=== PATIENT | female | born 1940 | race Caucasian/White ===

== ENCOUNTER 2019-12-08 14:24 | Outpatient (REF) | payer MEDICARE, SELFPAY ==
[2019-12-08 15:31] LABS: Hematocrit 30.5 % (37-47); Mean Corpuscular HGB Conc 32.8 g/dl (31.0-35.0); Mean Corpuscular Hemoglobin 32.5 pg (27.0-33.0); Mean Platelet Volume 10.4 fL (9.4-12.3); Platelet Count 228 X10*3/uL (160-400); Red Blood Count 3.08 X10*6/uL (4.20-5.50); Red Cell Distribution Width 14.5 % (11.0-16.0); White Blood Count 7.4 X10*3/uL (4.8-10.8)
[2019-12-08 16:12] LABS: Alanine Aminotransferase 11 U/L (0-31); Albumin Level 3.5 g/dL (3.5-5.0); Alkaline Phosphatase 114 U/L (39-117); Anion Gap 18 (12-20); Aspartate Amino Transferase 16 U/L (5-31); Bilirubin Total 0.4 mg/dL (0.0-1.0); Blood Urea Nitrogen 46 mg/dL (9-16); Calcium 8.7 mg/dL (8.4-10.2); Carbon Dioxide 24 mmol/L (22-29); Chloride 105 mmol/L (96-108); Estimated Glomerular Filt Rate 47; Glucose Random 72 mg/dL (60-115); Potassium 4.2 mmol/l (3.3-5.1); Sodium 143 mmol/L (135-145); Total Protein 6.1 g/dL (6.5-8.0)
[2019-12-08 16:50] LABS: Folate > 20.0 ng/mL (> or = 4.0); Vitamin B12 160 pg/mL (200-900)
[2019-12-11 00:26] LABS: Zinc 50 mcg/dL (60-130)
== END 2019-12-08 14:25 | disposition home or self-care (01) ==
LOC: HO.LAB 14:24
PROVIDERS: PCP Nurse Practitioner Family; Visit Provider Nurse Practitioner Family
DX: R10.9 Unspecified abdominal pain (principal)
CPT/HCPCS: 36415; 80053; 81382; 82607; 82746; 84630; 85027

== ENCOUNTER 2019-12-18 12:56 | Outpatient (REF) | payer MEDICARE, SELFPAY ==
[2019-12-18 13:58] LABS: MANUAL DIFF FLAG NO
[2019-12-18 14:11] LABS: Basophils Absolute Auto 0.1 X10*3/uL (0.0-0.2); Basophils Percent Auto 0.8 % (0-2); Eosinophils Absolute Auto 0.5 X10*3/uL (0.0-0.4); Eosinophils Percent Auto 6.1 % (0-4); Hematocrit 30.7 % (37-47); Hemoglobin 9.7 g/dl (12.0-16.0); Imm Gran Abs Auto 0.05 X10*3/uL (0.00-0.03); Imm Gran Pct Auto 0.6 % (0.0-0.4); Lymphocytes Absolute Auto 1.5 X10*3/uL (1.2-4.9); Lymphocytes Percent Auto 19.5 % (20-40); Mean Corpuscular HGB Conc 31.6 g/dl (31.0-35.0); Mean Corpuscular Hemoglobin 31.7 pg (27.0-33.0); Mean Corpuscular Volume 100.3 fL (80-98); Mean Platelet Volume 10.2 fL (9.4-12.3); Monocytes Absolute Auto 0.9 X10*3/uL (0.1-1.2); Monocytes Percent Auto 11.2 % (2-11); Neutrophils Absolute Auto 4.8 X10*3/uL (2.0-8.3); Neutrophils Percent Auto 61.8 % (45-73); Platelet Count 229 X10*3/uL (160-400); Red Blood Count 3.06 X10*6/uL (4.20-5.50); Red Cell Distribution Width 14.1 % (11.0-16.0); White Blood Count 7.7 X10*3/uL (4.8-10.8)
[2019-12-23 23:11] LABS: Intrinsic Factor Antibodies Negative (Negative)
[2019-12-24 00:17] LABS: Parietal Cell Antibody <=20.0 Unit (<=20.0)
== END 2019-12-18 12:57 | disposition home or self-care (01) ==
LOC: HO.HMGCLDS 12:56
PROVIDERS: PCP Nurse Practitioner Family; Visit Provider Nurse Practitioner Family
DX: R10.9 Unspecified abdominal pain (principal); E53.8 Deficiency of other specified B group vitamins
CPT/HCPCS: 36415; 81382; 83516; 85025; 86340

== ENCOUNTER 2020-01-27 13:08 | Outpatient (REF) | payer MEDICARE, SELFPAY ==
--- NOTE | 2020-01-27 | MM_ITS ---
EXAMINATION: MM SCREENING DIGITAL BREAST TOMOSYNTHESIS, BILATERAL CLINICAL INFORMATION: Screening. Asymptomatic. The lifetime risk of breast cancer based on the Tyrer-Cuzick Model is 2%. COMPARISON: Mammography: 01/21/2019, 01/15/2018 TECHNIQUE: Digital breast tomosynthesis is performed in both the craniocaudal and mediolateral oblique views along with computer-aided detection (CAD). Synthesized 2D images are generated from the tomosynthesis. Additional views are provided: Right CC, left cleavage, left MLO x2. FINDINGS: There are scattered areas of fibroglandular density (ACR BI-RADS breast composition Category b). Parenchymal pattern is similar to prior studies. There are scattered fibronodular changes similar to previous exams. Scattered benign round and coarse calcifications are again noted. There are numerous punctate dermal foci likely deodorant artifact present on current exam. No significant changes. MM/MM tomosynthesis screening BI IMPRESSION: No significant changes from prior exams. ASSESSMENT: BI-RADS 2: Benign RECOMMENDATION: Routine annual mammography screening. This patient's information was entered into a reminder system with a target due date for their next mammogram.
== END 2020-01-27 13:09 | disposition home or self-care (01) ==
LOC: HO.MAMMO 13:08
PROVIDERS: PCP Nurse Practitioner Family; Visit Provider Nurse Practitioner Family
DX: Z12.31 Encounter for screening mammogram for malignant neoplasm of breast (principal)
CPT/HCPCS: 77063; 77067

== ENCOUNTER → 2020-01-28 11:54 | Outpatient (REF) | payer MEDICARE, SELFPAY ==
--- NOTE | 2020-01-28 11:37 | CA_ITS ---
Transthoracic Echocardiogram Patient (Last, First, Middle): Katerin Neff, Gender: Female Date of : 1940 Age: 79 Procedure Date: 01/28/2020 Procedure Type: Transthoracic Echocardiogram Location: OP Height: 157.48 cm Weight: 102.06 kg BSA: 2.01 m2 Heart Rate: bpm BP: 128 / 80 mmHg Barrel Cooper: Referring MD: Noé Ritter MD Music Minister: Noé Ritter MD Symptoms: 147.1 ATRIAL TACHYCARDIA, 110 ESSENTIAL HYPERTENSION Study Quality: Fair ECG Rhythm: Sinus Conclusions: - 1. Normal LV systolic function with impaired relaxation filling pattern 2. Moderate aortic stenosis 3. Mildly dilated left atrium 4. No pericardial effusion Findings Left Ventricle Normal left ventricular cavity size. The left ventricular systolic function is normal. The visually estimated ejection fraction is between 60-65%. Regional wall motion abnormalities can not be excluded due to suboptimal endocardial definition. Spectral Doppler is indicative of an impaired relaxation filling pattern. E/E prime ratio is between 8 and 15 consistent with indeterminate filling pressures. Right Ventricle Normal right ventricular cavity size. Atria The left atrium is mildly dilated. Interatrial shunt cannot be excluded. The right atrium was not well visualized. Aortic Valve There is moderate calcification of the aortic valve. There is moderate thickening of the aortic valve. There is moderate aortic valve stenosis. There is no aortic valve regurgitation. Mitral Valve There is mild anterior and posterior mitral leaflet thickening. There is mild mitral annular calcification. There is trace mitral valve regurgitation. There is no mitral valve stenosis. Pulmonic Valve The pulmonic valve was not well visualized. Tricuspid Valve The tricuspid valve was not well visualized. Tricuspid regurgitation envelope is inadequate for calculation of right ventricular systolic pressure. Great Vessels All visible segments of the aorta are normal in size. The pulmonary artery was not well visualized. Venous The inferior vena cava is normal in size and collapses greater than 50% with inspiration. Pericardium/Pleural There is no evidence of pericardial effusion. Prior Study Comparison No significant change compared to prior study dated: 01/01/2019. Measurements 2D Linear Measurements Ao Root: 2.90 2.1-3.5 cm LVOT Diam: 2.30 3.0+(-)1.3 cm Mitral Valve MV VTI: 0.35 MV Pk Gaurav: 1.57 MV Mn Gaurav: 0.95 MV Pk Grad: 10.00 MV Mn Grad: 5.00 MV Pk E: 1.37 MV Decel Time: 127.00 E'Lateral: 16.00 E'Medial: 13.60 E/E' Med: 10.10 E/E' Lat: 8.60 PHT: 37.00 MVA PHT: 5.95 MVA Continuity: 2.52 Decel Cidra: 10.79 Aortic Valve AoV Pk Gaurav: 3.58 AoV Mn Gaurav: 2.49 AoV VTI: 0.73 AoV Pk Grad: 51.00 Aov Mn Grad: 29.00 ANJU Cont.VTI: 1.20 LVOT LVOT Pk Gaurav: 1.13 LVOT Mn Gaurav: 0.71 LVOT VTI: 0.21 LVOT Pk Grad: 5.00 LVOT Mn Grad: 2.00 LVOT Diam: 2.30 LVOT Area: 4.15 Diastolic Function MV Pk E: 1.37 E'Medial: 13.60 E/E' Med: 10.10 E' Laterial: 16.00 E/E' Lat: 8.60 Tricuspid Valve TR Pk Gaurav: 2.32 TR Pk Grad: 22.00 Great Vessels Aorta Ao Root-2D: 2.90 2.0-3.7 cm Ao Asc: 3.50 2.1-3.4 cm Pulmonary Valve PV Pk Gaurav: 1.21 Peak PV Grad: 6.00 Updated in Other Vendor System with Status of Final Noé Ritter MD electronically signed on 01/28/2020 3:05:57 PM with status of Final
== END ==
LOC: HO.CARD 11:54
PROVIDERS: Visit Provider Internal Medicine Cardiovascular Disease
DX: I47.1 Supraventricular tachycardia (principal); I10 Essential (primary) hypertension; I35.0 Nonrheumatic aortic (valve) stenosis
CPT/HCPCS: 93306

== ENCOUNTER → 2020-02-16 10:21 | Outpatient (BNVA) | payer MEDICARE, SELFPAY | PROVIDERS: PCP Nurse Practitioner Family; Visit Provider Internal Medicine Cardiovascular Disease | DX: I47.1 Supraventricular tachycardia (principal); I35.0 Nonrheumatic aortic (valve) stenosis; I45.2 Bifascicular block; I10 Essential (primary) hypertension; Z79.899 Other long term (current) drug therapy | CPT/HCPCS: 93005; 99212 ==

== ENCOUNTER 2020-02-25 11:43 | Outpatient (REF) | payer MEDICARE, SELFPAY ==
[2020-02-25 13:59] LABS: MANUAL DIFF FLAG NO
[2020-02-25 14:07] LABS: Basophils Percent Auto 0.4 % (0-2); Eosinophils Absolute Auto 0.6 X10*3/uL (0.0-0.4); Eosinophils Percent Auto 6.1 % (0-4); Hematocrit 31.9 % (37-47); Hemoglobin 10.1 g/dl (12.0-16.0); Imm Gran Abs Auto 0.07 X10*3/uL (0.00-0.03); Imm Gran Pct Auto 0.7 % (0.0-0.4); Lymphocytes Absolute Auto 2.1 X10*3/uL (1.2-4.9); Lymphocytes Percent Auto 21.6 % (20-40); Mean Corpuscular HGB Conc 31.7 g/dl (31.0-35.0); Mean Corpuscular Hemoglobin 30.1 pg (27.0-33.0); Mean Corpuscular Volume 95.2 fL (80-98); Mean Platelet Volume 10.7 fL (9.4-12.3); Monocytes Percent Auto 10.2 % (2-11); Neutrophils Absolute Auto 5.8 X10*3/uL (2.0-8.3); Platelet Count 246 X10*3/uL (160-400); Red Blood Count 3.35 X10*6/uL (4.20-5.50); Red Cell Distribution Width 14.7 % (11.0-16.0); White Blood Count 9.6 X10*3/uL (4.8-10.8)
[2020-02-25 14:35] LABS: Alanine Aminotransferase 14 U/L (0-31); Albumin Level 3.5 g/dL (3.5-5.0); Alkaline Phosphatase 165 U/L (39-117); Anion Gap 18 (12-20); Aspartate Amino Transferase 16 U/L (5-31); Bilirubin Total 0.4 mg/dL (0.0-1.0); Blood Urea Nitrogen 37 mg/dL (9-16); Calcium 10.2 mg/dL (8.4-10.2); Carbon Dioxide 22 mmol/L (22-29); Chloride 107 mmol/L (96-108); Estimated Glomerular Filt Rate 43; Glucose Random 229 mg/dL (60-115); Iron 44 mcg/dL (30-160); Percent Iron Saturation 16 % (15-50); Potassium 5.2 mmol/l (3.3-5.1); Sodium 142 mmol/L (135-145); Total Iron Binding Capacity 270 mcg/dL (228-428); Total Protein 6.2 g/dL (6.5-8.0); Unsaturated Iron Binding 226 ug/dL
[2020-02-25 14:59] LABS: Ferritin 279 ng/mL (10-250); Vitamin B12 510 pg/mL (200-900)
== END 2020-02-25 11:44 | disposition home or self-care (01) ==
LOC: HO.HMGCLDS 11:43
PROVIDERS: PCP Nurse Practitioner Family; Visit Provider Nurse Practitioner Family
DX: E53.8 Deficiency of other specified B group vitamins (principal); D64.9 Anemia, unspecified
CPT/HCPCS: 36415; 80053; 82607; 82728; 83540; 85025

== ENCOUNTER 2020-02-27 11:34 | Outpatient (REF) | payer MEDICARE, SELFPAY ==
[2020-02-27 14:47] LABS: Alanine Aminotransferase 14 U/L (0-31); Albumin Level 3.5 g/dL (3.5-5.0); Alkaline Phosphatase 148 U/L (39-117); Anion Gap 17 (12-20); Aspartate Amino Transferase 14 U/L (5-31); Bilirubin Total 0.3 mg/dL (0.0-1.0); Blood Urea Nitrogen 36 mg/dL (9-16); Carbon Dioxide 23 mmol/L (22-29); Chloride 107 mmol/L (96-108); Estimated Glomerular Filt Rate 43; Glucose Random 214 mg/dL (60-115); Potassium 5.1 mmol/l (3.3-5.1); Sodium 142 mmol/L (135-145); Total Protein 6.2 g/dL (6.5-8.0)
== END 2020-02-27 11:35 | disposition home or self-care (01) ==
LOC: HO.HMGCLDS 11:34
PROVIDERS: PCP Nurse Practitioner Family; Visit Provider Nurse Practitioner Family
DX: E87.5 Hyperkalemia (principal); R74.8 Abnormal levels of other serum enzymes
CPT/HCPCS: 36415; 80053

== ENCOUNTER 2020-03-05 10:43 | Outpatient (REF) | payer MEDICARE, SELFPAY ==
[2020-03-05 12:01] LABS: Alanine Aminotransferase 16 U/L (0-31); Albumin Level 3.6 g/dL (3.5-5.0); Alkaline Phosphatase 155 U/L (39-117); Anion Gap 19 (12-20); Aspartate Amino Transferase 15 U/L (5-31); Bilirubin Total 0.3 mg/dL (0.0-1.0); Blood Urea Nitrogen 35 mg/dL (9-16); Carbon Dioxide 20 mmol/L (22-29); Chloride 107 mmol/L (96-108); Estimated Glomerular Filt Rate 44; Gamma Glutamyl Transpeptidase 14 U/L (7-33); Glucose Random 211 mg/dL (60-115); Sodium 141 mmol/L (135-145); Total Protein 6.5 g/dL (6.5-8.0)
[2020-03-05 12:07] LABS: Calcium 11.4 mg/dL (8.4-10.2)
[2020-03-05 12:19] LABS: Vitamin D 25-OH Total 40.4 ng/mL (>30)
[2020-03-08 12:08] LABS: Calcium, Ionized 6.6 mg/dL (4.8-5.6)
[2020-03-11 18:23] LABS: Parathyroid Hormone Related Pr 12 pg/mL (14-27)
== END 2020-03-05 10:44 | disposition home or self-care (01) ==
LOC: HO.HMGCLDS 10:43
PROVIDERS: PCP Nurse Practitioner Family; Visit Provider Nurse Practitioner Family
DX: R74.8 Abnormal levels of other serum enzymes (principal); E83.52 Hypercalcemia
CPT/HCPCS: 36415; 80053; 82306; 82330; 82977; 83519

== ENCOUNTER 2020-03-09 11:01 | Outpatient (REF) | payer MEDICARE, SELFPAY ==
--- NOTE | 2020-03-09 11:05 | MM_ITS ---
EXAMINATION: BONE DENSITOMETRY CLINICAL INDICATION: Other specified disorders of bone density and structure. COMPARISON: Previous BD dated 01/15/2018 and baseline BD dated 08/25/2010. TECHNIQUE: Using a [employer] DXA System (software version: 13.1) manufactured by [employer], dual-energy x-ray absorptiometry was performed of the lumbar spine and left hip. The images are of good technical quality. Summary results are attached. FINDINGS: AP SPINE L1-L4: Current: BMD 1.286 g/cm2, Z-score 1.9, T-score 0.9, normal, 2.4% increase from previous, 17.2% increase from baseline (<5% change is not significant). Prior: BMD 1.256 g/cm2. Baseline: BMD 1.097 g/cm2. LEFT FEMUR, NECK: Current: BMD 0.855 g/cm2, Z-score 0.4, T-score -1.3, osteopenia. Prior: BMD 0.828 g/cm2. Baseline: BMD 0.832 g/cm2. LEFT FEMUR, TOTAL: Current: BMD 1.068 g/cm2, Z-score 2.0, T-score 0.5, normal, 2.6% increase from previous, 20.0% increase from baseline (<5% change is not significant). Prior: BMD 1.041 g/cm2. Baseline: BMD 0.890 g/cm2. IDENTIFIED RISK FACTORS: Recurrent falls, history of fracture (adult), glucocorticoids (chronic), menopause. HISTORY OF FRACTURE: Humerus/shoulder. MEDICATIONS: Calcium supplements or multivitamin, vitamin D. MM/XR DEXA axial skeleton IMPRESSION: 1. DIAGNOSIS: Osteopenia based on the lowest T-score value of -1.3 in the femoral neck applying World Health Organization criteria. 2. 10-YEAR FRACTURE RISK PREDICTION, FRAX: Major osteoporotic fracture (clinical spine, forearm, hip or shoulder) 25.0%. Hip fracture 6.1%. 3. Treatment Recommendations: NOF guidelines recommend consideration for treatment in postmenopausal women and men age 50 and older presenting with the following: -A hip or vertebral (clinical or morphometric) fracture. -T-score less than or equal to -2.5 at the femoral neck or spine after appropriate evaluation to exclude secondary causes. -Low bone mass at the hip or spine and a 10-year fracture probability by FRAX of greater than or equal to 3% for hip fracture or greater than or equal to 20% for major osteoporotic fracture based on the [place] adapted WHO algorithm. 4. Other Recommendations: All treatment decisions require clinical judgment and consideration of individual patient factors, including patient preferences, comorbidities, previous drug use, risk factors not captured in the FRAX model (e.g. frailty, falls, vitamin D deficiency, increased bone turnover, interval significant decline in bone density) and possible under or overestimation of fracture risk by FRAX. Additional medical evaluation for secondary cause of low bone mineral density may be appropriate. FUTURE SCAN RECOMMENDATION: People with diagnosed cases of osteoporosis or at high risk for fracture should have regular bone mineral density tests. For patients eligible for Medicare, routine testing is allowed once every 2 years. The testing frequency can be increased to one year for patients who have rapidly progressing disease, those who are receiving or discontinuing medical therapy to restore bone mass, or have additional risk factors.
== END 2020-03-09 11:02 | disposition home or self-care (01) ==
LOC: HO.MAMMO 11:01
PROVIDERS: Visit Provider Nurse Practitioner Family
DX: Z13.820 Encounter for screening for osteoporosis (principal); Z78.0 Asymptomatic menopausal state; M85.80 Other specified disorders of bone density and structure, unspecified site; R29.6 Repeated falls; Z79.52 Long term (current) use of systemic steroids
CPT/HCPCS: 77080

== ENCOUNTER 2020-04-06 12:11 | Outpatient (REF) | payer MEDICARE, SELFPAY ==
[2020-04-06 14:04] LABS: MANUAL DIFF FLAG NO
[2020-04-06 14:10] LABS: Basophils Absolute Auto 0.1 X10*3/uL (0.0-0.2); Basophils Percent Auto 0.8 % (0-2); Eosinophils Absolute Auto 0.2 X10*3/uL (0.0-0.4); Eosinophils Percent Auto 2.2 % (0-4); Hemoglobin 9.6 g/dl (12.0-16.0); Imm Gran Abs Auto 0.08 X10*3/uL (0.00-0.03); Imm Gran Pct Auto 0.8 % (0.0-0.4); Lymphocytes Absolute Auto 1.7 X10*3/uL (1.2-4.9); Lymphocytes Percent Auto 15.9 % (20-40); Mean Corpuscular Hemoglobin 30.2 pg (27.0-33.0); Mean Corpuscular Volume 94.3 fL (80-98); Monocytes Percent Auto 9.5 % (2-11); Neutrophils Absolute Auto 7.3 X10*3/uL (2.0-8.3); Neutrophils Percent Auto 70.8 % (45-73); Platelet Count 298 X10*3/uL (160-400); Red Blood Count 3.18 X10*6/uL (4.20-5.50); Red Cell Distribution Width 15.3 % (11.0-16.0); White Blood Count 10.4 X10*3/uL (4.8-10.8)
[2020-04-06 14:43] LABS: Alanine Aminotransferase 12 U/L (0-31); Albumin Level 3.5 g/dL (3.5-5.0); Alkaline Phosphatase 117 U/L (39-117); Anion Gap 18 (12-20); Aspartate Amino Transferase 11 U/L (5-31); Bilirubin Total 0.3 mg/dL (0.0-1.0); Blood Urea Nitrogen 39 mg/dL (9-16); Calcium 10.2 mg/dL (8.4-10.2); Carbon Dioxide 20 mmol/L (22-29); Chloride 108 mmol/L (96-108); Estimated Glomerular Filt Rate 37; Glucose Random 196 mg/dL (60-115); Iron 38 mcg/dL (30-160); Percent Iron Saturation 13 % (15-50); Potassium 4.9 mmol/L (3.3-5.1); Sodium 141 mmol/L (135-145); Total Iron Binding Capacity 284 mcg/dL (228-428); Total Protein 6.3 g/dL (6.5-8.0); Unsaturated Iron Binding 246 ug/dL
[2020-04-06 16:05] LABS: Ferritin 285 ng/mL (10-250)
[2020-04-07 14:02] LABS: Calcium (PTHI) 10.3 mg/dL (8.6-10.4); PTHI 14 pg/mL (14-64)
[2020-04-08 16:33] LABS: Vitamin B12 1074 pg/mL (200-900)
== END 2020-04-06 12:12 | disposition home or self-care (01) ==
LOC: HO.HMGCLDS 12:11
PROVIDERS: PCP Nurse Practitioner Family; Visit Provider Nurse Practitioner Family
DX: D64.9 Anemia, unspecified (principal); E83.52 Hypercalcemia
CPT/HCPCS: 36415; 80053; 82607; 82728; 83540; 83970; 85025

== ENCOUNTER 2020-04-23 | Outpatient (REF) | payer MEDICARE, SELFPAY ==
[2020-04-28 14:46] LABS: OBS Int Ctl Valid YES; OBS1 NEGATIVE (NEGATIVE); OBS2 NEGATIVE (NEGATIVE); OBS3 NEGATIVE (NEGATIVE)
== END 2020-04-23 00:01 | disposition home or self-care (01) ==
LOC: HO.LNP
PROVIDERS: Visit Provider Nurse Practitioner Family
DX: D64.9 Anemia, unspecified (principal)
CPT/HCPCS: 82270

== ENCOUNTER 2020-04-28 13:38 | Inpatient (IN) | payer MEDICARE, SELFPAY ==
[2020-04-28] VITALS (10 sets, daily range): BP systolic 78–108; BP diastolic 25–40; PULSE 48–71; RESP 15–22; TEMP 36.5–36.6; O2SAT 98; BMI 36.6
--- NOTE | ~2020-04-28 | CT_ITS ---
EXAMINATION: HEAD AND CERVICAL SPINE CT WITHOUT CONTRAST CLINICAL INFORMATION: Fall COMPARISON: Previous head and cervical spine CT August 2012 TECHNIQUE: Axial images through the head and cervical spine without contrast. Sagittal and coronal reconstructions on the technologist workstation were performed. Patient dose 692+3 5 3 mg/cm FINDINGS: Head CT: There is no evidence of an extra-axial collection. There is no evidence of intra-axial or extra-axial hemorrhage. Ventricles and extra-axial CSF spaces are prominent suggestive of generalized atrophy. There is nonspecific periventricular white matter disease. No mass, mass effect or infarct is seen. No skull fracture is seen. Visualized paranasal sinuses, mastoid air cells and middle ears are clear. Cervical spine: There is curvature of the lower cervical and upper thoracic spine to the left. Bone alignment is otherwise normal. No fracture or dislocation is seen. There is degenerative spondylosis at C4-C5 and C6-C7. There is disc space narrowing at C4-C5. There is bilateral facet arthritis. There is new posterior dural calcification at C5 and C6. Prevertebral soft tissues are normal. The thyroid gland is prominent and heterogeneous but similar to previous exam. There is a 3 mm right upper lobe nodule axial image 344 series 12. This is not included in the [id number] on prior exam and cannot be compared. There is bilateral cervical lymphadenopathy. Lymph nodes are upper normal in size. This is increased from previous exam CT/CT cervical spine wo con IMPRESSION: Head CT: No acute findings. Mild generalized atrophy and nonspecific periventricular white matter disease. Cervical spine: Degenerative changes. No fracture or dislocation seen. Bilateral cervical lymphadenopathy increased from 2013 exam.
--- NOTE | ~2020-04-28 | CT_ITS ---
EXAMINATION: HEAD AND CERVICAL SPINE CT WITHOUT CONTRAST CLINICAL INFORMATION: Fall COMPARISON: Previous head and cervical spine CT August 2012 TECHNIQUE: Axial images through the head and cervical spine without contrast. Sagittal and coronal reconstructions on the technologist workstation were performed. Patient dose 692+3 5 3 mg/cm FINDINGS: Head CT: There is no evidence of an extra-axial collection. There is no evidence of intra-axial or extra-axial hemorrhage. Ventricles and extra-axial CSF spaces are prominent suggestive of generalized atrophy. There is nonspecific periventricular white matter disease. No mass, mass effect or infarct is seen. No skull fracture is seen. Visualized paranasal sinuses, mastoid air cells and middle ears are clear. Cervical spine: There is curvature of the lower cervical and upper thoracic spine to the left. Bone alignment is otherwise normal. No fracture or dislocation is seen. There is degenerative spondylosis at C4-C5 and C6-C7. There is disc space narrowing at C4-C5. There is bilateral facet arthritis. There is new posterior dural calcification at C5 and C6. Prevertebral soft tissues are normal. The thyroid gland is prominent and heterogeneous but similar to previous exam. There is a 3 mm right upper lobe nodule axial image 344 series 12. This is not included in the [id number] on prior exam and cannot be compared. There is bilateral cervical lymphadenopathy. Lymph nodes are upper normal in size. This is increased from previous exam CT/CT head/brain wo con IMPRESSION: Head CT: No acute findings. Mild generalized atrophy and nonspecific periventricular white matter disease. Cervical spine: Degenerative changes. No fracture or dislocation seen. Bilateral cervical lymphadenopathy increased from 2013 exam.
--- NOTE | ~2020-04-28 | XR_ITS ---
EXAMINATION: XR CHEST CLINICAL INFORMATION: Hypotensive. COMPARISON: None TECHNIQUE: Frontal view of the chest was obtained. FINDINGS: The lungs are hyperinflated with patchy atelectasis left lung base. Rest of lungs are clear. Heart size and pulmonary vascularity is normal. There is moderate spondylosis dorsal spine. No lytic process. XR/XR chest 1V IMPRESSION: Left basilar atelectasis. Moderate spondylosis dorsal spine..
--- NOTE | 2020-04-28 14:13 | ECG_ITS ---
Test Reason : FALL Blood Pressure : / mmHG Vent. Rate : 063 BPM Atrial Rate : 063 BPM P-R Int : 246 ms QRS Dur : 126 ms QT Int : 394 ms P-R-T Axes : -03 -48 034 degrees QTc Int : 403 ms Sinus rhythm with 1st degree A-V block with wenkebach Left axis deviation Right bundle branch block Abnormal ECG When compared with ECG of 11-SEP-2012 11:11, Vent. rate has decreased BY 40 BPM QT has shortened Referred By: Chava Almanzar Electronically Signed By:GRACIA NGUYEN MD
[2020-04-28 14:28] LABS: MANUAL DIFF FLAG NO
[2020-04-28 14:34] LABS: Basophils Absolute Auto 0.1 X10*3/uL (0.0-0.2); Basophils Percent Auto 0.4 % (0-2); Eosinophils Absolute Auto 0.2 X10*3/uL (0.0-0.4); Eosinophils Percent Auto 1.4 % (0-4); Hematocrit 27.3 % (37-47); Hemoglobin 8.8 g/dl (12.0-16.0); Imm Gran Abs Auto 0.09 X10*3/uL (0.00-0.03); Imm Gran Pct Auto 0.8 % (0.0-0.4); Lymphocytes Absolute Auto 1.5 X10*3/uL (1.2-4.9); Lymphocytes Percent Auto 12.2 % (20-40); Mean Corpuscular HGB Conc 32.2 g/dl (31.0-35.0); Mean Corpuscular Hemoglobin 29.8 pg (27.0-33.0); Mean Corpuscular Volume 92.5 fL (80-98); Mean Platelet Volume 9.5 fL (9.4-12.3); Monocytes Absolute Auto 1.3 X10*3/uL (0.1-1.2); Monocytes Percent Auto 10.9 % (2-11); NRBC Pct Auto 0.2 /100WBC (0.0-0.2); Neutrophils Absolute Auto 8.8 X10*3/uL (2.0-8.3); Neutrophils Percent Auto 74.3 % (45-73); Platelet Count 302 X10*3/uL (160-400); Red Blood Count 2.95 X10*6/uL (4.20-5.50); Red Cell Distribution Width 15.3 % (11.0-16.0); White Blood Count 11.9 X10*3/uL (4.8-10.8)
--- NOTE | 2020-04-28 14:39 | ECG_ITS ---
Test Reason : REPEAT Blood Pressure : / mmHG Vent. Rate : 066 BPM Atrial Rate : 062 BPM P-R Int : 000 ms QRS Dur : 128 ms QT Int : 400 ms P-R-T Axes : 000 -52 017 degrees QTc Int : 419 ms Normal sinus rhythm with Premature atrial complexes Right bundle branch block Left anterior fascicular block Bifascicular block Abnormal ECG When compared with ECG of 28-APR-2020 14:19, Premature atrial complexes are now Present Referred By: Chava Almanzar Electronically Signed By:GRACIA NGUYEN MD
[2020-04-28] MEDS: 0.9 % Sodium Chloride 1,000 ML 999 ML IV ×3 (14:45→16:26)
[2020-04-28 15:00] LABS: INTERNATIONAL NORM RATIO 1.4 (0.9-1.1); Prothrombin Time 16.1 SEC (10.8-13.0)
[2020-04-28 15:03] LABS: Partial Thromboplastin Time 31.6 SEC (24.1-38.0)
[2020-04-28 15:13] LABS: Alanine Aminotransferase 11 U/L (0-31); Albumin Level 3.1 g/dL (3.5-5.0); Alkaline Phosphatase 120 U/L (39-117); Anion Gap 16 (12-20); Aspartate Amino Transferase 12 U/L (5-31); Bilirubin Total 0.5 mg/dL (0.0-1.0); Blood Urea Nitrogen 60 mg/dL (9-16); Calcium 9.9 mg/dL (8.4-10.2); Carbon Dioxide 19 mmol/L (22-29); Chloride 107 mmol/L (96-108); Creatinine Clr Calc Pharmacy 20.2; Estimated Glomerular Filt Rate 21; Glucose Random 72 mg/dL (60-115); Potassium 5.1 mmol/L (3.3-5.1); Sodium 137 mmol/L (135-145); Total Protein 5.6 g/dL (6.5-8.0)
[2020-04-28 15:17] LABS: Troponin-I High Sensitivity 6.2 ng/L (<3.5-17.0)
--- NOTE | 2020-04-28 15:18 | ED_ITS ---
HPI - Fall General Chief Complaint: Fall Stated Complaint: fell hit head Sunday Time Seen by Provider: 04/28/20 14:02 Source: patient Mode of arrival: ambulatory Limitations: no limitations History of Present Illness HPI Narrative: Patient presents to ED for evaluation after falling this past Sunday. Patient states she was walking backward into toilet seat and and while trying to sit on the toilet when she slipped and fell on head. Patient denies feeling dizzy, lightheaded, chest pain, headache, nausea before falling. Daughter states since fall patient has been more tired and has not wanted to eat. Daughter states patient has known long history of lightheadedness in the past and always have had normal blood work. Related Data Home Medications Medication Instructions Recorded Confirmed lisinopril 40 mg tablet 40 mg PO DAILY 02/16/20 04/28/20 doxycycline hyclate 50 mg capsule 50 mg PO BID 03/08/20 04/28/20 cyanocobalamin-cobamamide 1 tab PO DAILY 04/28/20 04/28/20 halobetasol propionate 1 appl TOPICAL DAILY 04/28/20 04/28/20 Previous Rx's Medication Instructions Recorded atorvastatin 10 mg tablet 10 mg PO BEDTIME 90 Days #90 tab 12/02/19 metoprolol succinate 50 mg 50 mg PO DAILY #90 cap 12/03/19 tablet,extended release 24 hr metformin 1,000 mg tablet 1,000 mg PO BID 90 Days #180 tab 01/19/20 omega-3 acid ethyl esters 1 gram 2 cap PO BID #360 cap 02/17/20 capsule allopurinol 300 mg tablet 300 mg PO DAILY #90 tab 03/01/20 diltiazem HCl 240 mg 240 mg PO DAILY 90 Days #90 cap 03/02/20 capsule,extended release 24 hr Allergies Allergy/AdvReac Type Severity Reaction Status Date / Time adhesive tape [ADHESIVE TAPE] Allergy Intermediate RASH Verified 03/08/20 15:52 Review of Systems Review of Systems: Yes all other systems are reviewed and are negative Constitutional: Constitutional: Reports as per HPI, Reports no additional c onstitutional complaints and Reports headache(s) Eyes: Eyes: Reports as per HPI and Reports no additional eye complaints ENT: Reports system reviewed and no additional complaints, except as documented, Reports as per HPI and Reports headache(s) Cardiovascular: Cardiovascular: Reports as per HPI and Reports no additional cardiovascular complaints Respiratory: Respiratory: Reports as per HPI and Reports no additional respiratory complaints Gastrointestinal: Gastrointestinal: Reports as per HPI, Reports no additional gastrointestinal complaints, Denies abdominal pain, Denies belching, Denies melena, Denies bloating, Denies heartburn, Denies diarrhea and Denies nausea Genitourinary: Genitourinary: Reports no additional female genitourinary complaints and Reports as per HPI Musculoskeletal: Musculoskeletal: Reports no additional musculoskeletal complaints and Reports as per HPI Neurologic: Reports system reviewed and no additional complaints, except as documented, Reports as per HPI and Reports headache(s) Psychiatric: Psychiatric: Reports no additional psychiatric complaints and Reports as per HPI PMFSH Past Medical History Medical History Aortic stenosis Atrial tachycardia B12 deficiency Basal cell carcinoma of face Bifascicular block Bullous pemphigoid Diabetes mellitus Gout HTN (hypertension) Lymphedema RBBB Surgical History (Updated 02/12/20 @ 15:06 by ALEX Orozco, COMMERCIAL [employer]LECT[employer]) History of hemorrhoidectomy History of tonsillectomy Hx of cholecystectomy Umbilical hernia Family History Family History (Updated 02/12/20 @ 15:09 by ALEX Orozco, COMMERCIAL COLLECTOR) Father Myocardial infarction Mother CHF (congestive heart failure) Brother Dementia Son No problems noted. Daughter No problems noted. Daughter No problems noted. Sister No problems noted. Sister No problems noted. Sister No problems noted. Sister Ovarian cancer Sister Cancer Stroke Social History Social History (Updated 03/08/20 @ 13:47 by Georgia Silveira CMA) Alcohol intake: never Smoking Status: Never smoker Advance Directives: Yes Advance Directives Information Provided: Yes Advance Directives on File: No Physical Exam Vital Signs: Vital Signs: Last Vital Signs Temp 97.7 F 04/28/20 19:40 Pulse 63 04/28/20 21:15 Resp 20 04/28/20 21:15 BP 81/28 L 04/28/20 21:15 Pulse Ox 98 04/28/20 21:15 Body Mass Index 36.6 Const: General: cooperative, healthy appearing, comfortable, no acute distress, well developed, alert, awake and Physically active Orientation/consciousness: patient oriented x3 HENMT: Head: Yes normal to inspection, Yes No palpable skull fracture present, Yes normocephalic, Yes atraumatic, Yes abrasion, No Acrocyanosis present, No Dos Santos's sign, No contusion, No cranial bruits, Yes hematoma (Small parietal), No laceration, No occipital foramen tenderness, No palpable skull fracture, No raccoon eyes, No scalp lesion, No scalp tenderness, No Temporal artery tenderness present and No periorbital ecchymosis Eyes: General: appearance normal, both eyes and all related structures Neck: Neck: Yes normal visual inspection, Yes full ROM, Yes no lymphadenopathy, Yes no meningeal signs, Yes trachea midline, Yes supple and Yes tender Chest: Chest palpation & inspection: normal inspection of the chest and normal palpation of entire chest wall Resp: Effort & Inspection: normal respiratory effort and able to speak in complete sentences Auscultation: clear to auscultation bilaterally Cardio: Jugular venous distension: no JVD Heart sounds: S1 normal heart sound present and S2 normal heart sound present GI: Other: Rectal exam negative for any peewee blood or black stool. Stool is brown Inspection: Yes normal to inspection and No abdominal wall ecchymosis Palpation (GI): Abdominal aortic bruit present, Soft to palpation, not firm, nontender, no guarding and not rigid : General: No CVA tenderness and Yes no CVA tenderness Back/Spine/Pelvis: Back: no CVA tenderness, No CVA tenderness and No back tenderness Skin: General skin exam: no rashes or lesions noted and elasticity normal Neuro: General: patient oriented x3, no meningeal signs and CN's II-XI intact bilaterally Cranial nerves: Yes CN's II-XII intact bilaterally Extrem: General: Yes normal to inspection and Yes full ROM Psych: Appearance: grossly normal, well kempt and not disheveled Course Course Course Narrative: Patient's history physical exam indicate mechanical fall but due to patient being slightly hyportensive patient will have medical evaluation. Patient will have labs, UA, chest x-ray, head CT, and C-spine. Reevaluation(s) Reevaluation #1: Patient's 1st EKG was sinus, because patient became hypotensive repeat EKG was done. EKG reading states history of fibrillation but Dr. Salinas and I reviewed the chart and patient has P waves. EKG reading of atrial fibrillation is wrong. Patient will be given fluids. Reevaluation #2: Patient CK came back normal. Patient initial lab shows HEAVENLY. CBC shows a drop in H&H will do occult stool guaiac to rule out bleed. Presently no source of infection. Reevaluation #3: Patient's stool guaiac came back positive. Will consult Gastroenterology. Spoke with Dr. Ash who recommends patient received is 1 unit of blood. Awaiting UA results. Will talk with attendant for possible central line the patient still hyportensive. Patient never complained of any dizziness, lightheadedness, shortness of breath, or weakness during ED visit. Patient orthostatics positive Additional Reevaluation(s): Spoke with Dr. Jacobo of Gastroenterology and he was made aware of patient's history, physical exam, vital signs, and diagnostics. He was informed that patient will be receiving 1 unit of blood and Protonix. He states he will see patient in the morning and further evaluate with possible endoscope P if indicated. Patient blood pressure improved to 108/40. Spoke with Dr. Spears who states he could continue to watch blood pressure now that it has improved. Patient's map improved. Patient does not want us to put a Dalal for her to give urine patient states she would rather wait and going her own. At 18:48 patient once again became hypotensive. Discu ssed case with Dr. Akhtar who states patient should receive blood first and than have blood pressure re-evaluation to see if central line is indicated. And 20:35 patient finally give urine. UA shows most likely non clean-catch and not UTI. Patient has large amounts of squamous cell. As per nursing staff urine was collected after patient use the commode when she also had a bowel movement at the same time while she urinated urinated patient has no urinary symptoms. 20:[address] Platt and he agrees to accept the case. He was informed patient's history, physical exam, and diagnostics, and labs. We discussed UA and he also agreed most likely this is dirty catch and not a UTI, but he states to order antibiotics and he will follow the urine culture tomorrow. The patient is not septic. COVID swab pending. At 20:55 blood pressure improved to 107/35. At 21:30 went again to speak to patient and her daughter. Patient made me aware that she was DNI and DNR. Patient's daughter was also in the room amd confirmed that her mother is DNI and DNR. Patient does not want to change her code status. Patient and daughter states they have record of patient is signing a form with her which that states DNI and DNR. Patient is agreeable to central line. Patient repeat blood pressure 81/28. Dr. Spears was made aware and states place patient in Trendelenburg and she will place central line if there is no improvement in blood pressure. Dr. Akhtar will follow case. MDM - Fall MDM Narrative Medical decision making narrative: HEAVENLY. Rule out GI bleed. Symptomatic anemia Lab Data Result diagrams: 04/28/20 14:22 04/28/20 18:28 Labs: Lab Results 04/28/20 04/28/20 04/28/20 Range/Units 14:22 14:22 14:22 WBC 11.9 H (4.8-10.8) X10*3/uL RBC 2.95 L (4.20-5.50) X10*6/uL Hgb 8.8 L (12.0-16.0) g/dl Hct 27.3 L (37-47) % MCV 92.5 (80-98) fL MCH 29.8 (27.0-33.0) pg MCHC 32.2 (31.0-35.0) g/dl RDW 15.3 (11.0-16.0) % Plt Count 302 (160-400) X10*3/uL MPV 9.5 (9.4-12.3) fL Immature Gran % (Auto) 0.8 H (0.0-0.4) % Neut % (Auto) 74.3 H (45-73) % Lymph % (Auto) 12.2 L (20-40) % [place] % (Auto) 10.9 (2-11) % Eos % (Auto) 1.4 (0-4) % Baso % (Auto) 0.4 (0-2) % Lymph # (Auto) 1.5 (1.2-4.9) X10*3/uL [place] # (Auto) 1.3 H (0.1-1.2) X10*3/uL Eos # (Auto) 0.2 (0.0-0.4) X10*3/uL Baso # (Auto) 0.1 (0.0-0.2) X10*3/uL Abs Immat Gran (auto) 0.09 H (0.00-0.03) X10*3/uL Absolute Neuts (auto) 8.8 H (2.0-8.3) X10*3/uL Absolute Nucleated RBC 0.020 H (0.0-0.012) X10*3/uL Nucleated RBC % (auto) 0.2 (0.0-0.2) /100WBC PT 16.1 H (10.8-13.0) SEC INR 1.4 H (0.9-1.1) APTT 31.6 (24.1-38.0) SEC Sodium 137 (135-145) mmol/L Potassium 5.1 (3.3-5.1) mmol/L Chloride 107 (96-108) mmol/L Carbon Dioxide 19 L (22-29) mmol/L Anion Gap 16 (12-20) BUN 60 H D (9-16) mg/dL Creatinine 2.24 H (0.5-1.4) mg/dL Estim Creat Clear Calc 20.2 Estimated GFR 21 Random Glucose 72 D (60-115) mg/dL Lactic Acid (0.5-2.0) mmol/L Calcium 9.9 (8.4-10.2) mg/dL Total Bilirubin 0.5 (0.0-1.0) mg/dL AST 12 (5-31) U/L ALT 11 (0-31) U/L Alkaline Phosphatase 120 H (39-117) U/L Total Creatine Kinase 24 L (26-140) U/L Troponin I High Sens (<3.5-17.0) ng/L B-Natriuretic Peptide Total Protein 5.6 L (6.5-8.0) g/dL Albumin 3.1 L (3.5-5.0) g/dL Urine Color Urine Appearance Urine pH (5.0-8.0) Ur Specific [place] (1.005-1.025) Urine Protein (NEG-TRACE) MG/DL Urine Glucose (UA) (NEG) MG/DL Urine Ketones (NEG) MG/DL Urine Blood (NEG) Urine Nitrite (NEG) Ur Leukocyte Esterase (NEG) Urine RBC (0) /HPF Urine WBC (0-4) /HPF Ur Squamous Epith Cells /LPF Ur Renal Epithelial Cell /LPF Urine Bacteria /LPF Stool Occult Blood (NEGATIVE) COVID-19 ([facility]ELSIE) (Negative) COVID-19 Clin Com Blood Type Antibody Screen Crossmatch 04/28/20 04/28/20 04/28/20 Range/Units 14:22 15:52 15:54 WBC (4.8-10.8) X10*3/uL RBC (4.20-5.50) X10*6/uL Hgb (12.0-16.0) g/dl Hct (37-47) % MCV (80-98) fL MCH (27.0-33.0) pg MCHC (31.0-35.0) g/dl RDW (11.0-16.0) % Plt Count (160-400) X10*3/uL MPV (9.4-12.3) fL Immature Gran % (Auto) (0.0-0.4) % Neut % (Auto) (45-73) % Lymph % (Auto) (20-40) % [place] % (Auto) (2-11) % Eos % (Auto) (0-4) % Baso % (Auto) (0-2) % Lymph # (Auto) (1.2-4.9) X10*3/uL [place] # (Auto) (0.1-1.2) X10*3/uL Eos # (Auto) (0.0-0.4) X10*3/uL Baso # (Auto) (0.0-0.2) X10*3/uL Abs Immat Gran (auto) (0.00-0.03) X10*3/uL Absolute Neuts (auto) (2.0-8.3) X10*3/uL Absolute Nucleated RBC (0.0-0.012) X10*3/uL Nucleated RBC % (auto) (0.0-0.2) /100WBC PT (10.8-13.0) SEC INR (0.9-1.1) APTT (24.1-38.0) SEC Sodium (135-145) mmol/L Potassium (3.3-5.1) mmol/L Chloride (96-108) mmol/L Carbon Dioxide (22-29) mmol/L Anion Gap (12-20) BUN (9-16) mg/dL Creatinine (0.5-1.4) mg/dL Estim Creat Clear Calc Estimated GFR Random Glucose (60-115) mg/dL Lactic Acid 1.2 (0.5-2.0) mmol/L Calcium (8.4-10.2) mg/dL Total Bilirubin (0.0-1.0) mg/dL AST (5-31) U/L ALT (0-31) U/L Alkaline Phosphatase (39-117) U/L Total Creatine Kinase (26-140) U/L Troponin I High Sens 6.2 (<3.5-17.0) ng/L B-Natriuretic Peptide Cancelled Total Protein (6.5-8.0) g/dL Albumin (3.5-5.0) g/dL Urine Color Urine Appearance Urine pH (5.0-8.0) Ur Specific [place] (1.005-1.025) Urine Protein (NEG-TRACE) MG/DL Urine Glucose (UA) (NEG) MG/DL Urine Ketones (NEG) MG/DL Urine Blood (NEG) Urine Nitrite (NEG) Ur Leukocyte Esterase (NEG) Urine RBC (0) /HPF Urine WBC (0-4) /HPF Ur Squamous Epith Cells /LPF Ur Renal Epithelial Cell /LPF Urine Bacteria /LPF Stool Occult Blood POSITIVE (NEGATIVE) COVID-19 ([facility]ELSIE) (Negative) COVID-19 Clin Com Blood Type Antibody Screen Crossmatch 04/28/20 04/28/20 04/28/20 Range/Units 17:04 18:28 18:28 WBC (4.8-10.8) X10*3/uL RBC (4.20-5.50) X10*6/uL Hgb (12.0-16.0) g/dl Hct (37-47) % MCV (80-98) fL MCH (27.0-33.0) pg MCHC (31.0-35.0) g/dl RDW (11.0-16.0) % Plt Count (160-400) X10*3/uL MPV (9.4-12.3) fL Immature Gran % (Auto) (0.0-0.4) % Neut % (Auto) (45-73) % Lymph % (Auto) (20-40) % [place] % (Auto) (2-11) % Eos % (Auto) (0-4) % Baso % (Auto) (0-2) % Lymph # (Auto) (1.2-4.9) X10*3/uL [place] # (Auto) (0.1-1.2) X10*3/uL Eos # (Auto) (0.0-0.4) X10*3/uL Baso # (Auto) (0.0-0.2) X10*3/uL Abs Immat Gran (auto) (0.00-0.03) X10*3/uL Absolute Neuts (auto) (2.0-8.3) X10*3/uL Absolute Nucleated RBC (0.0-0.012) X10*3/uL Nucleated RBC % (auto) (0.0-0.2) /100WBC PT (10.8-13.0) SEC INR (0.9-1.1) APTT (24.1-38.0) SEC Sodium 138 (135-145) mmol/L Potassium 5.0 (3.3-5.1) mmol/L Chloride 111 H (96-108) mmol/L Carbon Dioxide 16 L (22-29) mmol/L Anion Gap 16 (12-20) BUN 59 H (9-16) mg/dL Creatinine 2.11 H (0.5-1.4) mg/dL Estim Creat Clear Calc 21.5 Estimated GFR 22 Random Glucose 66 (60-115) mg/dL Lactic Acid (0.5-2.0) mmol/L Calcium 9.0 D (8.4-10.2) mg/dL Total Bilirubin 0.4 (0.0-1.0) mg/dL AST 15 (5-31) U/L ALT 8 (0-31) U/L Alkaline Phosphatase 97 (39-117) U/L Total Creatine Kinase (26-140) U/L Troponin I High Sens 7.6 (<3.5-17.0) ng/L B-Natriuretic Peptide Total Protein 4.9 L (6.5-8.0) g/dL Albumin 2.6 L (3.5-5.0) g/dL Urine Color Urine Appearance Urine pH (5.0-8.0) Ur Specific [place] (1.005-1.025) Urine Protein (NEG-TRACE) MG/DL Urine Glucose (UA) (NEG) MG/DL Urine Ketones (NEG) MG/DL Urine Blood (NEG) Urine Nitrite (NEG) Ur Leukocyte Esterase (NEG) Urine RBC (0) /HPF Urine WBC (0-4) /HPF Ur Squamous Epith Cells /LPF Ur Renal Epithelial Cell /LPF Urine Bacteria /LPF Stool Occult Blood (NEGATIVE) COVID-19 ([facility]ELSIE) (Negative) COVID-19 Clin Com Blood Type A Positive Antibody Screen NEGATIVE Crossmatch See Detail 04/28/20 04/28/20 04/28/20 Range/Units 18:28 19:01 20:06 WBC (4.8-10.8) X10*3/uL RBC (4.20-5.50) X10*6/uL Hgb (12.0-16.0) g/dl Hct (37-47) % MCV (80-98) fL MCH (27.0-33.0) pg MCHC (31.0-35.0) g/dl RDW (11.0-16.0) % Plt Count (160-400) X10*3/uL MPV (9.4-12.3) fL Immature Gran % (Auto) (0.0-0.4) % Neut % (Auto) (45-73) % Lymph % (Auto) (20-40) % [place] % (Auto) (2-11) % Eos % (Auto) (0-4) % Baso % (Auto) (0-2) % Lymph # (Auto) (1.2-4.9) X10*3/uL [place] # (Auto) (0.1-1.2) X10*3/uL Eos # (Auto) (0.0-0.4) X10*3/uL Baso # (Auto) (0.0-0.2) X10*3/uL Abs Immat Gran (auto) (0.00-0.03) X10*3/uL Absolute Neuts (auto) (2.0-8.3) X10*3/uL Absolute Nucleated RBC (0.0-0.012) X10*3/uL Nucleated RBC % (auto) (0.0-0.2) /100WBC PT (10.8-13.0) SEC INR (0.9-1.1) APTT (24.1-38.0) SEC Sodium (135-145) mmol/L Potassium (3.3-5.1) mmol/L Chloride (96-108) mmol/L Carbon Dioxide (22-29) mmol/L Anion Gap (12-20) BUN (9-16) mg/dL Creatinine (0.5-1.4) mg/dL Estim Creat Clear Calc Estimated GFR Random Glucose (60-115) mg/dL Lactic Acid (0.5-2.0) mmol/L Calcium (8.4-10.2) mg/dL Total Bilirubin (0.0-1.0) mg/dL AST (5-31) U/L ALT (0-31) U/L Alkaline Phosphatase (39-117) U/L Total Creatine Kinase (26-140) U/L Troponin I High Sens (<3.5-17.0) ng/L B-Natriuretic Peptide 33 Total Protein (6.5-8.0) g/dL Albumin (3.5-5.0) g/dL Urine Color DARK YELLOW Urine Appearance CLOUDY Urine pH 5.0 (5.0-8.0) Ur Specific [place] >= 1.030 H (1.005-1.025) Urine Protein NEG (NEG-TRACE) MG/DL Urine Glucose (UA) NEG (NEG) MG/DL Urine Ketones NEG (NEG) MG/DL Urine Blood NEG (NEG) Urine Nitrite NEG (NEG) Ur Leukocyte Esterase 1+ H (NEG) Urine RBC 1-4 (0) /HPF Urine WBC 30-49 H (0-4) /HPF Ur Squamous Epith Cells 4+ /LPF Ur Renal Epithelial Cell TRACE /LPF Urine Bacteria 2+ /LPF Stool Occult Blood (NEGATIVE) COVID-19 (KELSIE) Negative (Negative) COVID-19 Clin Com See Note Blood Type Antibody Screen Crossmatch ECG Data Interpretation: First EKG: Sinus rhythm with first-degree AV block. Ventricular rate 63. Peer interval 246. QRS 126 pain due to see for 0 3. Negative STEMI. Right bundle branch block Second EKG: States atrial fibrillation, but is wrong. Sinus rhythm. Ventricular rate 66. QRS 128. QTC 419. Negative STEMI. Bifascicular block 30 kg: Sinus bradycardia with first-degree AV block. Ventricular rate 56. Appearance of 0312. QRS 130. QTC 428. Negative STEMI Discharge Plan Discharge Clinical Impression: HEAVENLY (acute kidney injury), Symptomatic anemia Patient Disposition: Admitted As Inpatient
[2020-04-28 16:05] LABS: OBS Int Ctl Valid YES; OBS1 POSITIVE (NEGATIVE)
[2020-04-28 16:30] LABS: Lactic Acid 1.2 mmol/L (0.5-2.0)
[2020-04-28] MEDS: Pantoprazole Sodium 40 MG/10 ML VIAL 80 MG IVPUSH (18:20)
--- NOTE | 2020-04-28 19:06 | PC.NURSE ---
Report taken from Jordan, this RN resuming care. Pt resting in bed with family at bedside, offers no complaints at this time. RBCs infusing easily. vss. Continue to monitor.
[2020-04-28 19:13] LABS: B Type Natriuretic Peptide 33 pg/mL (<100); Troponin-I High Sensitivity 7.6 ng/L (<3.5-17.0)
[2020-04-28 19:18] LABS: Alanine Aminotransferase 8 U/L (0-31); Albumin Level 2.6 g/dL (3.5-5.0); Alkaline Phosphatase 97 U/L (39-117); Anion Gap 16 (12-20); Aspartate Amino Transferase 15 U/L (5-31); Bilirubin Total 0.4 mg/dL (0.0-1.0); Blood Urea Nitrogen 59 mg/dL (9-16); Carbon Dioxide 16 mmol/L (22-29); Chloride 111 mmol/L (96-108); Creatinine Clr Calc Pharmacy 21.5; Estimated Glomerular Filt Rate 22; Glucose Random 66 mg/dL (60-115); Sodium 138 mmol/L (135-145); Total Protein 4.9 g/dL (6.5-8.0)
[2020-04-28 19:25] LABS: COVID-19 Test Negative (Negative)
--- NOTE | 2020-04-28 19:40 | ECG_ITS ---
Test Reason : BRADYCARDIA Blood Pressure : / mmHG Vent. Rate : 056 BPM Atrial Rate : 056 BPM P-R Int : 312 ms QRS Dur : 130 ms QT Int : 444 ms P-R-T Axes : 067 -40 017 degrees QTc Int : 428 ms Sinus bradycardia with AV Wenkebach with 1st degree A-V block Left axis deviation Right bundle branch block Abnormal ECG When compared with ECG of 28-APR-2020 14:44, AV Wenkebach is present Referred By: Chava Almanzar Electronically Signed By:GRACIA NGUYEN MD
--- NOTE | 2020-04-28 19:45 | PC.NURSE ---
Pts HR noted to decrease to 40-44 bpm on telemetry, wide pauses noted. PA aware. Repeat EKG ordered and obtained. Continue to monitor.
[2020-04-28 20:11] LABS: Glucose Urine UA NEG (NEG); Leukocyte Esterase Urine 1+ (NEG); Nitrite Urine NEG (NEG); Specific Gravity - Urine >= 1.030 (1.005-1.025); UACC Culture Trigger YES; Urine Blood NEG (NEG); Urine Ketones NEG (NEG); Urine Protein NEG (NEG-TRACE)
[2020-04-28 20:13] LABS: Appearance Urine CLOUDY; Color Urine DARK YELLOW
--- NOTE | 2020-04-28 20:20 | PC.NURSE ---
UA obtained and sent. Pt assisted onto commode, requiring a one assist to stand/pivot. Pt reports watery diarrhea for weeks now. Daughter explains her PCP referred her to a GI doctor but she has been unable to see him so far. Pt and daughter were concerned that pt had Celiacs however she was tested and came back negative for Celiacs. Pt assisted back into bed into POC, aware of plan to admit. Continue to monitor.
[2020-04-28 20:23] LABS: Bacteria Urine 2+ /LPF; Renal Epithelial Cells Urine TRACE /LPF; Squamous Epithelial Cell Urine 4+ /LPF; WBC Urine 30-49 /HPF (0-4)
--- NOTE | 2020-04-28 20:43 | PM.IMHP ---
History of Present Illness Date of Service: 04/28/20 Chief Complaint: Generalized weakness 80-year-old female with a past medical history of hypertension, hyperlipidemia, diabetes, peripheral edema, anemia, B12 deficiency, presented to the hospital with a chief complaint of generalized weakness. Reportedly patient had a fall on last Sunday; was in the chair and fell while going to bathroom; and hit her head. Denies any loss of consciousness or seizure-like activity. Per family patient has been declining since then and has been weak/fatigued. Decreased oral intake. Denies any fever chills cough. Denies any chest pain palpitations. Denies any numbness tingling or focal weakness. Denies any nausea vomiting. Reports diarrhea and black stool but attributes to Peptobismol Review of all other systems is negative except mentioned above ER course: Per ER team patient noted to have soft blood pressure, orthostatics positive, lab showed HEAVENLY, CBC showed hemoglobin dropped from 9.6-8.8 and stool guaiac was positive. Patient was given IV fluids, 1 unit of blood transfusion, ceftriaxone for possible UTI. Admitted to the hospital for further management [facility] Medical History Aortic stenosis Atrial tachycardia B12 deficiency Basal cell carcinoma of face Bifascicular block Bullous pemphigoid Diabetes mellitus Gout HTN (hypertension) Lymphedema RBBB Family History (Updated 02/12/20 @ 15:09 by Erika Thorpe, A, [facility]) Father Myocardial infarction Mother CHF (congestive heart failure) Brother Dementia Son No problems noted. Daughter No problems noted. Daughter No problems noted. Sister No problems noted. Sister No problems noted. Sister No problems noted. Sister Ovarian cancer Sister Cancer Stroke Surgical History History of hemorrhoidectomy History of tonsillectomy Hx of cholecystectomy Umbilical hernia Social History Household Members: Children Housing: House Alcohol intake: never Smoking Status: Former smoker Advance Directives Date on File: 04/28/20 service: No Current occupational status: retired Meds Allergies Allergy/AdvReac Type Severity Reaction Status Date / Time adhesive tape [ADHESIVE TAPE] Allergy Intermediate RASH Verified 05/06/20 16:46 Active Medications: Current Medications Generic Name Dose Route Start Last Admin Trade Name Freq PRN Reason Stop Dose Admin Acetaminophen 650 mg 04/28/20 20:35 Acetaminophen 325 Mg Tablet PO Q6H PRN Pain, Mild (Pain Scale 1-3) Sodium Chloride 1,000 mls @ 100 mls/hr 04/28/20 20:45 Ns IVCONT .Q10H [facility] Ceftriaxone Sodium 1 gm/ 50 mls @ 100 mls/hr 04/28/20 20:45 Sodium Chloride IV Q24H [facility] Insulin Human Lispro 0 unit 04/28/20 21:00 Insulin Lispro 100 Unit/Ml 3 Ml Vial SUBCUT QIDACHS [facility] Protocol Pantoprazole Sodium 40 mg 04/29/20 06:30 Pantoprazole Sodium 40 Mg/10 Ml Vial IVPUSH DAILY@0630 [facility] Sodium Chloride 3 ml 04/29/20 00:00 0.9 % Sodium Chloride Flush 3 Ml Syringe IVFLUSH QSHIFT [facility] Home Medications Medication Instructions Recorded Confirmed Last Taken Type halobetasol propionate 1 appl TOPICAL DAILY 04/28/20 04/28/20 Unknown History aspirin 81 mg PO DAILY 04/30/20 04/30/20 Unknown History calcium carbonate-vitamin D3 1 tab PO BID 04/30/20 04/30/20 Unknown History multivitamin 1 tab PO DAILY 04/30/20 04/30/20 Unknown History carboxymethylcellulose sodium 0.5 1 drp OPHTHALMIC (EYE) BID 05/06/20 Unknown History % eye drops in a dropperette clobetasol 0.05 % topical cream g TOPICAL BID 05/06/20 Unknown History docusate sodium 50 mg capsule 50 mg PO DAILY 05/06/20 Unknown History fluocinonide 0.05 % topical ml TOPICAL BID 05/06/20 Unknown History solution triamcinolone acetonide 0.1 % appl TOPICAL 05/06/20 Unknown History topical cream Physical Exam Vital Signs and Narrative: Vital Signs: Last Vital Signs Temp 97.7 F 04/28/20 19:40 Pulse 58 04/28/20 20:19 Resp 22 H 04/28/20 20:19 BP 107/35 L 04/28/20 20:19 Pulse Ox 98 04/28/20 20:19 Body Mass Index 36.6 Gen: Appears be in no acute distress HEENT: NCAT, Moist mucosa. Pulmonary: Vesicular breath sounds, fair air entry CVS: Normal S1-S2 Abdomen: BS+, Soft, Nontender Extremities: Warm well perfused Neuro: Alert and awake. Results Labs CBC and Chem 7: 05/02/20 05:17 05/02/20 05:17 Labs: Laboratory Results - last 24 hr 04/28/20 04/28/20 04/28/20 14:22 14:22 14:22 MCV 92.5 MCH 29.8 MCHC 32.2 RDW 15.3 Plt Count 302 MPV 9.5 Immature Gran % (Auto) 0.8 H Neut % (Auto) 74.3 H Lymph % (Auto) 12.2 L Dixie % (Auto) 10.9 Eos % (Auto) 1.4 Baso % (Auto) 0.4 Lymph # (Auto) 1.5 Dixie # (Auto) 1.3 H Eos # (Auto) 0.2 Baso # (Auto) 0.1 Abs Immat Gran (auto) 0.09 H Absolute Neuts (auto) 8.8 H Absolute Nucleated RBC 0.020 H Nucleated RBC % (auto) 0.2 PT 16.1 H INR 1.4 H APTT 31.6 Anion Gap 16 Estim Creat Clear Calc 20.2 Estimated GFR 21 Random Glucose 72 D Lactic Acid Calcium 9.9 Total Bilirubin 0.5 AST 12 ALT 11 Alkaline Phosphatase 120 H Total Creatine Kinase 24 L Troponin I High Sens B-Natriuretic Peptide Total Protein 5.6 L Albumin 3.1 L Urine Color Urine Appearance Urine pH Ur Specific Buckhorn Urine Protein Urine Glucose (UA) Urine Ketones Urine Blood Urine Nitrite Ur Leukocyte Esterase Urine RBC Urine WBC Ur Squamous Epith Cells Ur Renal Epithelial Cell Urine Bacteria Stool Occult Blood COVID-19 (KELSIE) COVID-19 Clin Com Blood Type Antibody Screen Crossmatch 04/28/20 04/28/20 04/28/20 14:22 15:52 15:54 MCV MCH MCHC RDW Plt Count MPV Immature Gran % (Auto) Neut % (Auto) Lymph % (Auto) Dixie % (Auto) Eos % (Auto) Baso % (Auto) Lymph # (Auto) Dixie # (Auto) Eos # (Auto) Baso # (Auto) Abs Immat Gran (auto) Absolute Neuts (auto) Absolute Nucleated RBC Nucleated RBC % (auto) PT INR APTT Anion Gap Estim Creat Clear Calc Estimated GFR Random Glucose Lactic Acid 1.2 Calcium Total Bilirubin AST ALT Alkaline Phosphatase Total Creatine Kinase Troponin I High Sens 6.2 B-Natriuretic Peptide Cancelled Total Protein Albumin Urine Color Urine Appearance Urine pH Ur Specific Buckhorn Urine Protein Urine Glucose (UA) Urine Ketones Urine Blood Urine Nitrite Ur Leukocyte Esterase Urine RBC Urine WBC Ur Squamous Epith Cells Ur Renal Epithelial Cell Urine Bacteria Stool Occult Blood POSITIVE COVID-19 (KELSIE) COVID-19 [facility] Com Blood Type Antibody Screen Crossmatch 04/28/20 04/28/20 04/28/20 17:04 18:28 18:28 MCV MCH MCHC RDW Plt Count MPV Immature Gran % (Auto) Neut % (Auto) Lymph % (Auto) Dixie % (Auto) Eos % (Auto) Baso % (Auto) Lymph # (Auto) Dixie # (Auto) Eos # (Auto) Baso # (Auto) Abs Immat Gran (auto) Absolute Neuts (auto) Absolute Nucleated RBC Nucleated RBC % (auto) PT INR APTT Anion Gap 16 Estim Creat Clear Calc 21.5 Estimated GFR 22 Random Glucose 66 Lactic Acid Calcium 9.0 D Total Bilirubin 0.4 AST 15 ALT 8 Alkaline Phosphatase 97 Total Creatine Kinase Troponin I High Sens 7.6 B-Natriuretic Peptide Total Protein 4.9 L Albumin 2.6 L Urine Color Urine Appearance Urine pH Ur Specific Buckhorn Urine Protein Urine Glucose (UA) Urine Ketones Urine Blood Urine Nitrite Ur Leukocyte Esterase Urine RBC Urine WBC Ur Squamous Epith Cells Ur Renal Epithelial Cell Urine Bacteria Stool Occult Blood COVID-19 (KELSIE) COVID-19 [facility] Com Blood Type A Positive Antibody Screen NEGATIVE Crossmatch See Detail 04/28/20 04/28/20 04/28/20 18:28 19:01 20:06 MCV MCH MCHC RDW Plt Count MPV Immature Gran % (Auto) Neut % (Auto) Lymph % (Auto) Dixie % (Auto) Eos % (Auto) Baso % (Auto) Lymph # (Auto) Dixie # (Auto) Eos # (Auto) Baso # (Auto) Abs Immat Gran (auto) Absolute Neuts (auto) Absolute Nucleated RBC Nucleated RBC % (auto) PT INR APTT Anion Gap Estim Creat Clear Calc Estimated GFR Random Glucose Lactic Acid Calcium Total Bilirubin AST ALT Alkaline Phosphatase Total Creatine Kinase Troponin I High Sens B-Natriuretic Peptide 33 Total Protein Albumin Urine Color DARK YELLOW Urine Appearance CLOUDY Urine pH 5.0 Ur Specific Buckhorn >= 1.030 H Urine Protein NEG Urine Glucose (UA) NEG Urine Ketones NEG Urine Blood NEG Urine Nitrite NEG Ur Leukocyte Esterase 1+ H Urine RBC 1-4 Urine WBC 30-49 H Ur Squamous Epith Cells 4+ Ur Renal Epithelial Cell TRACE Urine Bacteria 2+ Stool Occult Blood COVID-19 (KELSIE) Negative COVID-19 Clin Com See Note Blood Type Antibody Screen Crossmatch Imaging Radiologist's Impressions: Impressions Cervical Spine CT 04/28/20 14:14 IMPRESSION: Head CT: No acute findings. Mild generalized atrophy and nonspecific periventricular white matter disease. Cervical spine: Degenerative changes. No fracture or dislocation seen. Bilateral cervical lymphadenopathy increased from [address] 04/28/20 14:14 IMPRESSION: Head CT: No acute findings. Mild generalized atrophy and nonspecific periventricular white matter disease. Cervical spine: Degenerative changes. No fracture or dislocation seen. Bilateral cervical lymphadenopathy increased from 2013 exam. Chest X-Ray 04/28/20 14:56 IMPRESSION: Left basilar atelectasis. Moderate spondylosis dorsal spine.. Assessment and Plan (1) HEAVENLY (acute kidney injury): Status: Acute 80-year-old female with a past medical history of hypertension, hyperlipidemia, diabetes, peripheral edema, anemia, B12 deficiency presented to the hospital with a chief complaint of generalized weakness. Noted to have HEAVENLY/anemia. Admitted for further management. Generalized weakness: Likely in the setting of possible UTI. Continue ceftriaxone. Follow up cultures. PT/OT eventually. Fall: Mechanical in nature. CT head showed no acute findings. Grossly nonfocal examination. Fall precautions. Hypotension: likely from denydration; IV hydration; has warm peripheris, mentating well; HEAVENLY: Likely in the setting of poor oral intake/patient also taking lisinopril and furosemide at home. Will hold nephrotoxins. Continue IV fluids. Monitor for any signs of fluid overload. Anemia: Patient has slight drop in hemoglobin compared to her baseline. Stool guaiac was positive. IV ppi. Dr. Jacobo from Gastroenterology was notified. NPO for possible endoscopy. History of peripheral edema: reports currently not taking Lasix Diabetes: Insulin sliding scale. Hold home oral hypoglycemic agents. Hypertension: Hold home antihypertensives given soft blood pressure on presentation. But continue low-dose of metoprolol with holding parameters. DVT prophylaxis: SCD boots Code status: Full code
[2020-04-28] MEDS: cefTRIAXone sodium 1 GM in 0.9 % Sodium Chloride 50 ML IV (21:18)
[2020-04-28] MEDS: 0.9 % Sodium Chloride 1,000 ML 100 ML IVCONT (21:18)
--- NOTE | 2020-04-28 21:22 | PC.NURSE ---
Pt medicated with Rocephin and IVF per APR. Pt noted to be hypotensive @ 81/28 however pt denies any s/sx including weakness, fatigue, SOB. Per PA, plan for possibly central line, MD Akhtar taking over care at this time. Although pt has a room in [facility], due to hypotension, holding in the ED until stable.
[2020-04-28 21:49] LABS: Glucose, Whole Blood 58 mg/dL (60-115)
--- NOTE | 2020-04-28 21:49 | PC.NURSE ---
POC 58 mg/dl. Pt given applie juice and GF snacks. Hospitalist at bedside for eval.
--- NOTE | 2020-04-28 21:55 | PC.NURSE ---
Pt revoking DNR at this time while speaking to hospitalist.
[2020-04-28] MEDS: 0.9 % Sodium Chloride 500 ML IV (22:19)
[2020-04-28 22:26] LABS: Glucose, Whole Blood 68 mg/dL (60-115)
[2020-04-28] MEDS: 0.9 % Sodium Chloride Flush 3 ML SYRINGE IVFLUSH (23:35)
[2020-04-29] VITALS (10 sets, daily range): BP systolic 96–126; BP diastolic 46–58; PULSE 65–97; RESP 18–20; TEMP 36.1–36.6; O2SAT 94–99; BMI 36.6
--- NOTE | 2020-04-29 05:37 | PM.EVENT ---
Event Note Date of Service: 04/29/20 Event Note: Bacteremia: Patient blood cultures grew Gram-negative rods. Final sensitivities pending. Continue ceftriaxone. Vitals stable. Continue IV fluids.
[2020-04-29] MEDS: Pantoprazole Sodium 40 MG/10 ML VIAL IVPUSH (06:13)
[2020-04-29 06:17] LABS: MANUAL DIFF FLAG NO
[2020-04-29 06:47] LABS: Basophils Percent Auto 0.4 % (0-2); Eosinophils Absolute Auto 0.3 X10*3/uL (0.0-0.4); Eosinophils Percent Auto 3.1 % (0-4); Hematocrit 27.8 % (37-47); Hemoglobin 8.9 g/dl (12.0-16.0); Imm Gran Abs Auto 0.09 X10*3/uL (0.00-0.03); Imm Gran Pct Auto 1.1 % (0.0-0.4); Lymphocytes Absolute Auto 1.3 X10*3/uL (1.2-4.9); Lymphocytes Percent Auto 15.3 % (20-40); Mean Corpuscular Hemoglobin 30.2 pg (27.0-33.0); Mean Corpuscular Volume 94.2 fL (80-98); Monocytes Percent Auto 11.6 % (2-11); Neutrophils Absolute Auto 5.8 X10*3/uL (2.0-8.3); Neutrophils Percent Auto 68.5 % (45-73); Platelet Count 247 X10*3/uL (160-400); Red Blood Count 2.95 X10*6/uL (4.20-5.50); Red Cell Distribution Width 15.3 % (11.0-16.0); White Blood Count 8.5 X10*3/uL (4.8-10.8)
[2020-04-29 07:15] LABS: Anion Gap 13 (12-20)
[2020-04-29 07:16] LABS: Blood Urea Nitrogen 48 mg/dL (9-16); Calcium 8.5 mg/dL (8.4-10.2); Carbon Dioxide 17 mmol/L (22-29); Chloride 115 mmol/L (96-108); Creatinine Clr Calc Pharmacy 29.7; Estimated Glomerular Filt Rate 32; Glucose Random 97 mg/dL (60-115); Potassium 4.7 mmol/L (3.3-5.1); Sodium 140 mmol/L (135-145)
[2020-04-29 07:21] LABS: Glucose, Whole Blood 85 mg/dL (60-115)
[2020-04-29 07:37] LABS: Magnesium < 0.6 mg/dL (1.6-2.6)
[2020-04-29] MEDS: Magnesium Sulfate/H2O 2 GM/50 ML PIGGYBACK IV (08:19)
[2020-04-29] MEDS: Lactated Ringers 1,000 ML 100 ML IVCONT ×2 (08:19→18:42)
[2020-04-29] MEDS: Magnesium Oxide 400 MG TABLET 800 MG PO ×2 (08:20→17:08)
[2020-04-29] MEDS: Metoprolol Tartrate 12.5 MG HALFTAB PO (08:20)
[2020-04-29] MEDS: 0.9 % Sodium Chloride Flush 3 ML SYRINGE IVFLUSH (08:33)
[2020-04-29] MEDS: allopurinoL 300 MG TABLET PO (08:34)
--- NOTE | 2020-04-29 11:11 | PM.EVENT ---
Event Note Date of Service: 04/29/20 Event Note: GI consult dictated anemia withe heme pos stool no signs of active gi bleeding. Ddx includes gastritis, esophagitis, pud, duodenitis. rec cont ppi advance diet (gluten free per pt request) follow hct. EGD unlikely to add much at this time.
[2020-04-29 11:13] LABS: Glucose, Whole Blood 95 mg/dL (60-115)
--- NOTE | 2020-04-29 11:30 | MHC.CM.PN ---
CM met with patient and patient's dtr/HCP Yolanda [phone] who reports patient is independent, amb with a walker and lives with her dtr who is able to assist patient if needed. IMM addressed. Discussed discharge plan, home no services. Dtr Yolanda will provide transport. CM will continue to follow patient for discharge needs.
--- NOTE | 2020-04-29 12:05 | CONS_ITS ---
DATE OF SERVICE: 04/29/2020 REFERRING PHYSICIAN: Jaren Platt MD REASON FOR CONSULTATION: Anemia and Hemoccult-positive stools. HISTORY OF PRESENT ILLNESS: The patient is a pleasant 80-year-old woman, who was admitted to the hospital after presenting to the emergency room yesterday after a fall at home. As part of her evaluation, she had lab work done, which showed a hematocrit of 27.3, which was lower than her last hematocrit in March of 30.0. She has no complaints of abdominal pain or upper GI symptoms and has been tolerating a diet fairly well. She does report about a week ago, she did take some Pepto-Bismol because of some epigastric discomfort that occurred after eating, but is not aware of any chronic complaints. She denies dysphagia, hematemesis, or melena. She has no complaints of rectal pain. Stools have been somewhat loose and she voluntarily follows a gluten-free diet at home. She received a unit of packed red blood cells and was admitted to the hospital. Hematocrit this morning was 27.8. There has been no reported bleeding overnight. She has been previously evaluated with colonoscopy, most recently in June of 2013 because of a history of colon polyps. This showed sigmoid diverticulosis and external hemorrhoids as well as internal hemorrhoids. She had a previously normal upper endoscopy in 2003. PAST MEDICAL HISTORY: 1. Hypertension. 2. Hyperlipidemia. 3. Diabetes. 4. Lymphedema. 5. Anemia and B12 deficiency. 6. Pemphigoid. 7. Bundle-branch block. 8. Aortic stenosis. CURRENT MEDICATIONS: Her current medication list is reviewed in the chart. ALLERGIES: ADHESIVE TAPE. FAMILY HISTORY: This is reviewed with the patient and is noncontributory. SOCIAL HISTORY: There is no current tobacco, alcohol, or substance abuse. REVIEW OF SYSTEMS: SKIN: No pruritus. HEENT: Negative. CARDIOPULMONARY: No shortness of breath or chest pain. GASTROINTESTINAL: As above. GENITOURINARY: Negative. NEUROPSYCHIATRIC: Negative. PHYSICAL EXAMINATION: GENERAL: Shows a pleasant female, sitting in a chair. VITAL SIGNS: Reviewed in the electronic medical record. She did have a pause last night on telemetry, and Cardiology evaluation is pending. SKIN: Pale. HEENT: Shows no scleral icterus. NECK: Without lymphadenopathy or thyromegaly. LUNGS: Clear. HEART: Regular rate and rhythm. S1, S2 with a 2/6 systolic murmur. ABDOMEN: Soft without focal masses or tenderness. Bowel sounds are present. No organomegaly is noted. EXTREMITIES: Show edema. LABORATORY DATA: Remarkable for a hematocrit of 27.8 after 1 unit of packed red blood cells. Chemistries show BUN of 48 and creatinine of 1.5, down slightly from admission. IMPRESSION: Anemia with Hemoccult-positive stools. At this time, she does not appear to have any signs of active GI bleeding. I agree with treating her with a proton pump inhibitor for possible gastritis or other upper GI sources for anemia and Hemoccult-positive stools, (these would include peptic ulcer disease, esophagitis, and duodenitis). I do not think she needs endoscopy at this time, but if she has persistent anemia or symptoms despite treatment with a proton pump inhibitor, elective outpatient endoscopy could be considered. I would recommend advancing her diet and monitoring her hematocrit. She can be switched to an oral proton pump inhibitor. This was discussed with the patient and nursing. Thanks for asking me to see her. I will follow her in the hospital with you. MD JANICE Lord/SELAM / [id number] MTDD
--- NOTE | 2020-04-29 13:12 | HO.PM.IMPN ---
Subjective Subjective Date of Service: 04/29/20 Interval History: feeling better Cardiovascular Cardiovascular: Reports no additional cardiovascular complaints Gastrointestinal Gastrointestinal: Reports no additional gastrointestinal complaints Physical Exam Vital Signs: Vital Signs: Last Vital Signs Temp 98 F 04/29/20 10:55 Pulse 70 04/29/20 10:55 Resp 20 04/29/20 10:55 BP 96/50 L 04/29/20 10:55 Pulse Ox 99 04/29/20 10:55 Body Mass Index 36.6 General: AO X 3, no acute distress Resp: CTA bilateral CVS: S1,S2,RRR GI: soft, non tender, non distended Neuro: motor grossly intact Psych: appropriate affect Objective Data Current Medications Generic Name Dose Route Start Last Admin Trade Name Freq PRN Reason Stop Dose Admin Acetaminophen 650 mg 04/28/20 20:35 Acetaminophen 325 Mg Tablet PO Q6H PRN Pain, Mild (Pain Scale 1-3) Allopurinol 300 mg 04/29/20 09:00 04/29/20 08:34 Allopurinol 300 Mg Tablet PO 300 mg DAILY [facility] Administration Atorvastatin Calcium 10 mg 04/29/20 21:00 Atorvastatin Calcium 10 Mg Tablet PO BEDTIME [facility] Ceftriaxone Sodium 1 gm/ 50 mls @ 100 mls/hr 04/29/20 22:00 Sodium Chloride IV Q24H [facility] Lactated Ringer's 1,000 mls @ 100 mls/hr 04/29/20 07:45 04/29/20 08:19 Lr IVCONT 100 mls/hr .Q10H [facility] Administration Insulin Human Lispro 0 unit 04/28/20 21:00 04/29/20 12:00 Insulin Lispro 100 Unit/Ml 3 Ml Vial SUBCUT Not Given QIDACHS [facility] Protocol Magnesium Oxide 800 mg 04/29/20 08:30 04/29/20 08:20 Magnesium Oxide 400 Mg Tablet PO 800 mg BIDPC [facility] Administration Omeprazole 20 mg 04/30/20 06:30 Omeprazole 20 Mg Capsule.Dr PO DAILY@0630 [facility] Sodium Chloride 3 ml 04/29/20 00:00 04/29/20 08:33 0.9 % Sodium Chloride Flush 3 Ml Syringe IVFLUSH 3 ml QSHIFT [facility] Administration Labs CBC & Chem 7: 04/29/20 05:48 04/29/20 05:48 Microbiology Microbiology Results: Microbiology 04/28/20 20:06 Urine clean catch - Clean Catch Midstream Urine Culture - Preliminary No growth to date. 04/28/20 15:54 Blood - Venous Blood Culture - Preliminary 04/28/20 15:59 Blood - Venous Blood Culture - Preliminary Assessment and Plan (1) HEAVENLY (acute kidney injury): Status: Acute Assessment and Plan: 80F presented with weakness weakness due to complicated uti with gnr bacteremia and complicated by HEAVENLY iv fluids rocephin follow up cultures anemia gi appreciated no scope for now continue ppi monitor DM iinsulin hypomagnesemia replace and monitor
--- NOTE | 2020-04-29 16:07 | PM.CNCAR ---
History of Present Illness History of Present Illness Date of Service: 04/29/20 Consult reason: other (Bradycardia) Chief complaint: HEAVENLY Narrative: We are asked to see Katerin in cardiology consultation today for noted pause on the telemetry. Patient came to the hospital on request of her primary care provider Manjit because she fell down 2 days ago and hit her head. She has been feeling weak, lightheaded with GI symptoms. She has had poor oral intake. She complains of weakness and fatigue. No fever no chills no loss of consciousness. No chest pain or shortness of breath. EKG on arrival as shown sinus rhythm with first-degree AV block with right bundle-branch block and AV Wenckebach. Overnight on observation she has continued to have prolonging [place] consistent with AV calli Wenckebach. She had 1 episode where there was a long RR interval up to 3 seconds where there was preceded by AV Wenckebach with dropped P waves twice which is suggestive of more advanced AV block. She is at home on metoprolol and diltiazem therapy for prior atrial tachycardia history which has been difficult controlled. She also has history of aortic stenosis which has remained stable. EKG during last office visit in February had shown sinus tachycardia with first-degree AV block with bifascicular block with right bundle and left anterior fascicular block. As possibility that she has advancing conduction system disease related to calcific aortic stenosis. She does have symptoms of lightheadedness at home however this could be due to low blood pressure. As per the discussion since yesterday she did receive 1 dose of metoprolol this morning 12.5 mg. Currently not getting any rate lowering medication. Review of Systems Constitutional: Constitutional: Denies chills, Reports fatigue, Denies fever(s), Reports malaise and Reports poor appetite Cardiovascular: Cardiovascular: Denies chest pain, Reports lightheadedness, Denies palpitations and Denies dyspnea Respiratory: Respiratory: Reports no additional respiratory complaints and Denies dyspnea Gastrointestinal: Gastrointestinal: Reports no additional gastrointestinal complaints Genitourinary: Genitourinary: Reports no additional female genitourinary complaints Musculoskeletal: Musculoskeletal: Reports no additional musculoskeletal complaints Neurologic: Reports system reviewed and no additional complaints, except as documented Psychiatric: Psychiatric: Reports no additional psychiatric complaints Endocrine: Endocrine: Reports fatigue and Denies palpitations PMF Past Medical History Medical History Aortic stenosis Atrial tachycardia B12 deficiency Basal cell carcinoma of face Bifascicular block Bullous pemphigoid Diabetes mellitus Gout HTN (hypertension) Lymphedema RBBB Family History Family History (Updated 02/12/20 @ 15:09 by ALEX Orozco, [facility]) Father Myocardial infarction Mother CHF (congestive heart failure) Brother Dementia Son No problems noted. Daughter No problems noted. Daughter No problems noted. Sister No problems noted. Sister No problems noted. Sister No problems noted. Sister Ovarian cancer Sister Cancer Stroke Surgical History Surgical History (Updated 02/12/20 @ 15:06 by Erika Thorpe, ALEX, [facility]) History of hemorrhoidectomy History of tonsillectomy Hx of cholecystectomy Umbilical hernia Social History Social History (Updated 03/08/20 @ 13:47 by Georgia Silveira [facility]) Household Members: Children Housing: House Do you presently have visiting nurse or other home services: No Alcohol intake: never Smoking Status: Former smoker Smoked in Last 30 Days: No Use of substances other than those prescribed or required for medical reasons: No Currently Displaying Signs/Symptoms of Drug Intoxication Withdrawal: No Have you been hit, kicked, punched, or otherwise hurt by someone within the past year? If so, by whom?: No Do you feel safe in your current relationship?: Yes Is there a partner from a previous relationship who is making you feel unsafe now?: No Are you made to feel afraid or neglected: No Advance Directives: Yes Advance Directives Information Provided: Yes Advance Directives on File: No Advance Directives Date on File: 04/28/20 Do you have thoughts of harming others: None Do you have a plan to hurt others: No Plan Recently lost weight without trying: No service: No Current occupational status: retired Meds Allergies Allergy/AdvReac Type Severity Reaction Status Date / Time adhesive tape [ADHESIVE TAPE] Allergy Intermediate RASH Verified 03/08/20 15:52 Active Medications: Current Medications Generic Name Dose Route Start Last Admin Trade Name Freq PRN Reason Stop Dose Admin Acetaminophen 650 mg 04/28/20 20:35 Acetaminophen 325 Mg Tablet PO Q6H PRN Pain, Mild (Pain Scale 1-3) Allopurinol 300 mg 04/29/20 09:00 04/29/20 08:34 Allopurinol 300 Mg Tablet PO 300 mg DAILY [facility] Administration Atorvastatin Calcium 10 mg 04/29/20 21:00 Atorvastatin Calcium 10 Mg Tablet PO BEDTIME [facility] Ceftriaxone Sodium 1 gm/ 50 mls @ 100 mls/hr 04/29/20 22:00 Sodium Chloride IV Q24H [facility] Lactated Ringer's 1,000 mls @ 100 mls/hr 04/29/20 07:45 04/29/20 08:19 Lr IVCONT 100 mls/hr .Q10H [facility] Administration Insulin Human Lispro 0 unit 04/28/20 21:00 04/29/20 12:00 Insulin Lispro 100 Unit/Ml 3 Ml Vial SUBCUT Not Given QIDACHS [facility] Protocol Magnesium Oxide 800 mg 04/29/20 08:30 04/29/20 08:20 Magnesium Oxide 400 Mg Tablet PO 800 mg BIDPC [facility] Administration Omeprazole 20 mg 04/30/20 06:30 Omeprazole 20 Mg Capsule. PO DAILY@0630 [facility] Sodium Chloride 3 ml 04/29/20 00:00 04/29/20 08:33 0.9 % Sodium Chloride Flush 3 Ml Syringe IVFLUSH 3 ml QSHIFT [facility] Administration Home Medications Medication Instructions Recorded Confirmed Last Taken Type lisinopril 40 mg tablet 40 mg PO DAILY 02/16/20 04/28/20 Unknown History doxycycline hyclate 50 mg capsule 50 mg PO BID 03/08/20 04/28/20 Unknown History cyanocobalamin-cobamamide 1 tab PO DAILY 04/28/20 04/28/20 Unknown History halobetasol propionate 1 appl TOPICAL DAILY 04/28/20 04/28/20 Unknown History Physical Exam Vital Signs: Vital Signs: Last Vital Signs Temp 97.3 F 04/29/20 15:52 Pulse 80 04/29/20 15:52 Resp 18 04/29/20 15:52 BP 107/53 L 04/29/20 15:52 Pulse Ox 97 04/29/20 15:52 Body Mass Index 36.6 Const: General: cooperative, comfortable, no acute distress, alert, awake and ill appearing Nutritional Appearance: obese Orientation/consciousness: patient oriented x3 HENMT: Head: Yes normocephalic and Yes atraumatic Neck: Neck: Yes trachea midline, Yes supple and Yes no JVD Resp: Effort & Inspection: normal respiratory effort Auscultation: clear to auscultation bilaterally Cardio: Jugular venous distension: no JVD Palpation: normal PMI Rate: regular rate Rhythm: regular rhythm Heart sounds: S1 normal heart sound present, S2 normal heart sound present and Murmur heart sound present systolic mid, decrescendo and crescendo GI: Auscultation: normal bowel sounds Skin: General skin exam: no rashes or lesions noted Neuro: General: patient oriented x3 and no focal motor deficits Extrem: General: Yes no clubbing, cyanosis or edema Psych: Appearance: grossly normal Results Labs and Meds Result diagrams: 04/29/20 05:48 04/29/20 05:48 Lab results: Laboratory Results - last 24 hr 04/28/20 04/28/20 04/28/20 14:22 15:54 17:04 WBC RBC Hgb Hct MCV MCH MCHC RDW Plt Count MPV Immature Gran % (Auto) Neut % (Auto) Lymph % (Auto) [place] % (Auto) Eos % (Auto) Baso % (Auto) Lymph # (Auto) [place] # (Auto) Eos # (Auto) Baso # (Auto) Abs Immat Gran (auto) Absolute Neuts (auto) Absolute Nucleated RBC Nucleated RBC % (auto) Sodium Potassium Chloride Carbon Dioxide Anion Gap BUN Creatinine Estim Creat Clear Calc Estimated GFR POC Glucose Random Glucose Lactic Acid 1.2 Calcium Magnesium Total Bilirubin AST ALT Alkaline Phosphatase Troponin I High Sens B-Natriuretic Peptide Cancelled Total Protein Albumin Urine Color Urine Appearance Urine pH Ur Specific [place] Urine Protein Urine Glucose (UA) Urine Ketones Urine Blood Urine Nitrite Ur Leukocyte Esterase Urine RBC Urine WBC Ur Squamous Epith Cells Ur Renal Epithelial Cell Urine Bacteria COVID-19 ([facility]) COVID-19 Clin Com Blood Type A Positive Antibody Screen NEGATIVE Crossmatch See Detail 04/28/20 04/28/20 04/28/20 18:28 18:28 18:28 WBC RBC Hgb Hct MCV MCH MCHC RDW Plt Count MPV Immature Gran % (Auto) Neut % (Auto) Lymph % (Auto) [place] % (Auto) Eos % (Auto) Baso % (Auto) Lymph # (Auto) [place] # (Auto) Eos # (Auto) Baso # (Auto) Abs Immat Gran (auto) Absolute Neuts (auto) Absolute Nucleated RBC Nucleated RBC % (auto) Sodium 138 Potassium 5.0 Chloride 111 H Carbon Dioxide 16 L Anion Gap 16 BUN 59 H Creatinine 2.11 H Estim Creat Clear Calc 21.5 Estimated GFR 22 POC Glucose Random Glucose 66 Lactic Acid Calcium 9.0 D Magnesium Total Bilirubin 0.4 AST 15 ALT 8 Alkaline Phosphatase 97 Troponin I High Sens 7.6 B-Natriuretic Peptide 33 Total Protein 4.9 L Albumin 2.6 L Urine Color Urine Appearance Urine pH Ur Specific [place] Urine Protein Urine Glucose (UA) Urine Ketones Urine Blood Urine Nitrite Ur Leukocyte Esterase Urine RBC Urine WBC Ur Squamous Epith Cells Ur Renal Epithelial Cell Urine Bacteria COVID-19 ([facility]SIE) COVID-19 Clin Com Blood Type Antibody Screen Crossmatch 04/28/20 04/28/20 04/28/20 19:01 20:06 21:45 WBC RBC Hgb Hct MCV MCH MCHC RDW Plt Count MPV Immature Gran % (Auto) Neut % (Auto) Lymph % (Auto) [place] % (Auto) Eos % (Auto) Baso % (Auto) Lymph # (Auto) [place] # (Auto) Eos # (Auto) Baso # (Auto) Abs Immat Gran (auto) Absolute Neuts (auto) Absolute Nucleated RBC Nucleated RBC % (auto) Sodium Potassium Chloride Carbon Dioxide Anion Gap BUN Creatinine Estim Creat Clear Calc Estimated GFR POC Glucose 58 L* Random Glucose Lactic Acid Calcium Magnesium Total Bilirubin AST ALT Alkaline Phosphatase Troponin I High Sens B-Natriuretic Peptide Total Protein Albumin Urine Color DARK YELLOW Urine Appearance CLOUDY Urine pH 5.0 Ur Specific [place] >= 1.030 H Urine Protein NEG Urine Glucose (UA) NEG Urine Ketones NEG Urine Blood NEG Urine Nitrite NEG Ur Leukocyte Esterase 1+ H Urine RBC 1-4 Urine WBC 30-49 H Ur Squamous Epith Cells 4+ Ur Renal Epithelial Cell TRACE Urine Bacteria 2+ COVID-19 ([facility]ELSIE) Negative COVID-19 Clin Com See Note Blood Type Antibody Screen Crossmatch 04/28/20 04/29/20 04/29/20 22:22 05:48 05:48 WBC 8.5 RBC 2.95 L Hgb 8.9 L Hct 27.8 L MCV 94.2 MCH 30.2 MCHC 32.0 RDW 15.3 Plt Count 247 MPV 10.0 Immature Gran % (Auto) 1.1 H Neut % (Auto) 68.5 Lymph % (Auto) 15.3 L [place] % (Auto) 11.6 H Eos % (Auto) 3.1 Baso % (Auto) 0.4 Lymph # (Auto) 1.3 [place] # (Auto) 1.0 Eos # (Auto) 0.3 Baso # (Auto) 0.0 Abs Immat Gran (auto) 0.09 H Absolute Neuts (auto) 5.8 Absolute Nucleated RBC 0.000 Nucleated RBC % (auto) 0.0 Sodium 140 Potassium 4.7 Chloride 115 H Carbon Dioxide 17 L Anion Gap 13 BUN 48 H Creatinine 1.53 H Estim Creat Clear Calc 29.7 Estimated GFR 32 POC Glucose 68 Random Glucose 97 D Lactic Acid Calcium 8.5 Magnesium < 0.6 L* Total Bilirubin AST ALT Alkaline Phosphatase Troponin I High Sens B-Natriuretic Peptide Total Protein Albumin Urine Color Urine Appearance Urine pH Ur Specific [place] Urine Protein Urine Glucose (UA) Urine Ketones Urine Blood Urine Nitrite Ur Leukocyte Esterase Urine RBC Urine WBC Ur Squamous Epith Cells Ur Renal Epithelial Cell Urine Bacteria COVID-19 (KELSIE) COVID-Compufirst Blood Type Antibody Screen Crossmatch 04/29/20 04/29/20 07:06 10:55 WBC RBC Hgb Hct MCV MCH MCHC RDW Plt Count MPV Immature Gran % (Auto) Neut % (Auto) Lymph % (Auto) [place] % (Auto) Eos % (Auto) Baso % (Auto) Lymph # (Auto) [place] # (Auto) Eos # (Auto) Baso # (Auto) Abs Immat Gran (auto) Absolute Neuts (auto) Absolute Nucleated RBC Nucleated RBC % (auto) Sodium Potassium Chloride Carbon Dioxide Anion Gap BUN Creatinine Estim Creat Clear Calc Estimated GFR POC Glucose 85 95 Random Glucose Lactic Acid Calcium Magnesium Total Bilirubin AST ALT Alkaline Phosphatase Troponin I High Sens B-Natriuretic Peptide Total Protein Albumin Urine Color Urine Appearance Urine pH Ur Specific [place] Urine Protein Urine Glucose (UA) Urine Ketones Urine Blood Urine Nitrite Ur Leukocyte Esterase Urine RBC Urine WBC Ur Squamous Epith Cells Ur Renal Epithelial Cell Urine Bacteria COVID-19 (KELSIE) COVID-19 [facility] Blood Type Antibody Screen Crossmatch Assessment and Plan (1) AV block: Status: Acute Patient presents with nonspecific systemic symptoms of fatigue and malaise and noted to have Gram-negative bacteremia which is more suggestive of sepsis and symptoms could be related to it. She also has however symptoms of lightheadedness which could be related to low blood pressure related to dehydration which has led to acute kidney injury. Currently getting hydrated for the same. Blood pressure is improved. Noted on admission to have AV Wenckebach with right bundle-branch block and first-degree AV block as well as left axis deviation. She has prior history bifascicular block which is suspected to be related to calcific aortic stenosis. There is possibility of advancing AV block given the calcific aortic stenosis. However this could also be related to AV calli level blocking given that there is transient advanced AV block preceded by Wenckebach phenomenon. She is currently off all her rate lowering medications including metoprolol and Cardizem. Will continue to hold it. If she develops tachycardia that requires rate lowering medication would definitely require pacing therapy to prevent bradycardia. However she remains persistent Bia having episodes of bradycardia with advanced AV block will require pacing therapy as well. This was discussed in details. Both patient patient's daughter was present at bedside understand and agree. Case was discussed with hospitalist team as well. Will continue to follow with you. (2) Atrial tachycardia: Status: Acute Atrial tachycardia with no clear recurrence. She does have PACs at this point time will continue to monitor by cardiac telemetry.
[2020-04-29 16:29] LABS: Glucose, Whole Blood 134 mg/dL (60-115)
[2020-04-29 20:17] LABS: Glucose, Whole Blood 153 mg/dL (60-115)
[2020-04-29] MEDS: Insulin Lispro 100 UNIT/ML 3 ML VIAL SUBCUT (21:14)
[2020-04-29] MEDS: Atorvastatin Calcium 10 MG TABLET PO (21:14)
[2020-04-29] MEDS: cefTRIAXone sodium 1 GM in 0.9 % Sodium Chloride 50 ML IV (21:17)
[2020-04-30 04:00] VITALS: BP 122/59; PULSE 97; RESP 18; TEMP 37.2; O2SAT 96
[2020-04-30] MEDS: Lactated Ringers 1,000 ML 100 ML IVCONT ×3 (05:55→20:44)
[2020-04-30 06:08] LABS: MANUAL DIFF FLAG NO
[2020-04-30 06:21] LABS: Basophils Percent Auto 0.5 % (0-2); Eosinophils Absolute Auto 0.3 X10*3/uL (0.0-0.4); Eosinophils Percent Auto 3.1 % (0-4); Hematocrit 30.7 % (37-47); Hemoglobin 9.6 g/dl (12.0-16.0); Imm Gran Abs Auto 0.13 X10*3/uL (0.00-0.03); Imm Gran Pct Auto 1.6 % (0.0-0.4); Lymphocytes Absolute Auto 1.7 X10*3/uL (1.2-4.9); Lymphocytes Percent Auto 20.7 % (20-40); Mean Corpuscular HGB Conc 31.3 g/dl (31.0-35.0); Mean Corpuscular Hemoglobin 29.8 pg (27.0-33.0); Mean Corpuscular Volume 95.3 fL (80-98); Mean Platelet Volume 10.1 fL (9.4-12.3); Monocytes Percent Auto 11.9 % (2-11); NRBC Pct Auto 0.4 /100WBC (0.0-0.2); Neutrophils Absolute Auto 5.2 X10*3/uL (2.0-8.3); Neutrophils Percent Auto 62.2 % (45-73); Platelet Count 297 X10*3/uL (160-400); Red Blood Count 3.22 X10*6/uL (4.20-5.50); Red Cell Distribution Width 15.6 % (11.0-16.0); White Blood Count 8.3 X10*3/uL (4.8-10.8)
[2020-04-30 06:22] LABS: INTERNATIONAL NORM RATIO 1.2 (0.9-1.1); Prothrombin Time 14.5 SEC (10.8-13.0)
[2020-04-30 07:11] LABS: Alanine Aminotransferase 11 U/L (0-31); Albumin Level 2.9 g/dL (3.5-5.0); Alkaline Phosphatase 109 U/L (39-117); Aspartate Amino Transferase 13 U/L (5-31); Bilirubin Direct < 0.2 mg/dL (0.0-0.5); Bilirubin Total 0.4 mg/dL (0.0-1.0); Blood Urea Nitrogen 31 mg/dL (9-16); Creatinine Clr Calc Pharmacy 35.4; Estimated Glomerular Filt Rate 40; Glucose Fasting 135 mg/dL (60-99); Total Protein 5.4 g/dL (6.5-8.0)
[2020-04-30 07:46] LABS: Glucose, Whole Blood 121 mg/dL (60-115)
[2020-04-30 07:49] LABS: Anion Gap 14 (12-20); Calcium 9.3 mg/dL (8.4-10.2); Carbon Dioxide 17 mmol/L (22-29); Chloride 115 mmol/L (96-108); Magnesium 1.1 mg/dL (1.6-2.6); Potassium 5.4 mmol/L (3.3-5.1); Sodium 141 mmol/L (135-145)
[2020-04-30 08:00] VITALS: BP 132/64; PULSE 109; RESP 20; TEMP 36.5; O2SAT 98
[2020-04-30] MEDS: Magnesium Oxide 400 MG TABLET 800 MG PO ×2 (08:44→17:07)
[2020-04-30] MEDS: Omeprazole 20 MG CAPSULE.DR PO (08:46)
[2020-04-30] MEDS: allopurinoL 300 MG TABLET PO (08:47)
[2020-04-30] MEDS: Magnesium Sulfate/H2O 2 GM/50 ML PIGGYBACK IV (08:56)
[2020-04-30] MEDS: 0.9 % Sodium Chloride Flush 3 ML SYRINGE IVFLUSH (09:04)
--- NOTE | 2020-04-30 09:38 | HO.PM.IMPN ---
Subjective Subjective Date of Service: 04/30/20 Interval History: diarrhea Cardiovascular Cardiovascular: Reports no additional cardiovascular complaints Gastrointestinal Gastrointestinal: Reports no additional gastrointestinal complaints Physical Exam Vital Signs: Vital Signs: Last Vital Signs Temp 97.7 F 04/30/20 08:00 Pulse 109 H 04/30/20 08:00 Resp 20 04/30/20 08:00 BP 132/64 04/30/20 08:00 Pulse Ox 98 04/30/20 08:00 Body Mass Index 36.6 General: AO X 3, no acute distress Resp: CTA bilateral CVS: S1,S2,RRR GI: soft, non tender, non distended Neuro: motor grossly intact Psych: appropriate affect Objective Data Current Medications Generic Name Dose Route Start Last Admin Trade Name Freq PRN Reason Stop Dose Admin Acetaminophen 650 mg 04/28/20 20:35 Acetaminophen 325 Mg Tablet PO Q6H PRN Pain, Mild (Pain Scale 1-3) Allopurinol 300 mg 04/29/20 09:00 04/30/20 08:47 Allopurinol 300 Mg Tablet PO 300 mg DAILY [facility] Administration Atorvastatin Calcium 10 mg 04/29/20 21:00 04/29/20 21:14 Atorvastatin Calcium 10 Mg Tablet PO 10 mg BEDTIME [facility] Administration Ceftriaxone Sodium 1 gm/ 50 mls @ 100 mls/hr 04/29/20 22:00 04/29/20 22:01 Sodium Chloride IV Infused Q24H [facility] Infusion Lactated Ringer's 1,000 mls @ 100 mls/hr 04/29/20 07:45 04/30/20 05:55 Lr IVCONT 100 mls/hr .Q10H [facility] Administration Magnesium Sulfate 2 gm in 50 mls @ 25 mls/hr 04/30/20 07:59 04/30/20 08:56 IV 04/30/20 09:58 25 mls/hr ONCE ONE Administration Insulin Human Lispro 0 unit 04/28/20 21:00 04/30/20 08:01 Insulin Lispro 100 Unit/Ml 3 Ml Vial SUBCUT Not Given [facility] Protocol Magnesium Oxide 800 mg 04/29/20 08:30 04/30/20 08:44 Magnesium Oxide 400 Mg Tablet PO 800 mg BIDPC [facility] Administration Omeprazole 20 mg 04/30/20 06:30 04/30/20 08:46 Omeprazole 20 Mg Capsule.Dr PO 20 mg DAILY@0630 [facility] Administration Sodium Chloride 3 ml 03/18/21 00:00 04/30/20 09:04 0.9 % Sodium Chloride Flush 3 Ml Syringe IVFLUSH 3 ml [facility] Administration Labs CBC & Chem 7: 04/30/20 05:21 04/30/20 05:21 Microbiology Microbiology Results: Microbiology 04/28/20 15:59 Blood - Venous Blood Culture - Preliminary Gram negative favian 04/28/20 15:54 Blood - Venous Blood Culture - Preliminary Gram negative favian 04/28/20 20:06 Urine clean catch - Clean Catch Midstream Urine Culture - Preliminary No growth to date. Assessment and Plan (1) HEAVENLY (acute kidney injury): Status: Acute Assessment and Plan: 80F presented with weakness weakness due to complicated uti with gnr bacteremia and complicated by HEAVENLY HEAVENLY significantly improved - continue LR for now, monitor continue rocephin day 2, follow up cultures anemia gi appreciated no scope for now continue ppi monitor stable today likely multifactorial, inflammatory, iron defeciency DM insulin hypomagnesemia due to diarrhea and/or PPI replace and monitor
--- NOTE | 2020-04-30 09:54 | P.PNCA_ITS ---
Subjective Subjective Date of Service: 04/30/20 Principal diagnosis: Av block Interval history: Patient doing well. No overnight advanced AV block. Continues to have AV Wenckebach with PACs. No lightheadedness noted. Patient still remains hypomagnesemic Review of Systems Constitutional: Reports no additional constitutional complaints Cardiovascular: Reports no additional cardiovascular complaints Respiratory: Reports no additional respiratory complaints Gastrointestinal: Reports no additional gastrointestinal complaints Genitourinary: Reports no additional female genitourinary complaints Musculoskeletal: Reports no additional musculoskeletal complaints Reports system reviewed and no additional complaints, except as documented Psychiatric: Reports no additional psychiatric complaints Physical Exam Vital Signs: Last Vital Signs Temp 97.7 F 04/30/20 08:00 Pulse 109 H 04/30/20 08:00 Resp 20 04/30/20 08:00 BP 132/64 04/30/20 08:00 Pulse Ox 98 04/30/20 08:00 Body Mass Index 36.6 Const General: cooperative, comfortable, no acute distress, alert and awake Nutritional Appearance: obese Orientation/consciousness: patient oriented x3 Neck Neck: Yes trachea midline, Yes supple and Yes no JVD Resp Effort & Inspection: normal respiratory effort Auscultation: clear to auscultation bilaterally Cardio Palpation: normal PMI Rate: regular rate Rhythm: abnormal rhythm with ectopic beats Heart sounds: S1 normal heart sound present, S2 normal heart sound present and Murmur heart sound present systolic mid GI Auscultation: normal bowel sounds Skin General skin exam: no rashes or lesions noted Neuro General: patient oriented x3 Results Labs and Meds Result diagrams: 04/30/20 05:21 04/30/20 05:21 Lab results: Laboratory Results - last 24 hr 04/29/20 04/29/20 04/29/20 10:55 16:18 19:56 WBC RBC Hgb Hct MCV MCH MCHC RDW Plt Count MPV Immature Gran % (Auto) Neut % (Auto) Lymph % (Auto) [place] % (Auto) Eos % (Auto) Baso % (Auto) Lymph # (Auto) [place] # (Auto) Eos # (Auto) Baso # (Auto) Abs Immat Gran (auto) Absolute Neuts (auto) Absolute Nucleated RBC Nucleated RBC % (auto) PT INR Sodium Potassium Chloride Carbon Dioxide Anion Gap BUN Creatinine Estim Creat Clear Calc Estimated GFR POC Glucose 95 134 H 153 H Fasting Glucose Calcium Magnesium Total Bilirubin Direct Bilirubin AST ALT Alkaline Phosphatase Total Protein Albumin 04/30/20 04/30/20 04/30/20 05:21 05:21 05:21 WBC 8.3 RBC 3.22 L Hgb 9.6 L Hct 30.7 L MCV 95.3 MCH 29.8 MCHC 31.3 RDW 15.6 Plt Count 297 MPV 10.1 Immature Gran % (Auto) 1.6 H Neut % (Auto) 62.2 Lymph % (Auto) 20.7 [place] % (Auto) 11.9 H Eos % (Auto) 3.1 Baso % (Auto) 0.5 Lymph # (Auto) 1.7 [place] # (Auto) 1.0 Eos # (Auto) 0.3 Baso # (Auto) 0.0 Abs Immat Gran (auto) 0.13 H Absolute Neuts (auto) 5.2 Absolute Nucleated RBC 0.030 H Nucleated RBC % (auto) 0.4 H PT 14.5 H INR 1.2 H Sodium 141 Potassium 5.4 H Chloride 115 H Carbon Dioxide 17 L Anion Gap 14 BUN 31 H Creatinine 1.28 Estim Creat Clear Calc 35.4 Estimated GFR 40 POC Glucose Fasting Glucose 135 H Calcium 9.3 D Magnesium 1.1 L* Total Bilirubin 0.4 Direct Bilirubin < 0.2 AST 13 ALT 11 Alkaline Phosphatase 109 Total Protein 5.4 L Albumin 2.9 L 04/30/20 07:41 WBC RBC Hgb Hct MCV MCH MCHC RDW Plt Count MPV Immature Gran % (Auto) Neut % (Auto) Lymph % (Auto) [place] % (Auto) Eos % (Auto) Baso % (Auto) Lymph # (Auto) [place] # (Auto) Eos # (Auto) Baso # (Auto) Abs Immat Gran (auto) Absolute Neuts (auto) Absolute Nucleated RBC Nucleated RBC % (auto) PT INR Sodium Potassium Chloride Carbon Dioxide Anion Gap BUN Creatinine Estim Creat Clear Calc Estimated GFR POC Glucose 121 H Fasting Glucose Calcium Magnesium Total Bilirubin Direct Bilirubin AST ALT Alkaline Phosphatase Total Protein Albumin Progress Note: A&P Assessment and plan (1) AV block: Status: Acute Assessment and Plan: AV block, transient, with Wenckebach phenomenon. Suggestive AV calli level block. Could be related to calcific aortic stenosis. Currently overnight without any medicine she has not had any further blocks. Continue to hold off on any rate lowering medications unless she develops tachycardia. Continue cardiac telemetry for now. Hold off on pacing therapy at this point time. Patient may require implantable loop recorder to assess for advancing AV block as outpatient especially if she remains symptomatic. (2) Aortic stenosis: Status: Acute Assessment and Plan: Aortic stenosis which is stable. No interventions required for the same at this point in time. Will continue to monitor clinically. Will follow with the patient. Fall Risk Details Current Medications: Current Medications Generic Name Dose Route Start Last Admin Trade Name Freq PRN Reason Stop Dose Admin Acetaminophen 650 mg 04/28/20 20:35 Acetaminophen 325 Mg Tablet PO Q6H PRN Pain, Mild (Pain Scale 1-3) Allopurinol 300 mg 04/29/20 09:00 04/30/20 08:47 Allopurinol 300 Mg Tablet PO 300 mg DAILY [facility] Administration Atorvastatin Calcium 10 mg 04/29/20 21:00 04/29/20 21:14 Atorvastatin Calcium 10 Mg Tablet PO 10 mg BEDTIME [facility] Administration Ceftriaxone Sodium 1 gm/ 50 mls @ 100 mls/hr 04/29/20 22:00 04/29/20 22:01 Sodium Chloride IV Infused Q24H [facility] Infusion Lactated Ringer's 1,000 mls @ 100 mls/hr 04/29/20 07:45 04/30/20 05:55 Lr IVCONT 100 mls/hr .Q10H [facility] Administration Magnesium Sulfate 2 gm in 50 mls @ 25 mls/hr 04/30/20 07:59 04/30/20 08:56 IV 04/30/20 09:58 25 mls/hr ONCE ONE Administration Insulin Human Lispro 0 unit 04/28/20 21:00 04/30/20 08:01 Insulin Lispro 100 Unit/Ml 3 Ml Vial SUBCUT Not Given QIDACHS [facility] Protocol Magnesium Oxide 800 mg 04/29/20 08:30 04/30/20 08:44 Magnesium Oxide 400 Mg Tablet PO 800 mg BIDPC [facility] Administration Omeprazole 20 mg 04/30/20 06:30 04/30/20 08:46 Omeprazole 20 Mg Capsule. PO 20 mg DAILY@0630 [facility] Administration Sodium Chloride 3 ml 04/29/20 00:00 04/30/20 09:04 0.9 % Sodium Chloride Flush 3 Ml Syringe IVFLUSH 3 ml QSHIFT [facility] Administration Time Spent With Patient Time: Total time spent is greater than 50% in coordination of care (as documented) at patient's floor/unit and/or counseling patient: Time with patient: 25 - 35 minutes
[2020-04-30 11:29] LABS: Glucose, Whole Blood 129 mg/dL (60-115)
[2020-04-30 12:00] VITALS: BP 155/68; PULSE 82; PULSE 85; RESP 20; TEMP 36.5; O2SAT 98
--- NOTE | 2020-04-30 13:14 | MHC.CM.PN ---
Patient has been evaluated by cardiology and might need a pacemaker placement. Patient's discharge plan continues to be home no services. Dtr Yolanda will provide transport. CM will continue to follow patient for discharge needs.
[2020-04-30 15:46] VITALS: BP 117/53; PULSE 88; RESP 19; TEMP 36.2; O2SAT 100
[2020-04-30 16:18] LABS: Glucose, Whole Blood 174 mg/dL (60-115)
[2020-04-30] MEDS: Insulin Lispro 100 UNIT/ML 3 ML VIAL SUBCUT ×2 (17:06→21:11)
[2020-04-30 19:16] VITALS: BP 135/48; PULSE 94; RESP 19; TEMP 36.5; O2SAT 100
[2020-04-30 19:49] LABS: Glucose, Whole Blood 152 mg/dL (60-115)
[2020-04-30] MEDS: Atorvastatin Calcium 10 MG TABLET PO (21:11)
[2020-04-30] MEDS: cefTRIAXone sodium 1 GM in 0.9 % Sodium Chloride 50 ML IV (21:12)
[2020-04-30 23:32] VITALS: BP 118/60; PULSE 82; RESP 18; TEMP 36.8; O2SAT 99
[2020-05-01] MEDS: Acetaminophen 325 MG TABLET 650 MG PO ×2 (02:22→21:53)
[2020-05-01 03:16] VITALS: BP 107/58; PULSE 83; RESP 18; TEMP 36.6; O2SAT 97
[2020-05-01] MEDS: Omeprazole 20 MG CAPSULE.DR PO (06:18)
[2020-05-01 06:56] LABS: Basophils Percent Auto 0.4 % (0-2); Eosinophils Absolute Auto 0.2 X10*3/uL (0.0-0.4); Eosinophils Percent Auto 3.4 % (0-4); Hematocrit 24.9 % (37-47); Hemoglobin 7.9 g/dl (12.0-16.0); Imm Gran Abs Auto 0.06 X10*3/uL (0.00-0.03); Imm Gran Pct Auto 1.1 % (0.0-0.4); Lymphocytes Absolute Auto 1.1 X10*3/uL (1.2-4.9); Lymphocytes Percent Auto 21.5 % (20-40); MANUAL DIFF FLAG SCAN; Mean Corpuscular HGB Conc 31.7 g/dl (31.0-35.0); Mean Corpuscular Hemoglobin 29.8 pg (27.0-33.0); Mean Platelet Volume 9.9 fL (9.4-12.3); Monocytes Absolute Auto 0.8 X10*3/uL (0.1-1.2); Monocytes Percent Auto 14.2 % (2-11); Neutrophils Absolute Auto 3.2 X10*3/uL (2.0-8.3); Neutrophils Percent Auto 59.4 % (45-73); Platelet Count 222 X10*3/uL (160-400); Red Blood Count 2.65 X10*6/uL (4.20-5.50); Red Cell Distribution Width 15.5 % (11.0-16.0); SCAN SMEAR FLAG 1; White Blood Count 5.3 X10*3/uL (4.8-10.8)
[2020-05-01 07:31] LABS: Anion Gap 12 (12-20); Blood Urea Nitrogen 21 mg/dL (9-16); Calcium 8.1 mg/dL (8.4-10.2); Carbon Dioxide 19 mmol/L (22-29); Chloride 115 mmol/L (96-108); Creatinine Clr Calc Pharmacy 61.4; Estimated Glomerular Filt Rate > 60; Glucose Fasting 99 mg/dL (60-99); Potassium 4.7 mmol/L (3.3-5.1); Sodium 141 mmol/L (135-145)
[2020-05-01 07:33] LABS: Glucose, Whole Blood 96 mg/dL (60-115)
[2020-05-01 07:47] LABS: SLIDE REVIEW VERIFIED
[2020-05-01 08:00] VITALS: BP 118/55; PULSE 75; RESP 16; TEMP 36.7; O2SAT 97
[2020-05-01 08:47] LABS: Magnesium 1.2 mg/dL (1.6-2.6)
[2020-05-01] MEDS: allopurinoL 300 MG TABLET PO (10:00)
[2020-05-01] MEDS: Magnesium Oxide 400 MG TABLET 800 MG PO ×2 (10:00→17:55)
[2020-05-01] MEDS: Magnesium Sulfate/H2O 2 GM/50 ML PIGGYBACK IV (10:01)
[2020-05-01] MEDS: 0.9 % Sodium Chloride Flush 3 ML SYRINGE IVFLUSH ×3 (10:01→21:53)
[2020-05-01] MEDS: Lactated Ringers 1,000 ML 100 ML IVCONT ×2 (10:04→23:05)
--- NOTE | 2020-05-01 11:27 | P.ACPN_ITS ---
Advanced Care Planning Note Advanced Care Planning Note Discussed with: patient and family member(s) Time spent (in minutes): 17 Narrative: Discussed at bedside with patient and patient's daughter regarding diagnoses of bacteremia diabetes, aortic stenosis, hypomagnesemia. We discussed patient's goals of care and desires in emergency situations. Patient reported that she previously had a DNR DNI MOLST form. But after review and discussion with the family she decided that she would actually like to be a full code. Because she would like to attempt resuscitation and would be willing to undergo short-term intubation. She would like to instruct her family that she would not want to be on long-term life support. We also discussed artificial hydration and nutrition which patient stated she would like if necessary due to episcopalian reasons. She also stated that she would be open to short-term dialysis but would not want to be on long-term dialysis. An updated MOLST form was filled out to reflect this. Problems Discussed (1) AV block: (2) Aortic stenosis:
--- NOTE | 2020-05-01 11:30 | HO.PM.IMPN ---
Subjective Subjective Date of Service: 05/01/20 Interval History: feeling better, no more diarrhea Cardiovascular Cardiovascular: Reports no additional cardiovascular complaints Gastrointestinal Gastrointestinal: Reports no additional gastrointestinal complaints Physical Exam Vital Signs: Vital Signs: Last Vital Signs Temp 98.1 F 05/01/20 08:00 Pulse 75 05/01/20 08:00 Resp 16 05/01/20 08:00 BP 118/55 L 05/01/20 08:00 Pulse Ox 97 05/01/20 08:00 Body Mass Index 36.6 General: AO X 3, no acute distress Resp: CTA bilateral CVS: S1,S2,RRR GI: soft, non tender, non distended Neuro: motor grossly intact Psych: appropriate affect Objective Data Current Medications Generic Name Dose Route Start Last Admin Trade Name Freq PRN Reason Stop Dose Admin Acetaminophen 650 mg 04/28/20 20:35 05/01/20 02:22 Acetaminophen 325 Mg Tablet PO 650 mg Q6H PRN Administration Pain, Mild (Pain Scale 1-3) Allopurinol 300 mg 04/29/20 09:00 05/01/20 10:00 Allopurinol 300 Mg Tablet PO 300 mg DAILY PRITESH Administration Atorvastatin Calcium 10 mg 04/29/20 21:00 04/30/20 21:11 Atorvastatin Calcium 10 Mg Tablet PO 10 mg BEDTIME PRITESH Administration Ceftriaxone Sodium 1 gm/ 50 mls @ 100 mls/hr 04/29/20 22:00 04/30/20 22:19 Sodium Chloride IV Infused Q24H PRITESH Infusion Lactated Ringer's 1,000 mls @ 100 mls/hr 04/29/20 07:45 05/01/20 10:04 Lr IVCONT 100 mls/hr .Q10H PRITESH Administration Insulin Human Lispro 0 unit 04/28/20 21:00 05/01/20 08:35 Insulin Lispro 100 Unit/Ml 3 Ml Vial SUBCUT Not Given QIDACHS [facility] Protocol Magnesium Oxide 800 mg 04/29/20 08:30 05/01/20 10:00 Magnesium Oxide 400 Mg Tablet PO 800 mg BIDPC PRITESH Administration Omeprazole 20 mg 04/30/20 06:30 05/01/20 06:18 Omeprazole 20 Mg Capsule.Dr PO 20 mg DAILY@0630 PRITESH Administration Sodium Chloride 3 ml 04/29/20 00:00 05/01/20 10:01 0.9 % Sodium Chloride Flush 3 Ml Syringe IVFLUSH 3 ml QSHIFT PRITESH Administration Labs CBC & Chem 7: 05/01/20 06:14 05/01/20 06:14 Microbiology Microbiology Results: Microbiology 04/28/20 15:59 Blood - Venous Blood Culture - Final Escherichia coli 04/28/20 15:54 Blood - Venous Blood Culture - Final Escherichia coli 04/28/20 20:06 Urine clean catch - Clean Catch Midstream Urine Culture - Final Assessment and Plan (1) HEAVNELY (acute kidney injury): Status: Acute Assessment and Plan: 80F presented with weakness weakness due to complicated uti with gnr bacteremia and complicated by HEAVENLY HEAVENLY significantly improved - continue LR for now, monitor continue rocephin day 3, follow up cultures anemia gi appreciated no scope for now continue ppi monitor stable today likely multifactorial, inflammatory, iron defeciency DM insulin sinus pause and mobitz 1 no further pauses, continue to hold CCB and BB hypomagnesemia due to diarrhea and/or PPI replace and monitor
[2020-05-01 11:42] LABS: Glucose, Whole Blood 134 mg/dL (60-115)
[2020-05-01 12:00] VITALS: BP 129/58; PULSE 76; RESP 18; TEMP 36.5; O2SAT 98
--- NOTE | 2020-05-01 14:00 | P.PNCA_ITS ---
Subjective Subjective Date of Service: 05/01/20 Principal diagnosis: Av block Interval history: Patient feeling better from cardiac perspective. No lightheadedness, syncope. No significant pauses or advanced AV block noted. Continues to have ANCA back phenomenon. Also having a says short runs of atrial arrhythmias. No palpitations. Review of Systems Review of Systems Yes all other systems are reviewed and are negative Physical Exam Vital Signs: Last Vital Signs Temp 97.7 F 05/01/20 12:00 Pulse 76 05/01/20 12:00 Resp 18 05/01/20 12:00 BP 129/58 L 05/01/20 12:00 Pulse Ox 98 05/01/20 12:00 Body Mass Index 36.6 Const General: cooperative, comfortable and no acute distress Nutritional Appearance: obese Orientation/consciousness: patient oriented x3 Neck Neck: Yes trachea midline, Yes supple and Yes no JVD Resp Effort & Inspection: normal respiratory effort Auscultation: clear to auscultation bilaterally Cardio Jugular venous distension: no JVD Rate: regular rate Rhythm: abnormal rhythm regularly irregular and with ectopic beats Heart sounds: S1 normal heart sound present, S2 normal heart sound present and Murmur heart sound present systolic mid, decrescendo and crescendo Neuro General: patient oriented x3 Extrem General: Yes no clubbing, cyanosis or edema Results Labs and Meds Result diagrams: 05/01/20 06:14 05/01/20 06:14 Lab results: Laboratory Results - last 24 hr 04/30/20 04/30/20 05/01/20 16:08 19:45 06:14 WBC 5.3 RBC 2.65 L Hgb 7.9 L Hct 24.9 L MCV 94.0 MCH 29.8 MCHC 31.7 RDW 15.5 Plt Count 222 D MPV 9.9 Immature Gran % (Auto) 1.1 H Neut % (Auto) 59.4 Lymph % (Auto) 21.5 [place] % (Auto) 14.2 H Eos % (Auto) 3.4 Baso % (Auto) 0.4 Lymph # (Auto) 1.1 L [place] # (Auto) 0.8 Eos # (Auto) 0.2 Baso # (Auto) 0.0 Abs Immat Gran (auto) 0.06 H Absolute Neuts (auto) 3.2 Absolute Nucleated RBC 0.000 Nucleated RBC % (auto) 0.0 Smear Tech's Comments VERIFIED Sodium Potassium Chloride Carbon Dioxide Anion Gap BUN Creatinine Estim Creat Clear Calc Estimated GFR POC Glucose 174 H 152 H Fasting Glucose Calcium Magnesium 05/01/20 05/01/20 05/01/20 06:14 07:15 11:17 WBC RBC Hgb Hct MCV MCH MCHC RDW Plt Count MPV Immature Gran % (Auto) Neut % (Auto) Lymph % (Auto) [place] % (Auto) Eos % (Auto) Baso % (Auto) Lymph # (Auto) [place] # (Auto) Eos # (Auto) Baso # (Auto) Abs Immat Gran (auto) Absolute Neuts (auto) Absolute Nucleated RBC Nucleated RBC % (auto) Smear Tech's Comments Sodium 141 Potassium 4.7 Chloride 115 H Carbon Dioxide 19 L Anion Gap 12 BUN 21 H Creatinine 0.74 Estim Creat Clear Calc 61.4 Estimated GFR > 60 POC Glucose 96 134 H Fasting Glucose 99 Calcium 8.1 L D Magnesium 1.2 L* Progress Note: A&P Assessment and plan (1) AV block: Status: Acute Assessment and Plan: Continues to have AV Wenckebach without any advanced AV block at current time. No need for pacing at this point time. Avoid dual rate lowering medications. Starting to have some short runs of atrial tachycardia//PACs. Will start her on low-dose Toprol 25 mg daily. Will continue to monitor with full disclosure cardiac telemetry. If she has significant advanced AV block and tachyarrhythmias, will need pacing therapy support prior to initiating her rate lowering medications. Continue to aggressively replace magnesium. (2) Atrial tachycardia: Status: Acute Fall Risk Details Current Medications: Current Medications Generic Name Dose Route Start Last Admin Trade Name Freq PRN Reason Stop Dose Admin Acetaminophen 650 mg 04/28/20 20:35 05/01/20 02:22 Acetaminophen 325 Mg Tablet PO 650 mg Q6H PRN Administration Pain, Mild (Pain Scale 1-3) Allopurinol 300 mg 04/29/20 09:00 05/01/20 10:00 Allopurinol 300 Mg Tablet PO 300 mg DAILY PRITESH Administration Atorvastatin Calcium 10 mg 04/29/20 21:00 04/30/20 21:11 Atorvastatin Calcium 10 Mg Tablet PO 10 mg BEDTIME PRITESH Administration Ceftriaxone Sodium 1 gm/ 50 mls @ 100 mls/hr 04/29/20 22:00 04/30/20 22:19 Sodium Chloride IV Infused Q24H PRITESH Infusion Lactated Ringer's 1,000 mls @ 100 mls/hr 04/29/20 07:45 05/01/20 10:04 Lr IVCONT 100 mls/hr .Q10H PRITESH Administration Insulin Human Lispro 0 unit 04/28/20 21:00 05/01/20 12:39 Insulin Lispro 100 Unit/Ml 3 Ml Vial SUBCUT Not Given QIDACHS [facility] Protocol Magnesium Oxide 800 mg 04/29/20 08:30 05/01/20 10:00 Magnesium Oxide 400 Mg Tablet PO 800 mg BIDPC PRITESH Administration Metoprolol Succinate 25 mg 05/01/20 14:00 Metoprolol Succinate Er 25 Mg Tab.Er.24h PO DAILY [facility] Protocol Omeprazole 20 mg 04/30/20 06:30 05/01/20 06:18 Omeprazole 20 Mg Capsule.Dr PO 20 mg DAILY@0630 PRITESH Administration Sodium Chloride 3 ml 04/29/20 00:00 05/01/20 10:01 0.9 % Sodium Chloride Flush 3 Ml Syringe IVFLUSH 3 ml QSHIFT PRITESH Administration Time Spent With Patient Time: Total time spent is greater than 50% in coordination of care (as documented) at patient's floor/unit and/or counseling patient: Time with patient: 25 - 35 minutes
[2020-05-01 15:08] VITALS: BP 129/58; PULSE 76
[2020-05-01] MEDS: Metoprolol Succinate ER 25 MG TAB.ER.24H PO (15:08)
[2020-05-01 16:00] VITALS: BP 137/55; PULSE 63; RESP 18; TEMP 37.2; O2SAT 63
[2020-05-01 16:21] LABS: Glucose, Whole Blood 164 mg/dL (60-115)
[2020-05-01] MEDS: Insulin Lispro 100 UNIT/ML 3 ML VIAL SUBCUT (17:55)
[2020-05-01 19:39] VITALS: BP 133/52; PULSE 85; RESP 18; TEMP 37.2; O2SAT 99
[2020-05-01 21:14] LABS: Glucose, Whole Blood 118 mg/dL (60-115)
[2020-05-01] MEDS: Atorvastatin Calcium 10 MG TABLET PO (21:54)
[2020-05-01] MEDS: cefTRIAXone sodium 1 GM in 0.9 % Sodium Chloride 50 ML IV (21:54)
[2020-05-02] VITALS: BP 105/51; PULSE 75; RESP 18; TEMP 36.7; O2SAT 98
[2020-05-02 03:18] VITALS: BP 118/56; PULSE 81; RESP 18; TEMP 36.6; O2SAT 97
[2020-05-02 05:52] LABS: MANUAL DIFF FLAG NO
[2020-05-02] MEDS: Omeprazole 20 MG CAPSULE.DR PO (05:52)
[2020-05-02 05:59] LABS: Basophils Percent Auto 0.4 % (0-2); Eosinophils Absolute Auto 0.2 X10*3/uL (0.0-0.4); Eosinophils Percent Auto 4.5 % (0-4); Hematocrit 26.4 % (37-47); Hemoglobin 8.4 g/dl (12.0-16.0); Imm Gran Abs Auto 0.09 X10*3/uL (0.00-0.03); Imm Gran Pct Auto 1.7 % (0.0-0.4); Lymphocytes Absolute Auto 1.1 X10*3/uL (1.2-4.9); Mean Corpuscular HGB Conc 31.8 g/dl (31.0-35.0); Mean Corpuscular Hemoglobin 30.1 pg (27.0-33.0); Mean Corpuscular Volume 94.6 fL (80-98); Mean Platelet Volume 9.7 fL (9.4-12.3); Monocytes Absolute Auto 0.7 X10*3/uL (0.1-1.2); Monocytes Percent Auto 13.3 % (2-11); Neutrophils Absolute Auto 3.2 X10*3/uL (2.0-8.3); Neutrophils Percent Auto 60.1 % (45-73); Platelet Count 207 X10*3/uL (160-400); Red Blood Count 2.79 X10*6/uL (4.20-5.50); Red Cell Distribution Width 15.7 % (11.0-16.0); White Blood Count 5.4 X10*3/uL (4.8-10.8)
[2020-05-02 06:30] LABS: Anion Gap 12 (12-20); Blood Urea Nitrogen 16 mg/dL (9-16); Calcium 7.8 mg/dL (8.4-10.2); Carbon Dioxide 21 mmol/L (22-29); Chloride 114 mmol/L (96-108); Creatinine Clr Calc Pharmacy 63.1; Estimated Glomerular Filt Rate > 60; Glucose Fasting 95 mg/dL (60-99); Magnesium 1.7 mg/dL (1.6-2.6); Potassium 4.6 mmol/L (3.3-5.1); Sodium 142 mmol/L (135-145)
[2020-05-02 07:47] LABS: Glucose, Whole Blood 94 mg/dL (60-115)
[2020-05-02 07:55] VITALS: BP 104/48; PULSE 77; RESP 20; TEMP 37; O2SAT 98
[2020-05-02 09:17] VITALS: BP 104/48; PULSE 77
[2020-05-02] MEDS: allopurinoL 300 MG TABLET PO (09:17)
[2020-05-02] MEDS: Metoprolol Succinate ER 25 MG TAB.ER.24H PO (09:17)
[2020-05-02] MEDS: Magnesium Oxide 400 MG TABLET 800 MG PO (09:17)
--- NOTE | 2020-05-02 10:10 | P.DS_ITS ---
DS: Providers Provider Date of Service: 05/02/20 Date of admission: 04/28/20 20:35 Primary care physician: KIMBER Beebe Consults: 04/28/20 20:37 Consult to Gastroenterology Routine Consulting Provider: Ramu Jacobo Reason for consultation: GI bleed 04/29/20 09:07 Consult to Cardiology Routine Consulting Provider: Noé Ritter Reason for consultation: 3 second pause DS: Diagnosis Discharge Diagnosis (1) AV block: Status: Acute (2) Atrial tachycardia: Status: Acute (3) HEAVENLY (acute kidney injury): Status: Acute (4) Aortic stenosis: Status: Acute (5) Bifascicular block: Status: Acute (6) Diabetes mellitus: Status: Acute (7) E coli bacteremia: Status: Acute (8) Hypomagnesemia: Status: Acute (9) UTI (urinary tract infection): Status: Acute DS: Medications Discharge Medications Home Medications: Home Medications Medication Instructions Recorded Confirmed halobetasol propionate 1 appl TOPICAL DAILY 04/28/20 04/28/20 aspirin 81 mg PO DAILY 04/30/20 04/30/20 calcium carbonate-vitamin D3 1 tab PO BID 04/30/20 04/30/20 multivitamin 1 tab PO DAILY 04/30/20 04/30/20 Previous Rx's Medication Instructions Recorded atorvastatin 10 mg tablet 10 mg PO BEDTIME 90 Days #90 tab 12/02/19 metformin 1,000 mg tablet 1,000 mg PO BID 90 Days #180 tab 01/19/20 omega-3 acid ethyl esters 1 gram 2 cap PO BID #360 cap 02/17/20 capsule allopurinol 300 mg tablet 300 mg PO DAILY #90 tab 03/01/20 cefuroxime axetil 500 mg PO BID #10 tab 05/02/20 magnesium oxide 400 mg PO BIDPC #60 tab 05/02/20 metoprolol succinate 25 mg PO DAILY #30 tab 05/02/20 omeprazole 20 mg PO DAILY@0630 #30 cap 05/02/20 DS: Summary Hospital Course Hospital Course: Patient was admitted for weakness due to hypomagnesemia and urinary tract infection complicated by bacteremia and acute kidney injury. Her magnesium was replaced over several days and is 1.7 at discharge she should continue ta pplement at home. Her blood cultures grew coli, resistant to Levaquin, she was treated with several days of ceftriaxone and will complete 5 more days of oral cefuroxime. Patient was noted to have a 2nd pause on telemetry. Her metoprolol was held. She was then restarted on half her usual dose of Toprol and did not have any further events. Her acute kidney injury resolved with IV fluids and creatinine is 0.72 at discharge. patient is feeling much better and will be discharged home. Time Spent with Patient Time attestation: Total time spent providing and/or coordinating discharge services: Discharge coordination time: Greater than 30 minutes Physical Exam Vital Signs: Vital Signs: Last Vital Signs Temp 98.6 F 05/02/20 07:55 Pulse 77 05/02/20 09:17 Resp 20 05/02/20 07:55 BP 104/48 L 05/02/20 09:17 Pulse Ox 98 05/02/20 07:55 Body Mass Index 36.6 General: AO X 3, no acute distress Resp: CTA bilateral CVS: S1,S2,RRR GI: soft, non tender, non distended Neuro: motor grossly intact Psych: appropriate affect DS: Data Data Completed and Pending Labs on day of discharge: Laboratory Results - last 24 hr 05/01/20 05/01/20 05/01/20 11:17 16:17 21:05 WBC RBC Hgb Hct MCV MCH MCHC RDW Plt Count MPV Immature Gran % (Auto) Neut % (Auto) Lymph % (Auto) [place] % (Auto) Eos % (Auto) Baso % (Auto) Lymph # (Auto) [place] # (Auto) Eos # (Auto) Baso # (Auto) Abs Immat Gran (auto) Absolute Neuts (auto) Absolute Nucleated RBC Nucleated RBC % (auto) Sodium Potassium Chloride Carbon Dioxide Anion Gap BUN Creatinine Estim Creat Clear Calc Estimated GFR POC Glucose 134 H 164 H 118 H Fasting Glucose Calcium Magnesium 05/02/20 05/02/20 05/02/20 05:17 05:17 07:32 WBC 5.4 RBC 2.79 L Hgb 8.4 L Hct 26.4 L MCV 94.6 MCH 30.1 MCHC 31.8 RDW 15.7 Plt Count 207 MPV 9.7 Immature Gran % (Auto) 1.7 H Neut % (Auto) 60.1 Lymph % (Auto) 20.0 [place] % (Auto) 13.3 H Eos % (Auto) 4.5 H Baso % (Auto) 0.4 Lymph # (Auto) 1.1 L [place] # (Auto) 0.7 Eos # (Auto) 0.2 Baso # (Auto) 0.0 Abs Immat Gran (auto) 0.09 H Absolute Neuts (auto) 3.2 Absolute Nucleated RBC 0.000 Nucleated RBC % (auto) 0.0 Sodium 142 Potassium 4.6 Chloride 114 H Carbon Dioxide 21 L Anion Gap 12 BUN 16 Creatinine 0.72 Estim Creat Clear Calc 63.1 Estimated GFR > 60 POC Glucose 94 Fasting Glucose 95 Calcium 7.8 L Magnesium 1.7 Discharge Plan Discharge Patient Disposition: Home, Self-Care Referrals: Manjit Schmitt FNP-BC [Primary Care Provider] - Discharge Medications: New magnesium oxide 400 mg (241.3 mg magnesium) Tablet 400 mg PO BIDPC Qty: 60 RF: 0 metoprolol succinate 25 mg Tablet Extended Release 24 Hr 25 mg PO DAILY Qty: 30 RF: 0 omeprazole 20 mg Capsule,Delayed Release(Dr/Ec) 20 mg PO DAILY@0630 Qty: 30 RF: 0 cefuroxime axetil 500 mg tablet 500 mg PO BID Qty: 10 RF: 0 Continued atorvastatin 10 mg tablet 10 mg PO BEDTIME 90 Days Qty: 90 RF: 1 metformin 1,000 mg tablet 1,000 mg PO BID 90 Days Qty: 180 RF: 1 omega-3 acid ethyl esters [Lovaza] 1 gram capsule 2 cap PO BID Qty: 360 RF: 1 allopurinol 300 mg tablet 300 mg PO DAILY Qty: 90 RF: 0 halobetasol propionate 0.05 % cream 1 appl topical DAILY RF: 0 multivitamin Tablet 1 tab PO DAILY RF: 0 aspirin 81 mg Tablet,Delayed Release (Dr/Ec) 81 mg PO DAILY RF: 0 calcium carbonate-vitamin D3 500 mg(1,250mg) -125 unit Tablet 1 tab PO BID RF: 0 Discontinued metoprolol succinate [Toprol XL] 50 mg tablet extended release 24 hr 50 mg PO DAILY Qty: 90 RF: 1 doxycycline hyclate 50 mg capsule 50 mg PO BID RF: 0 lisinopril 40 mg tablet 40 mg PO DAILY RF: 0 Discharge Orders: Discharge Order (Routine); Ordered 05/02/20 Ordered By: Denny Aceves Activity on Discharge: As tolerated Stand Alone Forms: Patient Portal Discharge page Care Plan Goals: recovery Health Concerns: uti, slow heart rate, low magnesium Plan of Treatment: decrease toprol to 25mg daily, cefurozime for 5 days, magnesium supplements
--- NOTE | 2020-05-02 10:26 | MHC.CM.PN ---
Pt cleared to DC today, home with no services. Family to transport
[2020-05-02 11:39] LABS: Glucose, Whole Blood 115 mg/dL (60-115)
[2020-05-02 11:44] VITALS: BP 131/54; PULSE 76; RESP 18; TEMP 36.8; O2SAT 99
--- NOTE | 2020-05-02 12:50 | P.PNCA_ITS ---
Subjective Subjective Date of Service: 05/02/20 Principal diagnosis: Av block Interval history: No cardiac symptoms. Denies palpitations. No lightheadedness. Feeling a lot better. Magnesium level is significantly improved. Cardiac telemetry shows frequent PACs and short runs consistent with her prior atrial tachycardia. Tolerating Toprol without any significant advanced AV block or pauses Review of Systems Review of Systems Yes all other systems are reviewed and are negative Physical Exam Vital Signs: Last Vital Signs Temp 98.3 F 05/02/20 11:44 Pulse 76 05/02/20 11:44 Resp 18 05/02/20 11:44 BP 131/54 L 05/02/20 11:44 Pulse Ox 99 05/02/20 11:44 Body Mass Index 36.6 Neck Neck: Yes trachea midline, Yes supple and Yes no JVD Resp Auscultation: clear to auscultation bilaterally Cardio Jugular venous distension: no JVD Rhythm: abnormal rhythm with ectopic beats Heart sounds: S1 normal heart sound present and S2 normal heart sound present Skin General skin exam: no rashes or lesions noted Extrem General: Yes no clubbing, cyanosis or edema Results Labs and Meds Result diagrams: 05/02/20 05:17 05/02/20 05:17 Lab results: Laboratory Results - last 24 hr 05/01/20 05/01/20 05/02/20 16:17 21:05 05:17 WBC 5.4 RBC 2.79 L Hgb 8.4 L Hct 26.4 L MCV 94.6 MCH 30.1 MCHC 31.8 RDW 15.7 Plt Count 207 MPV 9.7 Immature Gran % (Auto) 1.7 H Neut % (Auto) 60.1 Lymph % (Auto) 20.0 [place] % (Auto) 13.3 H Eos % (Auto) 4.5 H Baso % (Auto) 0.4 Lymph # (Auto) 1.1 L [place] # (Auto) 0.7 Eos # (Auto) 0.2 Baso # (Auto) 0.0 Abs Immat Gran (auto) 0.09 H Absolute Neuts (auto) 3.2 Absolute Nucleated RBC 0.000 Nucleated RBC % (auto) 0.0 Sodium Potassium Chloride Carbon Dioxide Anion Gap BUN Creatinine Estim Creat Clear Calc Estimated GFR POC Glucose 164 H 118 H Fasting Glucose Calcium Magnesium 05/02/20 05/02/20 05/02/20 05:17 07:32 11:24 WBC RBC Hgb Hct MCV MCH MCHC RDW Plt Count MPV Immature Gran % (Auto) Neut % (Auto) Lymph % (Auto) [place] % (Auto) Eos % (Auto) Baso % (Auto) Lymph # (Auto) [place] # (Auto) Eos # (Auto) Baso # (Auto) Abs Immat Gran (auto) Absolute Neuts (auto) Absolute Nucleated RBC Nucleated RBC % (auto) Sodium 142 Potassium 4.6 Chloride 114 H Carbon Dioxide 21 L Anion Gap 12 BUN 16 Creatinine 0.72 Estim Creat Clear Calc 63.1 Estimated GFR > 60 POC Glucose 94 115 Fasting Glucose 95 Calcium 7.8 L Magnesium 1.7 Progress Note: A&P Assessment and plan (1) AV block: Status: Acute Assessment and Plan: Advanced AV block on dual medications as well as presentation with acute kidney injury. Currently not having any advanced AV block, given however calcific aortic stenosis advanced AV conduction abnormality is likely. Will schedule her for placement of implantable loop recorder in the near future. This was discussed with her. She is agreeable. (2) Atrial tachycardia: Status: Acute Assessment and Plan: Atrial tachycardia without any major recurrences, however having frequent PACs and short runs. Continue with metoprolol 25 mg daily. Avoidance of stimulants was discussed. Will follow up as outpatient. Fall Risk Details Current Medications: Current Medications Generic Name Dose Route Start Last Admin Trade Name Freq PRN Reason Stop Dose Admin Acetaminophen 650 mg 04/28/20 20:35 05/01/20 21:53 Acetaminophen 325 Mg Tablet PO 650 mg Q6H PRN Administration Pain, Mild (Pain Scale 1-3) Allopurinol 300 mg 04/29/20 09:00 05/02/20 09:17 Allopurinol 300 Mg Tablet PO 300 mg DAILY PRITESH Administration Atorvastatin Calcium 10 mg 04/29/20 21:00 05/01/20 21:54 Atorvastatin Calcium 10 Mg Tablet PO 10 mg BEDTIME PRITESH Administration Ceftriaxone Sodium 1 gm/ 50 mls @ 100 mls/hr 04/29/20 22:00 05/01/20 22:36 Sodium Chloride IV Infused Q24H PRITESH Infusion Insulin Human Lispro 0 unit 04/28/20 21:00 05/02/20 07:46 Insulin Lispro 100 Unit/Ml 3 Ml Vial SUBCUT Not Given QIDACHS PRITESH Protocol Magnesium Oxide 800 mg 04/29/20 08:30 05/02/20 09:17 Magnesium Oxide 400 Mg Tablet PO 800 mg BIDPC PRITESH Administration Metoprolol Succinate 25 mg 05/01/20 14:00 05/02/20 09:17 Metoprolol Succinate Er 25 Mg Tab.Er.24h PO 25 mg DAILY PRITESH Administration Protocol Omeprazole 20 mg 04/30/20 06:30 05/02/20 05:52 Omeprazole 20 Mg Capsule.Dr PO 20 mg DAILY@0630 [facility] Administration Sodium Chloride 3 ml 04/29/20 00:00 05/02/20 07:47 0.9 % Sodium Chloride Flush 3 Ml Syringe IVFLUSH Not Given QSHIFT [facility] Time Spent With Patient Time: Total time spent is greater than 50% in coordination of care (as documented) at patient's floor/unit and/or counseling patient: Time with patient: 25 - 35 minutes
== END 2020-05-02 12:58 | disposition home or self-care (01) | DRG 690 ==
LOC: HO.ED 14:01 → HO.IMC 21:03
PROVIDERS: Physician Assistant; Admitting Provider Hospitalist; Emergency Provider Emergency Medicine; PCP Nurse Practitioner Family; Visit Provider Internal Medicine
DX: N39.0 Urinary tract infection, site not specified (principal); N17.9 Acute kidney failure, unspecified; R78.81 Bacteremia; I44.30 Unspecified atrioventricular block; I35.0 Nonrheumatic aortic (valve) stenosis; I10 Essential (primary) hypertension; D50.9 Iron deficiency anemia, unspecified; I95.1 Orthostatic hypotension; R19.5 Other fecal abnormalities; B96.20 Unspecified Escherichia coli [E. coli] as the cause of diseases classified elsewhere; E11.9 Type 2 diabetes mellitus without complications; E83.42 Hypomagnesemia; E78.5 Hyperlipidemia, unspecified; Z20.822 Contact with and (suspected) exposure to COVID-19; Z79.82 Long term (current) use of aspirin; Z79.84 Long term (current) use of oral hypoglycemic drugs; Z79.899 Other long term (current) drug therapy
CPT/HCPCS: 36415; 70450; 71045; 72125; 80048; 80053; 80076; 81001; 81003; 82272; 82550; 82947; 83605; 83735; 83880; 84484; 85025; 85610; 85730; 86850; 86900; 86923; 87040; 87077; 87086; 87186; 87205; 87635; 93005; 96361; 96374; 99285; J0696; J3475; P9016

== ENCOUNTER 2020-05-12 10:59 | Outpatient (REF) | payer MEDICARE, SELFPAY ==
[2020-05-12 11:09] VITALS: BMI 38.9
[2020-05-12 11:10] VITALS: BP 150/59; PULSE 97; RESP 16; TEMP 36.5; O2SAT 99
[2020-05-12 12:05] VITALS: BP 159/69; PULSE 88; RESP 16; O2SAT 96
--- NOTE | 2020-05-12 14:51 | PM.OP ---
Brief Operative Note Date of Service: 05/12/20 Pre-op diagnosis: AV block, near syncope Post-op diagnosis: same Procedure: Placement of implantable loop recorder Implants: After obtaining full informed consent patient was brought to the minor surgery suite. Patient was then laid in the supine position on the examination table. Patient's precordial area was then prepped and draped in a sterile fashion. Patient was then given 2% lidocaine with epinephrine intradermally and subcutaneously. A [employer] implantable loop recorder was then placed using Seldinger technique in the subcutaneous tissue. Serial number [id number]. Measured R-wave at 0.45 mV Surgeon: Noé Ritter MD Anesthesia: local Estimated blood loss (mL): 1 Pathology: none sent Condition: stable Disposition: same day
== END 2020-05-12 11:00 | disposition home or self-care (01) ==
LOC: HO.MS 10:59
PROVIDERS: PCP Nurse Practitioner Family; Visit Provider Internal Medicine Cardiovascular Disease
PROC: (CPT 33285; principal; 2020-05-12 11:30)
DX: I47.1 Supraventricular tachycardia (principal); I44.30 Unspecified atrioventricular block; R55 Syncope and collapse; I10 Essential (primary) hypertension; E11.9 Type 2 diabetes mellitus without complications; Z79.84 Long term (current) use of oral hypoglycemic drugs; Z79.899 Other long term (current) drug therapy
CPT/HCPCS: 33285; C1764

== ENCOUNTER 2020-05-13 11:54 | Outpatient (REF) | payer MEDICARE, SELFPAY ==
[2020-05-13 13:54] LABS: MANUAL DIFF FLAG NO
[2020-05-13 13:59] LABS: Basophils Percent Auto 0.7 % (0-2); Eosinophils Absolute Auto 0.3 X10*3/uL (0.0-0.4); Eosinophils Percent Auto 4.7 % (0-4); Hematocrit 29.6 % (37-47); Hemoglobin 9.1 g/dl (12.0-16.0); Imm Gran Abs Auto 0.05 X10*3/uL (0.00-0.03); Imm Gran Pct Auto 0.9 % (0.0-0.4); Lymphocytes Absolute Auto 1.1 X10*3/uL (1.2-4.9); Lymphocytes Percent Auto 19.9 % (20-40); Mean Corpuscular HGB Conc 30.7 g/dl (31.0-35.0); Mean Corpuscular Hemoglobin 29.8 pg (27.0-33.0); Mean Platelet Volume 9.4 fL (9.4-12.3); Monocytes Absolute Auto 0.7 X10*3/uL (0.1-1.2); Neutrophils Absolute Auto 3.3 X10*3/uL (2.0-8.3); Neutrophils Percent Auto 60.8 % (45-73); Platelet Count 243 X10*3/uL (160-400); Red Blood Count 3.05 X10*6/uL (4.20-5.50); Red Cell Distribution Width 15.8 % (11.0-16.0); White Blood Count 5.4 X10*3/uL (4.8-10.8)
[2020-05-13 14:24] LABS: Estimated Average Glucose 103 mg/dL; Hemoglobin A1C 81.7375 umol/L; Hemoglobin A1c % 5.2 %
[2020-05-13 14:32] LABS: Alanine Aminotransferase 14 U/L (0-31); Albumin Level 3.1 g/dL (3.5-5.0); Alkaline Phosphatase 192 U/L (39-117); Anion Gap 17 (12-20); Aspartate Amino Transferase 21 U/L (5-31); Bilirubin Total 0.3 mg/dL (0.0-1.0); Blood Urea Nitrogen 20 mg/dL (9-16); Calcium 9.1 mg/dL (8.4-10.2); Carbon Dioxide 25 mmol/L (22-29); Chloride 104 mmol/L (96-108); Estimated Glomerular Filt Rate > 60; Glucose Random 189 mg/dL (60-115); Iron 36 mcg/dL (30-160); Magnesium 1.6 mg/dL (1.6-2.6); Percent Iron Saturation 13 % (15-50); Potassium 4.5 mmol/L (3.3-5.1); Sodium 141 mmol/L (135-145); Total Iron Binding Capacity 287 mcg/dL (228-428); Total Protein 5.7 g/dL (6.5-8.0); Unsaturated Iron Binding 251 ug/dL
[2020-05-13 14:54] LABS: Ferritin 477 ng/mL (10-250)
[2020-05-13 15:01] LABS: Folate 18.3 ng/mL (> or = 4.0); Vitamin B12 410 pg/mL (200-900)
== END 2020-05-13 11:55 | disposition home or self-care (01) ==
LOC: HO.HMGCLDS 11:54
PROVIDERS: PCP Nurse Practitioner Family; Visit Provider Nurse Practitioner Family
DX: N17.9 Acute kidney failure, unspecified (principal); D64.9 Anemia, unspecified; E83.42 Hypomagnesemia; E11.9 Type 2 diabetes mellitus without complications; E53.8 Deficiency of other specified B group vitamins
CPT/HCPCS: 36415; 80053; 82607; 82728; 82746; 83036; 83540; 83735; 85025

== ENCOUNTER 2020-05-18 11:11 | Outpatient (REF) | payer MEDICARE, SELFPAY ==
[2020-05-18 15:08] LABS: Alanine Aminotransferase 11 U/L (0-31); Albumin Level 3.3 g/dL (3.5-5.0); Alkaline Phosphatase 193 U/L (39-117); Aspartate Amino Transferase 17 U/L (5-31); Bilirubin Direct 0.2 mg/dL (0.0-0.5); Bilirubin Total 0.4 mg/dL (0.0-1.0); Gamma Glutamyl Transpeptidase 11 U/L (7-33); Total Protein 5.8 g/dL (6.5-8.0)
== END 2020-05-18 11:12 | disposition home or self-care (01) ==
LOC: HO.HMGCLDS 11:11
PROVIDERS: PCP Nurse Practitioner Family; Visit Provider Nurse Practitioner Family
DX: R74.8 Abnormal levels of other serum enzymes (principal)
CPT/HCPCS: 36415; 80076; 82977

== ENCOUNTER 2020-05-20 11:41 | Outpatient (REF) | payer MEDICARE, SELFPAY ==
[2020-05-20 14:45] LABS: Glucose Urine UA NEG (NEG); Leukocyte Esterase Urine 1+ (NEG); Nitrite Urine NEG (NEG); Urine Blood NEG (NEG); Urine Ketones NEG (NEG); Urine Protein NEG (NEG-TRACE)
[2020-05-20 14:49] LABS: Appearance Urine CLEAR; Color Urine YELLOW
[2020-05-20 15:24] LABS: Bacteria Urine TRACE /LPF; RBC Urine 0-2 /HPF (0); Squamous Epithelial Cell Urine 1+ /LPF
[2020-05-21 10:17] LABS: Calcium, Ionized 5.2 mg/dL (4.8-5.6)
[2020-05-21 11:26] LABS: Calcium (PTHI) 9.2 mg/dL (8.6-10.4); PTHI 25 pg/mL (14-64)
== END 2020-05-20 11:42 | disposition home or self-care (01) ==
LOC: HO.LAB 11:41
PROVIDERS: PCP Nurse Practitioner Family; Visit Provider Nurse Practitioner Family
DX: E83.52 Hypercalcemia (principal); R74.8 Abnormal levels of other serum enzymes; N39.0 Urinary tract infection, site not specified
CPT/HCPCS: 36415; 81001; 82330; 83970; 87086

== ENCOUNTER → 2020-05-26 11:28 | Outpatient (BNVA) | payer MEDICARE, SELFPAY | PROVIDERS: PCP Nurse Practitioner Family; Visit Provider Nurse Practitioner Family | DX: Z51.89 Encounter for other specified aftercare (principal); I47.1 Supraventricular tachycardia; I44.30 Unspecified atrioventricular block; I35.0 Nonrheumatic aortic (valve) stenosis | CPT/HCPCS: 99212 ==

== ENCOUNTER → 2020-06-01 10:46 | Outpatient (BNVA) | payer MEDICARE, SELFPAY | PROVIDERS: PCP Nurse Practitioner Family; Visit Provider Nurse Practitioner Family ==

== ENCOUNTER → 2020-06-24 13:39 | Outpatient (BNVA) | payer MEDICARE, SELFPAY | PROVIDERS: PCP Nurse Practitioner Family; Referring Provider Nurse Practitioner Family; Visit Provider Internal Medicine Cardiovascular Disease | DX: Z45.09 Encounter for adjustment and management of other cardiac device (principal); I44.30 Unspecified atrioventricular block; I47.1 Supraventricular tachycardia; I35.0 Nonrheumatic aortic (valve) stenosis | CPT/HCPCS: 99212 ==

== ENCOUNTER 2020-07-01 12:00 | Day surgery (SDC) | payer MEDICARE, SELFPAY ==
--- NOTE | 2020-06-29 09:19 | P.CONAN_ITS ---
Documented by User: Valentina Hartmanney 06/29/20 09:26 HPI - Anesthesia Eval Consult details Narrative: 80yo F for Dual Pacemaker Insertion with Loop Recorder Removal PMFSH Active Problems Active Problems: All Active Problems (Updated 05/26/20 @ 16:08 by Chasidy Denny RECEPTIONIST/TELEPHONE OPERATOR-C) Visit for wound check (Acute) Occult blood positive stool (Acute) Hypomagnesemia (Acute) UTI (urinary tract infection) (Acute) Hypomagnesemia (Acute) E coli bacteremia (Acute) AV block (Acute) HEAVENLY (acute kidney injury) (Acute) Symptomatic anemia (Acute) HEAVENLY (acute kidney injury) (Acute) Low hemoglobin (Acute) Osteopenia (Acute) Serum calcium elevated (Acute) Elevated alkaline phosphatase level (Acute) Hyperkalemia (Acute) Anemia (Acute) Aortic stenosis (Acute) Atrial tachycardia (Acute) Bifascicular block (Acute) HTN (hypertension) (Acute) Diabetes mellitus (Acute) B12 deficiency (Acute) Abdominal pain (Acute) Past Medical History Medical History Aortic stenosis Atrial tachycardia B12 deficiency Basal cell carcinoma of face Bifascicular block Bullous pemphigoid (~1999) Diabetes mellitus (~1999) Gout HTN (hypertension) (~1993) Lymphedema RBBB Family History Family History Father Myocardial infarction Mother CHF (congestive heart failure) Brother Dementia Son No problems noted. Daughter No problems noted. Daughter No problems noted. Sister No problems noted. Sister No problems noted. Sister No problems noted. Sister Ovarian cancer Sister Cancer Stroke Surgical History Surgical History History of hemorrhoidectomy (~2000) History of surgery on upper extremity (~2012) History of tonsillectomy Hx of cholecystectomy (~1971) Status post placement of implantable loop recorder (~2020) Umbilical hernia (~1996) Social History Social History Household Members: Children Housing: House Alcohol intake: never Smoking Status: Former smoker Advance Directives: Yes Advance Directives on File: Yes Advance Directives Date on File: 04/28/20 service: No Current occupational status: retired Meds Allergies Allergy/AdvReac Type Severity Reaction Status Date / Time adhesive tape [ADHESIVE TAPE] Allergy Intermediate RASH Verified 07/01/20 12:33 rofecoxib [From Vioxx] AdvReac vaginal Verified 07/01/20 12:33 bleeding Home Medications Medication Instructions Recorded Confirmed Last Taken Type halobetasol propionate 1 appl TOPICAL DAILY 04/28/20 06/24/20 Unknown History aspirin 81 mg PO DAILY 04/30/20 06/24/20 Unknown History calcium carbonate-vitamin D3 1 tab PO BID 04/30/20 06/24/20 Unknown History multivitamin 1 tab PO DAILY 04/30/20 06/24/20 Unknown History carboxymethylcellulose sodium 0.5 1 drp OPHTHALMIC (EYE) BID 05/06/20 06/24/20 Unknown History % eye drops in a dropperette clobetasol 0.05 % topical cream g TOPICAL BID 05/06/20 06/24/20 Unknown History docusate sodium 50 mg capsule 50 mg PO DAILY 05/06/20 06/24/20 Unknown History fluocinonide 0.05 % topical ml TOPICAL BID 05/06/20 06/24/20 Unknown History solution triamcinolone acetonide 0.1 % appl TOPICAL 05/06/20 06/24/20 Unknown History topical cream cefuroxime axetil 500 mg tablet 500 mg PO BID tab 06/24/20 06/24/20 Unknown History doxycycline hyclate 50 mg capsule 50 mg PO BID 06/24/20 06/24/20 Unknown History furosemide 20 mg tablet 20 mg PO DAILY tab 06/24/20 06/24/20 Unknown History Exam Exam Date and Time: June 29, 202019 Pertinent Lab Results Pertinent Lab Results: Laboratory Tests 05/13/20 05/13/20 12:02 12:02 WBC 5.4 Hgb 9.1 L Hct 29.6 L Plt Count 243 Sodium 141 Potassium 4.5 Chloride 104 Carbon Dioxide 25 BUN 20 H Creatinine 0.81 Narrative Narrative: EKG 04/2020 Vent. Rate : 056 BPM Atrial Rate : 056 BPM P-R Int : 312 ms QRS Dur : 130 ms QT Int : 444 ms P-R-T Axes : 067 -40 017 degrees QTc Int : 428 ms Sinus bradycardia with AV Wenkebach with 1st degree A-V block Left axis deviation Right bundle branch block Abnormal ECG When compared with ECG of 17-MAR-2021 14:44, AV Wenkebach is present ECHO 01/2020 Conclusions: - 1. Normal LV systolic function with impaired relaxation filling pattern 2. Moderate aortic stenosis 3. Mildly dilated left atrium 4. No pericardial effusion Assessment and Plan Assessment Anesthesia Assessment: Chart Reviewed Documented by User: Adam Meeks MD 07/01/20 12:46 PMFSH Past Medical History Medical History Aortic stenosis Atrial tachycardia B12 deficiency Basal cell carcinoma of face Bifascicular block Bullous pemphigoid (~1999) Diabetes mellitus (~1999) Gout HTN (hypertension) (~1993) Lymphedema RBBB Family History Family History Father Myocardial infarction Mother CHF (congestive heart failure) Brother Dementia Son No problems noted. Daughter No problems noted. Daughter No problems noted. Sister No problems noted. Sister No problems noted. Sister No problems noted. Sister Ovarian cancer Sister Cancer Stroke Surgical History Surgical History History of hemorrhoidectomy (~2000) History of surgery on upper extremity (~2012) History of tonsillectomy Hx of cholecystectomy (~1971) Status post placement of implantable loop recorder (~2020) Umbilical hernia (~1996) Social History Social History Household Members: Children Housing: House Alcohol intake: never Smoking Status: Former smoker Advance Directives: Yes Advance Directives on File: Yes Advance Directives Date on File: 04/28/20 service: No Current occupational status: retired Meds Allergies Allergy/AdvReac Type Severity Reaction Status Date / Time adhesive tape [ADHESIVE TAPE] Allergy Intermediate RASH Verified 07/01/20 12:33 rofecoxib [From Vioxx] AdvReac vaginal Verified 07/01/20 12:33 bleeding Home Medications Medication Instructions Recorded Confirmed Last Taken Type halobetasol propionate 1 appl TOPICAL DAILY 04/28/20 06/24/20 Unknown History aspirin 81 mg PO DAILY 04/30/20 06/24/20 Unknown History calcium carbonate-vitamin D3 1 tab PO BID 04/30/20 06/24/20 Unknown History multivitamin 1 tab PO DAILY 04/30/20 06/24/20 Unknown History carboxymethylcellulose sodium 0.5 1 drp OPHTHALMIC (EYE) BID 05/06/20 06/24/20 Unknown History % eye drops in a dropperette clobetasol 0.05 % topical cream g TOPICAL BID 05/06/20 06/24/20 Unknown History docusate sodium 50 mg capsule 50 mg PO DAILY 05/06/20 06/24/20 Unknown History fluocinonide 0.05 % topical ml TOPICAL BID 05/06/20 06/24/20 Unknown History solution triamcinolone acetonide 0.1 % appl TOPICAL 05/06/20 06/24/20 Unknown History topical cream cefuroxime axetil 500 mg tablet 500 mg PO BID tab 06/24/20 06/24/20 Unknown History doxycycline hyclate 50 mg capsule 50 mg PO BID 06/24/20 06/24/20 Unknown History furosemide 20 mg tablet 20 mg PO DAILY tab 06/24/20 06/24/20 Unknown History Exam Airway Mallampati Class: II TM Dist: >3cm Neck ROM: Full Loose/Missing/Broken Teeth: No Assessment and Plan Assessment Anesthesia Assessment: Anesthesia Plan Discussed and Chart Reviewed Final Anesthetic Review NPO: Yes ASA Class: IV Final Preanesthetic Review: No Changes in Pt Med Stat, Meds/Allgs Chart Reviewed, Consent Obtained/Reviewed and Anes Risks/Benef Reviewed Patient Risk: High Procedure Risk: Intermediate Anesthetic Plan Anesthetic Plan: GA and MAC: Disposition: Standard PACU
[2020-07-01] VITALS (9 sets, daily range): BP systolic 119–168; BP diastolic 45–63; PULSE 66–98; RESP 14–20; TEMP 36.1–36.9; O2SAT 94–97; BMI 36.1; BMI 35.8
--- NOTE | ~2020-07-01 | FL_ITS ---
EXAMINATION: XR FLUOROSCOPY WITH IMAGES CLINICAL INFORMATION: Pacemaker insertion. COMPARISON: Chest x-ray 04/28/2020 TECHNIQUE: Fluoroscopy performed by Dr. Kenzie Jamison. Fluoroscopy time: 2.6 minutes DAP: 10.6 mGycm2 Images: 1 FINDINGS: A single limited image of the anterior chest was obtained revealing dual pacer electrodes in the right atrium and right ventricle. No gross bony abnormality seen. There is mild degenerative changes with spondylosis lower dorsal spine. No lytic process. FL/FL guidance in OR IMPRESSION: Fluoroscopy was provided to Dr. Espino for pacemaker insertion.
--- NOTE | ~2020-07-01 | XR_ITS ---
EXAMINATION: XR CHEST CLINICAL INFORMATION: Pacer. COMPARISON: Chest 04/28/2020 TECHNIQUE: Frontal view of the chest was obtained. FINDINGS: The lungs are fairly well-expanded with left basilar atelectasis or scarring. The lungs are clear. Heart size is enlarged. The pulmonary vascularity is normal. There are pacer electrodes in right atrium and right ventricle. No gross bony abnormality seen. XR/XR chest 1V IMPRESSION: Mild cardiomegaly. Left basilar atelectasis.
[2020-07-01 13:34] LABS: Glucose, Whole Blood 152 mg/dL (60-115)
--- NOTE | 2020-07-01 13:37 | MHC.SHP ---
Pre-Procedural Eval Section B Chief Complaint: Unspecified Atrioventricular Block Allergies: Allergies Allergy/AdvReac Type Severity Reaction Status Date / Time adhesive tape [ADHESIVE TAPE] Allergy Intermediate RASH Verified 07/01/20 12:33 rofecoxib [From Vioxx] AdvReac vaginal Verified 07/01/20 12:33 bleeding Plan I have reviewed the history and physical and performed a pertinent physical examination on my patient. No changes have occurred unless specified.
--- NOTE | 2020-07-01 15:17 | W.PM.OPN ---
Operative Note Operative Note Date of Service: 07/01/20 Narrative: Preoperative diagnosis: Complete heart block, presyncope Postoperative diagnosis: Same Operation: Placement of dual-chamber permanent pacemaker with fluoroscopic guidance, removal of loop recorder Surgeon: Kenzie Jamison MD Specimens: None EBL: 5 cc Operative findings: The pacemaker placed was a Medtronic [employer] XT DR PHYLLIS Singh serial number [id number]. the atrial lead placed was a Medtronic 4076 serial number [id number]. The ventricular lead placed was a Medtronic 4076 [id number]. Parameters in the right atrial lead sensing was 2.6 mV with impedance of 418 Ohms, and threshold of 1 volt at 0.4 milliseconds. In the ventricular lead threshold was 0.75 volts at 0.4 milliseconds with an impedance of 456 Ohms. Patient tolerated procedure well. Operation in detail: The patient was brought to the operating room, placed supine on the operating room table, anesthesia moderate of ices were placed, and the patient was gently sedated. A time-out was performed confirming the correct patient site and procedure. After injection of local anesthetic, a 3 cm incision was made in the left infraclavicular region and carried down to the pectoralis fascia with electrocautery. The patient was then placed in Trendelenburg and an 18 gauge needle was used to access subclavian vein on the 1st take. And a wire was placed into the right atrium under fluoroscopic guidance. A 2nd 18 gauge needle was then used to access the subclavian vein again on the 1st ache and a wire was placed under fluoroscopic guidance and parked in the right atrium. The patient was then taken out of Trendelenburg and a pocket was formed using blunt and electrocautery dissection. The 1st 6 Surinamese sheath was then placed over wire and the wire and dilator were removed. The ventricular lead was then placed through the sheath and parked in the right atrium and the peel-away sheath was removed. After several attempts using a curved stylet we were eventually able to access the right ventricle and the tip of the lead was positioned at the right ventricular apex. The endocardial screw was deployed and the lead was tested with excellent parameters above. This lead was then secured with silk sutures to the pectoralis fascia. The 2nd 6 Surinamese sheath was then placed over the 2nd wire and a wire dilator removed. The atrial lead was then placed and parked in the right atrium. A J stylet was used to position this in the right atrial appendage. The endocardial screws deployed and the lead was tested with excellent parameters above. This lead was also secured with silk sutures to the pectoralis fascia. The pocket was then copiously irrigated with antibiotic solution. The leads were then placed in their appropriate receptacles and the pacemaker was tested again with excellent parameters. The temporary pacing wire was then removed under fluoroscopic guidance and none of the leads changed position. The generator and excess lead was then placed into the pocket. The wound was then closed with a deep running 3-0 Vicryl suture followed by running 3-0 Vicryl suture and Dermabond glue in the skin. A Telfa and Tegaderm was used as a dressing for this prior to removing the loop. After injection of local anesthetic a 1 cm incision was made directly over the loop recorder. The tip of the loop recorder was grasped with a snap and pulled out of its position. This wound was then closed with a single interrupted buried 4-0 Monocryl stitch and Dermabond glue. The patient tolerated the procedure well and was brought to the recovery room in stable condition.
[2020-07-01 17:33] LABS: Glucose, Whole Blood 122 mg/dL (60-115)
[2020-07-01] MEDS: Magnesium Oxide 400 MG TABLET PO (18:46)
[2020-07-01] MEDS: 0.9 % Sodium Chloride Flush 3 ML SYRINGE IVFLUSH (18:48)
[2020-07-01 20:56] LABS: Glucose, Whole Blood 217 mg/dL (60-115)
[2020-07-01] MEDS: Insulin Lispro 100 UNIT/ML 3 ML VIAL SUBCUT (21:34)
[2020-07-01] MEDS: Acetaminophen 325 MG TABLET 650 MG PO (21:34)
[2020-07-01] MEDS: Docusate Sodium 100 MG CAPSULE PO (21:34)
[2020-07-02] MEDS: 0.9 % Sodium Chloride Flush 3 ML SYRINGE IVFLUSH ×2 (01:31→09:12)
[2020-07-02 03:31] VITALS: BP 118/53; PULSE 79; RESP 18; TEMP 36.9; O2SAT 97
[2020-07-02] MEDS: Acetaminophen 325 MG TABLET 650 MG PO ×2 (04:24→09:10)
[2020-07-02] MEDS: Omeprazole 20 MG CAPSULE.DR PO (04:30)
[2020-07-02 07:24] LABS: Glucose, Whole Blood 115 mg/dL (60-115)
[2020-07-02 08:00] VITALS: BP 137/65; PULSE 85; RESP 20; TEMP 36.2; O2SAT 97
[2020-07-02] MEDS: Aspirin Enteric Coated 81 MG TABLET.DR PO (09:10)
[2020-07-02] MEDS: Docusate Sodium 100 MG CAPSULE PO (09:10)
[2020-07-02] MEDS: Atorvastatin Calcium 10 MG TABLET PO (09:11)
[2020-07-02] MEDS: Furosemide 20 MG TABLET PO (09:11)
[2020-07-02] MEDS: Metoprolol Succinate ER 25 MG TAB.ER.24H PO (09:11)
[2020-07-02] MEDS: allopurinoL 300 MG TABLET PO (09:11)
[2020-07-02] MEDS: Magnesium Oxide 400 MG TABLET PO (09:11)
--- NOTE | 2020-07-02 09:40 | HO.POSTANES ---
Post Anesthesia Evaluation Post Anesthesia Evaluation Vital Signs: Vital Signs Temp Pulse Resp BP Pulse Ox 07/02/20 08:00 97.1 F 85 20 137/65 97 07/02/20 03:31 98.4 F 79 18 118/53 L 97 07/01/20 23:47 98.4 F 72 18 134/57 L 96 Anesthesia: General Mental Status: Awake Pain Control: Satisfactory Nausea/Vomiting: None Hydration: Adequate Anesthesia-Related Issues: No Anes. Related Issues
--- NOTE | 2020-07-02 09:42 | P.DS_ITS ---
DS: Providers Provider Date of Service: 07/02/20 Primary care physician: Manjit Schmitt, [facility]- DS: Medications Discharge Medications Home Medications: Home Medications Medication Instructions Recorded Confirmed halobetasol propionate 1 appl TOPICAL DAILY 04/28/20 06/24/20 aspirin 81 mg PO DAILY 04/30/20 06/24/20 calcium carbonate-vitamin D3 1 tab PO BID 04/30/20 06/24/20 multivitamin 1 tab PO DAILY 04/30/20 06/24/20 carboxymethylcellulose sodium 0.5 1 drp OPHTHALMIC (EYE) BID 05/06/20 06/24/20 % eye drops in a dropperette clobetasol 0.05 % topical cream g TOPICAL BID 05/06/20 06/24/20 docusate sodium 50 mg capsule 50 mg PO DAILY 05/06/20 06/24/20 fluocinonide 0.05 % topical ml TOPICAL BID 05/06/20 06/24/20 solution triamcinolone acetonide 0.1 % appl TOPICAL 05/06/20 06/24/20 topical cream cefuroxime axetil 500 mg tablet 500 mg PO BID tab 06/24/20 06/24/20 doxycycline hyclate 50 mg capsule 50 mg PO BID 06/24/20 06/24/20 furosemide 20 mg tablet 20 mg PO DAILY tab 06/24/20 06/24/20 Previous Rx's Medication Instructions Recorded metformin 1,000 mg tablet 1,000 mg PO BID 90 Days #180 tab 01/19/20 omega-3 acid ethyl esters 1 gram 2 cap PO BID #360 cap 02/17/20 capsule atorvastatin 10 mg tablet 10 mg PO BEDTIME #90 tab 05/18/20 allopurinol 300 mg tablet 300 mg PO DAILY #90 tab 05/24/20 metoprolol succinate 25 mg 25 mg PO DAILY #30 tab 05/26/20 tablet,extended release 24 hr magnesium oxide 400 mg (241.3 mg 400 mg PO BIDPC #60 tab 06/21/20 magnesium) tablet omeprazole 20 mg capsule,delayed 20 mg PO QAM #30 cap 06/28/20 release acetaminophen 650 mg PO Q6H PRN 7 Days tab 07/02/20 DS: Summary Hospital Course Hospital Course: Ms. Neff is an 80 year old female who is followed by Dr. Ritter from cardiology. She has had symptoms of AV block and was found to be in complete heart block as an outpatient. Decision was made at that point to proceed with pacemaker insertion. She was taken electively to the OR at [facility] with Dr. Jamison on 07/01/2020 where she had a dual chamber Medtronic pacemaker inserted. Following the procedure she was transferred to the telemetry floor where her stay was uneventful. Her pacemaker was interrogated on the morning of POD#1 which showed all values to be within normal limits. She was seen by Dr. Jamison in person prior to discharge and there did not appear to be any infection or hematoma at her incision/pocket site. Her pain has been well controlled without the need for narcotics, she has been hemodynamically stable, and tolerating an oral diet without issue. After discussion with Dr. Jamison patient is stable to be discharged home. Time Spent with Patient Time attestation: Total time spent providing and/or coordinating discharge services: Discharge coordination time: Less than 30 minutes Quality: Stroke Does the patient have a stroke diagnosis?: No Physical Exam Vital Signs: Vital Signs: Last Vital Signs Temp 97.1 F 07/02/20 08:00 Pulse 85 07/02/20 08:00 Resp 20 07/02/20 08:00 BP 137/65 07/02/20 08:00 Pulse Ox 97 07/02/20 08:00 Body Mass Index 35.8 Patient evaluated in-person by Dr. Jamison prior to discharge. I did not personally perform physical exam. DS: Data Data Completed and Pending Completed studies during hospitalization [Text1]: Procedures Transfusion of Nonautologous Red Blood Cells into Peripheral Vein, Percutaneous Approach (04/28/20) Labs on day of discharge: Laboratory Results - last 24 hr 07/01/20 07/01/20 07/01/20 13:07 17:29 20:44 POC Glucose 152 H 122 H 217 H 07/02/20 07:18 POC Glucose 115 Discharge Plan Discharge Patient Disposition: Home, Self-Care Referrals: Manjit Schmitt FNP- [Primary Care Provider] - 1 Week Kenzie Jamison MD [Physician] - 07/16/20 9:45 am (postop appointment) Noé Ritter MD [Physician] - 1 Month Discharge Medications: New acetaminophen 325 mg Tablet 650 mg PO Q6H PRN (Reason: pain) 7 Days RF: 0 Continued metformin 1,000 mg tablet 1,000 mg PO BID 90 Days Qty: 180 RF: 1 omega-3 acid ethyl esters [Lovaza] 1 gram capsule 2 cap PO BID Qty: 360 RF: 1 atorvastatin 10 mg tablet 10 mg PO BEDTIME Qty: 90 RF: 1 allopurinol 300 mg tablet 300 mg PO DAILY Qty: 90 RF: 0 magnesium oxide 400 mg (241.3 mg magnesium) tablet 400 mg PO BIDPC Qty: 60 RF: 4 omeprazole 20 mg capsule,delayed release(DR/EC) 20 mg PO QAM Qty: 30 RF: 1 halobetasol propionate 0.05 % cream 1 appl topical DAILY RF: 0 multivitamin Tablet 1 tab PO DAILY RF: 0 aspirin 81 mg Tablet,Delayed Release (Dr/Ec) 81 mg PO DAILY RF: 0 calcium carbonate-vitamin D3 500 mg(1,250mg) -125 unit Tablet 1 tab PO BID RF: 0 Refresh Plus 0.5 % dropperette 1 drp ophthalmic (eye) BID RF: 0 clobetasol 0.05 % cream topical BID RF: 0 triamcinolone acetonide 0.1 % cream topical RF: 0 fluocinonide 0.05 % solution topical BID RF: 0 Stool Softener 50 mg capsule 50 mg PO DAILY RF: 0 furosemide 20 mg tablet 20 mg PO DAILY RF: 0 cefuroxime axetil 500 mg tablet 500 mg PO BID RF: 0 doxycycline hyclate 50 mg capsule 50 mg PO BID RF: 0 metoprolol succinate 25 mg tablet extended release 24 hr 25 mg PO DAILY Qty: 30 RF: 5 Discharge Orders: Discharge Order (Routine); Ordered 07/02/20 Ordered By: Dominique Richey Patient Instructions: Pacemaker (DC) Activity Restrictions/Additional Instructions: ACTIVITY: * ARM MOVEMENT RESTRICTIONS: No lifting your left arm over your head or behind your back, no pushing/pulling/lifting anything >10lb with your left arm for 6- 8 weeks. This ensures the pacemaker wires stay in place and do not get pulled out accidentally. Make sure you are doing gentle range of motion exercises with the left arm (such as pendulum exercise) to make sure your elbow and shoulder do not get frozen up. * ARM SLING: Keep the sling on until Sunday, 07/04. You may then take the sling off and leave it off. HOWEVER, if you are noticing a difficulty limiting your left arm movement (as outline above) then wear your sling during the day to make sure you are adhering to the restrictions above. * Ask your doctor when you can expect to return to work. * You can still exercise. It is good for your body and your heart. Talk with your doctor about an exercise plan. INCISION CARE: * You may shower starting 07/04/2020. Sponge bathe only until then. * Do not submerge yourself in water (baths, pools, etc.) for 2 weeks. * Monitor the incision for increased redness, swelling, bruising, pain, open area, or drainage. * Take Tylenol OTHER PRECAUTIONS: * Before you receive any treatment, tell all healthcare providers (including your dentist) that you have a pacemaker. * You will be given an ID card that contains information about your pacemaker. Always carry this card with you. You can show this card if your pacemaker sets off a metal detector. You should also show it to avoid screening with a hand-held security wand. * Keep your cell phone away from your pacemaker. Do not carry the phone in your shirt pocket, even it if is turned off. * Avoid strong magnets. Examples are those used in MRI's or in hand-held security wands. * Avoid strong electrical clemens. Examples are those made by radio transmitting towers, ham radios, and heavy-duty electrical equipment. * Avoid leaning over the open stephen of a running car. A running engine creates an electrical field. Most household and yard appliances will not cause any problems. If you use any large power tools, such as an industrial manuscripts archivist, talk with your doctor. WHEN TO CALL YOUR DOCTOR: Call your doctor immediately if you have any of the following: * Dizziness * Chest pain * Lack of energy * Fainting spells * Twitching chest muscles * Rapid pule or pounding heartbeat * Shortness of breath * Pain around your pacemaker * Fever above 100.4 F (38 C) or other signs of infection (redness, swelling, drainage, or warmth at the incision site). * Hiccups that will not stop FOLLOWUP APPOINTMENTS: * You have an appointment with Dr. Jamison at the [facility] office on 07/16/2020 @ 9:45am for a post-op check. At that visit your pacemaker will be interrogated again. Office is located in [facility] on the 1st floor * Call Dr. Jamison's office (Thoracic Surgery) if you have any questions or concerns @ . * Call your poultryman, Dr. Ritter, to make an appointment for 1 month. Make regular follow-up appointments with your doctor. He or she will check the pacemaker to make sure it is working properly.
--- NOTE | 2020-07-02 10:01 | MHC.CM.PN ---
CRISTY 07/02/20 FEMALE 80 s/p PLACEMENT OF DUAL CHAMBER PERMANENT PACER. PATIENT LIVES WITH DTR. SHE AMBULATES WITH A CANE. SHE REQUIRES ASSIST WITH adls. HER DTR YOLANDA ASSISTS. Yolanda will also provide transportation home.CM will follow. Anticipate discharge today.
[2020-07-02 11:42] VITALS: BP 130/56; PULSE 70; RESP 19; TEMP 36.2; O2SAT 96
[2020-07-02 12:42] LABS: Glucose, Whole Blood 141 mg/dL (60-115)
--- NOTE | 2020-07-02 13:29 | MHC.CM.PN ---
MUNIZ 07/02/20 Female s/p pacer is discharged to home with family. No services ordered. Dtr Yolanda is providing transportation.
--- NOTE | 2020-07-02 14:06 | PC.NURSE ---
PT WAS KEPT OVERNIGHT AN EXTENDED RECOVERY. DISCHARGE INSTRUCTIONS GIVEN BY DR SILVA AND MYSELF. ALL QUESTIONS ANSWERED, NEXT MED DOSES HAND WRITTEN ON PAPER WORK. PAIN MANAGED WITH TYLENOL. CARDIAC MONITIOR REMOVED, IV ALSO REMOVED.
== END 2020-07-02 14:04 | disposition home or self-care (01) ==
LOC: HO.SSS 12:01 → HO.IMC 16:58 → HO.SSS 20:01 → HO.IMC 20:03
PROVIDERS: PCP Nurse Practitioner Family; Visit Provider Surgery
PROC: (CPT 33208; principal; 2020-07-01 13:30)
DX: I44.2 Atrioventricular block, complete (principal); R55 Syncope and collapse; I47.1 Supraventricular tachycardia; I45.10 Unspecified right bundle-branch block; I35.0 Nonrheumatic aortic (valve) stenosis; I45.2 Bifascicular block; I51.7 Cardiomegaly
CPT/HCPCS: 33208; 33286; 71045; 82947; C1785; C1892; C1898; J0690; J3370

== ENCOUNTER 2020-07-07 08:59 | Outpatient (REF) | payer MEDICARE, SELFPAY ==
[2020-07-07 11:16] LABS: B Type Natriuretic Peptide 63 pg/mL (<100)
[2020-07-07 11:22] LABS: Anion Gap 15 (12-20); Blood Urea Nitrogen 18 mg/dL (9-16); Calcium 8.7 mg/dL (8.4-10.2); Carbon Dioxide 25 mmol/L (22-29); Chloride 102 mmol/L (96-108); Estimated Glomerular Filt Rate > 60; Glucose Random 216 mg/dL (60-115); Potassium 4.7 mmol/L (3.3-5.1); Sodium 137 mmol/L (135-145)
== END 2020-07-07 09:00 | disposition home or self-care (01) ==
LOC: HO.LAB 08:59
PROVIDERS: PCP Nurse Practitioner Family; Referring Provider Nurse Practitioner Family; Visit Provider Internal Medicine Cardiovascular Disease
DX: I47.1 Supraventricular tachycardia (principal); R60.0 Localized edema; Z95.0 Presence of cardiac pacemaker; Z79.899 Other long term (current) drug therapy; Z79.84 Long term (current) use of oral hypoglycemic drugs
CPT/HCPCS: 36415; 80048; 83880; 93005; 99212

== ENCOUNTER → 2020-07-16 09:45 | Outpatient (BNVA) | payer MEDICARE, SELFPAY | PROVIDERS: PCP Nurse Practitioner Family; Visit Provider Surgery | DX: I44.30 Unspecified atrioventricular block (principal); Z79.899 Other long term (current) drug therapy; Z79.84 Long term (current) use of oral hypoglycemic drugs; Z45.018 Encounter for adjustment and management of other part of cardiac pacemaker | CPT/HCPCS: 99212 ==

== ENCOUNTER 2020-07-20 12:37 | Outpatient (REF) | payer MEDICARE, SELFPAY ==
[2020-07-20 13:26] LABS: MANUAL DIFF FLAG NO
[2020-07-20 13:30] LABS: Basophils Percent Auto 0.2 % (0-2); Eosinophils Percent Auto 0.4 % (0-4); Hematocrit 28.3 % (37-47); Hemoglobin 8.8 g/dl (12.0-16.0); Imm Gran Abs Auto 0.15 X10*3/uL (0.00-0.03); Imm Gran Pct Auto 1.5 % (0.0-0.4); Lymphocytes Absolute Auto 1.1 X10*3/uL (1.2-4.9); Lymphocytes Percent Auto 11.3 % (20-40); Mean Corpuscular HGB Conc 31.1 g/dl (31.0-35.0); Mean Corpuscular Hemoglobin 26.1 pg (27.0-33.0); Mean Platelet Volume 9.1 fL (9.4-12.3); Monocytes Absolute Auto 1.2 X10*3/uL (0.1-1.2); Monocytes Percent Auto 12.5 % (2-11); Neutrophils Absolute Auto 7.2 X10*3/uL (2.0-8.3); Neutrophils Percent Auto 74.1 % (45-73); Platelet Count 381 X10*3/uL (160-400); Red Blood Count 3.37 X10*6/uL (4.20-5.50); Red Cell Distribution Width 16.2 % (11.0-16.0); White Blood Count 9.7 X10*3/uL (4.8-10.8)
[2020-07-20 13:39] LABS: Estimated Average Glucose 134 mg/dL; Hemoglobin A1c % 6.3 %
[2020-07-20 14:00] LABS: B Type Natriuretic Peptide 147 pg/mL (<100)
[2020-07-20 14:03] LABS: Anion Gap 14 (12-20); Blood Urea Nitrogen 16 mg/dL (9-16); Calcium 9.7 mg/dL (8.4-10.2); Carbon Dioxide 24 mmol/L (22-29); Chloride 104 mmol/L (96-108); Estimated Glomerular Filt Rate > 60; Glucose Random 170 mg/dL (60-115); Potassium 4.3 mmol/L (3.3-5.1); Sodium 138 mmol/L (135-145)
[2020-07-20 14:07] LABS: Cholesterol 68 mg/dL; HDL Cholesterol < 5 mg/dL; LDL Cholesterol Calculated 37 mg/dl; Magnesium 1.2 mg/dL (1.6-2.6); Triglycerides 130 mg/dL
[2020-07-20 14:26] LABS: Ferritin 687 ng/mL (10-250); TSH reflex Free T4 1.68 uIU/mL (0.32-4.0)
[2020-07-20 14:36] LABS: Folate > 20.0 ng/mL (> or = 4.0); Vitamin B12 344 pg/mL (200-900)
[2020-07-26 14:17] LABS: Fructosamine 182 umol/L (205-285)
== END 2020-07-20 12:38 | disposition home or self-care (01) ==
LOC: HO.LAB 12:37
PROVIDERS: Absent Provider Nurse Practitioner Family; PCP Nurse Practitioner Family; Visit Provider Internal Medicine Cardiovascular Disease
DX: R60.0 Localized edema (principal); E83.42 Hypomagnesemia; D64.9 Anemia, unspecified; E11.9 Type 2 diabetes mellitus without complications; E53.8 Deficiency of other specified B group vitamins
CPT/HCPCS: 36415; 80048; 80061; 82607; 82728; 82746; 82985; 83036; 83735; 83880; 84443; 85025

== ENCOUNTER 2020-07-26 11:00 | Outpatient (REF) | payer MEDICARE, SELFPAY ==
[2020-07-26 12:42] LABS: Anion Gap 13 (12-20); Blood Urea Nitrogen 15 mg/dL (9-16); Calcium 10.4 mg/dL (8.4-10.2); Carbon Dioxide 28 mmol/L (22-29); Chloride 102 mmol/L (96-108); Estimated Glomerular Filt Rate > 60; Glucose Random 200 mg/dL (60-115); Potassium 4.9 mmol/L (3.3-5.1); Sodium 138 mmol/L (135-145)
== END 2020-07-26 11:01 | disposition home or self-care (01) ==
LOC: HO.LAB 11:00
PROVIDERS: Absent Provider Nurse Practitioner Family; PCP Nurse Practitioner Family; Visit Provider Internal Medicine Cardiovascular Disease
DX: R60.0 Localized edema (principal); R79.89 Other specified abnormal findings of blood chemistry
CPT/HCPCS: 36415; 80048; 81256

== ENCOUNTER 2020-07-29 | Outpatient (REF) | payer MEDICARE, SELFPAY ==
[2020-07-30 13:40] LABS: Glucose Urine UA NEG (NEG); Leukocyte Esterase Urine TRACE (NEG); Nitrite Urine NEG (NEG); Urine Blood NEG (NEG); Urine Ketones NEG (NEG); Urine Protein NEG (NEG-TRACE)
[2020-07-30 13:53] LABS: Appearance Urine HAZY; Color Urine YELLOW
[2020-07-30 14:35] LABS: Calcium Oxalate Crystals Urine 2+ /LPF; Mucus Urine 1+ /LPF; RBC Urine 0 /HPF (0); Squamous Epithelial Cell Urine 1+ /LPF
== END 2020-07-29 00:01 | disposition home or self-care (01) ==
LOC: HO.LNP
PROVIDERS: Visit Provider Nurse Practitioner Family
DX: R78.81 Bacteremia (principal); B96.20 Unspecified Escherichia coli [E. coli] as the cause of diseases classified elsewhere
CPT/HCPCS: 81001; 87086

== ENCOUNTER 2020-07-30 13:08 | Outpatient (REF) | payer MEDICARE, SELFPAY | END 2020-07-30 13:09 | disposition home or self-care (01) | LOC: HO.LNP 13:08 | PROVIDERS: Visit Provider Nurse Practitioner Family | DX: Z13.89 Encounter for screening for other disorder (principal) ==

== ENCOUNTER 2020-08-04 15:36 | Inpatient (IN) | payer MEDICARE, SELFPAY ==
[2020-08-04] VITALS (7 sets, daily range): BP systolic 102–114; BP diastolic 42–56; PULSE 73–97; RESP 17–22; TEMP 36.6–37; O2SAT 95–98; BMI 35.6
--- NOTE | ~2020-08-04 | CT_ITS ---
EXAMINATION: CT HEAD WITHOUT CONTRAST CLINICAL INFORMATION: New onset weakness COMPARISON: Previous head CT most recent April 2020 TECHNIQUE: Contiguous axial imaging was performed from the skull base to vertex without intravenous administration of contrast. This CT examination was performed using dose optimization techniques as appropriate, variously including the following: *Automated exposure control *Adjustment of mA and/or kV according to patient size (this includes techniques or standardized protocols for targeted exams where dose is matched to indication/reason for exam; i.e. extremities or head) *Use of iterative reconstruction technique DLP: 667 mGy-cm FINDINGS: There is no evidence of an extra-axial collection. There is no evidence of intra-axial or extra-axial hemorrhage. Age-related prominence of the ventricles and extra-axial CSF spaces. Hall-white matter differentiation is normal. No mass, mass effect or infarct is seen. Review of bone windows is normal. No skull fracture is seen. Visualized paranasal sinuses, mastoid air cells and middle ears are clear. CT/CT head/brain wo con IMPRESSION: Unremarkable exam.
--- NOTE | ~2020-08-04 | CT_ITS ---
EXAMINATION: CT ABDOMEN AND PELVIS WITH CONTRAST CLINICAL INFORMATION: Weakness and anemia COMPARISON: None TECHNIQUE: Multidetector volumetric images were obtained from the superior aspect of the liver through the pubic symphysis following administration 85 mL of Omnipaque 350 intravenous contrast. Sagittal and coronal reformatted images were obtained on the technologist's workstation. Oral contrast: Yes This CT examination was performed using dose optimization techniques as appropriate, variously including the following: *Automated exposure control *Adjustment of mA and/or kV according to patient size (this includes techniques or standardized protocols for targeted exams where dose is matched to indication/reason for exam; i.e. extremities or head) *Use of iterative reconstruction technique DLP: 816 mGy-cm FINDINGS: LUNG BASES: The heart is enlarged. There is a small right pleural effusion. LIVER, GALLBLADDER, AND BILIARY TREE: The liver is normal in size, shape, and attenuation. No focal hepatic lesion or intrahepatic biliary ductal dilatation is present. The gallbladder has been removed. The common bile duct is slightly dilated measuring 1.2 cm. This may be normal postcholecystectomy. PANCREAS: Unremarkable. SPLEEN: The spleen is enlarged. ADRENAL GLANDS: Unremarkable. KIDNEYS AND URETERS: There are bilateral renal cysts. There is an embolization coil inferior to the left kidney. The kidneys are otherwise unremarkable. BLADDER: Not optimally distended. GASTROINTESTINAL TRACT: There is a large duodenal diverticulum adjacent to the head of the pancreas and common bile duct that measures 7 x 7.5 cm. There is a second adjacent 6 mm duodenal diverticulum measuring 6 mm. Small and large bowel is otherwise unremarkable. The stomach is slightly dilated and filled with fluid. ABDOMINAL WALL: There is atrophy of the abdominal wall muscles on laxity on the right. A discrete hernia is not appreciated. LYMPH NODES: There are enlarged periportal lymph nodes. There are enlarged retroperitoneal lymph nodes in the abdomen and pelvis. Largest abdominal lymph node is a left periaortic lymph node measuring 2.6 cm axial image 27 series 18. Largest pelvic lymph node is a left iliac lymph node measuring 2.2 cm axial image 58 series 18. There is an enlarged left inguinal lymph node that measures 2.8 x 5.4 cm. VASCULAR: Unremarkable. PELVIC VISCERA: Unremarkable. OSSEOUS STRUCTURES: There are L1 and L2 vertebral body compression fractures. There are degenerative changes of the spine. CT/CT abdomen pelvis w con IMPRESSION: Enlarged lymph nodes. Slightly enlarged spleen. Lymphoma and metastatic disease should be considered. Bilateral renal cysts. Large duodenal diverticuli. Small right pleural effusion. L1 and L2 vertebral body compression fractures.
--- NOTE | ~2020-08-04 | US_ITS ---
EXAMINATION: US GUIDE-NEEDLE PLACEMENT, LEFT GROIN LYMPH NODE BIOPSY CLINICAL INFORMATION: Diffuse retroperitoneal periportal, pelvic and left inguinal lymphadenopathy. COMPARISON: CT abdomen and pelvis 08/05/2020 TECHNIQUE: Following explaining ultrasound-guided left inguinal lymph node core biopsy procedure, benefits and risk, a written consent was obtained. Patient was placed supine on ultrasound stretcher and preliminary ultrasound imaging was obtained to the left groin. An optimal site was selected, marked, draped in a sterile fashion. 1% lidocaine was injected at marked site. Through a small skin incision, an 18-gauge guide needle was advanced into the left groin under sterile ultrasound guidance. Coaxially, an 18-gauge biopsy gun was advanced and 3-pass core biopsy of left inguinal lymph node was performed. There is no bleeding. Repeat imaging revealed no hematoma. Sterile dressing applied postprocedure. Patient tolerated procedure extremely well. Patient was monitored during the exam by a nursing air cargo ground operations supervisor of the hospital. FINDINGS: There are 2 large lymph nodes adjacent to each other in the left groin. They measure 4.9 x 2.2 x 3.5 cm. The smaller lymph node measures 3.0 x 4.8 x 3 0.5 cm. 3-pass core biopsy of the left largest lymph node was performed under sterile ultrasound guidance. Sample collected was sent for flow cytometry and alcohol solution for further evaluation. US/US biopsy lymph node IMPRESSION: Successful ultrasound-guided left inguinal lymph node core biopsy performed.
--- NOTE | ~2020-08-04 | XR_ITS ---
EXAMINATION: XR CHEST CLINICAL INFORMATION: Weakness. Anemia. COMPARISON: Chest x-ray 07/01/2020. CT abdomen pelvis 08/05/2020 TECHNIQUE: Frontal portable view of the chest was obtained. 5:02 PM FINDINGS: Pacemaker lead in right atrium and right ventricle. Heart size is normal. Cardiac mediastinal contours are normal. Bibasilar linear opacities of atelectasis. Slightly blunted right costophrenic angle, small right pleural effusion. XR/XR chest 1V IMPRESSION: Bibasilar linear atelectasis. Small right pleural effusion. Pacemaker.
--- NOTE | ~2020-08-04 | US_ITS ---
EXAMINATION: US GUIDE-NEEDLE PLACEMENT, LEFT GROIN LYMPH NODE BIOPSY CLINICAL INFORMATION: Diffuse retroperitoneal periportal, pelvic and left inguinal lymphadenopathy. COMPARISON: CT abdomen and pelvis 08/05/2020 TECHNIQUE: Following explaining ultrasound-guided left inguinal lymph node core biopsy procedure, benefits and risk, a written consent was obtained. Patient was placed supine on ultrasound stretcher and preliminary ultrasound imaging was obtained to the left groin. An optimal site was selected, marked, draped in a sterile fashion. 1% lidocaine was injected at marked site. Through a small skin incision, an 18-gauge guide needle was advanced into the left groin under sterile ultrasound guidance. Coaxially, an 18-gauge biopsy gun was advanced and 3-pass core biopsy of left inguinal lymph node was performed. There is no bleeding. Repeat imaging revealed no hematoma. Sterile dressing applied postprocedure. Patient tolerated procedure extremely well. Patient was monitored during the exam by a nursing quarry supervisor of the hospital. FINDINGS: There are 2 large lymph nodes adjacent to each other in the left groin. They measure 4.9 x 2.2 x 3.5 cm. The smaller lymph node measures 3.0 x 4.8 x 3 0.5 cm. 3-pass core biopsy of the left largest lymph node was performed under sterile ultrasound guidance. Sample collected was sent for flow cytometry and alcohol solution for further evaluation. US/US guide needle placement IMPRESSION: Successful ultrasound-guided left inguinal lymph node core biopsy performed.
--- NOTE | 2020-08-04 16:48 | ECG_ITS ---
Test Reason : CP Blood Pressure : / mmHG Vent. Rate : 070 BPM Atrial Rate : 070 BPM P-R Int : 312 ms QRS Dur : 124 ms QT Int : 388 ms P-R-T Axes : 038 -49 002 degrees QTc Int : 419 ms Sinus rhythm with marked sinus arrhythmia with 1st degree A-V block with frequent atrial-paced complexes Left axis deviation Right bundle branch block Abnormal ECG When compared with ECG of 28-APR-2020 19:46, Electronic atrial pacemaker has replaced Sinus rhythm Referred By: Lizzeth Akhtar Electronically Signed By:Steven Barnes
--- NOTE | 2020-08-04 16:50 | ED.GENADULT ---
HPI - General Adult General Chief complaint: General Medical Stated complaint: FAILURE TO THRIVE Time Seen by Provider: 08/04/20 16:27 Source: patient Mode of arrival: ambulatory Limitations: no limitations History of Present Illness HPI narrative: Patient comes emergency room complaining of generalized weakness, decreased p.o. intake, and worsening diarrhea. Patient denies abdominal pain nausea vomiting. Patient states that she has a pacemaker inserted the hospital approximately 1 month ago. The daughter reports the mother has a hard time getting into her bed, therefore she has been sleeping in a recliner for a month now. Patient developed ulcers in her buttocks. Patient states that she has chronic diarrhea, but over the last week the diarrhea worsen. At this time, patient complaining of generalized weakness and pain in her buttocks Related Data Home Medications Medication Instructions Recorded Confirmed allopurinol 1 tab PO DAILY 08/04/20 08/04/20 atorvastatin 1 tab PO BEDTIME 08/04/20 08/04/20 diltiazem HCl 1 cap PO DAILY 08/04/20 08/04/20 doxycycline hyclate 1 cap PO BID 08/04/20 08/04/20 furosemide 1 tab PO DAILY 08/04/20 08/04/20 halobetasol propionate 1 appl TOPICAL BID 08/04/20 08/04/20 metformin 1 tab PO BID 08/04/20 08/04/20 metoprolol succinate 1 tab PO DAILY 08/04/20 08/04/20 omeprazole 1 cap PO QAM 08/04/20 08/04/20 Allergies Allergy/AdvReac Type Severity Reaction Status Date / Time adhesive tape [ADHESIVE TAPE] Allergy Intermediate RASH Verified 08/04/20 16:28 latex Allergy Intermediate rash Verified 08/04/20 16:28 Review of Systems Review of Systems: Constitutional : Reports Weight loss, No Fever, No Chills, No Night Sweats, worsening chronic fatigue ENT/Mouth : No Hearing loss, No Ear Pain, No Nasal Congestion, No Sinus Pain, No Hoarseness, No sore throat, No Rhinorrhea, No Swallowing Difficulty Eyes: No Eye Pain, No Swelling, No Redness, No Foreign Body, No Discharge, No Vision Changes Cardiovascular : No Chest Pain, No SOB, No Dyspnea on Exertion, No Orthopnea, No Edema, No Palpitations Respiratory : No Cough, No Sputum, No Wheezing, No Smoke Exposure, No Dyspnea Gastrointestinal : No Nausea, No Vomiting, complaining of acute on chronic Diarrhea, No Constipation, No abdominal Pain, No Hematochezia, No Melena Genitourinary : no irregular bleeding, No Dysuria, No Urinary Frequency, No Hematuria, No Urinary Incontinence, No Urgency, No Flank Pain, No Urinary Flow Changes, No Hesitancy Musculoskeletal : No joint pain, No Myalgias, No Joint Swelling Skin : Complaining of ulcers in her buttocks Neuro : No Weakness, No Numbness, No Paresthesias, No Loss of Consciousness, No Dizziness, No Headache Psych : No Anxiety/Panic, No Depression, No SI/HI/AH/VH, No Social Issues, Heme/Lymph: No Bruising, No Bleeding,No Lymphadenopathy Endocrine : No Polyuria, No Polydipsia, No Temperature Intolerance [facility] Past Medical History Medical History Aortic stenosis Atrial tachycardia B12 deficiency Basal cell carcinoma of face Bifascicular block Bullous pemphigoid (~1999) Cardiac pacemaker in situ (~06/2020) Diabetes mellitus (~1999) Gout HTN (hypertension) (~1993) Lymphedema RBBB Surgical History History of cholecystectomy (~1971) History of hemorrhoidectomy (~2000) History of pacemaker (~06/2020) History of surgery on upper extremity (~2012) History of tonsillectomy History of umbilical hernia repair (~1996) Status post placement of implantable loop recorder (~2020) Family History Family History Father Myocardial infarction Mother CHF (congestive heart failure) Brother Dementia Son No problems noted. Daughter No problems noted. Daughter No problems noted. Sister No problems noted. Sister No problems noted. Sister No problems noted. Sister Ovarian cancer Sister Cancer Stroke Social History Social History Household Members: Children Housing: House Do you presently have visiting nurse or other home services: No Alcohol intake: never Patient Tobacco Use Status: Former Tobacco user Quit Date: 1969 Cigarette Packs Per Day: 0.5 e-Cigarette/Vaping Use: Never Used Use of substances other than those prescribed or required for medical reasons: No Advance Directives: Yes Advance Directives on File: Yes Advance Directives Date on File: 04/28/20 service: No Current occupational status: retired Physical Exam Vital Signs: Vital Signs: Last Vital Signs Temp 98.0 F 08/04/20 22:37 Pulse 69 08/05/20 01:56 Resp 18 08/05/20 01:56 BP 109/46 L 08/05/20 01:56 Pulse Ox 95 08/04/20 22:00 Body Mass Index 35.6 Appearance: Alert. Oriented X3. No acute distress. Seems weak Eyes: Pupils equal, round and reactive to light. ENT: Pharynx normal. Neck: Normal inspection. Neck supple. No lymph nodes noted. No crepitus CVS: Normal heart rate and rhythm. Pulses normal. Normal S1 and S2, harsh systolic murmur, worse in the left sternal border Respiratory: No respiratory distress. Breath sounds normal. No Wheezing. No rales Abdomen: Soft and nontender. No rigidity. Mild distention. Skin: Skin warm and dry. Close to pressure ulcers buttocks bilaterally Extremities: +3 pitting edema, patient wearing compression stockings Neuro: Oriented X 3. No motor deficit. No sensory deficit. Moving all extermities. No slurred speech. Course Course Course Narrative: I discussed with the patient that her hemoglobin is 7.4, given that she is significantly symptomatic, we will go ahead and do a blood transfusion. Patient states she had 1 in April, and consents for a blood transfusion today. Consent signed, in patient's chart now. Patient tolerated well the transfusion, patient's hemoglobin improved to 7.9 which is close to patient's baseline. Patient was evaluated by Case Management. Tomorrow she will be evaluated by physical therapy, it is likely that patient will be going to short-term rehab. Sign-out given to Dr. Amin Medical Decision Making Lab Data Result diagrams: 08/04/20 23:40 08/04/20 18:01 Labs: Lab Results 08/04/20 08/04/20 08/04/20 Range/Units 17:54 18:01 18:01 WBC 10.5 (4.8-10.8) X10*3/uL RBC 2.99 L (4.20-5.50) X10*6/uL Hgb 7.4 L (12.0-16.0) g/dl Hct 24.3 L (37-47) % MCV 81.3 (80-98) fL MCH 24.7 L (27.0-33.0) pg MCHC 30.5 L (31.0-35.0) g/dl RDW 17.6 H (11.0-16.0) % Plt Count 300 (160-400) X10*3/uL MPV 8.9 L (9.4-12.3) fL Immature Gran % (Auto) 1.3 H (0.0-0.4) % Neut % (Auto) 74.5 H (45-73) % Lymph % (Auto) 12.0 L (20-40) % [place] % (Auto) 11.5 H (2-11) % Eos % (Auto) 0.6 (0-4) % Baso % (Auto) 0.1 (0-2) % Lymph # (Auto) 1.3 (1.2-4.9) X10*3/uL [place] # (Auto) 1.2 (0.1-1.2) X10*3/uL Eos # (Auto) 0.1 (0.0-0.4) X10*3/uL Baso # (Auto) 0.0 (0.0-0.2) X10*3/uL Abs Immat Gran (auto) 0.14 H (0.00-0.03) X10*3/uL Absolute Neuts (auto) 7.9 (2.0-8.3) X10*3/uL Absolute Nucleated RBC 0.050 H (0.0-0.012) X10*3/uL Nucleated RBC % (auto) 0.5 H (0.0-0.2) /100WBC PT (10.8-13.0) SEC INR (0.9-1.1) Sodium 135 (135-145) mmol/L Potassium 4.7 (3.3-5.1) mmol/L Chloride 100 (96-108) mmol/L Carbon Dioxide 26 (22-29) mmol/L Anion Gap 14 (12-20) BUN 28 H D (9-16) mg/dL Creatinine 0.78 (0.5-1.4) mg/dL Estim Creat Clear Calc 57.4 Estimated GFR > 60 Random Glucose 110 D (60-115) mg/dL Lactic Acid (0.5-2.0) mmol/L Calcium 9.8 (8.4-10.2) mg/dL Magnesium (1.6-2.6) mg/dL Troponin I High Sens (<3.5-17.0) ng/L B-Natriuretic Peptide (<100) pg/mL Lipase (8-78) U/L TSH (0.32-4.0) uIU/mL Urine Color Urine Appearance Urine pH (5.0-8.0) Ur Specific [place] (1.005-1.025) Urine Protein (NEG-TRACE) MG/DL Urine Glucose (UA) (NEG) MG/DL Urine Ketones (NEG) MG/DL Urine Blood (NEG) Urine Nitrite (NEG) Ur Leukocyte Esterase (NEG) Stool Occult Blood (NEGATIVE) COVID-19 (KELSIE) Negative (Negative) COVID-19 Clin Com See Note Blood Type Antibody Screen Crossmatch 08/04/20 08/04/20 08/04/20 Range/Units 18:01 18:01 18:01 WBC (4.8-10.8) X10*3/uL RBC (4.20-5.50) X10*6/uL Hgb (12.0-16.0) g/dl Hct (37-47) % MCV (80-98) fL MCH (27.0-33.0) pg MCHC (31.0-35.0) g/dl RDW (11.0-16.0) % Plt Count (160-400) X10*3/uL MPV (9.4-12.3) fL Immature Gran % (Auto) (0.0-0.4) % Neut % (Auto) (45-73) % Lymph % (Auto) (20-40) % [place] % (Auto) (2-11) % Eos % (Auto) (0-4) % Baso % (Auto) (0-2) % Lymph # (Auto) (1.2-4.9) X10*3/uL [place] # (Auto) (0.1-1.2) X10*3/uL Eos # (Auto) (0.0-0.4) X10*3/uL Baso # (Auto) (0.0-0.2) X10*3/uL Abs Immat Gran (auto) (0.00-0.03) X10*3/uL Absolute Neuts (auto) (2.0-8.3) X10*3/uL Absolute Nucleated RBC (0.0-0.012) X10*3/uL Nucleated RBC % (auto) (0.0-0.2) /100WBC PT 17.1 H (10.8-13.0) SEC INR 1.4 H (0.9-1.1) Sodium (135-145) mmol/L Potassium (3.3-5.1) mmol/L Chloride (96-108) mmol/L Carbon Dioxide (22-29) mmol/L Anion Gap (12-20) BUN (9-16) mg/dL Creatinine (0.5-1.4) mg/dL Estim Creat Clear Calc Estimated GFR Random Glucose (60-115) mg/dL Lactic Acid 1.6 (0.5-2.0) mmol/L Calcium (8.4-10.2) mg/dL Magnesium 2.1 (1.6-2.6) mg/dL Troponin I High Sens (<3.5-17.0) ng/L B-Natriuretic Peptide (<100) pg/mL Lipase 18 (8-78) U/L TSH 1.17 (0.32-4.0) uIU/mL Urine Color Urine Appearance Urine pH (5.0-8.0) Ur Specific [place] (1.005-1.025) Urine Protein (NEG-TRACE) MG/DL Urine Glucose (UA) (NEG) MG/DL Urine Ketones (NEG) MG/DL Urine Blood (NEG) Urine Nitrite (NEG) Ur Leukocyte Esterase (NEG) Stool Occult Blood (NEGATIVE) COVID-19 (KELSIE) (Negative) COVID-19 Clin Com Blood Type Antibody Screen Crossmatch 08/04/20 08/04/20 08/04/20 Range/Units 18:01 18:32 18:59 WBC (4.8-10.8) X10*3/uL RBC (4.20-5.50) X10*6/uL Hgb (12.0-16.0) g/dl Hct (37-47) % MCV (80-98) fL MCH (27.0-33.0) pg MCHC (31.0-35.0) g/dl RDW (11.0-16.0) % Plt Count (160-400) X10*3/uL MPV (9.4-12.3) fL Immature Gran % (Auto) (0.0-0.4) % Neut % (Auto) (45-73) % Lymph % (Auto) (20-40) % [place] % (Auto) (2-11) % Eos % (Auto) (0-4) % Baso % (Auto) (0-2) % Lymph # (Auto) (1.2-4.9) X10*3/uL [place] # (Auto) (0.1-1.2) X10*3/uL Eos # (Auto) (0.0-0.4) X10*3/uL Baso # (Auto) (0.0-0.2) X10*3/uL Abs Immat Gran (auto) (0.00-0.03) X10*3/uL Absolute Neuts (auto) (2.0-8.3) X10*3/uL Absolute Nucleated RBC (0.0-0.012) X10*3/uL Nucleated RBC % (auto) (0.0-0.2) /100WBC PT (10.8-13.0) SEC INR (0.9-1.1) Sodium (135-145) mmol/L Potassium (3.3-5.1) mmol/L Chloride (96-108) mmol/L Carbon Dioxide (22-29) mmol/L Anion Gap (12-20) BUN (9-16) mg/dL Creatinine (0.5-1.4) mg/dL Estim Creat Clear Calc Estimated GFR Random Glucose (60-115) mg/dL Lactic Acid (0.5-2.0) mmol/L Calcium (8.4-10.2) mg/dL Magnesium (1.6-2.6) mg/dL Troponin I High Sens 7.1 (<3.5-17.0) ng/L B-Natriuretic Peptide 116 H (<100) pg/mL Lipase (8-78) U/L TSH (0.32-4.0) uIU/mL Urine Color YELLOW Urine Appearance CLEAR Urine pH 5.5 (5.0-8.0) Ur Specific [place] 1.015 (1.005-1.025) Urine Protein NEG (NEG-TRACE) MG/DL Urine Glucose (UA) NEG (NEG) MG/DL Urine Ketones NEG (NEG) MG/DL Urine Blood NEG (NEG) Urine Nitrite NEG (NEG) Ur Leukocyte Esterase NEG (NEG) Stool Occult Blood NEGATIVE (NEGATIVE) COVID-19 (KELSIE) (Negative) COVID-19 Clin Com Blood Type Antibody Screen Crossmatch 08/04/20 08/04/20 Range/Units 19:15 23:40 WBC 8.2 (4.8-10.8) X10*3/uL RBC 3.17 L (4.20-5.50) X10*6/uL Hgb 7.9 L (12.0-16.0) g/dl Hct 26.1 L (37-47) % MCV 82.3 (80-98) fL MCH 24.9 L (27.0-33.0) pg MCHC 30.3 L (31.0-35.0) g/dl RDW 17.5 H (11.0-16.0) % Plt Count 228 (160-400) X10*3/uL MPV 8.6 L (9.4-12.3) fL Immature Gran % (Auto) 1.3 H (0.0-0.4) % Neut % (Auto) 70.8 (45-73) % Lymph % (Auto) 14.0 L (20-40) % [place] % (Auto) 13.1 H (2-11) % Eos % (Auto) 0.7 (0-4) % Baso % (Auto) 0.1 (0-2) % Lymph # (Auto) 1.2 (1.2-4.9) X10*3/uL [place] # (Auto) 1.1 (0.1-1.2) X10*3/uL Eos # (Auto) 0.1 (0.0-0.4) X10*3/uL Baso # (Auto) 0.0 (0.0-0.2) X10*3/uL Abs Immat Gran (auto) 0.11 H (0.00-0.03) X10*3/uL Absolute Neuts (auto) 5.8 (2.0-8.3) X10*3/uL Absolute Nucleated RBC 0.040 H (0.0-0.012) X10*3/uL Nucleated RBC % (auto) 0.5 H (0.0-0.2) /100WBC PT (10.8-13.0) SEC INR (0.9-1.1) Sodium (135-145) mmol/L Potassium (3.3-5.1) mmol/L Chloride (96-108) mmol/L Carbon Dioxide (22-29) mmol/L Anion Gap (12-20) BUN (9-16) mg/dL Creatinine (0.5-1.4) mg/dL Estim Creat Clear Calc Estimated GFR Random Glucose (60-115) mg/dL Lactic Acid (0.5-2.0) mmol/L Calcium (8.4-10.2) mg/dL Magnesium (1.6-2.6) mg/dL Troponin I High Sens (<3.5-17.0) ng/L B-Natriuretic Peptide (<100) pg/mL Lipase (8-78) U/L TSH (0.32-4.0) uIU/mL Urine Color Urine Appearance Urine pH (5.0-8.0) Ur Specific [place] (1.005-1.025) Urine Protein (NEG-TRACE) MG/DL Urine Glucose (UA) (NEG) MG/DL Urine Ketones (NEG) MG/DL Urine Blood (NEG) Urine Nitrite (NEG) Ur Leukocyte Esterase (NEG) Stool Occult Blood (NEGATIVE) COVID-19 (KELSIE) (Negative) COVID-19 Clin Com Blood Type A Positive Antibody Screen NEGATIVE Crossmatch See Detail ECG Data Attestation: I personally reviewed and interpreted this ECG as follows: (, rhythm, heart rate 70, atrial paced rhythm, right bundle branch block, QTC 419, no ST segment depression or elevation, T-wave inversion in lead 3) Discharge Plan Discharge Clinical Impression: Anemia, Weakness, Decubitus ulcer of buttock Prescriptions: No Action atorvastatin 10 mg tablet 1 tab PO BEDTIME RF: 0 metoprolol succinate 50 mg tablet extended release 24 hr 1 tab PO DAILY RF: 0 doxycycline hyclate 50 mg capsule 1 cap PO BID RF: 0 metformin 1,000 mg tablet 1 tab PO BID RF: 0 omeprazole 20 mg capsule,delayed release(DR/EC) 1 cap PO QAM RF: 0 diltiazem HCl 120 mg capsule,extended release 24hr 1 cap PO DAILY RF: 0 allopurinol 300 mg tablet 1 tab PO DAILY RF: 0 halobetasol propionate 0.05 % cream 1 appl topical BID RF: 0 furosemide 20 mg tablet 1 tab PO DAILY RF: 0
[2020-08-04 18:12] LABS: MANUAL DIFF FLAG NO
[2020-08-04 18:14] LABS: Basophils Percent Auto 0.1 % (0-2); Eosinophils Absolute Auto 0.1 X10*3/uL (0.0-0.4); Eosinophils Percent Auto 0.6 % (0-4); Hematocrit 24.3 % (37-47); Hemoglobin 7.4 g/dl (12.0-16.0); Imm Gran Abs Auto 0.14 X10*3/uL (0.00-0.03); Imm Gran Pct Auto 1.3 % (0.0-0.4); Lymphocytes Absolute Auto 1.3 X10*3/uL (1.2-4.9); Mean Corpuscular HGB Conc 30.5 g/dl (31.0-35.0); Mean Corpuscular Hemoglobin 24.7 pg (27.0-33.0); Mean Corpuscular Volume 81.3 fL (80-98); Mean Platelet Volume 8.9 fL (9.4-12.3); Monocytes Absolute Auto 1.2 X10*3/uL (0.1-1.2); Monocytes Percent Auto 11.5 % (2-11); NRBC Pct Auto 0.5 /100WBC (0.0-0.2); Neutrophils Absolute Auto 7.9 X10*3/uL (2.0-8.3); Neutrophils Percent Auto 74.5 % (45-73); Platelet Count 300 X10*3/uL (160-400); Red Blood Count 2.99 X10*6/uL (4.20-5.50); Red Cell Distribution Width 17.6 % (11.0-16.0); White Blood Count 10.5 X10*3/uL (4.8-10.8)
[2020-08-04 18:19] LABS: INTERNATIONAL NORM RATIO 1.4 (0.9-1.1); Prothrombin Time 17.1 SEC (10.8-13.0)
[2020-08-04 18:32] LABS: COVID-19 Test Negative (Negative)
[2020-08-04] MEDS: 0.9 % Sodium Chloride 1,000 ML 999 ML IVCONT (18:33)
[2020-08-04 18:37] LABS: Lactic Acid 1.6 mmol/L (0.5-2.0)
[2020-08-04 18:41] LABS: Anion Gap 14 (12-20); Blood Urea Nitrogen 28 mg/dL (9-16); Calcium 9.8 mg/dL (8.4-10.2); Carbon Dioxide 26 mmol/L (22-29); Chloride 100 mmol/L (96-108); Creatinine Clr Calc Pharmacy 57.4; Estimated Glomerular Filt Rate > 60; Glucose Random 110 mg/dL (60-115); Potassium 4.7 mmol/L (3.3-5.1); Sodium 135 mmol/L (135-145)
[2020-08-04 18:42] LABS: Lipase 18 U/L (8-78); Magnesium 2.1 mg/dL (1.6-2.6)
[2020-08-04 18:45] LABS: B Type Natriuretic Peptide 116 pg/mL (<100); Troponin-I High Sensitivity 7.1 ng/L (<3.5-17.0)
[2020-08-04 18:53] LABS: Appearance Urine CLEAR; Color Urine YELLOW; Glucose Urine UA NEG (NEG); Leukocyte Esterase Urine NEG (NEG); Nitrite Urine NEG (NEG); PH 5.5 (5.0-8.0); Specific Gravity - Urine 1.015 (1.005-1.025); Urine Blood NEG (NEG); Urine Ketones NEG (NEG); Urine Protein NEG (NEG-TRACE)
[2020-08-04 19:03] LABS: TSH reflex Free T4 1.17 uIU/mL (0.32-4.0)
[2020-08-04 19:17] LABS: OBS Int Ctl Valid YES; OBS1 NEGATIVE (NEGATIVE)
--- NOTE | 2020-08-04 20:30 | PC.NURSE ---
plan to transfuse blood then eval admission to hospital vs, pt/cm eval.
--- NOTE | 2020-08-04 21:48 | PC.NURSE ---
wounds on buttock dressed with foam dressing by this rn. ashley king md notified about wounds on buttock previously. Left: Mid gluteal area, approx 2 inches from anus- 2 quarter sized openings noted, with no drainage. On right gluteal fold small pressure ulcer noted. not ruputred, non blanchable. On right outer labia fold, one small pressure ulceration noted.
--- NOTE | 2020-08-04 22:54 | MHC.CM.ED ---
CM met with patient and daughter. Pt is very weak. States for about a month or so. Had pacemaker place in June. 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 This weakness, lack of appetite, and general malaise is new for her. Pt is receiving a blood transfusion. Daughter/HCP, Yolanda Pathak ([phone] cell) ([phone] home) cares for her mother in her home. Pt uses a cane and a walker and has no services at home. Since June 16, patient has had sciatica and has been unable to get into her bed, so she has been sleeping in the recliner. Since feeling so weak, she has been spending much time in her chair. Daughter has difficulty getting her out of house, as there are many stairs to negotiate and her mother has great difficulty with them. Pt has not had the Covid vaccine. Pt is agreeable to PT evaluation. Reviewed options for STR if recommended and home PT. Explained that pt may need wound care for the skin breakdown. Daughter given pascale (9). First choice is [facility], with [facility] and [facility] to follow. Daughter is also agreeable to [facility] if no bed offers at other facilities. Daughter given contact card with [facility] and [facility] telephone numbers for information on services and hospital bed rentals/medicare payment. HCP is not on file, but daughter believes she has a copy and will bring in the am. Pt has a MOLST and is a full code. Copy on file. Referrals made. Dr. Akhtar aware of above. CM to follow for d/c needs.
[2020-08-04 23:49] LABS: MANUAL DIFF FLAG NO
[2020-08-04 23:50] LABS: Basophils Percent Auto 0.1 % (0-2); Eosinophils Absolute Auto 0.1 X10*3/uL (0.0-0.4); Eosinophils Percent Auto 0.7 % (0-4); Hematocrit 26.1 % (37-47); Hemoglobin 7.9 g/dl (12.0-16.0); Imm Gran Abs Auto 0.11 X10*3/uL (0.00-0.03); Imm Gran Pct Auto 1.3 % (0.0-0.4); Lymphocytes Absolute Auto 1.2 X10*3/uL (1.2-4.9); Mean Corpuscular HGB Conc 30.3 g/dl (31.0-35.0); Mean Corpuscular Hemoglobin 24.9 pg (27.0-33.0); Mean Corpuscular Volume 82.3 fL (80-98); Mean Platelet Volume 8.6 fL (9.4-12.3); Monocytes Absolute Auto 1.1 X10*3/uL (0.1-1.2); Monocytes Percent Auto 13.1 % (2-11); NRBC Pct Auto 0.5 /100WBC (0.0-0.2); Neutrophils Absolute Auto 5.8 X10*3/uL (2.0-8.3); Neutrophils Percent Auto 70.8 % (45-73); Platelet Count 228 X10*3/uL (160-400); Red Blood Count 3.17 X10*6/uL (4.20-5.50); Red Cell Distribution Width 17.5 % (11.0-16.0); White Blood Count 8.2 X10*3/uL (4.8-10.8)
[2020-08-05] VITALS (15 sets, daily range): BP systolic 109–138; BP diastolic 42–61; PULSE 64–88; RESP 16–24; TEMP 35.9–37; O2SAT 93–99
--- NOTE | 2020-08-05 11:12 | MHC.CM.ED ---
Patient remains in ER. Physical therapy eval completed. Home therapy is recommended. Met with patient in regards to discharge planning. Patient has been active with [facility] in the past and is requesting referral to their agency. Referral made via [employer]. Patient states her daughter will transport her home. Per [facility], patient will receive another unit of blood and then be able to discharge home. Attempted to reach patient's daughter, Yolanda, via telephone. Left message with return contact information. Continue to monitor for d/c needs.
[2020-08-05] MEDS: metFORMIN HCl 1,000 MG TABLET 1000 MG PO (11:28)
[2020-08-05] MEDS: Furosemide 20 MG TABLET PO (11:28)
[2020-08-05] MEDS: Metoprolol Succinate ER 50 MG TAB.ER.24H PO (11:28)
[2020-08-05] MEDS: dilTIAZem HCL CD 120 MG CAP.ER.DEG PO (11:29)
[2020-08-05] MEDS: allopurinoL 300 MG TABLET PO (11:29)
[2020-08-05] MEDS: Omeprazole 20 MG CAPSULE.DR PO (11:29)
--- NOTE | 2020-08-05 14:33 | PC.NURSE ---
PT RECEIVED 2ND UNIT OF BLOOD, COMPLETED AT THIS TIME TOLERATED WELL. PT CHANGED AND REPOSITIONED WOUND DRESSINGS REPLACED. PT OOB WITH PT, OOB TO COMODE, SITTING ON SIDE OF BED, NEEDS BEING MET. DAUGHTER AT BEDSIDE
--- NOTE | 2020-08-05 15:36 | ECG_ITS ---
Test Reason : WEAKNESS Blood Pressure : / mmHG Vent. Rate : 081 BPM Atrial Rate : 081 BPM P-R Int : 304 ms QRS Dur : 128 ms QT Int : 408 ms P-R-T Axes : 042 -55 014 degrees QTc Int : 473 ms Sinus rhythm with 1st degree A-V block with Premature atrial complexes Left axis deviation Right bundle branch block Abnormal ECG When compared with ECG of 04-AUG-2020 17:19, Sinus rhythm has replaced Electronic atrial pacemaker QT has lengthened Referred By: Lanette Lou Electronically Signed By:Steven Barnes
[2020-08-05 16:12] LABS: MANUAL DIFF FLAG NO
[2020-08-05 16:13] LABS: Basophils Percent Auto 0.2 % (0-2); Eosinophils Percent Auto 0.3 % (0-4); Hematocrit 31.7 % (37-47); Hemoglobin 9.7 g/dl (12.0-16.0); Imm Gran Abs Auto 0.12 X10*3/uL (0.00-0.03); Lymphocytes Absolute Auto 1.2 X10*3/uL (1.2-4.9); Lymphocytes Percent Auto 10.6 % (20-40); Mean Corpuscular HGB Conc 30.6 g/dl (31.0-35.0); Mean Corpuscular Volume 81.7 fL (80-98); Mean Platelet Volume 8.8 fL (9.4-12.3); Monocytes Absolute Auto 1.2 X10*3/uL (0.1-1.2); Monocytes Percent Auto 10.6 % (2-11); NRBC Pct Auto 0.4 /100WBC (0.0-0.2); Neutrophils Absolute Auto 8.8 X10*3/uL (2.0-8.3); Neutrophils Percent Auto 77.3 % (45-73); Platelet Count 265 X10*3/uL (160-400); Red Blood Count 3.88 X10*6/uL (4.20-5.50); Red Cell Distribution Width 18.2 % (11.0-16.0); White Blood Count 11.5 X10*3/uL (4.8-10.8)
[2020-08-05 16:19] LABS: INTERNATIONAL NORM RATIO 1.4 (0.9-1.1); Prothrombin Time 16.1 SEC (10.8-13.0)
[2020-08-05 16:39] LABS: Alanine Aminotransferase 12 U/L (0-31); Albumin Level 2.7 g/dL (3.5-5.0); Alkaline Phosphatase 132 U/L (39-117); Anion Gap 14 (12-20); Aspartate Amino Transferase 21 U/L (5-31); Bilirubin Total 0.6 mg/dL (0.0-1.0); Blood Urea Nitrogen 22 mg/dL (9-16); Calcium 9.6 mg/dL (8.4-10.2); Carbon Dioxide 25 mmol/L (22-29); Chloride 105 mmol/L (96-108); Creatinine Clr Calc Pharmacy 65.9; Estimated Glomerular Filt Rate > 60; Glucose Random 138 mg/dL (60-115); Magnesium 2.2 mg/dL (1.6-2.6); Potassium 4.5 mmol/L (3.3-5.1); Sodium 139 mmol/L (135-145); Total Protein 5.1 g/dL (6.5-8.0)
[2020-08-05 16:44] LABS: B Type Natriuretic Peptide 295 pg/mL (<100)
[2020-08-05] MEDS: iohexoL 350 MG/ML 100 ML INFUS..BTL IV (17:34)
--- NOTE | 2020-08-05 20:25 | P.HPHOSP_ITS ---
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 Patient mentioned that over the past few days she has been having generalized weakness and had diet area. Denies any blood in the stool. Denies any numbness tingling. Patient reports he has poor oral intake and loss of appetite. Patient reports she has lost significant weight over the past 2 years Denies any urinary symptoms. Denies any chest pain palpitations lightheadedness or dizziness currently. Review of all other systems is negative except mentioned above Spoke to the patient's daughter at bedside who mentioned that patient appeared very weak and exhausted prior to coming to the hospital and this morning when she came back in to see her she is more alert and more energetic; denies any falls. Reportedly patient is on doxycycline chronically for skin condition ER course: Per ER team patient exam was nonfocal, noted decubitus ulcer-concern for cellulitis-antibiotics given;; patient was also noted to be anemic, guaiac negative, given 1 unit of blood transfusion; Otherwise labs essentially within normal limits But CT scan showed lymphadenopathy concerning for lymphoma [facility] Medical History Aortic stenosis Atrial tachycardia B12 deficiency Basal cell carcinoma of face Bifascicular block Bullous pemphigoid (~1999) Cardiac pacemaker in situ (~06/2020) Diabetes mellitus (~1999) Gout HTN (hypertension) (~1993) Lymphedema RBBB Family History Father Myocardial infarction Mother CHF (congestive heart failure) Brother Dementia Son No problems noted. Daughter No problems noted. Daughter No problems noted. Sister No problems noted. Sister No problems noted. Sister No problems noted. Sister Ovarian cancer Sister Cancer Stroke Surgical History History of cholecystectomy (~1971) History of hemorrhoidectomy (~2000) History of pacemaker (~06/2020) History of surgery on upper extremity (~2012) History of tonsillectomy History of umbilical hernia repair (~1996) Status post placement of implantable loop recorder (~2020) Social History Household Members: Children Housing: House Do you presently have visiting nurse or other home services: No Alcohol intake: never Patient Tobacco Use Status: Former Tobacco user Quit Date: 1967 Cigarette Packs Per Day: 0.5 e-Cigarette/Vaping Use: Never Used Use of substances other than those prescribed or required for medical reasons: No Currently Displaying Signs/Symptoms of Drug Intoxication Withdrawal: No Have you been hit, kicked, punched, or otherwise hurt by someone within the past year? If so, by whom?: No Do you feel safe in your current relationship?: No Current Relationship Is there a partner from a previous relationship who is making you feel unsafe now?: No Are you made to feel afraid or neglected: No Advance Directives: Yes Advance Directives on File: Yes Advance Directives Date on File: 04/28/20 Do you have thoughts of harming others: None Do you have a plan to hurt others: No Plan Recently lost weight without trying: Yes How much weight loss: 34pounds or more Eating poorly because of decreased appetite: Yes Nutrition screen score: 7 Nutrition Risks: Acute nausea or vomiting x1 week and Poor intake 0-25% >4 days Patient : No : No Poor oral hygiene: No service: No Current occupational status: retired Meds Allergies Allergy/AdvReac Type Severity Reaction Status Date / Time adhesive tape [ADHESIVE TAPE] Allergy Intermediate RASH Verified 08/04/20 16:28 latex Allergy Intermediate rash Verified 08/04/20 16:28 Active Medications: Current Medications Generic Name Dose Route Start Last Admin Trade Name Freq PRN Reason Stop Dose Admin Acetaminophen 650 mg 08/05/20 20:22 Acetaminophen 325 Mg Tablet PO Q6H PRN Pain, Mild (Pain Scale 1-3) Allopurinol 300 mg 08/05/20 09:45 08/05/20 11:29 Allopurinol 300 Mg Tablet PO 300 mg DAILY PRITESH Administration Atorvastatin Calcium 10 mg 08/05/20 21:00 Atorvastatin Calcium 10 Mg Tablet PO BEDTIME PRITESH Betamethasone Dipropion Augmented 1 appl 08/05/20 21:00 Betamethasone Dip Aug 0.05% Cr 15 Gm Tube TOPICAL BID [facility] Diltiazem HCl 120 mg 08/05/20 09:45 08/05/20 11:29 Diltiazem Hcl Cd 120 Mg Cap.Er.Deg PO 120 mg DAILY [facility] Administration Protocol Doxycycline Hyclate 50 mg 08/05/20 21:00 Doxycycline Hyclate 100 Mg Tablet PO BID [facility] Enoxaparin Sodium 40 mg 08/05/20 20:30 Enoxaparin Sodium 40 Mg/0.4 Ml Syringe SUBCUT Q24H [facility] Furosemide 20 mg 08/05/20 09:45 08/05/20 11:28 Furosemide 20 Mg Tablet PO 20 mg DAILY [facility] Administration Protocol Piperacillin Sod/Tazobactam 50 mls @ 100 mls/hr 08/05/20 21:00 Sod 3.375 gm/ Sodium Chloride IV Q6H [facility] Metformin HCl 1,000 mg 08/05/20 09:45 08/05/20 11:28 Metformin Hcl 1,000 Mg Tablet PO 1,000 mg BID [facility] Administration Metoprolol Succinate 50 mg 08/05/20 09:45 08/05/20 11:28 Metoprolol Succinate Er 50 Mg Tab.Er.24h PO 50 mg DAILY [facility] Administration Protocol Omeprazole 20 mg 08/05/20 09:45 08/05/20 11:29 Omeprazole 20 Mg Capsule.Dr PO 20 mg DAILY@0630 [facility] Administration Sodium Chloride 3 ml 08/06/20 00:00 0.9 % Sodium Chloride Flush 3 Ml Syringe IVFLUSH QSHIFT [facility] Home Medications Medication Instructions Recorded Confirmed Last Taken Type allopurinol 1 tab PO DAILY 08/04/20 08/04/20 Unknown History atorvastatin 1 tab PO BEDTIME 08/04/20 08/04/20 Unknown History diltiazem HCl 1 cap PO BEDTIME 08/04/20 08/05/20 Unknown History doxycycline hyclate 1 cap PO BID 08/04/20 08/04/20 Unknown History furosemide 1 tab PO DAILY 08/04/20 08/04/20 Unknown History halobetasol propionate 1 appl TOPICAL BID PRN 08/04/20 08/04/20 Unknown History metformin 1 tab PO BID 08/04/20 08/04/20 Unknown History metoprolol succinate 1 tab PO DAILY 08/04/20 08/04/20 Unknown History omeprazole 1 cap PO QAM 08/04/20 08/04/20 Unknown History aspirin 81 mg PO DAILY 08/05/20 08/05/20 Unknown History calcium carbonate-vitamin D3 1 tab PO BID 08/05/20 08/05/20 Unknown History [Calcium 600 + D(3)] ferrous sulfate 324 mg PO BID 08/05/20 08/05/20 Unknown History magnesium oxide 800 mg PO BID 08/05/20 08/05/20 Unknown History Physical Exam Vital Signs and Narrative: Vital Signs: Last Vital Signs Temp 98.6 F 08/05/20 18:13 Pulse 74 08/05/20 18:13 Resp 24 H 08/05/20 18:13 BP 123/42 L 08/05/20 18:13 Pulse Ox 98 08/05/20 18:13 Body Mass Index 35.6 Gen: Appears be in no acute distress HEENT: NCAT, Moist mucosa. Pulmonary: Vesicular breath sounds, fair air entry CVS: Normal S1-S2 Abdomen: BS+, Soft, Nontender Extremities: Warm well perfused Neuro: Alert and awake. Integumentary: Decubitus ulcer-stage I, peripheral hyperemia, more warm compared to the surroundings. Results Labs CBC and Chem 7: 08/07/20 05:28 08/07/20 05:28 Labs: Laboratory Results - last 24 hr 08/04/20 08/04/20 08/05/20 19:15 23:40 16:04 MCV 82.3 81.7 MCH 24.9 L 25.0 L MCHC 30.3 L 30.6 L RDW 17.5 H 18.2 H Plt Count 228 265 MPV 8.6 L 8.8 L Immature Gran % (Auto) 1.3 H 1.0 H Neut % (Auto) 70.8 77.3 H Lymph % (Auto) 14.0 L 10.6 L [place] % (Auto) 13.1 H 10.6 Eos % (Auto) 0.7 0.3 Baso % (Auto) 0.1 0.2 Lymph # (Auto) 1.2 1.2 [place] # (Auto) 1.1 1.2 Eos # (Auto) 0.1 0.0 Baso # (Auto) 0.0 0.0 Abs Immat Gran (auto) 0.11 H 0.12 H Absolute Neuts (auto) 5.8 8.8 H Absolute Nucleated RBC 0.040 H 0.050 H Nucleated RBC % (auto) 0.5 H 0.4 H PT INR Anion Gap Estim Creat Clear Calc Estimated GFR Random Glucose Calcium Magnesium Total Bilirubin AST ALT Alkaline Phosphatase Troponin I High Sens B-Natriuretic Peptide Total Protein Albumin Blood Type A Positive Antibody Screen NEGATIVE Crossmatch See Detail 08/05/20 08/05/20 08/05/20 16:04 16:04 16:04 MCV MCH MCHC RDW Plt Count MPV Immature Gran % (Auto) Neut % (Auto) Lymph % (Auto) [place] % (Auto) Eos % (Auto) Baso % (Auto) Lymph # (Auto) [place] # (Auto) Eos # (Auto) Baso # (Auto) Abs Immat Gran (auto) Absolute Neuts (auto) Absolute Nucleated RBC Nucleated RBC % (auto) PT 16.1 H INR 1.4 H Anion Gap 14 Estim Creat Clear Calc 65.9 Estimated GFR > 60 Random Glucose 138 H Calcium 9.6 Magnesium 2.2 Total Bilirubin 0.6 AST 21 ALT 12 Alkaline Phosphatase 132 H D Troponin I High Sens 5.0 B-Natriuretic Peptide 295 H Total Protein 5.1 L Albumin 2.7 L Blood Type Antibody Screen Crossmatch Imaging Radiologist's Impressions: Impressions Head CT 08/05/20 15:30 IMPRESSION: Unremarkable exam. Abdomen/Pelvis CT 08/05/20 15:36 IMPRESSION: Enlarged lymph nodes. Slightly enlarged spleen. Lymphoma and metastatic disease should be considered. Bilateral renal cysts. Large duodenal diverticuli. Small right pleural effusion. L1 and L2 vertebral body compression fractures. Chest X-Ray 08/05/20 15:36 IMPRESSION: Bibasilar linear atelectasis. Small right pleural effusion. Pacemaker. Assessment and Plan (1) Anemia: Status: Acute 80-year-old female with a past medical history of hypertension, hyperlipidemia, diabetes, history of AV block status post pacemaker, decubitus ulcer, anemia on iron supplementation, B12 deficiency, aortic stenosis, atrial tachycardia presented to the hospital with a chief complaint of generalized weakness. Noted to have anemia status post blood transfusion; also consult for possible cellulitis around the decubitus ulcer. Admitted for further management. Cellulitis/decubitus ulcer: Will hold home doxycycline. Give the patient on Zosyn. Id consult for further recommendations. Pressure ulcer care per RN. Anemia: Status post 1 unit of blood transfusion. Appropriate rise; patient has seen Hematology as outpatient. On iron supplementation. Patient denies any blood in the stool. Guaiac negative. Poor appetite: Nutrition consult Splenomegaly/lymphadenopathy: Question lymphoma versus metastatic disease. Oncology consult for further recommendations. L1,L2 compression fractures: PT/OT eventually an outpatient neurosurgery follow-up. Diabetes: Insulin sliding scale For all other chronic conditions, home medications will be continued DVT prophylaxis: Lovenox Code status: Full code Quality Stroke Does the patient have a stroke diagnosis?: No VTE Prior VTE?: No VTE Risk Level:: Medical - moderate - high VTE Device Contraindication: N/A - Device Ordered VTE Drug Contraindication: N/A - Med Ordered
[2020-08-05 20:42] LABS: Glucose, Whole Blood 114 mg/dL (60-115)
--- NOTE | 2020-08-05 21:02 | PHA.MEDREC ---
Pharmacy Consult ? Medication Reconciliation Pharmacy has completed the medication reconciliation based on list supplied by family member.
--- NOTE | 2020-08-05 21:09 | MHC.CM.PN ---
CM met with daughter/HCO Yolanda Pathak ([phone]) at beginning of shift. Yolanda expressed concerns about mother going home and has concerns as to why her mother needs blood transfusions. States her mother was very active until about a month ago, and now has no energy, no appetite and is really not herself. GENIA spoke with Lanette Randhawa who met with patient and ordered another work up. Work up completed. Rezarafi Randhawa and GENIA met with patient and daughter. Pt will be admitted. Will have hematology/oncology consult. CT abdomen- enlarged lymph nodes and slightly enlarged spleen. Lymphoma and metastatic disease should be considered . Pt and family aware of radiology concerns. Reza answered any questions. Daughter very happy to have mother admitted. IMM reviewed and signed with Yolanda, as her mother was sleeping. Copy left with daughter. Yolanda brought in HCP. [facility] [employer] [facility] expanse. [facility] notified of pt admission and requested to follow pt in [employer]. D/C plan pending MD recommendations. Probable [facility] for decubiti. CM to follow for d/c needs.
[2020-08-05] MEDS: Enoxaparin Sodium 40 MG/0.4 ML SYRINGE SUBCUT (21:32)
[2020-08-05] MEDS: Atorvastatin Calcium 10 MG TABLET PO (21:33)
[2020-08-05] MEDS: Piperacillin Sodium/Tazobactam 3.375 GM in 0.9 % Sodium Chloride 50 ML IV (21:34)
[2020-08-05 22:48] LABS: Glucose, Whole Blood 123 mg/dL (60-115)
[2020-08-06] VITALS (14 sets, daily range): BP systolic 106–168; BP diastolic 53–90; PULSE 68–90; RESP 15–20; TEMP 36.2–37.1; O2SAT 94–98; BMI 35.6
[2020-08-06] MEDS: 0.9 % Sodium Chloride Flush 3 ML SYRINGE IVFLUSH ×4 (00:42→21:53)
[2020-08-06] MEDS: Omeprazole 20 MG CAPSULE.DR PO (06:12)
[2020-08-06 06:22] LABS: MANUAL DIFF FLAG NO
[2020-08-06 06:32] LABS: Basophils Percent Auto 0.1 % (0-2); Eosinophils Absolute Auto 0.1 X10*3/uL (0.0-0.4); Eosinophils Percent Auto 0.6 % (0-4); Hematocrit 28.7 % (37-47); Hemoglobin 8.9 g/dl (12.0-16.0); Imm Gran Abs Auto 0.11 X10*3/uL (0.00-0.03); Imm Gran Pct Auto 1.3 % (0.0-0.4); Lymphocytes Percent Auto 12.1 % (20-40); Mean Corpuscular Hemoglobin 24.9 pg (27.0-33.0); Mean Corpuscular Volume 80.4 fL (80-98); Mean Platelet Volume 8.9 fL (9.4-12.3); Monocytes Percent Auto 11.9 % (2-11); NRBC Pct Auto 0.4 /100WBC (0.0-0.2); Neutrophils Absolute Auto 6.2 X10*3/uL (2.0-8.3); Platelet Count 264 X10*3/uL (160-400); Red Blood Count 3.57 X10*6/uL (4.20-5.50); Red Cell Distribution Width 18.5 % (11.0-16.0); White Blood Count 8.4 X10*3/uL (4.8-10.8)
[2020-08-06] MEDS: Piperacillin Sodium/Tazobactam 3.375 GM in 0.9 % Sodium Chloride 50 ML IV (07:00)
[2020-08-06 07:22] LABS: Anion Gap 11 (12-20); Blood Urea Nitrogen 20 mg/dL (9-16); Carbon Dioxide 25 mmol/L (22-29); Chloride 106 mmol/L (96-108); Estimated Glomerular Filt Rate > 60; Glucose Random 116 mg/dL (60-115); Potassium 4.2 mmol/L (3.3-5.1); Sodium 138 mmol/L (135-145)
[2020-08-06 07:39] LABS: Calcium 8.9 mg/dL (8.4-10.2)
[2020-08-06 07:41] LABS: Glucose, Whole Blood 118 mg/dL (60-115)
[2020-08-06 08:32] LABS: Magnesium 1.9 mg/dL (1.6-2.6)
--- NOTE | 2020-08-06 10:00 | PM.HEMONCCN ---
Subjective - Subjective Chief complaint: Generalized weakness Patient: known to practice within the last 3 years Consult date: 08/06/20 Primary Care Provider: ROBYN Beebe HPI - Consult Narrative Reason for consult: Lymphadenopathy, anemia Narrative: Katerin Neff is a 80 year old female admitted for worsening weakness and anemia. She was seen in hematology clinic 2 weeks ago for anemia. She has had multiple medical problems in the last 6 months. She was admitted in April secondary to bacteremia and acute renal insufficiency/hypomagnesemia related to UTI. Her blood cultures were positive for E coli. She was found to be anemic and received blood transfusion. Seen by Dr. Jacobo, endoscopy deferred. She was started on PPI and iron supplementation. In July 2020 she underwent a pacemaker for complete heart block. Improved but she was found to have persistent anemia with hemoglobin ranging from 8-9.5 gram/dL. iron studies revealed low transferrin saturation of 13%, elevated ferritin. She reports worsening swelling in both her legs. Hematological workup was unremarkable. She presented yesterday with worsening weakness as well as decubitus ulcer. She was given a unit of blood transfusion for hemoglobin below 8 gram/dL. She underwent imaging study which showed lymphadenopathy concerning for lymphoma. Review of Systems - Constitutional Reports as per HPI, Reports fatigue, Reports malaise, Reports poor appetite, Denies weight loss - Cardiovascular Denies chest pain - Respiratory Denies cough, Denies dyspnea - Gastrointestinal Denies abdominal pain, Denies change in bowel habits [facility] Medical History: Medical History (Last Reviewed 08/05/20 @ 10:14 by Heena Temple, PT) Aortic stenosis Atrial tachycardia B12 deficiency Basal cell carcinoma of face Bifascicular block Bullous pemphigoid Onset Date: ~1999 Cardiac pacemaker in situ Onset Date: ~06/2020 Diabetes mellitus Onset Date: ~1999 Gout HTN (hypertension) Onset Date: ~1993 Lymphedema RBBB Family History: Family History (Last Reviewed 08/04/20 @ 16:29 by ROBYN Hernandez) Father Myocardial infarction Mother CHF (congestive heart failure) Brother Dementia Son No problems noted. Daughter No problems noted. Daughter No problems noted. Sister No problems noted. Sister No problems noted. Sister No problems noted. Sister Ovarian cancer Sister Cancer Stroke Surgical History: Surgical History (Last Reviewed 06/24/21 @ 10:14 by Heena Temple PT) History of cholecystectomy Onset Date: ~1971 History of hemorrhoidectomy Onset Date: ~2000 History of pacemaker Onset Date: ~06/2020 History of surgery on upper extremity Onset Date: ~2012 History of tonsillectomy History of umbilical hernia repair Onset Date: ~1996 Status post placement of implantable loop recorder Onset Date: ~2020 Social History: Social History (Last Reviewed 08/04/20 @ 16:29 by Manjit Schmitt, [facility]) Living Situation History: Household Members: Children Housing: House Do you presently have visiting nurse or other home services: No Alcohol History: Alcohol intake: never Alcohol History Details: Alcohol intake frequency: does not drink Tobacco History: Patient Tobacco Use Status: Former Tobacco user Cigarette Packs Per Day: 0.5 Smoke Quit Date: 1967 e-Cigarette/Vaping Use: Never Used Substance Use History: Use of substances other than those prescribed or required for medical reasons: No Currently Displaying Signs/Symptoms of Drug Intoxication Withdrawal: No Domestic Abuse History: Have you been hit, kicked, punched, or otherwise hurt by someone within the past year? If so, by whom?: No Do you feel safe in your current relationship?: No Current Relationship Is there a partner from a previous relationship who is making you feel unsafe now?: No Are you made to feel afraid or neglected: No Advance Directives: Advance Directives: Yes Advance Directives on File: Yes Advance Directives Date on File: 04/28/20 Homicidal Assessment: Do you have thoughts of harming others: None Do you have a plan to hurt others: No Plan Nutrition Assessment: Recently lost weight without trying: Yes How much weight loss: 34pounds or more Eating poorly because of decreased appetite: Yes Nutrition screen score: 7 Nutrition Risks: Acute nausea or vomiting Nutrition Risks: Poor intake 0-25% >4 days Patient : No : No Poor oral hygiene: No Occupation Assessmet: service: No Current occupational status: retired Home Medications and Allergies Current Medications: Current Medications Generic Name Dose Route Start Last Admin Trade Name Freq PRN Reason Stop Dose Admin Acetaminophen 650 mg 08/05/20 20:22 Acetaminophen 325 Mg Tablet PO Q6H PRN Pain, Mild (Pain Scale 1-3) Allopurinol 300 mg 08/05/20 09:45 08/05/20 11:29 Allopurinol 300 Mg Tablet PO 300 mg DAILY PRITESH Administration Atorvastatin Calcium 10 mg 08/05/20 21:00 08/05/20 21:33 Atorvastatin Calcium 10 Mg Tablet PO 10 mg BEDTIME PRITESH Administration Betamethasone Dipropion Augmented 1 appl 08/05/20 21:00 08/05/20 22:53 Betamethasone Dip Aug 0.05% Cr 15 Gm Tube TOPICAL Not Given BID [facility] Diltiazem HCl 120 mg 08/05/20 09:45 08/05/20 11:29 Diltiazem Hcl Cd 120 Mg Cap.Er.Deg PO 120 mg DAILY [facility] Administration Protocol Doxycycline Hyclate 50 mg 08/05/20 21:00 08/05/20 21:33 Doxycycline Hyclate 100 Mg Tablet PO 50 mg BID [facility] Administration Enoxaparin Sodium 40 mg 08/05/20 21:00 08/05/20 21:32 Enoxaparin Sodium 40 Mg/0.4 Ml Syringe SUBCUT 40 mg Q24H [facility] Administration Furosemide 20 mg 08/05/20 09:45 08/05/20 11:28 Furosemide 20 Mg Tablet PO 20 mg DAILY [facility] Administration Protocol Piperacillin Sod/Tazobactam 50 mls @ 100 mls/hr 08/06/20 07:00 08/06/20 07:48 Sod 3.375 gm/ Sodium Chloride IV Infused Q6H [facility] Infusion Insulin Human Lispro 0 unit 08/05/20 21:00 08/05/20 21:33 Insulin Lispro 100 Unit/Ml 3 Ml Vial SUBCUT Not Given QIDACHS [facility] Protocol Metformin HCl 1,000 mg 08/05/20 09:45 08/05/20 21:36 Metformin Hcl 1,000 Mg Tablet PO Not Given BID [facility] Metoprolol Succinate 50 mg 08/05/20 09:45 08/05/20 11:28 Metoprolol Succinate Er 50 Mg Tab.Er.24h PO 50 mg DAILY [facility] Administration Protocol Omeprazole 20 mg 08/05/20 09:45 08/06/20 06:12 Omeprazole 20 Mg Capsule.Dr PO 20 mg DAILY@0630 [facility] Administration Sodium Chloride 3 ml 08/06/20 00:00 08/06/20 00:42 0.9 % Sodium Chloride Flush 3 Ml Syringe IVFLUSH 3 ml QSHIFT [facility] Administration Home Medications Medication Instructions Recorded Confirmed Type allopurinol 1 tab PO DAILY 08/04/20 08/04/20 History atorvastatin 1 tab PO BEDTIME 08/04/20 08/04/20 History diltiazem HCl 1 cap PO BEDTIME 08/04/20 08/05/20 History doxycycline hyclate 1 cap PO BID 08/04/20 08/04/20 History furosemide 1 tab PO DAILY 08/04/20 08/04/20 History halobetasol propionate 1 appl TOPICAL BID PRN 08/04/20 08/04/20 History metformin 1 tab PO BID 08/04/20 08/04/20 History metoprolol succinate 1 tab PO DAILY 08/04/20 08/04/20 History omeprazole 1 cap PO QAM 08/04/20 08/04/20 History aspirin 81 mg PO DAILY 08/05/20 08/05/20 History calcium carbonate-vitamin D3 1 tab PO BID 08/05/20 08/05/20 History [Calcium 600 + D(3)] ferrous sulfate 324 mg PO BID 08/05/20 08/05/20 History magnesium oxide 800 mg PO BID 08/05/20 08/05/20 History Allergies Allergy/AdvReac Type Severity Reaction Status Date / Time adhesive tape [ADHESIVE TAPE] Allergy Intermediate RASH Verified 08/04/20 16:28 latex Allergy Intermediate rash Verified 08/04/20 16:28 Physical Exam Vital signs: Vital Signs Temp 97.3 F 08/06/20 08:00 Pulse 85 08/06/20 08:00 Resp 20 08/06/20 08:00 BP 106/53 L 08/06/20 08:00 Pulse Ox 94 08/06/20 08:00 Intake & Output 08/05/20 08/06/20 08/06/20 18:59 06:59 18:59 Intake Total 350 / 400 50 / 400 50 / 50 Output Total 200 / 200 Balance 350 / 200 -150 / 200 50 / 50 Urine Output (Average ml/kg/hr) 0.19 0.19 Intake: Intake, Oral Amount 0 / 0 Intake (Blood Product) Amount 350 / 350 Red Blood Cells (E0336) Unit 350 / 350 [id number] Intake, IV Amount 50 / 50 50 / 50 Piperacillin Sodium/Tazobactam 50 / 50 50 / 50 3.375 gm In 0.9 % Sodium Chloride 50 ml @ 100 mls/hr IV Q6H [facility] Rx#:[id number] Output: Output, Urine Amount 200 / 200 Other: Number of Unmeasured Voids 1 Urine Bedside Commode Urine Color Yellow Last Bowel Movement 08/05/20 Weight 88.451 kg Narrative: Elderly woman seated in her bed, eating breakfast and conversing easily, alert oriented x3. - Constitutional Present: no acute distress - Routine HEENT Exam Head: Present: normal inspection Eye: Present: EOMI, normal appearance - Routine Neck Exam Present: supple. Absent: lymphadenopathy - Routine Respiratory Exam Present: CTAB - Routine Cardiovascular Exam Cardiovascular: Present: RRR, S1, S2 - Routine Extremities Exam Present: pedal edema Hem/Onc Consult Result - Labs CBC & Chem 7: 08/06/20 05:56 08/06/20 05:57 Labs: Short CBC 08/05/20 08/06/20 Range/Units 16:04 05:56 WBC 11.5 H 8.4 (4.8-10.8) X10*3/uL Hgb 9.7 L D 8.9 L (12.0-16.0) g/dl Hct 31.7 L D 28.7 L (37-47) % Plt Count 265 264 (160-400) X10*3/uL BMP 08/05/20 08/06/20 16:04 05:57 Sodium 139 138 Potassium 4.5 4.2 Chloride 105 106 Carbon Dioxide 25 25 BUN 22 H 20 H Creatinine 0.68 0.64 Calcium 9.6 8.9 D Liver Function 08/05/20 Range/Units 16:04 Total Bilirubin 0.6 (0.0-1.0) mg/dL AST 21 (5-31) U/L ALT 12 (0-31) U/L Alkaline Phosphatase 132 H D (39-117) U/L Albumin 2.7 L (3.5-5.0) g/dL - Imaging CT scan - abdomen Radiologist's impression: ITS Impressions Head CT 08/05/20 15:30 IMPRESSION: Unremarkable exam. Abdomen/Pelvis CT 08/05/20 15:36 IMPRESSION: Enlarged lymph nodes. Slightly enlarged spleen. Lymphoma and metastatic disease should be considered. Bilateral renal cysts. Large duodenal diverticuli. Small right pleural effusion. L1 and L2 vertebral body compression fractures. Chest X-Ray 08/05/20 15:36 IMPRESSION: Bibasilar linear atelectasis. Small right pleural effusion. Pacemaker. Assessment and Plan (1) Lymphadenopathy Status: Acute 1. Woman with microcytic anemia and extensive retroperitoneal lymphadenopathy/splenomegaly concerning for lymphoma. Metastatic carcinoma is also in the differential diagnosis. Left inguinal lymph node can be biopsied by intervention Radiology. Core biopsy should be sent to pathology and flow cytometry. LDH is not elevated. She has received a unit of blood transfusion for her anemia and feels somewhat better. She has no obvious blood losses. She has anemia of chronic disease with decreased transferrin saturation and elevated ferritin levels. Depending on biopsy, further recommendations will be made. I thank you for this referral.
[2020-08-06] MEDS: dilTIAZem HCL CD 120 MG CAP.ER.DEG PO (10:05)
[2020-08-06] MEDS: allopurinoL 300 MG TABLET PO (10:05)
[2020-08-06] MEDS: Metoprolol Succinate ER 50 MG TAB.ER.24H PO (10:06)
[2020-08-06] MEDS: Furosemide 20 MG TABLET PO (10:06)
[2020-08-06 11:27] LABS: Glucose, Whole Blood 170 mg/dL (60-115)
--- NOTE | 2020-08-06 13:08 | MHC.CLN ---
RE: CONSULT PT WITH INCREASED NUTRITION RISK R/T PRESSURE INJURY PT REPORTED WT >34# HOWEVER TIMEFRAME WAS OVER 2 YEARS AGO PREVIOUS WT HX REVEALS 256# (2019) NO SIGNIFICANT WT LOSS AT THIS TIME REMAINS STABLE WITHIN WT RANGE SINCE LAST ADMISSION FROM 04/2020 DIET RX: 1800DM-APPROPRIATE RECOMMEND ADDING GLUCERNA BID AND NICHOL BID TO INCREASE KCALS AND PROMOTE WOUND HEALING SUPPLEMENT TO PROVIDE 634KCALS, 25G PROTEIN MONITOR PO INTAKE CLOSELY SEE ALSO CLINICAL NUTRITION ASSESSMENT
--- NOTE | 2020-08-06 13:40 | P.CNID_ITS ---
History of Present Illness Data of Consult Service Date: 08/06/20 Requesting physician: Yan Brannon Primary Care Provider: Manjit Schmitt [facility] HPI Reason for consult: possible infection ulcer She presents to hospital with weakness for last two days. She has CXR negative. She has lymphadenopathy. Shes been on Doxycycline for bullous pemphigoid for years. She has lymphadenopathy She has coccyx shallow ulcer. Review of Systems Review of Systems: Yes all other systems are reviewed and are negative [facility] Past Medical History Medical History Aortic stenosis Atrial tachycardia B12 deficiency Basal cell carcinoma of face Bifascicular block Bullous pemphigoid (~1999) Cardiac pacemaker in situ (~06/2020) Diabetes mellitus (~1999) Gout HTN (hypertension) (~1993) Lymphedema RBBB Family History Family History Father Myocardial infarction Mother CHF (congestive heart failure) Brother Dementia Son No problems noted. Daughter No problems noted. Daughter No problems noted. Sister No problems noted. Sister No problems noted. Sister No problems noted. Sister Ovarian cancer Sister Cancer Stroke Family history: reviewed and not pertinent Surgical History Surgical History History of cholecystectomy (~1971) History of hemorrhoidectomy (~2000) History of pacemaker (~06/2020) History of surgery on upper extremity (~2012) History of tonsillectomy History of umbilical hernia repair (~1996) Status post placement of implantable loop recorder (~2020) Social History Social History Household Members: Children Housing: House Do you presently have visiting nurse or other home services: No Alcohol intake: never Patient Tobacco Use Status: Former Tobacco user Quit Date: 1967 Cigarette Packs Per Day: 0.5 e-Cigarette/Vaping Use: Never Used Use of substances other than those prescribed or required for medical reasons: No Currently Displaying Signs/Symptoms of Drug Intoxication Withdrawal: No Have you been hit, kicked, punched, or otherwise hurt by someone within the past year? If so, by whom?: No Do you feel safe in your current relationship?: No Current Relationship Is there a partner from a previous relationship who is making you feel unsafe now?: No Are you made to feel afraid or neglected: No Advance Directives: Yes Advance Directives on File: Yes Advance Directives Date on File: 04/28/20 Do you have thoughts of harming others: None Do you have a plan to hurt others: No Plan Recently lost weight without trying: Yes How much weight loss: 34pounds or more Eating poorly because of decreased appetite: Yes Nutrition screen score: 7 Nutrition Risks: Acute nausea or vomiting x1 week and Poor intake 0-25% >4 days Patient : No : No Poor oral hygiene: No service: No Current occupational status: retired [employer] Allergies Allergy/AdvReac Type Severity Reaction Status Date / Time adhesive tape [ADHESIVE TAPE] Allergy Intermediate RASH Verified 08/04/20 16:28 latex Allergy Intermediate rash Verified 08/04/20 16:28 Active Medications: Current Medications Generic Name Dose Route Start Last Admin Trade Name Freq PRN Reason Stop Dose Admin Acetaminophen 650 mg 08/05/20 20:22 Acetaminophen 325 Mg Tablet PO Q6H PRN Pain, Mild (Pain Scale 1-3) Allopurinol 300 mg 08/05/20 09:45 08/06/20 10:05 Allopurinol 300 Mg Tablet PO 300 mg DAILY PRIT[facility] Administration Atorvastatin Calcium 10 mg 08/05/20 21:00 08/05/20 21:33 Atorvastatin Calcium 10 Mg Tablet PO 10 mg BEDTIME PRITESH Administration Betamethasone Dipropion Augmented 1 appl 08/05/20 21:00 08/05/20 22:53 Betamethasone Dip Aug 0.05% Cr 15 Gm Tube TOPICAL Not Given BID PRIT[facility] Diltiazem HCl 120 mg 08/05/20 09:45 08/06/20 10:05 Diltiazem Hcl Cd 120 Mg Cap.Er.Deg PO 120 mg DAILY PRIT[facility] Administration Protocol Doxycycline Hyclate 50 mg 08/05/20 21:00 08/06/20 10:07 Doxycycline Hyclate 100 Mg Tablet PO 50 mg BID PRITESH Administration Enoxaparin Sodium 40 mg 08/05/20 21:00 08/05/20 21:32 Enoxaparin Sodium 40 Mg/0.4 Ml Syringe SUBCUT 40 mg Q24H [facility] Administration Furosemide 20 mg 08/05/20 09:45 08/06/20 10:06 Furosemide 20 Mg Tablet PO 20 mg DAILY [facility] Administration Protocol Insulin Human Lispro 0 unit 08/05/20 21:00 08/06/20 09:59 Insulin Lispro 100 Unit/Ml 3 Ml Vial SUBCUT Not Given QIDACHS [facility] Protocol Metoprolol Succinate 50 mg 08/05/20 09:45 08/06/20 10:06 Metoprolol Succinate Er 50 Mg Tab.Er.24h PO 50 mg DAILY [facility] Administration Protocol Omeprazole 20 mg 08/05/20 09:45 08/06/20 06:12 Omeprazole 20 Mg Capsule.Dr PO 20 mg DAILY@0630 [facility] Administration Sodium Chloride 3 ml 08/06/20 00:00 08/06/20 10:00 0.9 % Sodium Chloride Flush 3 Ml Syringe IVFLUSH 3 ml QSHIFT [facility] Administration Home Medications Medication Instructions Recorded Confirmed Last Taken Type allopurinol 1 tab PO DAILY 08/04/20 08/04/20 Unknown History atorvastatin 1 tab PO BEDTIME 08/04/20 08/04/20 Unknown History diltiazem HCl 1 cap PO BEDTIME 08/04/20 08/05/20 Unknown History doxycycline hyclate 1 cap PO BID 08/04/20 08/04/20 Unknown History furosemide 1 tab PO DAILY 08/04/20 08/04/20 Unknown History halobetasol propionate 1 appl TOPICAL BID PRN 08/04/20 08/04/20 Unknown History metformin 1 tab PO BID 08/04/20 08/04/20 Unknown History metoprolol succinate 1 tab PO DAILY 08/04/20 08/04/20 Unknown History omeprazole 1 cap PO QAM 08/04/20 08/04/20 Unknown History aspirin 81 mg PO DAILY 08/05/20 08/05/20 Unknown History calcium carbonate-vitamin D3 1 tab PO BID 08/05/20 08/05/20 Unknown History [Calcium 600 + D(3)] ferrous sulfate 324 mg PO BID 08/05/20 08/05/20 Unknown History magnesium oxide 800 mg PO BID 08/05/20 08/05/20 Unknown History Physical Exam Vital Signs: Vital Signs: Last Vital Signs Temp 97.4 F 08/06/20 10:39 Pulse 83 08/06/20 10:39 Resp 19 08/06/20 10:39 BP 122/56 L 08/06/20 10:39 Pulse Ox 96 08/06/20 10:39 Body Mass Index 35.6 Const: General: cooperative HENMT: Head: Yes normal to inspection Mouth: Normal oral and palatal mucosa present Resp: Effort & Inspection: normal respiratory effort Cardio: Rate: regular rate Rhythm: regular rhythm GI: Palpation (GI): Soft to palpation and nontender Skin: General skin exam: no rashes or lesions noted Results Labs CBC & Chem 7: 08/06/20 05:56 08/06/20 05:57 Labs: Short CBC 08/05/20 08/06/20 Range/Units 16:04 05:56 WBC 11.5 H 8.4 (4.8-10.8) X10*3/uL Hgb 9.7 L D 8.9 L (12.0-16.0) g/dl Hct 31.7 L D 28.7 L (37-47) % Plt Count 265 264 (160-400) X10*3/uL BMP 08/05/20 08/06/20 16:04 05:57 Sodium 139 138 Potassium 4.5 4.2 Chloride 105 106 Carbon Dioxide 25 25 BUN 22 H 20 H Creatinine 0.68 0.64 Calcium 9.6 8.9 D Liver Function 08/05/20 Range/Units 16:04 Total Bilirubin 0.6 (0.0-1.0) mg/dL AST 21 (5-31) U/L ALT 12 (0-31) U/L Alkaline Phosphatase 132 H D (39-117) U/L Albumin 2.7 L (3.5-5.0) g/dL Microbiology Microbiology Results: Microbiology 08/04/20 18:11 Blood - Venous Blood Culture - Preliminary No growth after 24 hours. 08/04/20 18:05 Blood - Venous Blood Culture - Preliminary No growth after 24 hours. Assessment and Plan (1) Decubitus ulcer of buttock: Status: Acute There doesnt seem to be deep ulcer to bone There is no leukocytosis or fever No antibiotics at this time (2) Weakness: Status: Acute
--- NOTE | 2020-08-06 14:23 | P.PNIM_ITS ---
Subjective Subjective Date of Service: 08/06/20 Interval History: seen and examined this AM no new complaints Physical Exam Vital Signs: Vital Signs: Last Vital Signs Temp 97.4 F 08/06/20 10:39 Pulse 83 08/06/20 10:39 Resp 19 08/06/20 10:39 BP 122/56 L 08/06/20 10:39 Pulse Ox 96 08/06/20 10:39 Body Mass Index 35.6 Const: Other: General - no acute distress, appears comfortable Cardiovascular - regular rate and rhythm, S1-S2 Lungs - normal respiratory effort, clear to auscultation bilaterally, no wheezing Abdomen - soft, nontender, no rebound or guarding Extremities - no edema bilaterally Neuro - awake and alert, no focal deficits Skin - see pic Skin: Other: Objective Data Current Medications Generic Name Dose Route Start Last Admin Trade Name Freq PRN Reason Stop Dose Admin Acetaminophen 650 mg 08/05/20 20:22 Acetaminophen 325 Mg Tablet PO Q6H PRN Pain, Mild (Pain Scale 1-3) Allopurinol 300 mg 08/05/20 09:45 08/06/20 10:05 Allopurinol 300 Mg Tablet PO 300 mg DAILY PRITESH Administration Atorvastatin Calcium 10 mg 08/05/20 21:00 08/05/20 21:33 Atorvastatin Calcium 10 Mg Tablet PO 10 mg BEDTIME PRITESH Administration Betamethasone Dipropion Augmented 1 appl 08/05/20 21:00 08/05/20 22:53 Betamethasone Dip Aug 0.05% Cr 15 Gm Tube TOPICAL Not Given BID PRITESH Diltiazem HCl 120 mg 08/05/20 09:45 08/06/20 10:05 Diltiazem Hcl Cd 120 Mg Cap.Er.Deg PO 120 mg DAILY PRITESH Administration Protocol Doxycycline Hyclate 50 mg 08/05/20 21:00 08/06/20 10:07 Doxycycline Hyclate 100 Mg Tablet PO 50 mg BID PRITESH Administration Enoxaparin Sodium 40 mg 08/05/20 21:00 08/05/20 21:32 Enoxaparin Sodium 40 Mg/0.4 Ml Syringe SUBCUT 40 mg Q24H PRITESH Administration Furosemide 20 mg 08/05/20 09:45 08/06/20 10:06 Furosemide 20 Mg Tablet PO 20 mg DAILY PRITESH Administration Protocol Insulin Human Lispro 0 unit 08/05/20 21:00 06/25/21 09:59 Insulin Lispro 100 Unit/Ml 3 Ml Vial SUBCUT Not Given QIDACHS [facility] Protocol Metoprolol Succinate 50 mg 08/05/20 09:45 08/06/20 10:06 Metoprolol Succinate Er 50 Mg Tab.Er.24h PO 50 mg DAILY [facility] Administration Protocol Omeprazole 20 mg 08/05/20 09:45 08/06/20 06:12 Omeprazole 20 Mg Capsule.Dr PO 20 mg DAILY@0630 [facility] Administration Sodium Chloride 3 ml 08/06/20 00:00 08/06/20 10:00 0.9 % Sodium Chloride Flush 3 Ml Syringe IVFLUSH 3 ml QSHIFT [facility] Administration Labs CBC & Chem 7: 08/06/20 05:56 08/06/20 05:57 Labs: Laboratory Results - last 24 hr 08/05/20 08/05/20 08/05/20 16:04 16:04 16:04 WBC 11.5 H RBC 3.88 L D Hgb 9.7 L D Hct 31.7 L D MCV 81.7 MCH 25.0 L MCHC 30.6 L RDW 18.2 H Plt Count 265 MPV 8.8 L Immature Gran % (Auto) 1.0 H Neut % (Auto) 77.3 H Lymph % (Auto) 10.6 L Warren % (Auto) 10.6 Eos % (Auto) 0.3 Baso % (Auto) 0.2 Lymph # (Auto) 1.2 Warren # (Auto) 1.2 Eos # (Auto) 0.0 Baso # (Auto) 0.0 Abs Immat Gran (auto) 0.12 H Absolute Neuts (auto) 8.8 H Absolute Nucleated RBC 0.050 H Nucleated RBC % (auto) 0.4 H PT 16.1 H INR 1.4 H Sodium 139 Potassium 4.5 Chloride 105 Carbon Dioxide 25 Anion Gap 14 BUN 22 H Creatinine 0.68 Estim Creat Clear Calc 65.9 Estimated GFR > 60 POC Glucose Random Glucose 138 H Calcium 9.6 Magnesium 2.2 Total Bilirubin 0.6 AST 21 ALT 12 Alkaline Phosphatase 132 H D Troponin I High Sens B-Natriuretic Peptide Total Protein 5.1 L Albumin 2.7 L 08/05/20 08/05/20 08/05/20 16:04 20:37 22:44 WBC RBC Hgb Hct MCV MCH MCHC RDW Plt Count MPV Immature Gran % (Auto) Neut % (Auto) Lymph % (Auto) Warren % (Auto) Eos % (Auto) Baso % (Auto) Lymph # (Auto) Warren # (Auto) Eos # (Auto) Baso # (Auto) Abs Immat Gran (auto) Absolute Neuts (auto) Absolute Nucleated RBC Nucleated RBC % (auto) PT INR Sodium Potassium Chloride Carbon Dioxide Anion Gap BUN Creatinine Estim Creat Clear Calc Estimated GFR POC Glucose 114 123 H Random Glucose Calcium Magnesium Total Bilirubin AST ALT Alkaline Phosphatase Troponin I High Sens 5.0 B-Natriuretic Peptide 295 H Total Protein Albumin 08/06/20 08/06/20 08/06/20 05:56 05:57 05:57 WBC 8.4 RBC 3.57 L Hgb 8.9 L Hct 28.7 L MCV 80.4 MCH 24.9 L MCHC 31.0 RDW 18.5 H Plt Count 264 MPV 8.9 L Immature Gran % (Auto) 1.3 H Neut % (Auto) 74.0 H Lymph % (Auto) 12.1 L Warren % (Auto) 11.9 H Eos % (Auto) 0.6 Baso % (Auto) 0.1 Lymph # (Auto) 1.0 L Warren # (Auto) 1.0 Eos # (Auto) 0.1 Baso # (Auto) 0.0 Abs Immat Gran (auto) 0.11 H Absolute Neuts (auto) 6.2 Absolute Nucleated RBC 0.030 H Nucleated RBC % (auto) 0.4 H PT INR Sodium 138 Potassium 4.2 Chloride 106 Carbon Dioxide 25 Anion Gap 11 L BUN 20 H Creatinine 0.64 Estim Creat Clear Calc 70.0 Estimated GFR > 60 POC Glucose Random Glucose 116 H Calcium 8.9 D Magnesium 1.9 Total Bilirubin AST ALT Alkaline Phosphatase Troponin I High Sens B-Natriuretic Peptide Total Protein Albumin 08/06/20 08/06/20 07:21 11:22 WBC RBC Hgb Hct MCV MCH MCHC RDW Plt Count MPV Immature Gran % (Auto) Neut % (Auto) Lymph % (Auto) Warren % (Auto) Eos % (Auto) Baso % (Auto) Lymph # (Auto) Warren # (Auto) Eos # (Auto) Baso # (Auto) Abs Immat Gran (auto) Absolute Neuts (auto) Absolute Nucleated RBC Nucleated RBC % (auto) PT INR Sodium Potassium Chloride Carbon Dioxide Anion Gap BUN Creatinine Estim Creat Clear Calc Estimated GFR POC Glucose 118 H 170 H Random Glucose Calcium Magnesium Total Bilirubin AST ALT Alkaline Phosphatase Troponin I High Sens B-Natriuretic Peptide Total Protein Albumin Microbiology Microbiology Results: Microbiology 08/04/20 18:11 Blood Culture - Preliminary Blood - Venous No growth after 24 hours. 08/04/20 18:05 Blood Culture - Preliminary Blood - Venous No growth after 24 hours. Quality Stroke Does the patient have a stroke diagnosis?: No VTE Prior VTE?: No VTE Risk Level:: Medical - moderate - high VTE Device Contraindication: N/A - Device Ordered VTE Drug Contraindication: N/A - Med Ordered Assessment and Plan (1) Lymphadenopathy: Status: Acute Assessment and Plan: This is an 80 yo F who is admitted for lymphadenopathy and generalized weakness. 1. Generalized weakness multifactorial see details below 2. Extensive retroperitoneal lymphadenoapthy and splenomagaly concerning for lymphoma / metastatic Ca planned biopsy of L inguinal lymph node today Oncology input appreciated 3. Chronic anemia symptomatic s/p 1 unit prbc with improvement in her symptoms no evidence of blood loss -- likely anemia of chronic disease 4. Decubitus ucler appears superficial mostly await wound input for local care does not appear deeply infected - stop zosyn. 5. DM continue sliding scale 6. ? 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
[2020-08-06 16:21] LABS: Glucose, Whole Blood 113 mg/dL (60-115)
[2020-08-06 20:14] LABS: Glucose, Whole Blood 186 mg/dL (60-115)
[2020-08-06] MEDS: Atorvastatin Calcium 10 MG TABLET PO (21:48)
[2020-08-06] MEDS: Enoxaparin Sodium 40 MG/0.4 ML SYRINGE SUBCUT (21:51)
[2020-08-06] MEDS: Insulin Lispro 100 UNIT/ML 3 ML VIAL SUBCUT (21:52)
[2020-08-07 03:23] VITALS: BP 129/61; PULSE 83; RESP 18; TEMP 36.9; O2SAT 95
[2020-08-07] MEDS: Omeprazole 20 MG CAPSULE.DR PO (05:57)
[2020-08-07 06:11] LABS: Hematocrit 28.5 % (37-47); Hemoglobin 8.5 g/dl (12.0-16.0); Mean Corpuscular HGB Conc 29.8 g/dl (31.0-35.0); Mean Corpuscular Hemoglobin 24.4 pg (27.0-33.0); Mean Corpuscular Volume 81.7 fL (80-98); Mean Platelet Volume 8.9 fL (9.4-12.3); NRBC Pct Auto 0.2 /100WBC (0.0-0.2); Platelet Count 240 X10*3/uL (160-400); Red Blood Count 3.49 X10*6/uL (4.20-5.50); Red Cell Distribution Width 18.8 % (11.0-16.0); White Blood Count 8.4 X10*3/uL (4.8-10.8)
[2020-08-07 06:37] LABS: Anion Gap 9 (12-20); Blood Urea Nitrogen 18 mg/dL (9-16); Calcium 8.7 mg/dL (8.4-10.2); Carbon Dioxide 28 mmol/L (22-29); Chloride 106 mmol/L (96-108); Creatinine Clr Calc Pharmacy 72.3; Estimated Glomerular Filt Rate > 60; Glucose Random 113 mg/dL (60-115); Potassium 4.1 mmol/L (3.3-5.1); Sodium 139 mmol/L (135-145)
[2020-08-07 08:00] VITALS: BP 146/71; PULSE 85; TEMP 36.1; O2SAT 97
[2020-08-07] MEDS: 0.9 % Sodium Chloride Flush 3 ML SYRINGE IVFLUSH ×3 (08:14→21:01)
[2020-08-07] MEDS: allopurinoL 300 MG TABLET PO (08:17)
[2020-08-07] MEDS: Furosemide 20 MG TABLET PO (08:18)
[2020-08-07] MEDS: dilTIAZem HCL CD 120 MG CAP.ER.DEG PO (08:19)
[2020-08-07] MEDS: Metoprolol Succinate ER 50 MG TAB.ER.24H PO (08:19)
[2020-08-07 08:46] LABS: Glucose, Whole Blood 112 mg/dL (60-115)
[2020-08-07] MEDS: Betamethasone Dip Aug 0.05% Cr 15 GM TUBE 1 APPL TOPICAL ×2 (09:37→21:11)
[2020-08-07 11:29] VITALS: BP 133/65; PULSE 92; TEMP 36.3; O2SAT 99
[2020-08-07 11:35] LABS: Glucose, Whole Blood 168 mg/dL (60-115)
[2020-08-07] MEDS: Insulin Lispro 100 UNIT/ML 3 ML VIAL SUBCUT ×2 (11:43→16:15)
--- NOTE | 2020-08-07 12:42 | PM.IMPN ---
Subjective Subjective Date of Service: 08/07/20 Interval History: Follow up weakness and anemia feeling better today after tx Physical Exam Vital Signs: Vital Signs: Last Vital Signs Temp 97.3 F 08/07/20 11:29 Pulse 92 08/07/20 11:29 Resp 18 08/07/20 03:23 BP 133/65 08/07/20 11:29 Pulse Ox 99 08/07/20 11:29 Body Mass Index 35.6 Appearing in no acute distress\ lung sounds are clear to auscultation heart regular rate rhythm, clear S1, S2 positive bowel sounds, abdomen is soft, nontender neuro patient is alert x3, no focal deficits Objective Data Current Medications Generic Name Dose Route Start Last Admin Trade Name Freq PRN Reason Stop Dose Admin Acetaminophen 650 mg 08/05/20 20:22 Acetaminophen 325 Mg Tablet PO Q6H PRN Pain, Mild (Pain Scale 1-3) Allopurinol 300 mg 08/05/20 09:45 08/07/20 08:17 Allopurinol 300 Mg Tablet PO 300 mg DAILY PRITESH Administration Atorvastatin Calcium 10 mg 08/05/20 21:00 08/06/20 21:48 Atorvastatin Calcium 10 Mg Tablet PO 10 mg BEDTIME PRITESH Administration Betamethasone Dipropion Augmented 1 appl 08/05/20 21:00 08/07/20 09:37 Betamethasone Dip Aug 0.05% Cr 15 Gm Tube TOPICAL 1 appl BID PRITESH Administration Diltiazem HCl 120 mg 08/05/20 09:45 08/07/20 08:19 Diltiazem Hcl Cd 120 Mg Cap.Er.Deg PO 120 mg DAILY PRITESH Administration Protocol Doxycycline Hyclate 50 mg 08/05/20 21:00 08/07/20 08:18 Doxycycline Hyclate 100 Mg Tablet PO 50 mg BID PRITESH Administration Enoxaparin Sodium 40 mg 08/05/20 21:00 08/06/20 21:51 Enoxaparin Sodium 40 Mg/0.4 Ml Syringe SUBCUT 40 mg Q24H PRITESH Administration Furosemide 20 mg 08/05/20 09:45 08/07/20 08:18 Furosemide 20 Mg Tablet PO 20 mg DAILY PRITESH Administration Protocol Insulin Human Lispro 0 unit 08/05/20 21:00 08/07/20 11:43 Insulin Lispro 100 Unit/Ml 3 Ml Vial SUBCUT 2 unit QIDACHS PRITESH Administration Protocol Metoprolol Succinate 50 mg 08/05/20 09:45 08/07/20 08:19 Metoprolol Succinate Er 50 Mg Tab.Er.24h PO 50 mg DAILY [facility] Administration Protocol Omeprazole 20 mg 08/05/20 09:45 08/07/20 05:57 Omeprazole 20 Mg Capsule.Dr PO 20 mg DAILY@0630 [facility] Administration Sodium Chloride 3 ml 08/06/20 00:00 08/07/20 08:14 0.9 % Sodium Chloride Flush 3 Ml Syringe IVFLUSH 3 ml QSHIFT [facility] Administration Labs CBC & Chem 7: 08/07/20 05:28 08/07/20 05:28 Labs: Laboratory Results - last 24 hr 08/06/20 08/06/20 08/07/20 16:15 20:01 05:28 MCV 81.7 MCH 24.4 L MCHC 29.8 L RDW 18.8 H Plt Count 240 MPV 8.9 L Absolute Nucleated RBC 0.020 H Nucleated RBC % (auto) 0.2 Anion Gap Estim Creat Clear Calc Estimated GFR POC Glucose 113 186 H Random Glucose Calcium 08/07/20 08/07/20 08/07/20 05:28 08:14 11:31 MCV MCH MCHC RDW Plt Count MPV Absolute Nucleated RBC Nucleated RBC % (auto) Anion Gap 9 L Estim Creat Clear Calc 72.3 Estimated GFR > 60 POC Glucose 112 168 H Random Glucose 113 Calcium 8.7 Microbiology Microbiology Results: Microbiology 08/04/20 18:11 Blood - Venous Blood Culture - Preliminary No growth after 48 hours. 08/04/20 18:05 Blood - Venous Blood Culture - Preliminary No growth after 48 hours. Progress Note: A&P (1) Lymphadenopathy: Status: Acute Assessment and Plan: This is an 80 yo F who is admitted for lymphadenopathy and generalized weakness. Extensive retroperitoneal lymphadenoapthy and splenomagaly concerning for lymphoma / metastatic Ca -planned biopsy of L inguinal lymph node today -Oncology input appreciated Chronic anemia. No evidence of blood loss -- likely anemia of chronic disease symptomatic -s/p 1 unit prbc with improvement in her symptoms Decubitus ulcer. appears superficial mostly -await wound input for local care -does not appear deeply infected - stop zosyn. DM -continue sliding scale ? History of bullous pemphigoid -chronically on suppressive doxy -- will continue DISPO: When medically stable Full Code DVT pptx, Lovenox Attending: Dr. Aceves Quality Stroke Does the patient have a stroke diagnosis?: No VTE Prior VTE?: No VTE Risk Level:: Medical - moderate - high VTE Device Contraindication: N/A - Device Ordered VTE Drug Contraindication: N/A - Med Ordered
[2020-08-07 15:00] VITALS: BP 120/60; PULSE 76; RESP 18; TEMP 36.7; O2SAT 97
[2020-08-07 16:09] LABS: Glucose, Whole Blood 168 mg/dL (60-115)
[2020-08-07 20:00] VITALS: BP 133/58; PULSE 87; RESP 18; TEMP 36.4; O2SAT 96
[2020-08-07 20:15] LABS: Glucose, Whole Blood 127 mg/dL (60-115)
[2020-08-07] MEDS: Atorvastatin Calcium 10 MG TABLET PO (21:00)
[2020-08-07] MEDS: Enoxaparin Sodium 40 MG/0.4 ML SYRINGE SUBCUT (21:01)
[2020-08-07 23:16] VITALS: BP 132/63; PULSE 83; RESP 18; TEMP 36.4; O2SAT 94
[2020-08-08 02:18] VITALS: BP 129/60; PULSE 87; RESP 18; TEMP 36.6; O2SAT 96
[2020-08-08] MEDS: Omeprazole 20 MG CAPSULE.DR PO (05:27)
[2020-08-08 06:42] LABS: Hemoglobin 8.8 g/dl (12.0-16.0); Mean Corpuscular HGB Conc 30.3 g/dl (31.0-35.0); Mean Corpuscular Hemoglobin 25.1 pg (27.0-33.0); Mean Corpuscular Volume 82.6 fL (80-98); Mean Platelet Volume 9.4 fL (9.4-12.3); Platelet Count 200 X10*3/uL (160-400); Red Blood Count 3.51 X10*6/uL (4.20-5.50)
[2020-08-08 07:07] LABS: Anion Gap 10 (12-20); Blood Urea Nitrogen 17 mg/dL (9-16); Calcium 9.4 mg/dL (8.4-10.2); Carbon Dioxide 29 mmol/L (22-29); Chloride 106 mmol/L (96-108); Creatinine Clr Calc Pharmacy 61.4; Estimated Glomerular Filt Rate > 60; Glucose Random 134 mg/dL (60-115); Potassium 5.2 mmol/L (3.3-5.1); Sodium 140 mmol/L (135-145)
[2020-08-08 07:17] LABS: Glucose, Whole Blood 126 mg/dL (60-115)
[2020-08-08 07:31] VITALS: BP 120/56; PULSE 93; RESP 18; TEMP 36.4; O2SAT 96
[2020-08-08] MEDS: 0.9 % Sodium Chloride Flush 3 ML SYRINGE IVFLUSH (07:46)
[2020-08-08 08:23] VITALS: BP 120/56; PULSE 93
[2020-08-08] MEDS: Metoprolol Succinate ER 50 MG TAB.ER.24H PO (08:23)
[2020-08-08] MEDS: Furosemide 20 MG TABLET PO (08:23)
[2020-08-08] MEDS: dilTIAZem HCL CD 120 MG CAP.ER.DEG PO (08:24)
[2020-08-08] MEDS: allopurinoL 300 MG TABLET PO (08:24)
[2020-08-08] MEDS: Betamethasone Dip Aug 0.05% Cr 15 GM TUBE 1 APPL TOPICAL (08:28)
--- NOTE | 2020-08-08 09:25 | PM.DS ---
DS: Providers Provider Date of Service: 08/08/20 Date of admission: 08/05/20 20:22 Date of discharge: 08/08/20 [facility]mitting clinician: Jaren Platt Attending physician on admission: Jaren Platt Consults: 08/05/20 20:20 Consult to Hematology / Oncology Routine Consulting Provider: Jennie Cannon Reason for consultation: Abd lymphadenopathy; ?lymphoma Consult to Infectious Diseases Routine Consulting Provider: Ruby Stone Reason for consultation: Decubitus ulcer 08/06/20 00:01 Consult to Wound Care Routine Consulting Provider: Maryuri Clement Reason for consultation: decub Attending physician on discharge: jai Rhoadesarging clinician: Elvie Lopez DS: Diagnosis Discharge Diagnosis (1) Anemia: Status: Acute (2) Lymphadenopathy: Status: Acute (3) Decubitus ulcer of buttock: Status: Acute DS: Medications Discharge Medications Home Medications: Home Medications Medication Instructions Recorded Confirmed allopurinol 1 tab PO DAILY 08/04/20 08/04/20 atorvastatin 1 tab PO BEDTIME 08/04/20 08/04/20 diltiazem HCl 1 cap PO BEDTIME 08/04/20 08/05/20 doxycycline hyclate 1 cap PO BID 08/04/20 08/04/20 furosemide 1 tab PO DAILY 08/04/20 08/04/20 halobetasol propionate 1 appl TOPICAL BID PRN 08/04/20 08/04/20 metformin 1 tab PO BID 08/04/20 08/04/20 metoprolol succinate 1 tab PO DAILY 08/04/20 08/04/20 omeprazole 1 cap PO QAM 08/04/20 08/04/20 aspirin 81 mg PO DAILY 08/05/20 08/05/20 calcium carbonate-vitamin D3 1 tab PO BID 08/05/20 08/05/20 [Calcium 600 + D(3)] ferrous sulfate 324 mg PO BID 08/05/20 08/05/20 magnesium oxide 800 mg PO BID 08/05/20 08/05/20 DS: Summary Hospital Course Hospital Course: HP as per admitting provider 80-year-old female with a past medical history of hypertension, hyperlipidemia, diabetes, B12 deficiency, anemia, history of basal cell carcinoma, bullous pemphigoid, 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 Patient mentioned that over the past few days she has been having generalized weakness and had diet area. Denies any blood in the stool. Denies any numbness tingling. Patient reports he has poor oral intake and loss of appetite. Patient reports she has lost significant weight over the past 2 years. Denies any urinary symptoms. Denies any chest pain palpitations lightheadedness or dizziness currently. Review of all other systems is negative except mentioned above. Spoke to the patient's daughter at bedside who mentioned that patient appeared very weak and exhausted prior to coming to the hospital and this morning when she came back in to see her she is more alert and more energetic; denies any falls. Reportedly patient is on doxycycline chronically for skin condition . Anemia. History anemia, presented with generalized weakness, poor appetite, weakness. She received 1 unit of packed red blood cells during her admission, she had no other obvious blood loss. Recheck CBC in 3 days. Lymphadenopathy. extensive retroperitoneal lymphadenopathy and splenomegaly concerning for lymphoma. She had a left inguinal node biopsy, core biopsy was sent to pathology which is pending . She will follow-up with Dr. Cannon as an outpatient for biopsy results. Decubitus ulcer. Chronic. Home with visiting nurse services, may also follow-up with wound care center as well. History of bolus pemphigoid. Continue treatment of doxycycline Time Spent with Patient Time attestation: Total time spent providing and/or coordinating discharge services: Discharge coordination time: Greater than 30 minutes Quality: Stroke Does the patient have a stroke diagnosis?: No Physical Exam Vital Signs: Vital Signs: Last Vital Signs Temp 97.6 F 08/08/20 07:31 Pulse 93 08/08/20 08:23 Resp 18 08/08/20 07:31 BP 120/56 L 08/08/20 08:23 Pulse Ox 96 08/08/20 07:31 Body Mass Index 35.6 Appearing in no acute distress head is normocephalic atraumatic eyes pupils are PERRLA sclera is anicteric mouth throat mucous membranes are intact and moist neck is supple no lymphadenopathy, no JVD noted lung sounds are clear to auscultation heart regular rate rhythm, clear S1, S2 positive bowel sounds, abdomen is soft, nontender neuro patient is alert x3, no focal deficits DS: Data Data Completed and Pending Completed studies during hospitalization [Text1]: Procedures Transfusion of Nonautologous Red Blood Cells into Peripheral Vein, Percutaneous Approach (04/28/20) Pending studies at discharge: Pending at discharge 08/06/20 15:30 Surgical [PTH] Routine Labs on day of discharge: Laboratory Results - last 24 hr 08/07/20 08/07/20 08/07/20 11:31 15:58 19:42 WBC RBC Hgb Hct MCV MCH MCHC RDW Plt Count MPV Absolute Nucleated RBC Nucleated RBC % (auto) Sodium Potassium Chloride Carbon Dioxide Anion Gap BUN Creatinine Estim Creat Clear Calc Estimated GFR POC Glucose 168 H 168 H 127 H Random Glucose Calcium 08/08/20 08/08/20 08/08/20 05:32 05:32 07:12 WBC 9.0 RBC 3.51 L Hgb 8.8 L Hct 29.0 L MCV 82.6 MCH 25.1 L MCHC 30.3 L RDW 19.0 H Plt Count 200 MPV 9.4 Absolute Nucleated RBC 0.000 Nucleated RBC % (auto) 0.0 Sodium 140 Potassium 5.2 H D Chloride 106 Carbon Dioxide 29 Anion Gap 10 L BUN 17 H Creatinine 0.73 Estim Creat Clear Calc 61.4 Estimated GFR > 60 POC Glucose 126 H Random Glucose 134 H Calcium 9.4 D Preliminary micro results at discharge 08/04/20 18:11 Blood Culture - Preliminary Blood - Venous No growth after 48 hours. 08/04/20 18:05 Blood Culture - Preliminary Blood - Venous No growth after 48 hours. Discharge Plan Discharge Anticipated Discharge Date/Time: 08/08/20 09:15 Patient Disposition: Home, Self-Care Discharge Diagnosis: Anemia lymphadenopathy decubitus ulcer Referrals: [facility]TADO [Outside] - 1 Week Jennie Cannon MD [Physician] - 1 Week (biopsy results ) Manjit Schmitt FNP- [Primary Care Provider] - 1 Week Maryuri Clement MD [Physician] - None (decubitus ulcer ) Discharge Medications: Continued atorvastatin 10 mg tablet 1 tab PO BEDTIME RF: 0 metoprolol succinate 50 mg tablet extended release 24 hr 1 tab PO DAILY RF: 0 doxycycline hyclate 50 mg capsule 1 cap PO BID RF: 0 metformin 1,000 mg tablet 1 tab PO BID RF: 0 omeprazole 20 mg capsule,delayed release(DR/EC) 1 cap PO QAM RF: 0 diltiazem HCl 120 mg capsule,extended release 24hr 1 cap PO BEDTIME RF: 0 allopurinol 300 mg tablet 1 tab PO DAILY RF: 0 halobetasol propionate 0.05 % cream 1 appl topical BID PRN (Reason: Rash) RF: 0 furosemide 20 mg tablet 1 tab PO DAILY RF: 0 aspirin 81 mg Tablet,Chewable 81 mg PO DAILY RF: 0 calcium carbonate-vitamin D3 [Calcium 600 + D(3)] 600 mg(1,500mg) -400 unit Tablet 1 tab PO BID RF: 0 ferrous sulfate 324 mg (65 mg iron) Tablet,Delayed Release (Dr/Ec) 324 mg PO BID RF: 0 magnesium oxide 400 mg magnesium Tablet 800 mg PO BID RF: 0 Discharge Orders: Discharge Order (Routine); Ordered 08/08/20 Ordered By: Elvie Lopez Diet: advance to usual diet Activity on Discharge: As tolerated Stand Alone Forms: Patient Portal Discharge page Other Ambulatory Orders: Complete Blood Count no Diff (Routine) Timeframe: 20200811 Facility: [facility] - Location: Laboratory Ordered By: Elvie Lopez Activity Restrictions/Additional Instructions: Patient will be going home with VNA services to her buttocks she has two 5x5 Allevyn dressings clean and dry before placing dressing at least once. Care Plan Goals: Resolution of anemia Resolution of decubitus ulcer Health Concerns: Anemia Decubitus ulcer lymphadenopathy Plan of Treatment: Follow up with Dr. Cannon, oncology for biopsy results Follow up with primary care doctor as needed Assessment: see discharge summary Patient Instructions: How to Prevent Pressure Injuries (ED), Anemia (ED)
--- NOTE | 2020-08-08 10:12 | MHC.CM.PN ---
Addendum entered by Astrid Lomas 08/08/20 11:14: CM INFORMED BY [facility], THEY ARE RUNNING BEHIND AND LIKELY TO ARRIVE AT APPROXIMATELY 1330 HOURS FOR TRANSPORT. PTS AND DAUGHTER INFORMED OF DELAY. Original Note: CM INFORMED PT IS CLEARED TO DISCHARGE HOME TODAY WITH [facility] SN [facility] PT SERVICES. CM CONTACTED PTS DAUGHTER, SEAN ([phone]) WHO REPORTED SHE WAS AWARE OF THE PENDING DC. SEAN REPORTS HER ONLY CONCERN IS THE 3-4 STEPS TO GET INTO THE HOME. CM SPOKE WITH PT WHO REPORTED SHE WOULD PREFER A CHAIR VAN SHE IS STILL WEAK AND HAS NOT BEEN AMBULATING MORE THAN A FEW STEPS WHILE INPATIENT. PTS MEDICARE RIGHTS WERE REVIEWED AND A COPY WAS LEFT AT BEDSIDE. DUE TO PTS INSURANCE, CM CONTACTED [facility] ( [phone]) TO ARRANGE TRANSPORT, HOWEVER SINCE [facility] DOES NOT COVER THIS TYPE OF SERVICE, [facility] DECLINED. CM SET A REFERRAL TO [facility] [employer] [facility] [employer] ([facility]) AND REQUESTED A 12:45 [employer]. CM DISCUSSED ESTIMATED COST WITH PTS DAUGHTER PRIOR TO ARRANGING TRANSPORT. PT WILL DC HOME TODAY WITH [facility] FOR SN AND PT. PT WILL BE TRANSPORTED [facility]IA [facility]
[2020-08-08] MEDS: Insulin Lispro 100 UNIT/ML 3 ML VIAL SUBCUT (10:54)
[2020-08-08 10:57] LABS: Glucose, Whole Blood 201 mg/dL (60-115)
[2020-08-08 11:03] VITALS: BP 116/56; PULSE 82; RESP 18; TEMP 36.1; O2SAT 96
--- NOTE | 2020-08-09 07:46 | HO.WOUNDCONS ---
History of Present Illness Data of Consult Service Date: 08/06/20 Requesting physician: Rossana Michaud Primary Care Provider: Manjit Schmitt [facility] HPI Reason for consult: pressure wounds pt has been in the hospital for several days and before that was spending a lot of time sitting and she had episodes of loose stools which created pressure wounds on her buttock areas. She is doing better now, moving around and standing and hopefully will be dc home soon Review of Systems Review of Systems: Constitutional : Reports Weight loss, No Fever, No Chills, No Night Sweats, worsening chronic fatigue ENT/Mouth : No Hearing loss, No Ear Pain, No Nasal Congestion, No Sinus Pain, No Hoarseness, No sore throat, No Rhinorrhea, No Swallowing Difficulty Eyes: No Eye Pain, No Swelling, No Redness, No Foreign Body, No Discharge, No Vision Changes Cardiovascular : No Chest Pain, No SOB, No Dyspnea on Exertion, No Orthopnea, No Edema, No Palpitations Respiratory : No Cough, No Sputum, No Wheezing, No Smoke Exposure, No Dyspnea Gastrointestinal : No Nausea, No Vomiting, complaining of acute on chronic Diarrhea, No Constipation, No abdominal Pain, No Hematochezia, No Melena Genitourinary : no irregular bleeding, No Dysuria, No Urinary Frequency, No Hematuria, No Urinary Incontinence, No Urgency, No Flank Pain, No Urinary Flow Changes, No Hesitancy Musculoskeletal : No joint pain, No Myalgias, No Joint Swelling Skin : Complaining of ulcers in her buttocks Neuro : No Weakness, No Numbness, No Paresthesias, No Loss of Consciousness, No Dizziness, No Headache Psych : No Anxiety/Panic, No Depression, No SI/HI/AH/VH, No Social Issues, Heme/Lymph: No Bruising, No Bleeding,No Lymphadenopathy Endocrine : No Polyuria, No Polydipsia, No Temperature Intolerance Yes all other systems are reviewed and are negative Constitutional: Constitutional: Reports as per HPI, Reports fatigue, Reports malaise, Reports poor appetite and Denies weight loss Cardiovascular: Cardiovascular: Denies chest pain and Denies dyspnea Respiratory: Respiratory: Denies cough and Denies dyspnea Gastrointestinal: Gastrointestinal: Denies abdominal pain and Denies change in bowel habits Endocrine: Endocrine: Reports fatigue [facility] Medical History Aortic stenosis Atrial tachycardia B12 deficiency Basal cell carcinoma of face Bifascicular block Bullous pemphigoid (~1999) Cardiac pacemaker in situ (~06/2020) Diabetes mellitus (~1999) Gout HTN (hypertension) (~1993) Lymphedema RBBB Family History Father Myocardial infarction Mother CHF (congestive heart failure) Brother Dementia Son No problems noted. Daughter No problems noted. Daughter No problems noted. Sister No problems noted. Sister No problems noted. Sister No problems noted. Sister Ovarian cancer Sister Cancer Stroke Family history: reviewed and not pertinent Surgical History History of cholecystectomy (~1971) History of hemorrhoidectomy (~2000) History of pacemaker (~06/2020) History of surgery on upper extremity (~2012) History of tonsillectomy History of umbilical hernia repair (~1996) Status post placement of implantable loop recorder (~2020) Social History Household Members: Children Housing: House Do you presently have visiting nurse or other home services: No Alcohol intake: never Patient Tobacco Use Status: Former Tobacco user Quit Date: 1967 Cigarette Packs Per Day: 0.5 e-Cigarette/Vaping Use: Never Used Advance Directives Date on File: 04/28/20 service: No Current occupational status: retired Meds Allergies Allergy/AdvReac Type Severity Reaction Status Date / Time adhesive tape [ADHESIVE TAPE] Allergy Intermediate RASH Verified 08/04/20 16:28 latex Allergy Intermediate rash Verified 08/04/20 16:28 Home Medications Medication Instructions Recorded Confirmed Last Taken Type allopurinol 1 tab PO DAILY 08/04/20 08/04/20 Unknown History atorvastatin 1 tab PO BEDTIME 08/04/20 08/04/20 Unknown History diltiazem HCl 1 cap PO BEDTIME 08/04/20 08/05/20 Unknown History doxycycline hyclate 1 cap PO BID 08/04/20 08/04/20 Unknown History furosemide 1 tab PO DAILY 08/04/20 08/04/20 Unknown History halobetasol propionate 1 appl TOPICAL BID PRN 08/04/20 08/04/20 Unknown History metformin 1 tab PO BID 08/04/20 08/04/20 Unknown History metoprolol succinate 1 tab PO DAILY 08/04/20 08/04/20 Unknown History omeprazole 1 cap PO QAM 08/04/20 08/04/20 Unknown History aspirin 81 mg PO DAILY 08/05/20 08/05/20 Unknown History calcium carbonate-vitamin D3 1 tab PO BID 08/05/20 08/05/20 Unknown History [Calcium 600 + D(3)] ferrous sulfate 324 mg PO BID 08/05/20 08/05/20 Unknown History magnesium oxide 800 mg PO BID 08/05/20 08/05/20 Unknown History Physical Exam Vital Signs and Narrative: Vital Signs: Last Vital Signs Temp 97.0 F 08/08/20 11:03 Pulse 82 08/08/20 11:03 Resp 18 08/08/20 11:03 BP 116/56 L 08/08/20 11:03 Pulse Ox 96 08/08/20 11:03 Body Mass Index 35.6 Gen: Appears be in no acute distress HEENT: NCAT, Moist mucosa. Pulmonary: Vesicular breath sounds, fair air entry CVS: Normal S1-S2 Abdomen: BS+, Soft, Nontender Extremities: Warm well perfused Neuro: Alert and awake. Integumentary: Decubitus ulcer-stage I, peripheral hyperemia, more warm compared to the surroundings. Const: General: cooperative HENMT: Head: Yes normal to inspection Mouth: Normal oral and palatal mucosa present Resp: Effort & Inspection: normal respiratory effort Cardio: Rate: regular rate Rhythm: regular rhythm GI: Palpation (GI): Soft to palpation and nontender Skin: Other: left buttock cheek near the anal opening has about a 2.5x1.2 area of skin breakdown stage 3 into some fat. area is clean o evidence of infection the right buttock cheek just opposite has a small area of breakdown - 1x1.8 cm little more superficial looks also clean Results Labs CBC and Chem 7: 08/08/20 05:32 08/08/20 05:32 Labs: Laboratory Results - last 24 hr 08/08/20 10:50 POC Glucose 201 H Assessment and Plan (1) Anemia: Status: Acute 80-year-old female with a past medical history of hypertension, hyperlipidemia, diabetes, history of AV block status post pacemaker, decubitus ulcer, anemia on iron supplementation, B12 deficiency, aortic stenosis, atrial tachycardia presented to the hospital with a chief complaint of generalized weakness. Noted to have anemia status post blood transfusion; also consult for possible cellulitis around the decubitus ulcer. Admitted for further management. C (2) Lymphadenopathy: Status: Acute (3) Decubitus ulcer of buttock: Status: Acute Stage 3 wounds but from history seems like she may have already had some breakdown before coming to hospital. Plan to just do barrier cream, offloading and repositioning. pt doing better medically and can move and stand on her own so this is good for her prognosis. can follow up with us as an outpt.
== END 2020-08-08 12:50 | disposition home or self-care (01) | DRG 823 ==
LOC: HO.ED 08-05 15:07 → HO.EDOVER 08-05 20:41 → HO.IMC 08-05 21:30
PROVIDERS: Family Medicine; Nurse Practitioner Acute Care; Physician Assistant Medical; Radiology Diagnostic Radiology; Admitting Provider Hospitalist; Emergency Provider Emergency Medicine; PCP Nurse Practitioner Family; Visit Provider Internal Medicine
DX: C85.95 Non-Hodgkin lymphoma, unspecified, lymph nodes of inguinal region and lower limb (principal); L89.303 Pressure ulcer of unspecified buttock, stage 3; L03.317 Cellulitis of buttock; L12.0 Bullous pemphigoid; E78.5 Hyperlipidemia, unspecified; E11.9 Type 2 diabetes mellitus without complications; Z87.891 Personal history of nicotine dependence; Z95.0 Presence of cardiac pacemaker; Z87.440 Personal history of urinary (tract) infections; Z20.822 Contact with and (suspected) exposure to COVID-19; Z79.2 Long term (current) use of antibiotics; Z79.82 Long term (current) use of aspirin; Z79.84 Long term (current) use of oral hypoglycemic drugs; Z79.899 Other long term (current) drug therapy
CPT/HCPCS: 36415; 38505; 70450; 71045; 74177; 76942; 80048; 80053; 81003; 81340; 81342; 82272; 82947; 83605; 83690; 83735; 83880; 84443; 84484; 84999; 85025; 85027; 85610; 86850; 86900; 86901; 86923; 87040; 87635; 88184; 88185; 88300; 88305; 88341; 88342; 88360; 88365; 93005; 97162; 99219; 99285; J1650; J2543; P9016; Q9967

== ENCOUNTER 2020-08-17 11:14 | Outpatient (REF) | payer MEDICARE, SELFPAY ==
--- NOTE | ~2020-08-17 | PE_ITS ---
EXAMINATION: Fluorine-18 FDG PET/CT Scan CLINICAL INDICATION: Initial treatment management. Hodgkin's lymphoma, diagnosed this week, staging. PROCEDURE: 52 minutes following the intravenous administration of 16.7 mCi of fluorine 18 FDG, images from the base of the skull to the mid thighs were obtained using a combined PET/CT scanner with CT scan based attenuation correction. No oral contrast was administered. No intravenous contrast was administered. Transverse, coronal, sagittal, and volume reconstruction projections were obtained. The patient's blood glucose as determined by a finger stick, was 119 mg/dl immediately prior to injection. Total CT exam dose-length product 739.74 mGy-cm * These CT images were obtained using dose optimization techniques as appropriate, variously including the following: Automated exposure control * Adjustment of mA and/or kV according to patient size (this includes techniques or standardized protocols for targeted exams where dose is matched to indication/reason for exam; i.e. extremities or head) * Use of iterative reconstruction technique COMPARISON: The patient reports prior PET/CT scan performed at [facility], but this is not available for comparison. The diagnostic CT scan of the abdomen and pelvis, dated 08/05/2020, is available for comparison. CT scans of the head and cervical spine dated 08/17/2020 are also available for comparison. FINDINGS: (Slice numbers described in this report are numbered superiorly to inferiorly with slice #1 in the head) NECK AND VISUALIZED HEAD: There is a moderately FDG avid left soft tissue density which is likely a left cervical level IIa lymph node, or less likely a left intraparotid FDG avid lymph node. This shows SUVmax 6.9, slice 31/267, measures approximately 2.2 x 1.3 cm in largest transverse dimensions. This appears to have been present in retrospect on 04/28/2020 but has enlarged significantly since that date. It was not present on the much less recent CT scan of the cervical spine dated 08/20/2012. There is an additional FDG avid mildly enlarged right cervical level IIb lymph node, and there are a few subcentimeter weakly FDG avid right-sided lymph nodes inferior to this in the right cervical levels 3, 4, and 5a and 5b. No additional FDG avid cervical lesions are present. All the other FDG activity in this region appears physiological. THORAX: Osseous lesions are described subsequently. There are multiple bilateral moderately intense FDG avid axillary lymph nodes, the most intense a left-sided lymph node showing SUVmax 7.5, slice 88/267 measuring 2.1 x 1.[address] images. A few subcentimeter mediastinal lymph nodes are present, too small to be characterized on the FDG PET images but no enlarged or clearly FDG avid mediastinal lymph nodes are present. There are no FDG avid parenchymal lung lesions. No definite pulmonary nodules are visualized. There is a moderately sized right pleural effusion present with no associated abnormal FDG activity. This is slightly larger than on the 08/05/2020 CT scan of the abdomen and pelvis, but on that prior study the fusion was not completely included in the [id number] and is difficult to compare. Trace left pleural effusion is also present and this is also not FDG avid. A left chest wall pacemaker and associated leads are noted with no associated abnormal FDG activity. ABDOMEN AND PELVIS: There is diffusely increased FDG activity in the spleen which is slightly heterogeneous and shows SUVmax 5.2, slice 139/267. This is significantly more intense than the liver, which is abnormal. The spleen is also mildly enlarged, measuring 14 cm in largest dimension on the coronal projections. The liver is unremarkable. The gallbladder has been resected and several metallic clips are present in the gallbladder bed. The common bile duct is mildly dilated measuring 1.3 cm in largest transverse dimension, but not significantly changed from 08/05/2020. There are multiple FDG avid retroperitoneal, pelvic and inguinal lymph nodes present, post prominently in the left internal iliac calli chains and left inguinal regions. These include an intensely FDG avid left common iliac node with SUV max 9.8, slice 173/267 measuring 3.6 by 2.4 cm in largest transverse dimensions and in the left inguinal lymph node showing SUVmax 8.8, slice 225/267 measuring 5.8 x 3.7 cm in largest transverse dimensions. There is diffuse FDG activity of varying intensity throughout the gastrointestinal tract without a suspicious discrete focal component and a the large ventral hernia in the lower abdomen containing multiple loops of small bowel as as well as portions of the transverse colon, but no evidence of obstruction. There is diverticulosis without evidence of diverticulitis. The hollow viscera are otherwise unremarkable. Duodenal diverticuli noted on the 08/05/[address] scan do not appear significantly changed. Leon no abnormal FDG activity. Multiple hypodense renal cysts are present, markedly FDG photopenic but unchanged from 08/05/2020. The kidneys are otherwise unremarkable. The adrenal glands and pancreas are unremarkable. The pelvic organs are unremarkable. MUSCULOSKELETAL: Several FDG avid osseous lesions are present. Solar Panel [employer] of these are diffusely increased FDG activity in the L3 vertebral body showing SUVmax 4.8, slice 159/267, and additional FDG avid spine lesions are present at the C7, T4, and L3. There is an FDG avid proximal left humeral lesions showing SUVmax 5.9, slice 67/267, in the region of a metallic pin, there is also an FDG avid additional lesion more distally in the proximal left humerus associated with an intramedullary favian an FDG avid focus is present in the proximal right femur an another discrete focus of mild FDG activity is present in the intertrochanteric right femoral region. FDG avid lesions are also present in the right ischium, posterior column of the right acetabulum and in the posterior iliac bones bilaterally and in the right sacral ala. The most intense of these is in the posterior left iliac bone which shows SUVmax 5.8. VASCULAR: Diffuse vascular calcifications including coronary are noted. PET/PET CT fusion skull to thigh IMPRESSION: 1. Extensive FDG avid lymphadenopathy is present in multiple calli regions on both sides of the diaphragm, as described above, consistent with the known diagnosis of Hodgkin's lymphoma. 2. FDG avid mild splenomegaly is present, strongly suspicious for diffuse lymphomatous involvement in the spleen. 3. Multiple FDG avid osseous lesions are present as described above, also likely malignant. 4. Diffuse vascular calcifications including coronary.
== END 2020-08-17 11:15 | disposition home or self-care (01) ==
LOC: HO.PET 11:14
PROVIDERS: PCP Nurse Practitioner Family; Visit Provider Internal Medicine
DX: Z13.89 Encounter for screening for other disorder (principal)

== ENCOUNTER 2020-08-17 14:52 | Inpatient (IN) | payer MEDICARE, SELFPAY ==
--- NOTE | ~2020-08-17 | CT_ITS ---
EXAMINATION: HEAD CT WITHOUT CONTRAST CERVICAL SPINE CT WITHOUT CONTRAST CLINICAL INFORMATION: Status post fall. Weakness. COMPARISON: 04/28/2020 TECHNIQUE: Contiguous axial imaging of the head was performed without the administration of IV contrast. Axial multidetector volumetric images were also performed through the cervical spine without intravenous contrast. Multiplanar reconstructed images in coronal and sagittal orientations were submitted. This CT examination was performed using dose optimization techniques as appropriate, variously including the following: *Automated exposure control *Adjustment of mA and/or kV according to patient size (this includes techniques or standardized protocols for targeted exams where dose is matched to indication/reason for exam; i.e. extremities or head) *Use of iterative reconstruction technique DOSE: 1071 mGy-cm FINDINGS: HEAD: There is no evidence of acute intracranial hemorrhage or territorial infarction. No abnormal mass-effect or midline shift. No extra-axial fluid collections. Hall to white matter differentiation is well preserved. Mild enlargement of the ventricles, sulci, and extra-axial CSF spaces is indicative of parenchymal volume loss. A few foci of hypoattenuation in the subcortical and periventricular white matter are most consistent with mild chronic microvascular ischemic changes. Calcific atherosclerosis is present within the cavernous and supraclinoid segments of the internal carotid arteries. Mild hyperostosis frontalis interna. No acute osseous abnormalities are identified. No acute soft tissue findings. Globes are aphakic. Minimal mucosal thickening is evident in the sphenoid sinuses. Mastoid air cells and paranasal sinuses are otherwise clear.. CERVICAL SPINE: Vertebral body heights are normal. No fractures of the vertebral bodies or posterior elements. Vertebral alignment is normal. No subluxation. Degenerative changes are present at the craniocervical and atlantoaxial articulations, though normal alignment is maintained. Intervertebral disc is with associated endplate and uncovertebral osteophytes at C4-C5, asymmetric to the right. More minimal degenerative disc disease is present at all levels. More moderate multilevel facet arthropathy is most notable on the left at C2-C3 and C4-C5 and on the right at C4-C5 and C7-T1. Posterior disc osteophyte complexes produce minimal central canal narrowing at a few levels. No appreciable neural foraminal encroachment with the exception of mild right stenosis at C4-C5. No significant paravertebral soft tissue swelling. Atherosclerotic calcifications are present in the carotid arteries. There is a 1.4 cm (short axis) lymph node at the left parotid gland which measured 1.2 cm in short axis previously. Multiple additional enlarged cervical nodes. Imaged portions of the lung apices are clear. CT/CT cervical spine wo con IMPRESSION: 1. No acute intracranial pathology. Mild generalized cerebral atrophy and nonspecific periventricular white matter disease. 2. No acute fracture or malalignment in the cervical spine. Mild/moderate multilevel degenerative spondylosis, most pronounced at the facet joints. Bilateral cervical adenopathy is slightly more pronounced as compared to 04/28/2020.
--- NOTE | 2020-08-17 14:57 | ECG_ITS ---
Test Reason : WEAKNESS Blood Pressure : / mmHG Vent. Rate : 093 BPM Atrial Rate : 093 BPM P-R Int : 258 ms QRS Dur : 128 ms QT Int : 410 ms P-R-T Axes : 042 -50 007 degrees QTc Int : 509 ms Sinus rhythm with 1st degree A-V block Left axis deviation Right bundle branch block Septal infarct , age undetermined Abnormal ECG When compared with ECG of 05-AUG-2020 16:30, Premature atrial complexes are no longer Present Septal infarct is now Present Referred By: Gabriela Rojas Electronically Signed By:JUAN JACOBS
--- NOTE | 2020-08-17 15:08 | ED.FALL ---
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 coli bacteremia, RP lymphadenopathy s/p recent (08/06) biopsy with concern for lymphoma who presents to the ER from home via EMS with neck pain s/p mechanical fall at home. She reports being discharged from the hospital this morning and not being ready, I'm too weak. There is a discharge in the system dated 08/08, not today but she did have blood work done here this morning at 11am. Spoke with daughter and confirmed she saw Dr. Cannon today for blood work and PET scan. Has probable Hodgkin's Lymphoma and follow up appointment on Sunday to discuss results and options with Dr. Cannon. She reports walking up the outside steps at her home this afternoon and tripping on the cement. It was witnessed by family and they were able to help her up. She did not hit head or lose consciousness. She is not on anticoagulation. She reports left sided neck pain and was placed in a collar by EMS. She did not sustain any other injuries. She denies lightheadedness or dizziness prior to fall. No chest pain or SOB. MD complaint: fall Onset (ago): minute(s) (30) Fall from: standing Fall witnessed: yes, by family Place fall occurred: home Loss of consciousness: none Prolonged down time: no Symptoms prior to fall: none Context: tripped/slipped Location of injury: neck Severity: mild Quality: aching and spasming Associated symptoms (after fall): denies Related Data Home Medications Medication Instructions Recorded Confirmed allopurinol 1 tab PO DAILY 08/04/20 08/17/20 atorvastatin 1 tab PO BEDTIME 08/04/20 08/17/20 diltiazem HCl 1 cap PO BEDTIME 08/04/20 08/17/20 doxycycline hyclate 1 cap PO BID 08/04/20 08/17/20 furosemide 1 tab PO DAILY 08/04/20 08/17/20 halobetasol propionate 1 appl TOPICAL BID 08/04/20 08/17/20 metformin 1 tab PO BID 08/04/20 08/17/20 metoprolol succinate 1 tab PO DAILY 08/04/20 08/17/20 omeprazole 1 cap PO QAM 08/04/20 08/17/20 aspirin 81 mg PO DAILY 08/05/20 08/17/20 calcium carbonate-vitamin D3 1 tab PO BID 08/05/20 08/17/20 [Calcium 600 + D(3)] magnesium oxide 800 mg PO BID 08/05/20 08/17/20 omega-3 acid ethyl esters 2 cap PO BID 08/17/20 08/17/20 vitamin B complex [Super B Complex] 1 tab PO DAILY 08/17/20 08/17/20 Allergies Allergy/AdvReac Type Severity Reaction Status Date / Time adhesive tape [ADHESIVE TAPE] Allergy Intermediate RASH Verified 08/04/20 16:28 latex Allergy Intermediate rash Verified 08/04/20 16:28 Review of Systems Review of Systems: Constitutional: No Fever, No Chills ENT/Mouth: No sore throat, No Rhinorrhea, No Swallowing Difficulty Eyes: No Eye Pain, No Swelling, No Redness Cardiovascular: No Chest Pain, No SOB, No Orthopnea, No Edema Respiratory: No Cough, No Sputum, No Wheezing, No dyspnea Gastrointestinal: No Nausea, No Vomiting, No Diarrhea, No abdominal Pain, No Hematochezia, No Melena Genitourinary: No Dysuria, No Urinary Frequency, No Hematuria Musculoskeletal: No joint pain, + Myalgias Skin: No Skin Lesions, No rash Neuro: + Weakness, No Numbness, No Dizziness, No Headache Psych: No Anxiety/Panic, No Depression Heme/Lymph: No Bruising, No Lymphadenopathy Endocrine: No Polyuria, No Polydipsia PMFSH Past Medical History Attestation statement: The following information was validated with the patient. Medical History Aortic stenosis Atrial tachycardia B12 deficiency Basal cell carcinoma of face Bifascicular block Bullous pemphigoid (~1999) Cardiac pacemaker in situ (~06/2020) Diabetes mellitus (~1999) Gout HTN (hypertension) (~1993) Lymphedema RBBB Surgical History History of cholecystectomy (~1971) History of hemorrhoidectomy (~2000) History of pacemaker (~06/2020) History of surgery on upper extremity (~2012) History of tonsillectomy History of umbilical hernia repair (~1996) Status post placement of implantable loop recorder (~2020) Family History Family History Father Myocardial infarction Mother CHF (congestive heart failure) Brother Dementia Son No problems noted. Daughter No problems noted. Daughter No problems noted. Sister No problems noted. Sister No problems noted. Sister No problems noted. Sister Ovarian cancer Sister Cancer Stroke Social History Social History Household Members: Children Housing: House Do you presently have visiting nurse or other home services: No Alcohol intake: never Patient Tobacco Use Status: Never used Tobacco Cigarette Packs Per Day: 0.5 e-Cigarette/Vaping Use: Never Used Use of substances other than those prescribed or required for medical reasons: No Advance Directives: No Advance Directives Information Provided: No Advance Directives Date on File: 04/28/20 service: No Current occupational status: retired Physical Exam Vital Signs: Vital Signs: Last Vital Signs Temp 97.8 F 08/17/20 16:00 Pulse 93 08/17/20 16:00 Resp 16 08/17/20 16:00 BP 100/44 L 08/17/20 16:00 Pulse Ox 95 08/17/20 16:00 Body Mass Index 32.9 Appearance: Alert. Oriented X3. No acute distress. Eyes: Pupils equal, round and reactive to light. EOMI, no nystagmus ENT: Pharynx normal. Neck: Normal inspection. Neck supple. CVS: Normal heart rate and rhythm. Pulses normal. pacemaker palpable in upper left chest Respiratory: No respiratory distress. Breath sounds normal. Abdomen: Obese, Soft and nontender. +BS x4 Skin: Skin warm and dry. Normal skin color. Normal skin turgor. No rashes. Extremities: No lower extremity edema. Scattered ecchymosis on upper extremities Neuro: Oriented X 3. Symmetrical and equal strength in upper extremities. Able to follow simple commands, wiggle toes but unable to lift either leg off of the bed due to weakness. NIH Stroke Scale Internal: Initial- Upon Arrival Level of Consciousness: Alert Level of Consciousness Questions: Answers both questions correctly Level of Consciousness Commands: Performs both tasks correctly Best Gaze: Normal Visual: No visual loss Facial Palsy: Normal Motor Arm (Right): No drift Motor Arm (Left): No drift Motor Leg (Right): No effort against gravity Motor Leg (Left): No effort against gravity Limb Ataxia: Absent Sensory: Normal Best Language: No aphasia Dysarthia: Normal Extinction and Inattention: No abnormality Score: 6 Course Course Course Narrative: 80 y/o female presenting with mechanical fall with left sided neck pain and generalized weakness. Will get CT head/neck given fall with pain, EKG, and basic lab workup. She will either require admission to the hospital vs PT evaluation for possible STR. She is not safe for discharge home given her weakness. Reevaluation(s) Reevaluation #1: Lab workup showing chronic anemia. Will plan to heme check stool. Spoke with patient's daughter who is at the bedside - patient has been significantly declining over the last few months. Since her discharge from the hospital on 08/08 she has had a very poor appetite along with loose stools several times per day. She has made statements intermittently about not wanting to do this any more and that she was ready to ; other days she states she wants chemo and surgery for her cancer. Patient has a MOSLT and is FULL CODE (but within reason ie: she would not want to be on a vent for a month). Pending UA and C diff. Reevaluation #2: UA is positive for infection. Given patient's profound weakness diarrhea and poor PO intake will plan to treat with IV antibiotics and admit to the hospital for further management. Dr. Cannon aware. Spoke with Dr. Platt who will admit the patient. MDM - Fall Medical Records Attestation: I reviewed the patient's medical records. Lab Data Attestation: I reviewed the patient's lab results. Result diagrams: 08/17/20 16:20 08/17/20 16:20 Labs: Lab Results 08/17/20 08/17/20 08/17/20 Range/Units 16:20 16:20 16:20 WBC 11.1 H (4.8-10.8) X10*3/uL RBC 3.45 L (4.20-5.50) X10*6/uL Hgb 8.5 L (12.0-16.0) g/dl Hct 27.6 L (37-47) % MCV 80.0 (80-98) fL MCH 24.6 L (27.0-33.0) pg MCHC 30.8 L (31.0-35.0) g/dl RDW 19.4 H (11.0-16.0) % Plt Count 286 (160-400) X10*3/uL MPV 8.7 L (9.4-12.3) fL Immature Gran % (Auto) 1.4 H (0.0-0.4) % Neut % (Auto) 77.8 H (45-73) % Lymph % (Auto) 10.7 L (20-40) % Pickett % (Auto) 9.6 (2-11) % Eos % (Auto) 0.2 (0-4) % Baso % (Auto) 0.3 (0-2) % Lymph # (Auto) 1.2 (1.2-4.9) X10*3/uL Pickett # (Auto) 1.1 (0.1-1.2) X10*3/uL Eos # (Auto) 0.0 (0.0-0.4) X10*3/uL Baso # (Auto) 0.0 (0.0-0.2) X10*3/uL Abs Immat Gran (auto) 0.16 H (0.00-0.03) X10*3/uL Absolute Neuts (auto) 8.7 H (2.0-8.3) X10*3/uL Absolute Nucleated RBC 0.030 H (0.0-0.012) X10*3/uL Nucleated RBC % (auto) 0.3 H (0.0-0.2) /100WBC PT 16.8 H (9.9-13.0) SEC INR 1.5 H (0.9-1.1) APTT 43.2 H (24.1-38.0) SEC Hold Blue Top SEE NOTE Sodium 136 (135-145) mmol/L Potassium 4.7 (3.3-5.1) mmol/L Chloride 102 (96-108) mmol/L Carbon Dioxide 23 (22-29) mmol/L Anion Gap 16 (12-20) BUN 24 H (9-16) mg/dL Creatinine 0.72 (0.5-1.4) mg/dL Estim Creat Clear Calc 59.6 Estimated GFR > 60 Random Glucose 120 H (60-115) mg/dL Lactic Acid (0.5-2.0) mmol/L Calcium 9.5 (8.4-10.2) mg/dL Magnesium 2.1 (1.6-2.6) mg/dL Total Bilirubin 0.7 (0.0-1.0) mg/dL Direct Bilirubin 0.3 (0.0-0.5) mg/dL AST 21 D (5-31) U/L ALT 13 (0-31) U/L Alkaline Phosphatase 174 H D (39-117) U/L Troponin I High Sens (<3.5-17.0) ng/L B-Natriuretic Peptide (<100) pg/mL Total Protein 4.9 L (6.5-8.0) g/dL Albumin 2.6 L (3.5-5.0) g/dL Urine Color Urine Appearance Urine pH (5.0-8.0) Ur Specific [place] (1.005-1.025) Urine Protein (NEG-TRACE) MG/DL Urine Glucose (UA) (NEG) MG/DL Urine Ketones (NEG) MG/DL Urine Blood (NEG) Urine Nitrite (NEG) Ur Leukocyte Esterase (NEG) Urine RBC (0) /HPF Urine WBC (0-4) /HPF Ur Squamous Epith Cells /LPF Calcium Oxalate Crystal /LPF Urine Bacteria /LPF 08/17/20 08/17/20 08/17/20 Range/Units 16:20 16:20 18:50 WBC (4.8-10.8) X10*3/uL RBC (4.20-5.50) X10*6/uL Hgb (12.0-16.0) g/dl Hct (37-47) % MCV (80-98) fL MCH (27.0-33.0) pg MCHC (31.0-35.0) g/dl RDW (11.0-16.0) % Plt Count (160-400) X10*3/uL MPV (9.4-12.3) fL Immature Gran % (Auto) (0.0-0.4) % Neut % (Auto) (45-73) % Lymph % (Auto) (20-40) % Pickett % (Auto) (2-11) % Eos % (Auto) (0-4) % Baso % (Auto) (0-2) % Lymph # (Auto) (1.2-4.9) X10*3/uL Pickett # (Auto) (0.1-1.2) X10*3/uL Eos # (Auto) (0.0-0.4) X10*3/uL Baso # (Auto) (0.0-0.2) X10*3/uL Abs Immat Gran (auto) (0.00-0.03) X10*3/uL Absolute Neuts (auto) (2.0-8.3) X10*3/uL Absolute Nucleated RBC (0.0-0.012) X10*3/uL Nucleated RBC % (auto) (0.0-0.2) /100WBC PT (9.9-13.0) SEC INR (0.9-1.1) APTT (24.1-38.0) SEC Hold Blue Top Sodium (135-145) mmol/L Potassium (3.3-5.1) mmol/L Chloride (96-108) mmol/L Carbon Dioxide (22-29) mmol/L Anion Gap (12-20) BUN (9-16) mg/dL Creatinine (0.5-1.4) mg/dL Estim Creat Clear Calc Estimated GFR Random Glucose (60-115) mg/dL Lactic Acid 1.1 (0.5-2.0) mmol/L Calcium (8.4-10.2) mg/dL Magnesium (1.6-2.6) mg/dL Total Bilirubin (0.0-1.0) mg/dL Direct Bilirubin (0.0-0.5) mg/dL AST (5-31) U/L ALT (0-31) U/L Alkaline Phosphatase (39-117) U/L Troponin I High Sens 4.7 (<3.5-17.0) ng/L B-Natriuretic Peptide 119 H (<100) pg/mL Total Protein (6.5-8.0) g/dL Albumin (3.5-5.0) g/dL Urine Color YELLOW Urine Appearance CLEAR Urine pH 6.0 (5.0-8.0) Ur Specific [place] 1.020 (1.005-1.025) Urine Protein TRACE (NEG-TRACE) MG/DL Urine Glucose (UA) NEG (NEG) MG/DL Urine Ketones NEG (NEG) MG/DL Urine Blood NEG (NEG) Urine Nitrite NEG (NEG) Ur Leukocyte Esterase 2+ H (NEG) Urine RBC 0-2 (0) /HPF Urine WBC 10-14 H (0-4) /HPF Ur Squamous Epith Cells 2+ /LPF Calcium Oxalate Crystal TRACE /LPF Urine Bacteria TRACE /LPF ECG Data Attestation: I personally reviewed and interpreted this ECG as follows: ECG interpretation date: 08/17/20 ECG interpretation time: 16:16 Prior ECG tracings: available for review Interpretation: Sinus rhythm with 1st degree AV Block, VA interval prolonged 258 ms, RBBB, left axis deviation. unchanged from EKG in July 2020 Critical Care Time Critical Care Time Critical Care Time: Yes Total Critical Care Time: 36 Attestation: I have personally provided critical care time exclusive of time spent on separately billable procedures. Time includes review of lab data, radiology results, discussion with consultants, and monitoring for potential decompensation. Intervention performed as documented. Discharge Plan Discharge Clinical Impression: Acute UTI, Weakness Anemia Qualifiers: Anemia type: unspecified type Qualified Code(s): D64.9 - Anemia, unspecified Falls Qualifiers: Encounter type: initial encounter Qualified Code(s): W19.XXXA - Unspecified fall, initial encounter Patient Disposition: Admitted As Inpatient
[2020-08-17 15:14] VITALS: BP 125/51; BP 150/90; PULSE 75; PULSE 98; RESP 20; TEMP 36.7; O2SAT 95; BMI 32.9
--- NOTE | 2020-08-17 15:30 | PC.NURSE ---
Pt alert and oriented x3. Pt arrived via ems after mechanical fall at home. She states her legs did not work when she tried to walk into her house from her deck and that is what caused her to fall. She denies loc. No dizziness prior to fall. Pt reports she was discharged from here this morning however medical record report shows that she was seen in the clinic not the ed. Ems placed a neck collar prior to arrival. Labs drawn, pt resting quietly awaiting ct scan.
[2020-08-17 16:00] VITALS: BP 100/44; PULSE 93; RESP 16; TEMP 36.6; O2SAT 95
[2020-08-17 16:31] LABS: MANUAL DIFF FLAG NO
[2020-08-17 16:41] LABS: Basophils Percent Auto 0.3 % (0-2); Eosinophils Percent Auto 0.2 % (0-4); Hematocrit 27.6 % (37-47); Hemoglobin 8.5 g/dl (12.0-16.0); INTERNATIONAL NORM RATIO 1.5 (0.9-1.1); Imm Gran Abs Auto 0.16 X10*3/uL (0.00-0.03); Imm Gran Pct Auto 1.4 % (0.0-0.4); Lymphocytes Absolute Auto 1.2 X10*3/uL (1.2-4.9); Lymphocytes Percent Auto 10.7 % (20-40); Mean Corpuscular HGB Conc 30.8 g/dl (31.0-35.0); Mean Corpuscular Hemoglobin 24.6 pg (27.0-33.0); Mean Platelet Volume 8.7 fL (9.4-12.3); Monocytes Absolute Auto 1.1 X10*3/uL (0.1-1.2); Monocytes Percent Auto 9.6 % (2-11); NRBC Pct Auto 0.3 /100WBC (0.0-0.2); Neutrophils Absolute Auto 8.7 X10*3/uL (2.0-8.3); Neutrophils Percent Auto 77.8 % (45-73); Platelet Count 286 X10*3/uL (160-400); Prothrombin Time 16.8 SEC (9.9-13.0); Red Blood Count 3.45 X10*6/uL (4.20-5.50); Red Cell Distribution Width 19.4 % (11.0-16.0); White Blood Count 11.1 X10*3/uL (4.8-10.8)
[2020-08-17 16:43] LABS: Partial Thromboplastin Time 43.2 SEC (24.1-38.0)
[2020-08-17 16:52] LABS: Lactic Acid 1.1 mmol/L (0.5-2.0)
[2020-08-17 17:00] LABS: Alanine Aminotransferase 13 U/L (0-31); Albumin Level 2.6 g/dL (3.5-5.0); Alkaline Phosphatase 174 U/L (39-117); Anion Gap 16 (12-20); Aspartate Amino Transferase 21 U/L (5-31); Bilirubin Direct 0.3 mg/dL (0.0-0.5); Bilirubin Total 0.7 mg/dL (0.0-1.0); Blood Urea Nitrogen 24 mg/dL (9-16); Calcium 9.5 mg/dL (8.4-10.2); Carbon Dioxide 23 mmol/L (22-29); Chloride 102 mmol/L (96-108); Creatinine Clr Calc Pharmacy 59.6; Estimated Glomerular Filt Rate > 60; Glucose Random 120 mg/dL (60-115); Magnesium 2.1 mg/dL (1.6-2.6); Potassium 4.7 mmol/L (3.3-5.1); Sodium 136 mmol/L (135-145); Total Protein 4.9 g/dL (6.5-8.0)
[2020-08-17 17:02] LABS: B Type Natriuretic Peptide 119 pg/mL (<100); Troponin-I High Sensitivity 4.7 ng/L (<3.5-17.0)
--- NOTE | 2020-08-17 17:30 | PC.NURSE ---
Pt resting quietly, no apparent distress, daughter at bedside.
[2020-08-17 19:16] LABS: Glucose Urine UA NEG (NEG); Leukocyte Esterase Urine 2+ (NEG); Nitrite Urine NEG (NEG); UACC Culture Trigger YES; Urine Blood NEG (NEG); Urine Ketones NEG (NEG); Urine Protein TRACE MG/DL (NEG-TRACE)
[2020-08-17 19:18] LABS: Appearance Urine CLEAR; Color Urine YELLOW
[2020-08-17 19:36] LABS: Bacteria Urine TRACE /LPF; Calcium Oxalate Crystals Urine TRACE /LPF; RBC Urine 0-2 /HPF (0); Squamous Epithelial Cell Urine 2+ /LPF
[2020-08-17 20:00] VITALS: BP 118/50; PULSE 78; RESP 17; TEMP 36.6; O2SAT 97
--- NOTE | 2020-08-17 20:08 | PHA.MEDREC ---
Pharmacy Consult ? Medication Reconciliation Pharmacy has completed the medication reconciliation. Family states Dr Cannon stopped iron supplement today.
[2020-08-17 20:11] LABS: COVID-19 Test Negative (Negative)
[2020-08-17] MEDS: cefTRIAXone sodium 1 GM in 0.9 % Sodium Chloride 50 ML IV (20:19)
[2020-08-17] MEDS: 0.9 % Sodium Chloride 1,000 ML 999 ML IVCONT (20:20)
--- NOTE | 2020-08-17 21:07 | MHC.CM.PN ---
Addendum entered by Kelsy Melendez 08/17/20 21:23: HCP is on file Original Note: CM met with patient and daughter/HCP Yolanda Pathak ([phone]). IMM reviewed and signed by HCP on 08/17/20@2049. Pt was d/c from [facility] on 08/05/20 and had [facility] for nursing home and PT. Pt has decubiti on buttocks and very weak. Pt fell today returning from doctors office. Pt diagnosed with Lymphoma on last admission and had a PET scan today. Is seeing Dr. Cannon for f/u on Sunday. Has F/U with Dr. Rivera. Pt had pacemaker placed in June. 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 Pt is on leave from work presently. Pt lives with daughter and she is caring for her. Yolanda, daughter, has family leave from her job to care for her mother. [facility] has been caring for her mother since d/c and daughter states her decubiti are improving, but her mother is still very weak. Pt to be admitted for acute UTI and weakness. Explained to daughter that UTI can cause weakness and confusion in the elderly. Yolanda tells CM that that explains a lot. CM to alert [facility] via [employer] regarding pt admission and to follow pt. CM to follow for d/c needs.
[2020-08-17 22:00] VITALS: BP 119/54; PULSE 84; RESP 16; TEMP 36.6; O2SAT 99
--- NOTE | 2020-08-17 22:13 | PC.NURSE ---
patient voided times 2
--- NOTE | 2020-08-17 22:28 | PM.IMHP ---
History of Present Illness Date of Service: 08/17/20 Chief Complaint: generalized weakness 80-year-old female with a past medical history of hypertension, hyperlipidemia, diabetes, B12 deficiency, history of basal cell carcinoma, chronic decubitus ulcers, bullous pemphigoid, history of AV block status post pacemaker, gout, aortic stenosis, recent diagnosis of possible nonHodgkin's lymphoma presented to the hospital with a chief complaint of generalized weakness for the past 1 week. Patient reports that since the discharge from the last admission for UTI and anemia she has been having generalized weakness and has poor oral intake. ; today she went to the oncology clinic for PET scan or a new diagnosis of possible non-Hodgkin's lymphoma; when patient came home she felt tired and had a fall x2; denies any head strike or loss of consciousness; mechanical in nature; fall was witnessed by the patient's daughter. Patient denies any abdominal pain. Patient's daughter reports that patient has poor oral intake and also has few episodes of diarrhea. Patient has been on doxycycline chronically for bullous pemphigoid; Patient lives with the patient's daughter and has been well taken care by her daughter; Denies any chest pain palpitations lightheadedness or dizziness. Review of all other systems is negative except mentioned above ER course: Per ER team patient noted to have soft abdomen; appears mildly dry; exam grossly nonfocal; CT head and CT C-spine showed no acute findings; urinalysis was abnormal consistent UTI-given ceftriaxone; also stool studies sent for C diff-pending; admitted for further management [facility] Medical History Aortic stenosis Atrial tachycardia B12 deficiency Basal cell carcinoma of face Bifascicular block Bullous pemphigoid (~1999) Cardiac pacemaker in situ (~06/2020) Diabetes mellitus (~1999) Gout HTN (hypertension) (~1993) Lymphedema RBBB Family History Father Myocardial infarction Mother CHF (congestive heart failure) Brother Dementia Son No problems noted. Daughter No problems noted. Daughter No problems noted. Sister No problems noted. Sister No problems noted. Sister No problems noted. Sister Ovarian cancer Sister Cancer Stroke Surgical History History of cholecystectomy (~1971) History of hemorrhoidectomy (~2000) History of pacemaker (~06/2020) History of surgery on upper extremity (~2012) History of tonsillectomy History of umbilical hernia repair (~1996) Status post placement of implantable loop recorder (~2020) Social History Household Members: Children Housing: House Do you presently have visiting nurse or other home services: Yes Alcohol intake: never Patient Tobacco Use Status: Never used Tobacco Cigarette Packs Per Day: 0.5 e-Cigarette/Vaping Use: Never Used Use of substances other than those prescribed or required for medical reasons: No Advance Directives Date on File: 04/28/20 service: No Current occupational status: employed Meds Allergies Allergy/AdvReac Type Severity Reaction Status Date / Time adhesive tape [ADHESIVE TAPE] Allergy Intermediate RASH Verified 08/04/20 16:28 latex Allergy Intermediate rash Verified 08/04/20 16:28 Active Medications: Current Medications Generic Name Dose Route Start Last Admin Trade Name Freq PRN Reason Stop Dose Admin Acetaminophen 650 mg 08/17/20 22:21 Acetaminophen 325 Mg Tablet PO Q6H PRN Pain, Mild (Pain Scale 1-3) Allopurinol 300 mg 08/18/20 09:00 Allopurinol 300 Mg Tablet PO DAILY [facility] Aspirin 81 mg 08/18/20 09:00 Aspirin 81 Mg Tab.Chew PO DAILY [facility] Atorvastatin Calcium 10 mg 08/18/20 21:00 Atorvastatin Calcium 10 Mg Tablet PO BEDTIME PRITESH Diltiazem HCl 120 mg 08/18/20 21:00 Diltiazem Hcl Cd 120 Mg Cap.Er.Deg PO BEDTIME [facility] Protocol Furosemide 20 mg 08/18/20 09:00 Furosemide 20 Mg Tablet PO DAILY [facility] Protocol Ceftriaxone Sodium 1 gm/ 50 mls @ 100 mls/hr 08/18/20 20:00 Sodium Chloride IV Q24H [facility] Insulin Human Lispro 0 unit 08/18/20 07:30 Insulin Lispro 100 Unit/Ml 3 Ml Vial SUBCUT QIDACHS [facility] Protocol Magnesium Oxide 800 mg 08/18/20 09:00 Magnesium Oxide 400 Mg Tablet PO BID PRITESH Melatonin 6 mg 08/17/20 22:21 Melatonin 3 Mg Tablet PO BEDTIME PRN Insomnia Metformin HCl mg 08/18/20 09:00 Metformin Hcl 1,000 Mg Tablet PO BID [facility] Metoprolol Succinate 50 mg 08/18/20 09:00 Metoprolol Succinate Er 50 Mg Tab.Er.24h PO DAILY [facility] Protocol Non-Formulary Medication 1 tab 08/18/20 09:00 Calcium Carbonate-Vitamin D3 [Calcium 600 + D(3)] PO BID [facility] Non-Formulary Medication 1 cap 08/18/20 09:00 Doxycycline Hyclate PO BID [facility] Non-Formulary Medication 1 appl 08/18/20 09:00 Halobetasol Propionate TOPICAL BID [facility] Non-Formulary Medication 2 cap 08/18/20 09:00 Bouse-3 Acid Ethyl Esters PO BID [facility] Non-Formulary Medication 1 tab 08/18/20 09:00 Vitamin B Complex PO DAILY [facility] Nystatin 1 appl 08/18/20 09:00 Nystatin Powder 15 Gm Bottle TOPICAL BID [facility] Protocol Omeprazole 20 mg 08/17/20 22:30 Omeprazole 20 Mg Capsule.Dr LASHAUN LAURENT [facility] Pharmacy Consult 1 each 08/17/20 19:42 Consult Rx Perform Med Rec MISCELLANE ONCE PRN Consult order Senna 17.2 mg 08/17/20 22:21 Sennosides 8.6 Mg Tablet PO BEDTIME PRN Constipation Sodium Chloride 3 ml 08/18/20 00:00 0.9 % Sodium Chloride Flush 3 Ml Syringe IVFLUSH QSHIFT [facility] Home Medications Medication Instructions Recorded Confirmed Last Taken Type doxycycline hyclate 1 cap PO BID 08/04/20 08/23/20 08/16/20 History furosemide 1 tab PO DAILY 08/04/20 08/23/20 08/17/20 History halobetasol propionate 1 appl TOPICAL BID 08/04/20 08/23/20 08/17/20 History metformin 1 tab PO BID 08/04/20 08/23/20 08/17/20 History metoprolol succinate 1 tab PO DAILY 08/04/20 08/23/20 08/17/20 History omeprazole 1 cap PO QAM 08/04/20 08/23/20 08/17/20 History aspirin 81 mg PO DAILY 08/05/20 08/23/20 08/17/20 History calcium carbonate-vitamin D3 1 tab PO BID 08/05/20 08/23/20 08/17/20 History [Calcium 600 + D(3)] magnesium oxide 800 mg PO BID 08/05/20 08/23/2008/17/21 History omega-3 acid ethyl esters 2 cap PO BID 08/17/20 08/23/20 08/17/20 History vitamin B complex 1 tab PO DAILY 08/17/20 08/23/20 08/17/20 History atorvastatin 10 mg tablet 10 mg PO BEDTIME tab 08/19/20 08/23/20 Unknown History Physical Exam Vital Signs and Narrative: Vital Signs: Last Vital Signs Temp 97.8 F 08/17/20 22:00 Pulse 84 08/17/20 22:00 Resp 16 08/17/20 22:00 BP 119/54 L 08/17/20 22:00 Pulse Ox 99 08/17/20 22:00 Body Mass Index 32.9 Gen: Appears be in no acute distress HEENT: NCAT, dry mucosa. Pulmonary: Vesicular breath sounds, fair air entry CVS: Normal S1-S2 Abdomen: BS+, Soft, Nontender Extremities: Warm well perfused Neuro: Alert and awake. grossly nonfocal Results Labs CBC and Chem 7: 08/19/20 08:16 08/18/20 06:39 Labs: Laboratory Results - last 24 hr 08/17/20 08/17/20 08/17/20 16:20 16:20 16:20 MCV 80.0 MCH 24.6 L MCHC 30.8 L RDW 19.4 H Plt Count 286 MPV 8.7 L Immature Gran % (Auto) 1.4 H Neut % (Auto) 77.8 H Lymph % (Auto) 10.7 L [place] % (Auto) 9.6 Eos % (Auto) 0.2 Baso % (Auto) 0.3 Lymph # (Auto) 1.2 [place] # (Auto) 1.1 Eos # (Auto) 0.0 Baso # (Auto) 0.0 Abs Immat Gran (auto) 0.16 H Absolute Neuts (auto) 8.7 H Absolute Nucleated RBC 0.030 H Nucleated RBC % (auto) 0.3 H PT 16.8 H INR 1.5 H APTT 43.2 H Hold Blue Top SEE NOTE Anion Gap 16 Estim Creat Clear Calc 59.6 Estimated GFR > 60 Random Glucose 120 H Lactic Acid Calcium 9.5 Magnesium 2.1 Total Bilirubin 0.7 Direct Bilirubin 0.3 AST 21 D ALT 13 Alkaline Phosphatase 174 H D Troponin I High Sens B-Natriuretic Peptide Total Protein 4.9 L Albumin 2.6 L Urine Color Urine Appearance Urine pH Ur Specific [place] Urine Protein Urine Glucose (UA) Urine Ketones Urine Blood Urine Nitrite Ur Leukocyte Esterase Urine RBC Urine WBC Ur Squamous Epith Cells Calcium Oxalate Crystal Urine Bacteria COVID-19 ([facility]) COVID-19 Clin Com 08/17/20 08/17/20 08/17/20 16:20 16:20 18:50 MCV MCH MCHC RDW Plt Count MPV Immature Gran % (Auto) Neut % (Auto) Lymph % (Auto) [place] % (Auto) Eos % (Auto) Baso % (Auto) Lymph # (Auto) [place] # (Auto) Eos # (Auto) Baso # (Auto) Abs Immat Gran (auto) Absolute Neuts (auto) Absolute Nucleated RBC Nucleated RBC % (auto) PT INR APTT Hold Blue Top Anion Gap Estim Creat Clear Calc Estimated GFR Random Glucose Lactic Acid 1.1 Calcium Magnesium Total Bilirubin Direct Bilirubin AST ALT Alkaline Phosphatase Troponin I High Sens 4.7 B-Natriuretic Peptide 119 H Total Protein Albumin Urine Color YELLOW Urine Appearance CLEAR Urine pH 6.0 Ur Specific [place] 1.020 Urine Protein TRACE Urine Glucose (UA) NEG Urine Ketones NEG Urine Blood NEG Urine Nitrite NEG Ur Leukocyte Esterase 2+ H Urine RBC 0-2 Urine WBC 10-14 H Ur Squamous Epith Cells 2+ Calcium Oxalate Crystal TRACE Urine Bacteria TRACE COVID-19 ([facility]ELSIE) COVID-19 Clin Com 08/17/20 19:40 MCV MCH MCHC RDW Plt Count MPV Immature Gran % (Auto) Neut % (Auto) Lymph % (Auto) [place] % (Auto) Eos % (Auto) Baso % (Auto) Lymph # (Auto) [place] # (Auto) Eos # (Auto) Baso # (Auto) Abs Immat Gran (auto) Absolute Neuts (auto) Absolute Nucleated RBC Nucleated RBC % (auto) PT INR APTT Hold Blue Top Anion Gap Estim Creat Clear Calc Estimated GFR Random Glucose Lactic Acid Calcium Magnesium Total Bilirubin Direct Bilirubin AST ALT Alkaline Phosphatase Troponin I High Sens B-Natriuretic Peptide Total Protein Albumin Urine Color Urine Appearance Urine pH Ur Specific [place] Urine Protein Urine Glucose (UA) Urine Ketones Urine Blood Urine Nitrite Ur Leukocyte Esterase Urine RBC Urine WBC Ur Squamous Epith Cells Calcium Oxalate Crystal Urine Bacteria COVID-19 ([facility]ELSIE) Negative COVID-19 Clin Com See Note Imaging Radiologist's Impressions: Impressions Cervical Spine CT 08/17/20 14:57 IMPRESSION: 1. No acute intracranial pathology. Mild generalized cerebral atrophy and nonspecific periventricular white matter disease. 2. No acute fracture or malalignment in the cervical spine. Mild/moderate multilevel degenerative spondylosis, most pronounced at the facet joints. Bilateral cervical adenopathy is slightly more pronounced as compared to 04/28/2020. Head CT 08/17/20 14:57 IMPRESSION: 1. No acute intracranial pathology. Mild generalized cerebral atrophy and nonspecific periventricular white matter disease. 2. No acute fracture or malalignment in the cervical spine. Mild/moderate multilevel degenerative spondylosis, most pronounced at the facet joints. Bilateral cervical adenopathy is slightly more pronounced as compared to 04/28/2020. Assessment and Plan (1) Acute UTI: Status: Acute 80-year-old female with a past medical history of hypertension, hyperlipidemia, diabetes, B12 deficiency, history of basal cell carcinoma, recent diagnosis of non-Hodgkin's lymphoma, recent admission to the hospital for UTI/anemia; presented to the hospital with a chief complaint of generalized weakness for the past few days; and had 2 falls at home -mechanical; noted to have UTI. Admitted for further management. UTI: Continue ceftriaxone. Follow up cultures. Fall: Mechanical in nature. PT/OT eventually. Grossly nonfocal examination. CT head and CT C-spine showed no acute findings. Fall precautions. Diarrhea: Patient reports fall smelling diarrhea. Given recent antibiotics will obtain C diff and stool studies. Contact precautions. Diabetes: Insulin sliding scale Hypertension/hyperlipidemia: Continue home medications Recent diagnosis of possible non-Hodgkin's lymphoma: Follow-up with Oncology Clinic. Anemia: Hemoglobin stable at her baseline. Denies any signs of new bleeding. Monitor CBC Chronic decubitus ulcers: Appears healing as per the patient's daughter. Pressure ulcer care for RN. for all other chronic conditions, home medications will be continued except for furosemide. Furosemide will be on hold for now given diarrhea. DVT prophylaxis:SCD Code status: Full code Quality Stroke Does the patient have a stroke diagnosis?: No VTE Prior VTE?: No VTE Risk Level:: Medical - moderate - high VTE Device Contraindication: N/A - Device Ordered VTE Drug Contraindication: Patient Refused
--- NOTE | 2020-08-17 23:27 | PC.NURSE ---
nurse to nurse report given to Meagan REYNA
[2020-08-18] VITALS (7 sets, daily range): BP systolic 110–140; BP diastolic 46–67; PULSE 69–82; RESP 16–18; TEMP 35.8–36.6; O2SAT 93–97; BMI 32.9
[2020-08-18] MEDS: 0.9 % Sodium Chloride Flush 3 ML SYRINGE IVFLUSH ×4 (00:14→20:09)
[2020-08-18] MEDS: Acetaminophen 325 MG TABLET 650 MG PO (00:26)
[2020-08-18] MEDS: Melatonin 3 MG TABLET 6 MG PO (00:26)
[2020-08-18] MEDS: Omeprazole 20 MG CAPSULE.DR PO (05:33)
[2020-08-18 07:04] LABS: MANUAL DIFF FLAG NO
[2020-08-18 07:12] LABS: Basophils Percent Auto 0.2 % (0-2); Eosinophils Percent Auto 0.5 % (0-4); Hematocrit 24.8 % (37-47); Hemoglobin 7.4 g/dl (12.0-16.0); Imm Gran Abs Auto 0.09 X10*3/uL (0.00-0.03); Imm Gran Pct Auto 1.4 % (0.0-0.4); Lymphocytes Absolute Auto 0.9 X10*3/uL (1.2-4.9); Lymphocytes Percent Auto 14.2 % (20-40); Mean Corpuscular HGB Conc 29.8 g/dl (31.0-35.0); Mean Corpuscular Hemoglobin 24.4 pg (27.0-33.0); Mean Corpuscular Volume 81.8 fL (80-98); Mean Platelet Volume 8.8 fL (9.4-12.3); Monocytes Absolute Auto 0.8 X10*3/uL (0.1-1.2); Monocytes Percent Auto 11.9 % (2-11); Neutrophils Absolute Auto 4.6 X10*3/uL (2.0-8.3); Neutrophils Percent Auto 71.8 % (45-73); Platelet Count 246 X10*3/uL (160-400); Red Blood Count 3.03 X10*6/uL (4.20-5.50); Red Cell Distribution Width 19.3 % (11.0-16.0); White Blood Count 6.4 X10*3/uL (4.8-10.8)
[2020-08-18 07:32] LABS: Glucose, Whole Blood 96 mg/dL (60-115)
[2020-08-18 07:42] LABS: Anion Gap 13 (12-20); Blood Urea Nitrogen 21 mg/dL (9-16); Calcium 8.9 mg/dL (8.4-10.2); Carbon Dioxide 25 mmol/L (22-29); Chloride 106 mmol/L (96-108); Creatinine Clr Calc Pharmacy 64.1; Estimated Glomerular Filt Rate > 60; Glucose Random 100 mg/dL (60-115); Potassium 4.7 mmol/L (3.3-5.1); Sodium 139 mmol/L (135-145)
[2020-08-18] MEDS: Magnesium Oxide 400 MG TABLET 800 MG PO ×2 (08:34→20:08)
[2020-08-18] MEDS: Metoprolol Succinate ER 50 MG TAB.ER.24H PO (08:34)
[2020-08-18] MEDS: Calcium + Vitamin D 250 MG TABLET 500 MG PO ×2 (08:34→20:08)
[2020-08-18] MEDS: Aspirin 81 MG TAB.CHEW PO (08:34)
[2020-08-18] MEDS: allopurinoL 300 MG TABLET PO (08:35)
[2020-08-18] MEDS: Furosemide 20 MG TABLET PO (08:35)
[2020-08-18] MEDS: metFORMIN HCl 1,000 MG TABLET 1000 MG PO ×2 (08:35→17:06)
--- NOTE | 2020-08-18 10:21 | MHC.CLN ---
NUTRITION CONSULT-WEIGHT LOSS SEE CLINICAL NUTRITION ASSESSMENT COMPLETED 08/18/20. RECOMMEND [address] WILL ADD ENSURE 240 CC TWO TIMES DAILY AND NICHOL 1 PACKET TWO TIMES DAILY TO IMPROVE NUTRITION/WOUND HEALING. SUPPLEMENTS PROVIDE ADDITIONAL 860 KCAL AND 50 G PROTEIN.
[2020-08-18 11:30] LABS: Glucose, Whole Blood 134 mg/dL (60-115)
--- NOTE | 2020-08-18 11:53 | MHC.CM.PN ---
Addendum entered by Selina Perkins RN 08/18/20 14:36: CM MET W/PT'S DTR IN ROOM AND IS REQUESTING PT BE EVALUATED FOR STR, PER DTR PT WAS RECOMMENDED FOR HOME SERVICES AT LAST D/C HOWEVER HAS FALLEN TWICE SINCE BEING HOME. CM HAS REQUESTED A PT EVAL FROM HOSPITALIST. Original Note: EMR REVIEWED, PER HOSPITALIST POSSIBLE D/C LATER TODAY, PT ACTIVE W/[facility] FOR PT AND JAIL. CM TO CONT TO FOLLOW D/C NEEDS.
[2020-08-18] MEDS: Nystatin Powder 15 GM BOTTLE 1 APPL TOPICAL ×2 (12:41→20:09)
[2020-08-18] MEDS: Betamethasone Dip Aug 0.05% Cr 15 GM TUBE 1 APPL TOPICAL ×2 (12:41→20:09)
--- NOTE | 2020-08-18 13:17 | P.PNIM_ITS ---
Subjective Subjective Date of Service: 08/18/20 Interval History: Seen in f/u for UTI, she feels better today, without active complaint Review of Systems Gen: no fever Resp: no sob, no cough CV: no chest, no DIEZ, no leg edema GI: No n/v, no abd pain Neuro: No confusion Physical Exam Vital Signs: Vital Signs: Last Vital Signs Temp 97.8 F 08/18/20 11:21 Pulse 73 08/18/20 11:21 Resp 18 08/18/20 11:21 BP 113/51 L 08/18/20 11:21 Pulse Ox 95 08/18/20 11:21 Body Mass Index 32.9 Const: Other: General: AO X 3, no acute distress Resp: CTA bilateral CVS: S1,S2,RRR GI: +BS, NT, no distention Skin: No rash Neuro: motor grossly intact Psych: appropriate affect Objective Data Current Medications Generic Name Dose Route Start Last Admin Trade Name Freq PRN Reason Stop Dose Admin Acetaminophen 650 mg 08/17/20 22:21 08/18/20 00:26 Acetaminophen 325 Mg Tablet PO 650 mg Q6H PRN Administration Pain, Mild (Pain Scale 1-3) Allopurinol 300 mg 08/18/20 09:00 08/18/20 08:35 Allopurinol 300 Mg Tablet PO 300 mg DAILY PRITESH Administration Aspirin 81 mg 08/18/20 09:00 08/18/20 08:34 Aspirin 81 Mg Tab.Chew PO 81 mg DAILY PRITESH Administration Atorvastatin Calcium 10 mg 08/18/20 21:00 Atorvastatin Calcium 10 Mg Tablet PO BEDTIME PRITESH Betamethasone Dipropion Augmented 1 appl 08/18/20 09:00 08/18/20 12:41 Betamethasone Dip Aug 0.05% Cr 15 Gm Tube TOPICAL 1 appl BID PRITESH Administration Calcium Carbonate/Cholecalciferol 500 mg 08/18/20 09:00 08/18/20 08:34 Calcium + Vitamin D 250 Mg Tablet PO 500 mg BID PRITESH Administration Diltiazem HCl 120 mg 08/18/20 21:00 Diltiazem Hcl Cd 120 Mg Cap.Er.Deg PO BEDTIME PRITESH Protocol Furosemide 20 mg 08/18/20 09:00 08/18/20 08:35 Furosemide 20 Mg Tablet PO 20 mg DAILY PRITESH Administration Protocol Ceftriaxone Sodium 1 gm/ 50 mls @ 100 mls/hr 08/18/20 20:00 Sodium Chloride IV Q24H [facility] Insulin Human Lispro 0 unit 08/18/20 07:30 08/18/20 11:39 Insulin Lispro 100 Unit/Ml 3 Ml Vial SUBCUT Not Given QIDACHS [facility] Protocol Magnesium Oxide 800 mg 08/18/20 09:00 08/18/20 08:34 Magnesium Oxide 400 Mg Tablet PO 800 mg BID PRITESH Administration Melatonin 6 mg 08/17/20 22:21 08/18/20 00:26 Melatonin 3 Mg Tablet PO 6 mg BEDTIME PRN Administration Insomnia Metformin HCl 1,000 mg 08/18/20 08:00 08/18/20 08:35 Metformin Hcl 1,000 Mg Tablet PO 1,000 mg BIDWM [facility] Administration Metoprolol Succinate 50 mg 08/18/20 09:00 08/18/20 08:34 Metoprolol Succinate Er 50 Mg Tab.Er.24h PO 50 mg DAILY [facility] Administration Protocol Multivitamins 1 tab 08/18/20 09:00 08/18/20 08:34 B-Complex With Vitamin C Tablet PO 1 tab DAILY [facility] Administration Non-Formulary Medication 1 cap 08/18/20 09:00 Doxycycline Hyclate PO BID [facility] Non-Formulary Medication 2 cap 08/18/20 09:00 [place]-3 Acid Ethyl Esters PO BID [facility] Nystatin 1 appl 08/18/20 09:00 08/18/20 12:41 Nystatin Powder 15 Gm Bottle TOPICAL 1 appl BID [facility] Administration Protocol Omeprazole 20 mg 08/18/20 06:30 08/18/20 05:33 Omeprazole 20 Mg Capsule. PO 20 mg DAILY@0630 [facility] Administration Pharmacy Consult 1 each 08/17/20 19:42 Consult Rx Perform Med Rec MISCELLANE ONCE PRN Consult order Senna 17.2 mg 08/17/20 22:21 Sennosides 8.6 Mg Tablet PO BEDTIME PRN Constipation Sodium Chloride 3 ml 08/18/20 00:00 08/18/20 08:35 0.9 % Sodium Chloride Flush 3 Ml Syringe IVFLUSH 3 ml QSHIFT [facility] Administration Labs CBC & Chem 7: 08/18/20 06:39 08/18/20 06:39 Labs: Laboratory Results - last 24 hr 08/17/20 08/17/20 08/17/20 16:20 16:20 16:20 WBC 11.1 H RBC 3.45 L Hgb 8.5 L Hct 27.6 L MCV 80.0 MCH 24.6 L MCHC 30.8 L RDW 19.4 H Plt Count 286 MPV 8.7 L Immature Gran % (Auto) 1.4 H Neut % (Auto) 77.8 H Lymph % (Auto) 10.7 L [place] % (Auto) 9.6 Eos % (Auto) 0.2 Baso % (Auto) 0.3 Lymph # (Auto) 1.2 [place] # (Auto) 1.1 Eos # (Auto) 0.0 Baso # (Auto) 0.0 Abs Immat Gran (auto) 0.16 H Absolute Neuts (auto) 8.7 H Absolute Nucleated RBC 0.030 H Nucleated RBC % (auto) 0.3 H PT 16.8 H INR 1.5 H APTT 43.2 H Hold Blue Top SEE NOTE Sodium 136 Potassium 4.7 Chloride 102 Carbon Dioxide 23 Anion Gap 16 BUN 24 H Creatinine 0.72 Estim Creat Clear Calc 59.6 Estimated GFR > 60 POC Glucose Random Glucose 120 H Lactic Acid Calcium 9.5 Magnesium 2.1 Total Bilirubin 0.7 Direct Bilirubin 0.3 AST 21 D ALT 13 Alkaline Phosphatase 174 H D Troponin I High Sens B-Natriuretic Peptide Total Protein 4.9 L Albumin 2.6 L Urine Color Urine Appearance Urine pH Ur Specific [place] Urine Protein Urine Glucose (UA) Urine Ketones Urine Blood Urine Nitrite Ur Leukocyte Esterase Urine RBC Urine WBC Ur Squamous Epith Cells Calcium Oxalate Crystal Urine Bacteria COVID-19 (KELSIE) COVID-19 Clin [facility] 08/17/20 08/17/20 08/17/20 16:20 16:20 18:50 WBC RBC Hgb Hct MCV MCH MCHC RDW Plt Count MPV Immature Gran % (Auto) Neut % (Auto) Lymph % (Auto) [place] % (Auto) Eos % (Auto) Baso % (Auto) Lymph # (Auto) [place] # (Auto) Eos # (Auto) Baso # (Auto) Abs Immat Gran (auto) Absolute Neuts (auto) Absolute Nucleated RBC Nucleated RBC % (auto) PT INR APTT Hold Blue Top Sodium Potassium Chloride Carbon Dioxide Anion Gap BUN Creatinine Estim Creat Clear Calc Estimated GFR POC Glucose Random Glucose Lactic Acid 1.1 Calcium Magnesium Total Bilirubin Direct Bilirubin AST ALT Alkaline Phosphatase Troponin I High Sens 4.7 B-Natriuretic Peptide 119 H Total Protein Albumin Urine Color YELLOW Urine Appearance CLEAR Urine pH 6.0 Ur Specific [place] 1.020 Urine Protein TRACE Urine Glucose (UA) NEG Urine Ketones NEG Urine Blood NEG Urine Nitrite NEG Ur Leukocyte Esterase 2+ H Urine RBC 0-2 Urine WBC 10-14 H Ur Squamous Epith Cells 2+ Calcium Oxalate Crystal TRACE Urine Bacteria TRACE COVID-19 (KELSIE) COVID-19 Clin Com 08/17/20 08/18/20 08/18/20 19:40 06:39 06:39 WBC 6.4 RBC 3.03 L Hgb 7.4 L Hct 24.8 L MCV 81.8 MCH 24.4 L MCHC 29.8 L RDW 19.3 H Plt Count 246 MPV 8.8 L Immature Gran % (Auto) 1.4 H Neut % (Auto) 71.8 Lymph % (Auto) 14.2 L [place] % (Auto) 11.9 H Eos % (Auto) 0.5 Baso % (Auto) 0.2 Lymph # (Auto) 0.9 L [place] # (Auto) 0.8 Eos # (Auto) 0.0 Baso # (Auto) 0.0 Abs Immat Gran (auto) 0.09 H Absolute Neuts (auto) 4.6 Absolute Nucleated RBC 0.000 Nucleated RBC % (auto) 0.0 PT INR APTT Hold Blue Top Sodium 139 Potassium 4.7 Chloride 106 Carbon Dioxide 25 Anion Gap 13 BUN 21 H Creatinine 0.67 Estim Creat Clear Calc 64.1 Estimated GFR > 60 POC Glucose Random Glucose 100 Lactic Acid Calcium 8.9 D Magnesium Total Bilirubin Direct Bilirubin AST ALT Alkaline Phosphatase Troponin I High Sens B-Natriuretic Peptide Total Protein Albumin Urine Color Urine Appearance Urine pH Ur Specific [place] Urine Protein Urine Glucose (UA) Urine Ketones Urine Blood Urine Nitrite Ur Leukocyte Esterase Urine RBC Urine WBC Ur Squamous Epith Cells Calcium Oxalate Crystal Urine Bacteria COVID-19 (KELSIE) Negative COVID-19 Clin Com See Note 08/18/20 08/18/20 07:17 11:02 WBC RBC Hgb Hct MCV MCH MCHC RDW Plt Count MPV Immature Gran % (Auto) Neut % (Auto) Lymph % (Auto) [place] % (Auto) Eos % (Auto) Baso % (Auto) Lymph # (Auto) [place] # (Auto) Eos # (Auto) Baso # (Auto) Abs Immat Gran (auto) Absolute Neuts (auto) Absolute Nucleated RBC Nucleated RBC % (auto) PT INR APTT Hold Blue Top Sodium Potassium Chloride Carbon Dioxide Anion Gap BUN Creatinine Estim Creat Clear Calc Estimated GFR POC Glucose 96 134 H Random Glucose Lactic Acid Calcium Magnesium Total Bilirubin Direct Bilirubin AST ALT Alkaline Phosphatase Troponin I High Sens B-Natriuretic Peptide Total Protein Albumin Urine Color Urine Appearance Urine pH Ur Specific [place] Urine Protein Urine Glucose (UA) Urine Ketones Urine Blood Urine Nitrite Ur Leukocyte Esterase Urine RBC Urine WBC Ur Squamous Epith Cells Calcium Oxalate Crystal Urine Bacteria COVID-19 (KELSIE) COVID-19 Clin Com Microbiology Microbiology Results: Microbiology 08/17/20 18:50 Urine Culture - Preliminary Urine clean catch - Urine mackay top No growth to date. Quality Stroke Does the patient have a stroke diagnosis?: No VTE Prior VTE?: No VTE Risk Level:: Medical - moderate - high VTE Device Contraindication: N/A - Device Ordered VTE Drug Contraindication: Patient Refused Assessment and Plan (1) Acute UTI: Status: Acute Assessment and Plan: 80-year-old female with a past medical history of hypertension, hyperlipidemia, diabetes, B12 deficiency, history of basal cell carcinoma, recent diagnosis of non-Hodgkin's lymphoma, recent admission to the hospital for UTI/anemia; presented to the hospital with a chief complaint of generalized weakness for the past few days; and had 2 falls at home -mechanical; noted to have UTI. Admitted for further management. UTI: cultures pending, in past had e coli, continue ceftriaxone and follow culture Fall: Mechanical in nature. PT/OT eventually. Grossly nonfocal examination. CT head and CT C-spine showed no acute findings. Fall precautions. Diarrhea: Patient reports fall smelling diarrhea. Given recent antibiotics will obtain C diff and stool studies. Contact precautions. Diabetes: Insulin sliding scale Hypertension/hyperlipidemia: Continue home medications Recent diagnosis of possible non-Hodgkin's lymphoma: Follow-up with Oncology Clinic. Anemia: likely from lymphoma, H/H is slightly lower, monito Chronic decubitus ulcers --present on admission: Appears healing as per the patient's daughter. Standard care hold lasix at this time Physical therapy evaluation Furosemide will be on hold for now given diarrhea. DVT prophylaxis:SCD Code status: Full code
--- NOTE | 2020-08-18 14:38 | MHC.CM.PN ---
PER DTR REFERRALS WILL BE MADE TO [facility], PER DTR NO PREFERENCE OF WHICH FACILITY.
[2020-08-18 16:26] LABS: Glucose, Whole Blood 104 mg/dL (60-115)
[2020-08-18] MEDS: dilTIAZem HCL CD 120 MG CAP.ER.DEG PO (20:08)
[2020-08-18] MEDS: cefTRIAXone sodium 1 GM in 0.9 % Sodium Chloride 50 ML IV (20:09)
[2020-08-18] MEDS: Atorvastatin Calcium 10 MG TABLET PO (20:09)
[2020-08-18 20:25] LABS: Glucose, Whole Blood 122 mg/dL (60-115)
[2020-08-19 03:48] VITALS: BP 116/57; PULSE 71; RESP 16; TEMP 36; O2SAT 94
[2020-08-19] MEDS: Omeprazole 20 MG CAPSULE.DR PO (05:44)
[2020-08-19 07:18] VITALS: BP 119/58; PULSE 79; RESP 18; TEMP 36.2; O2SAT 95
[2020-08-19 07:31] LABS: Glucose, Whole Blood 103 mg/dL (60-115)
[2020-08-19] MEDS: Calcium + Vitamin D 250 MG TABLET 500 MG PO (08:24)
[2020-08-19] MEDS: Metoprolol Succinate ER 50 MG TAB.ER.24H PO (08:24)
[2020-08-19] MEDS: Furosemide 20 MG TABLET PO (08:24)
[2020-08-19] MEDS: Betamethasone Dip Aug 0.05% Cr 15 GM TUBE 1 APPL TOPICAL (08:25)
[2020-08-19] MEDS: Nystatin Powder 15 GM BOTTLE 1 APPL TOPICAL (08:25)
[2020-08-19] MEDS: allopurinoL 300 MG TABLET PO (08:25)
[2020-08-19] MEDS: metFORMIN HCl 1,000 MG TABLET 1000 MG PO ×2 (08:25→16:40)
[2020-08-19] MEDS: Aspirin 81 MG TAB.CHEW PO (08:25)
[2020-08-19] MEDS: Magnesium Oxide 400 MG TABLET 800 MG PO (08:25)
[2020-08-19 08:30] LABS: Hematocrit 27.7 % (37-47); Hemoglobin 8.2 g/dl (12.0-16.0); Mean Corpuscular HGB Conc 29.6 g/dl (31.0-35.0); Mean Corpuscular Hemoglobin 24.2 pg (27.0-33.0); Mean Corpuscular Volume 81.7 fL (80-98); Mean Platelet Volume 8.4 fL (9.4-12.3); Platelet Count 273 X10*3/uL (160-400); Red Blood Count 3.39 X10*6/uL (4.20-5.50); Red Cell Distribution Width 19.9 % (11.0-16.0); White Blood Count 7.8 X10*3/uL (4.8-10.8)
[2020-08-19] MEDS: 0.9 % Sodium Chloride Flush 3 ML SYRINGE IVFLUSH ×2 (08:32→16:41)
[2020-08-19 11:10] VITALS: BP 119/58; PULSE 79; O2SAT 95
[2020-08-19 11:13] LABS: Glucose, Whole Blood 136 mg/dL (60-115)
[2020-08-19 11:24] VITALS: BP 119/58; PULSE 75; RESP 16; TEMP 36.2; O2SAT 95
[2020-08-19 12:59] LABS: COVID-19 Test Negative (Negative)
--- NOTE | 2020-08-19 12:59 | P.DS_ITS ---
DS: Providers Provider Date of Service: 08/19/20 Date of admission: 08/17/20 22:21 Primary care physician: Manjit Schmitt [facility] MAKERErlinda DS: Diagnosis Discharge Diagnosis (1) Acute UTI: Status: Acute DS: Medications Discharge Medications Home Medications: Home Medications Medication Instructions Recorded Confirmed allopurinol 1 tab PO DAILY 08/04/20 08/17/20 atorvastatin 1 tab PO BEDTIME 08/04/20 08/17/20 diltiazem HCl 1 cap PO BEDTIME 08/04/20 08/17/20 doxycycline hyclate 1 cap PO BID 08/04/20 08/17/20 furosemide 1 tab PO DAILY 08/04/20 08/17/20 halobetasol propionate 1 appl TOPICAL BID 08/04/20 08/17/20 metformin 1 tab PO BID 08/04/20 08/17/20 metoprolol succinate 1 tab PO DAILY 08/04/20 08/17/20 omeprazole 1 cap PO QAM 08/04/20 08/17/20 aspirin 81 mg PO DAILY 08/05/20 08/17/20 calcium carbonate-vitamin D3 1 tab PO BID 08/05/20 08/17/20 [Calcium 600 + D(3)] magnesium oxide 800 mg PO BID 08/05/20 08/17/20 omega-3 acid ethyl esters 2 cap PO BID 08/17/20 08/17/20 vitamin B complex [Super B Complex] 1 tab PO DAILY 08/17/20 08/17/20 DS: Summary Hospital Course Hospital Course: Date of Service: 08/17/20 Chief Complaint: generalized weakness 80-year-old female with a past medical history of hypertension, hyperlipidemia, diabetes, B12 deficiency, history of basal cell carcinoma, chronic decubitus ulcers, bullous pemphigoid, history of AV block status post pacemaker, gout, aortic stenosis, recent diagnosis of possible nonHodgkin's lymphoma presented to the hospital with a chief complaint of generalized weakness for the past 1 week. Patient reports that since the discharge from the last admission for UTI and anemia she has been having generalized weakness and has poor oral intake. ; today she went to the oncology clinic for PET scan or a new diagnosis of possible non-Hodgkin's lymphoma; when patient came home she felt tired and had a fall x2; denies any head strike or loss of consciousness; mechanical in nature; fall was witnessed by the patient's daughter. Patient denies any abdominal pain. Patient's daughter reports that patient has poor oral intake and also has few episodes of diarrhea. Patient has been on doxycycline chronically for bullous pemphigoid; Patient lives with the patient's daughter and has been well taken care by her daughter; Denies any chest pain palpitations lightheadedness or dizziness. Hospital course: UTI: Urine culture is negative, has been on Ceftriaxone and will change to ceftin 250 mg bid for 3 more days. Fall: Mechanical in nature due to weakness which is in turn from UTI, and underlying cancer. Physical therapy is recommending short term rehab which patient is agreable with. Diarrhea: Patient reports fall smelling diarrhea. Since been in the hospital she has not had diarrhea and so we have not been able to send C dif sample. Diabetes: To resume Metformin. Hypertension/hyperlipidemia: Continue home medications Recent diagnosis of possible non-Hodgkin's lymphoma: Follow-up with Oncology Clinic. Anemia of chronic disease of lymphoma, presently hemoglobin is stable. at 8.2 and Hematocrit of 27 Chronic decubitus ulcers --present on admission: Appears healing as per the patient's daughter. Standard care with frequent turning Final diagnosis: UTI fall Diarrhea Anemia of chronic disease Time Spent with Patient Time attestation: Total time spent providing and/or coordinating discharge services: Discharge coordination time: Greater than 30 minutes Quality: Stroke Does the patient have a stroke diagnosis?: No Physical Exam Vital Signs: Vital Signs: Last Vital Signs Temp 97.2 F 08/19/20 11:24 Pulse 75 08/19/20 11:24 Resp 16 08/19/20 11:24 BP 119/58 L 08/19/20 11:24 Pulse Ox 95 08/19/20 11:24 Body Mass Index 32.9 DS: Data Data Completed and Pending Completed studies during hospitalization [Text1]: Procedures Transfusion of Nonautologous Red Blood Cells into Peripheral Vein, Percutaneous Approach (04/28/20) Labs on day of discharge: Laboratory Results - last 24 hr 08/18/20 08/18/20 08/19/20 16:21 20:21 07:16 WBC RBC Hgb Hct MCV MCH MCHC RDW Plt Count MPV Absolute Nucleated RBC Nucleated RBC % (auto) POC Glucose 104 122 H 103 Blood Type Antibody Screen 08/19/20 08/19/2008/19/21 08:16 08:16 11:04 WBC 7.8 RBC 3.39 L Hgb 8.2 L Hct 27.7 L MCV 81.7 MCH 24.2 L MCHC 29.6 L RDW 19.9 H Plt Count 273 MPV 8.4 L Absolute Nucleated RBC 0.000 Nucleated RBC % (auto) 0.0 POC Glucose 136 H Blood Type A Positive Antibody Screen NEGATIVE Preliminary micro results at discharge 08/17/20 20:00 Blood Culture - Preliminary Blood - Venous No growth after 24 hours. 08/17/20 19:55 Blood Culture - Preliminary Blood - Venous No growth after 24 hours. Discharge Plan Discharge Anticipated Discharge Date/Time: 08/19/20 11:59 Patient Disposition: er SNF Discharge Diagnosis: UTI, weakness, chronic anemia Referrals: [facility] [Outside] - 1 Day (SHORT TERM REHAB) Manjit Schmitt FNP-BC [Primary Care Provider] - 1 Week Discharge Medications: Continued vitamin B complex Tablet 1 tab PO DAILY RF: 0 omega-3 acid ethyl esters 1 gram capsule 2 cap PO BID RF: 0 metoprolol succinate 50 mg tablet extended release 24 hr 1 tab PO DAILY RF: 0 doxycycline hyclate 50 mg capsule 1 cap PO BID RF: 0 metformin 1,000 mg tablet 1 tab PO BID RF: 0 omeprazole 20 mg capsule,delayed release(DR/EC) 1 cap PO QAM RF: 0 halobetasol propionate 0.05 % cream 1 appl topical BID RF: 0 furosemide 20 mg tablet 1 tab PO DAILY RF: 0 aspirin 81 mg Tablet,Chewable 81 mg PO DAILY RF: 0 calcium carbonate-vitamin D3 [Calcium 600 + D(3)] 600 mg(1,500mg) -400 unit Tablet 1 tab PO BID RF: 0 magnesium oxide 400 mg magnesium Tablet 800 mg PO BID RF: 0 No Action atorvastatin 10 mg tablet 10 mg PO BEDTIME RF: 0 allopurinol 300 mg tablet 300 mg PO DAILY Qty: 90 RF: 3 diltiazem HCl 120 mg capsule,extended release 24hr 120 mg PO BEDTIME 90 Days Qty: 90 RF: 1 Discharge Orders: Discharge Order (Routine); Ordered 08/19/20 Ordered By: Jun Cerda Diet: advance to usual diet Activity on Discharge: As tolerated Stand Alone Forms: Patient Portal Discharge page Care Plan Goals: Full recovery from UTI and weakness Health Concerns: UTI, weakness, chronic anemia and known lymphoma Plan of Treatment: Take ceftin as ercommended and follow up with PCP and concologiest Assessment: as above Discharge Date/Time: 08/19/20 17:16
--- NOTE | 2020-08-19 13:42 | HO.PM.IMPN ---
Subjective Subjective Date of Service: 08/19/20 Interval History: Seen in f/u for UTI, feels better, no new issues Review of Systems Gen: no fever Resp: no sob, no cough CV: no chest, no DIEZ, no leg edema GI: No n/v, no abd pain Neuro: No confusion Physical Exam Vital Signs: Vital Signs: Last Vital Signs Temp 97.2 F 08/19/20 11:24 Pulse 75 08/19/20 11:24 Resp 16 08/19/20 11:24 BP 119/58 L 08/19/20 11:24 Pulse Ox 95 08/19/20 11:24 Body Mass Index 32.9 Const: Other: General: AO X 3, no acute distress Resp: CTA bilateral CVS: S1,S2,RRR GI: +BS, NT, no distention Skin: No rash Neuro: motor grossly intact Psych: appropriate affect Objective Data Current Medications Generic Name Dose Route Start Last Admin Trade Name Freq PRN Reason Stop Dose Admin Acetaminophen 650 mg 08/17/20 22:21 08/18/20 00:26 Acetaminophen 325 Mg Tablet PO 650 mg Q6H PRN Administration Pain, Mild (Pain Scale 1-3) Allopurinol 300 mg 08/18/20 09:00 08/19/20 08:25 Allopurinol 300 Mg Tablet PO 300 mg DAILY PRITESH Administration Aspirin 81 mg 08/18/20 09:00 08/19/20 08:25 Aspirin 81 Mg Tab.Chew PO 81 mg DAILY PRITESH Administration Atorvastatin Calcium 10 mg 08/18/20 21:00 08/18/20 20:09 Atorvastatin Calcium 10 Mg Tablet PO 10 mg BEDTIME PRITESH Administration Betamethasone Dipropion Augmented 1 appl 08/18/20 09:00 08/19/20 08:25 Betamethasone Dip Aug 0.05% Cr 15 Gm Tube TOPICAL 1 appl BID PRITESH Administration Calcium Carbonate/Cholecalciferol 500 mg 08/18/20 09:00 08/19/20 08:24 Calcium + Vitamin D 250 Mg Tablet PO 500 mg BID PRITESH Administration Diltiazem HCl 120 mg 08/18/20 21:00 08/18/20 20:08 Diltiazem Hcl Cd 120 Mg Cap.Er.Deg PO 120 mg BEDTIME PRITESH Administration Protocol Furosemide 20 mg 08/18/20 09:00 08/19/20 08:24 Furosemide 20 Mg Tablet PO 20 mg DAILY PRITESH Administration Protocol Ceftriaxone Sodium 1 gm/ 50 mls @ 100 mls/hr 08/18/20 20:00 08/18/20 20:58 Sodium Chloride IV Infused Q24H [facility] Infusion Insulin Human Lispro 0 unit 08/18/20 07:30 08/19/20 11:59 Insulin Lispro 100 Unit/Ml 3 Ml Vial SUBCUT Not Given QIDACHS [facility] Protocol Magnesium Oxide 800 mg 08/18/20 09:00 08/19/20 08:25 Magnesium Oxide 400 Mg Tablet PO 800 mg BID PRITESH Administration Melatonin 6 mg 08/17/20 22:21 08/18/20 00:26 Melatonin 3 Mg Tablet PO 6 mg BEDTIME PRN Administration Insomnia Metformin HCl 1,000 mg 08/18/20 08:00 08/19/20 08:25 Metformin Hcl 1,000 Mg Tablet PO 1,000 mg BIDWM PRITESH Administration Metoprolol Succinate 50 mg 08/18/20 09:00 08/19/20 08:24 Metoprolol Succinate Er 50 Mg Tab.Er.24h PO 50 mg DAILY [facility] Administration Protocol Multivitamins 1 tab 08/18/20 09:00 08/19/20 08:25 B-Complex With Vitamin C Tablet PO 1 tab DAILY [facility] Administration Non-Formulary Medication 1 cap 08/18/20 09:00 Doxycycline Hyclate PO BID [facility] Non-Formulary Medication 2 cap 08/18/20 09:00 [place]-3 Acid Ethyl Esters PO BID [facility] Nystatin 1 appl 08/18/20 09:00 08/19/20 08:25 Nystatin Powder 15 Gm Bottle TOPICAL 1 appl BID [facility] Administration Protocol Omeprazole 20 mg 08/18/20 06:30 08/19/20 05:44 Omeprazole 20 Mg Capsule. PO 20 mg DAILY@0630 [facility] Administration Pharmacy Consult 1 each 08/17/20 19:42 Consult Rx Perform Med Rec MISCELLANE ONCE PRN Consult order Senna 17.2 mg 08/17/20 22:21 Sennosides 8.6 Mg Tablet PO BEDTIME PRN Constipation Sodium Chloride 3 ml 08/18/20 00:00 08/19/20 08:32 0.9 % Sodium Chloride Flush 3 Ml Syringe IVFLUSH 3 ml QSHIFT [facility] Administration Labs CBC & Chem 7: 08/19/20 08:16 08/18/20 06:39 Labs: Laboratory Results - last 24 hr 08/18/20 08/18/20 08/19/20 16:21 20:21 07:16 WBC RBC Hgb Hct MCV MCH MCHC RDW Plt Count MPV Absolute Nucleated RBC Nucleated RBC % (auto) POC Glucose 104 122 H 103 COVID-19 (KELSIE) COVID-19 Clin Com Blood Type Antibody Screen 08/19/20 08/19/20 08/19/20 08:16 08:16 11:04 WBC 7.8 RBC 3.39 L Hgb 8.2 L Hct 27.7 L MCV 81.7 MCH 24.2 L MCHC 29.6 L RDW 19.9 H Plt Count 273 MPV 8.4 L Absolute Nucleated RBC 0.000 Nucleated RBC % (auto) 0.0 POC Glucose 136 H COVID-19 (KELSIE) COVID-19 Clin Com Blood Type A Positive Antibody Screen NEGATIVE 08/19/20 12:31 WBC RBC Hgb Hct MCV MCH MCHC RDW Plt Count MPV Absolute Nucleated RBC Nucleated RBC % (auto) POC Glucose COVID-19 (KELSIE) Negative COVID-19 Clin Com See Note Blood Type Antibody Screen Microbiology Microbiology Results: Microbiology 08/17/20 18:50 Urine Culture - Final Urine clean catch - Urine mackay top 08/17/20 20:00 Blood Culture - Preliminary Blood - Venous No growth after 24 hours. 08/17/20 19:55 Blood Culture - Preliminary Blood - Venous No growth after 24 hours. Quality Stroke Does the patient have a stroke diagnosis?: No VTE Prior VTE?: No VTE Risk Level:: Medical - moderate - high VTE Device Contraindication: N/A - Device Ordered VTE Drug Contraindication: Patient Refused Assessment and Plan (1) Acute UTI: Status: Acute Assessment and Plan: 80-year-old female with a past medical history of hypertension, hyperlipidemia, diabetes, B12 deficiency, history of basal cell carcinoma, recent diagnosis of non-Hodgkin's lymphoma, recent admission to the hospital for UTI/anemia; presented to the hospital with a chief complaint of generalized weakness for the past few days; and had 2 falls at home -mechanical; noted to have UTI. Admitted for further management. UTI: Urine culture is negative, has been on Ceftriaxone and will change to ceftin 250 mg bid for 3 more days. Fall: Mechanical in nature due to weakness which is in turn from UTI, and underlying cancer. Physical therapy is recommending short term rehab which patient is agreable with. Diarrhea: Patient reports fall smelling diarrhea. Since been in the hospital she has not had diarrhea and so we have not been able to send C dif sample. Diabetes: To resume Metformin. Hypertension/hyperlipidemia: Continue home medications Recent diagnosis of possible non-Hodgkin's lymphoma: Follow-up with Oncology Clinic. Anemia of chronic disease of lymphoma, presently hemoglobin is stable. at 8.2 and Hematocrit of 27 Chronic decubitus ulcers --present on admission: Appears healing as per the patient's daughter. Standard care with frequent turning discharge today once insurance authorization obtained. DVT prophylaxis:SCD Code status: Full code
[2020-08-19 15:16] VITALS: BP 116/53; PULSE 75; RESP 16; TEMP 36.6; O2SAT 94
--- NOTE | 2020-08-19 15:56 | MHC.CM.PN ---
PT DISCHARGING TO [facility] AT 1730 W/ACTION FOR BLS TRANSPORT. PT'S DTR SEAN NOTIFIED AT 1555 .
[2020-08-19 16:14] LABS: Glucose, Whole Blood 110 mg/dL (60-115)
== END 2020-08-19 17:16 | disposition skilled nursing facility (03) | DRG 690 ==
LOC: HO.ED 20:13 → HO.EDOVER 22:47 → HO.S3 22:48
PROVIDERS: Physician Assistant; Admitting Provider Hospitalist; Emergency Provider Emergency Medicine; PCP Nurse Practitioner Family; Visit Provider Internal Medicine
DX: N39.0 Urinary tract infection, site not specified (principal); C85.90 Non-Hodgkin lymphoma, unspecified, unspecified site; E11.9 Type 2 diabetes mellitus without complications; D63.0 Anemia in neoplastic disease; E78.5 Hyperlipidemia, unspecified; M10.9 Gout, unspecified; R19.7 Diarrhea, unspecified; Z20.822 Contact with and (suspected) exposure to COVID-19; Z87.440 Personal history of urinary (tract) infections; Z95.0 Presence of cardiac pacemaker; Z79.2 Long term (current) use of antibiotics; Z91.81 History of falling; Z79.82 Long term (current) use of aspirin; Z79.84 Long term (current) use of oral hypoglycemic drugs; Z79.899 Other long term (current) drug therapy
CPT/HCPCS: 36415; 70450; 72125; 80048; 80076; 81001; 81003; 82947; 83605; 83735; 83880; 84484; 85025; 85027; 85610; 85730; 86850; 86900; 86901; 87040; 87086; 87635; 93005; 97163; 99218; 99285; J0696

== ENCOUNTER → 2020-08-23 09:54 | Outpatient (BNVA) | payer MEDICARE, SELFPAY | PROVIDERS: PCP Nurse Practitioner Family; Referring Provider Nurse Practitioner Family; Visit Provider Internal Medicine Cardiovascular Disease | DX: Z45.018 Encounter for adjustment and management of other part of cardiac pacemaker (principal); I35.0 Nonrheumatic aortic (valve) stenosis; I47.1 Supraventricular tachycardia; R06.02 Shortness of breath | CPT/HCPCS: 99212 ==

== ENCOUNTER → 2023-10-18 14:43 | Outpatient (RCR) | payer MEDICARE, SELFPAY ==
--- NOTE | 2020-07-30 11:28 | P.CNHO_ITS ---
Subjective - Subjective Chief complaint: Weakness Patient: new to practice Consult date: 07/30/20 Primary Care Provider: ROBYN Beebe HPI - Consult Narrative Reason for consult: Anemia Narrative: Katerin Neff is a 80 year old female who is referred for evaluation of anemia. She is accompanied by her daughter today. Patient has had multiple medical problems in the last 6 months. She was admitted in April secondary to bacteremia and acute renal insufficiency/hypomagnesemia related to UTI. Her blood cultures were positive for E coli. She was found to be anemic and received blood transfusion. Seen by Dr. Jacobo, endoscopy deferred. She was started on PPI and iron supplementation. In July 2020 she underwent a pacemaker for complete heart block. Improved but she was found to have persistent anemia with hemoglobin ranging from 8-9.5 gram/dL. iron studies revealed low transferrin saturation of 13%, elevated ferritin. Patient reports extreme fatigue and leg swelling. She has chronic leg swelling but this has worsened in the last few months. She has a very poor appetite and she has lost weight. She denies fever or chills. No dysuria or hematuria. She reports chronic hemorrhoidal bleeding. She is mostly whe elchair bound. She lives at home with her daughter. She denies orthopnea, PND, dizziness. Review of Systems - Constitutional Reports as per HPI, Reports no additional constitutional complaints - Cardiovascular Reports no additional cardiovascular complaints - Respiratory Reports no additional respiratory complaints - Gastrointestinal Reports no additional gastrointestinal complaints Oncology Screenings - ECOG Performance Status ECOG Performance Status: 3 [facility] Medical History: Medical History (Last Reviewed 07/16/20 @ 10:03 by Kenzie Jamison MD) Aortic stenosis Atrial tachycardia B12 deficiency Basal cell carcinoma of face Bifascicular block Bullous pemphigoid Onset Date: ~1999 Cardiac pacemaker in situ Onset Date: ~06/2020 Diabetes mellitus Onset Date: ~1999 Gout HTN (hypertension) Onset Date: ~1993 Lymphedema RBBB Family History: Family History (Last Reviewed 07/16/20 @ 10:03 by Kenzie Jamison MD) Father Myocardial infarction Mother CHF (congestive heart failure) Brother Dementia Son No problems noted. Daughter No problems noted. Daughter No problems noted. Sister No problems noted. Sister No problems noted. Sister No problems noted. Sister Ovarian cancer Sister Cancer Stroke Surgical History: Surgical History (Last Reviewed 07/16/20 @ 10:03 by Kenzie Jamison MD) History of cholecystectomy Onset Date: ~1971 History of hemorrhoidectomy Onset Date: ~2000 History of pacemaker Onset Date: ~06/2020 History of surgery on upper extremity Onset Date: ~2012 History of tonsillectomy History of umbilical hernia repair Onset Date: ~1996 Status post placement of implantable loop recorder Onset Date: ~2020 Social History: Social History (Last Updated 07/30/20 @ 11:39 by Cecile Remy) Living Situation History: Household Members: Children Housing: House Do you presently have visiting nurse or other home services: No Alcohol History: Alcohol intake: former Alcohol History Details: Alcohol intake frequency: does not drink Tobacco History: Patient Tobacco Use Status: Former Tobacco user Cigarette Packs Per Day: 0.5 Cigarettes Per Day: 10.0 Smoke Quit Date: 1969 Advance Directives: Advance Directives Date on File: 04/28/20 Occupation Assessmet: service: No Current occupational status: retired Home Medications and Allergies Home Medications Medication Instructions Recorded Confirmed Type halobetasol propionate 1 appl TOPICAL DAILY 04/28/20 07/30/20 History aspirin 81 mg PO DAILY 04/30/20 07/30/20 History calcium carbonate-vitamin D3 1 tab PO BID 04/30/20 07/30/20 History multivitamin 1 tab PO DAILY 04/30/20 07/30/20 History carboxymethylcellulose sodium 0.5 1 drp OPHTHALMIC (EYE) BID 05/06/20 07/30/20 History % eye drops in a dropperette fluocinonide 0.05 % topical 0.05 ml TOPICAL BID 05/06/20 07/30/20 History solution triamcinolone acetonide 0.1 % 0.1 appl TOPICAL DAILY 05/06/20 07/30/20 History topical cream doxycycline hyclate 50 mg capsule 50 mg PO BID 06/24/20 07/30/20 History ciclopirox olamine 1 appl TOPICAL DAILY 07/30/20 07/30/20 History magnesium oxide 800 mg PO BIDPC 07/30/20 07/30/20 History vitamin B complex [Super B Complex] 1 tab PO DAILY 07/30/20 07/30/20 History Allergies Allergy/AdvReac Type Severity Reaction Status Date / Time adhesive tape [ADHESIVE TAPE] Allergy Intermediate RASH Verified 07/16/20 09:49 Physical Exam Vital signs: Vital Signs Temp Pulse Resp BP Pulse Ox 07/30/20 11:33 98.1 F 97 14 127/59 L 97 Intake and Output 07/29/20 07/30/20 07/30/20 22:59 06:59 14:59 Other: Weight 89.5 kg Weight in Grams [id number] Patient Weight 07/31/20 06:59 Weight 89.5 kg Narrative: Elderly woman appearing rather frail and pale. - Constitutional Present: no acute distress - Routine HEENT Exam Head: Present: normal inspection Eye: Present: conjunctivae pale - Routine Neck Exam Present: supple. Absent: lymphadenopathy - Routine Respiratory Exam Present: CTAB. Absent: respiratory distress - Routine Cardiovascular Exam Cardiovascular: Present: S1, S2 - Routine Abdominal Exam Present: soft. Absent: tenderness - Routine Extremities Exam Present: pulses intact, pedal edema Hem/Onc Consult Result - Labs CBC & Chem 7: 07/30/20 12:45 Assessment and Plan (1) Anemia Status: Chronic Qualifiers: Anemia type: iron deficiency Iron deficiency anemia type: chronic blood loss Qualified Code(s): D50.0 - Iron deficiency anemia secondary to blood loss (chronic) 1. This is a 80-year-old woman with normocytic anemia, acute on chronic anemia. She has had gradual worsening of her anemia for about a year. Causes are multifactorial. She definitely has iron deficiency, she also has anemia chronic disease. Recent bacteremia and acute kidney injury could also have contributed to her anemia. Elevated ferritin is an acute phase reactant. She will be started on iron ta pplementation either oral or parenteral if she cannot tolerate oral therapy. Rest of blood work including serum protein electrophoresis and immunofixation is pending. There is no evidence of hemolysis. Primary bone marrow disorder such as lymphoma, myelodysplastic syndrome and plasma cell dyscrasia is a possibility. Rest of hematological workup is pending. Follow-up in 1 month. I thank you very much for this consultation.
[2020-07-30 11:33] VITALS: BP 127/59; PULSE 97; RESP 14; TEMP 36.7; O2SAT 97; BMI 36.1
[2020-07-30 13:37] LABS: Basophils Percent Auto 0.3 % (0-2); Eosinophils Percent Auto 0.4 % (0-4); Hematocrit 26.3 % (37-47); Imm Gran Abs Auto 0.13 X10*3/uL (0.00-0.03); Imm Gran Pct Auto 1.3 % (0.0-0.4); Immature Retic Fraction 32.6 % (3.0-15.9); Lymphocytes Absolute Auto 1.3 X10*3/uL (1.2-4.9); Lymphocytes Percent Auto 12.6 % (20-40); MANUAL DIFF FLAG NO; Mean Corpuscular HGB Conc 30.4 g/dl (31.0-35.0); Mean Corpuscular Hemoglobin 25.2 pg (27.0-33.0); Mean Platelet Volume 9.3 fL (9.4-12.3); Monocytes Absolute Auto 1.1 X10*3/uL (0.1-1.2); Neutrophils Absolute Auto 7.5 X10*3/uL (2.0-8.3); Neutrophils Percent Auto 74.4 % (45-73); Platelet Count 276 X10*3/uL (160-400); Red Blood Count 3.17 X10*6/uL (4.20-5.50); Red Cell Distribution Width 17.1 % (11.0-16.0); Retic HGB Equivalent 22.2 pg (30.0-35.0); Reticulocyte Percent 2.6 % (0.5-1.8); Reticulocytes Absolute 0.083 X10*6/uL (0.026-0.095)
[2020-07-30 14:08] LABS: Iron 13 mcg/dL (30-160); Lactate Dehydrogenase 210 U/L (122-220); Percent Iron Saturation 7 % (15-50); Total Iron Binding Capacity 194 mcg/dL (228-428); Unsaturated Iron Binding 181 ug/dL
[2020-07-30 14:55] LABS: Folate > 20.0 ng/mL (> or = 4.0); Vitamin B12 358 pg/mL (200-900)
[2020-08-04 11:33] LABS: Prot Elec - Alpha1 0.7 g/dL (0.2-0.3); Prot Elec - Alpha2 1.3 g/dL (0.5-0.9); Prot Elec - Beta 1 0.4 g/dL (0.4-0.6); Prot Elec - Beta 2 0.3 g/dL (0.2-0.5); Prot Elec - Gamma 0.6 g/dL (0.8-1.7); Prot Elec - Total Protein 5.3 g/dL (6.1-8.1)
[2020-08-04 12:22] LABS: IgA 132 mg/dL (70-320); IgG 675 mg/dL (600-1540); IgM 52 mg/dL (50-300)
--- NOTE | 2020-08-11 14:04 | HO.HEMONCPA ---
PET/CT SCAN PA APPROVED. AUTH#[id number]. EFF 08/11/20 to 02/07/2021.
[2020-08-12 09:32] LABS: MANUAL DIFF FLAG NO
[2020-08-12 09:36] LABS: Basophils Percent Auto 0.2 % (0-2); Eosinophils Percent Auto 0.3 % (0-4); Hematocrit 29.2 % (37-47); Hemoglobin 8.9 g/dl (12.0-16.0); Imm Gran Abs Auto 0.11 X10*3/uL (0.00-0.03); Imm Gran Pct Auto 1.3 % (0.0-0.4); Lymphocytes Percent Auto 11.5 % (20-40); Mean Corpuscular HGB Conc 30.5 g/dl (31.0-35.0); Mean Corpuscular Hemoglobin 24.8 pg (27.0-33.0); Mean Corpuscular Volume 81.3 fL (80-98); Mean Platelet Volume 8.8 fL (9.4-12.3); Monocytes Percent Auto 11.4 % (2-11); Neutrophils Absolute Auto 6.5 X10*3/uL (2.0-8.3); Neutrophils Percent Auto 75.3 % (45-73); Platelet Count 270 X10*3/uL (160-400); Red Blood Count 3.59 X10*6/uL (4.20-5.50); Red Cell Distribution Width 18.7 % (11.0-16.0); White Blood Count 8.6 X10*3/uL (4.8-10.8)
[2020-08-12 10:10] LABS: Alanine Aminotransferase 11 U/L (0-31); Albumin Level 2.7 g/dL (3.5-5.0); Alkaline Phosphatase 143 U/L (39-117); Anion Gap 13 (12-20); Aspartate Amino Transferase 14 U/L (5-31); Bilirubin Total 0.6 mg/dL (0.0-1.0); Blood Urea Nitrogen 20 mg/dL (9-16); Calcium 9.5 mg/dL (8.4-10.2); Carbon Dioxide 28 mmol/L (22-29); Chloride 101 mmol/L (96-108); Creatinine Clr Calc Pharmacy 64.3; Estimated Glomerular Filt Rate > 60; Glucose Random 200 mg/dL (60-115); Potassium 4.6 mmol/L (3.3-5.1); Sodium 137 mmol/L (135-145); Total Protein 5.1 g/dL (6.5-8.0)
[2020-08-17 10:22] VITALS: BP 113/58; PULSE 65; RESP 14; TEMP 36.6; O2SAT 96; BMI 33.0
--- NOTE | 2020-08-17 10:32 | P.PNHO_ITS ---
Medical Summary - Medical Summary Date of Service: 08/17/20 Chief complaint: Weakness Medical Summary: Diagnosis: Anemia, lymphoma July 2020 She has had multiple medical problems in the last 6 months. She was admitted in April secondary to bacteremia and acute renal insufficiency/hypomagnesemia related to UTI. Her blood cultures were positive for E coli. She was found to be anemic and received blood transfusion. Seen by Dr. Jacobo, endoscopy deferred. She was started on PPI and iron supplementation. In July 2020 she underwent a pacemaker for complete heart block. Improved but she was found to have persistent anemia with hemoglobin ranging from 8-9.5 g kirk/dL. iron studies revealed low transferrin saturation of 13%, elevated ferritin. Interval History Interval history: Patient is here in follow-up. She is accompanied by her daughter today. She continues to feel very weak and is experiencing watery diarrhea for the last 2-3 weeks. She they do at attributed from the time she started taking iron suppl ementation. She denies abdominal discomfort, hematochezia, nausea or emesis. Her appetite is very poor. No fever or chills. No cough or shortness of breath. Her activities very limited, she needs full assistance and is constantly on a wheelchair. Review of Systems - Constitutional Reports as per HPI, Reports anorexia, Reports lack of energy, Reports malaise, Reports weakness PMFSH Medical History: Medical History (Last Reviewed 08/17/20 @ 10:25 by Cecile Remy) Aortic stenosis Atrial tachycardia B12 deficiency Basal cell carcinoma of face Bifascicular block Bullous pemphigoid Onset Date: ~1999 Cardiac pacemaker in situ Onset Date: ~06/2020 Diabetes mellitus Onset Date: ~1999 Gout HTN (hypertension) Onset Date: ~1993 Lymphedema RBBB Family History: Family History (Last Reviewed 08/17/20 @ 10:25 by Cecile Remy) Father Myocardial infarction Mother CHF (congestive heart failure) Brother Dementia Son No problems noted. Daughter No problems noted. Daughter No problems noted. Sister No problems noted. Sister No problems noted. Sister No problems noted. Sister Ovarian cancer Sister Cancer Stroke Surgical History: Surgical History (Last Reviewed 08/17/20 @ 10:25 by Cecile Remy) History of cholecystectomy Onset Date: ~1971 History of hemorrhoidectomy Onset Date: ~2000 History of pacemaker Onset Date: ~06/2020 History of surgery on upper extremity Onset Date: ~2012 History of tonsillectomy History of umbilical hernia repair Onset Date: ~1996 Status post placement of implantable loop recorder Onset Date: ~2020 Social History: Social History (Last Reviewed 08/04/20 @ 16:29 by Manjit Schmitt, [facility]) Living Situation History: Household Members: Children Housing: House Do you presently have visiting nurse or other home services: No Alcohol History: Alcohol intake: never Alcohol History Details: Alcohol intake frequency: does not drink Tobacco History: Patient Tobacco Use Status: Former Tobacco user Cigarette Packs Per Day: 0.5 Smoke Quit Date: 1967 e-Cigarette/Vaping Use: Never Used Advance Directives: Advance Directives Date on File: 04/28/20 Occupation Assessmet: service: No Current occupational status: retired Oncology Screenings - ECOG Performance Status ECOG Performance Status: 3 Home Medications and Allergies Home Medications Medication Instructions Recorded Confirmed Type allopurinol 1 tab PO DAILY 08/04/20 08/17/20 History atorvastatin 1 tab PO BEDTIME 08/04/20 08/17/20 History diltiazem HCl 1 cap PO BEDTIME 08/04/20 08/17/20 History doxycycline hyclate 1 cap PO BID 08/04/20 08/17/20 History furosemide 1 tab PO DAILY 08/04/20 08/17/20 History halobetasol propionate 1 appl TOPICAL BID PRN 08/04/20 08/17/20 History metformin 1 tab PO BID 08/04/20 08/17/20 History metoprolol succinate 1 tab PO DAILY 08/04/20 08/17/20 History omeprazole 1 cap PO QAM 08/04/20 08/17/20 History aspirin 81 mg PO DAILY 08/05/20 08/17/20 History calcium carbonate-vitamin D3 1 tab PO BID 08/05/20 08/17/20 History [Calcium 600 + D(3)] ferrous sulfate 324 mg PO BID 08/05/20 08/17/20 History magnesium oxide 800 mg PO BID 08/05/20 08/17/20 History Allergies Allergy/AdvReac Type Severity Reaction Status Date / Time adhesive tape [ADHESIVE TAPE] Allergy Intermediate RASH Verified 08/04/20 16:28 latex Allergy Intermediate rash Verified 08/04/20 16:28 Exam Vital signs: Vital Signs Temp 97.8 F 08/17/20 10:22 Pulse 65 08/17/20 10:22 Resp 14 08/17/20 10:22 BP 113/58 L 08/17/20 10:22 Pulse Ox 96 08/17/20 10:22 Intake & Output 08/16/20 08/17/20 08/17/20 18:59 06:59 18:59 Other: Weight 82.1 kg [place] Weight in Grams [address]706 Weight 82.1 kg Body Mass Index 33.0 - Constitutional Present: no acute distress, chronically ill appearing - Routine HEENT Exam Head: Present: normal inspection - Routine Neck Exam Absent: lymphadenopathy - Routine Respiratory Exam Present: CTAB. Absent: respiratory distress - Routine Cardiovascular Exam Cardiovascular: Present: S1, S2 - Routine Abdominal Exam Present: soft. Absent: tenderness - Routine Extremities Exam Present: pulses intact, pedal edema Data - Labs CBC & Chem 7: 08/17/20 11:01 08/17/20 11:01 Labs: 07/30/20 11:45 IRON PROFILE Routine Immunofixation Pnl, Serum Routine Lactate Dehydrogenase Routine Protein Electrophoresis, Serum Routine Vitamin B12 and Folate Routine 07/30/20 12:45 Type and Screen Routine Complete Blood Count Auto Diff Routine Reticulocyte Count Routine 08/12/20 09:12 Complete Blood Count Auto Diff Routine Comprehensive Met. Panel Routine Laboratory Last Values WBC 8.6 X10*3/uL (4.8-10.8) 08/12/20 09:12 RBC 3.59 X10*6/uL (4.20-5.50) L 08/12/20 09:12 Hgb 8.9 g/dl (12.0-16.0) L 08/12/20 09:12 Hct 29.2 % (37-47) L 08/12/20 09:12 MCV 81.3 fL (80-98) 08/12/20 09:12 MCH 24.8 pg (27.0-33.0) L 08/12/20 09:12 MCHC 30.5 g/dl (31.0-35.0) L 08/12/20 09:12 RDW 18.7 % (11.0-16.0) H 08/12/20 09:12 Plt Count 270 X10*3/uL (160-400) D 08/12/20 09:12 MPV 8.8 fL (9.4-12.3) L 08/12/20 09:12 Immature Gran % (Auto) 1.3 % (0.0-0.4) H 08/12/20 09:12 Neut % (Auto) 75.3 % (45-73) H 08/12/20 09:12 Lymph % (Auto) 11.5 % (20-40) L 08/12/20 09:12 [place] % (Auto) 11.4 % (2-11) H 08/12/20 09:12 Eos % (Auto) 0.3 % (0-4) 08/12/20 09:12 Baso % (Auto) 0.2 % (0-2) 08/12/20 09:12 Lymph # (Auto) 1.0 X10*3/uL (1.2-4.9) L 08/12/20 09:12 [place] # (Auto) 1.0 X10*3/uL (0.1-1.2) 08/12/20 09:12 Eos # (Auto) 0.0 X10*3/uL (0.0-0.4) 08/12/20 09:12 Baso # (Auto) 0.0 X10*3/uL (0.0-0.2) 08/12/20 09:12 Abs Immat Gran (auto) 0.11 X10*3/uL (0.00-0.03) H 08/12/20 09:12 Absolute Neuts (auto) 6.5 X10*3/uL (2.0-8.3) 08/12/20 09:12 Absolute Nucleated RBC 0.000 X10*3/uL (0.0-0.012) 08/12/20 09:12 Nucleated RBC % (auto) 0.0 /100WBC (0.0-0.2) 08/12/20 09:12 Absolute Retic 0.083 X10*6/uL (0.026-0.095) 07/30/20 12:45 Percent Retic 2.6 % (0.5-1.8) H 07/30/20 12:45 Immature Retic Fraction 32.6 % (3.0-15.9) H 07/30/20 12:45 Retic Hgb Equivalent 22.2 pg (30.0-35.0) L 07/30/20 12:45 Sodium 137 mmol/L (135-145) 08/12/20 09:12 Potassium 4.6 mmol/L (3.3-5.1) 08/12/20 09:12 Chloride 101 mmol/L (96-108) 08/12/20 09:12 Carbon Dioxide 28 mmol/L (22-29) 08/12/20 09:12 Anion Gap 13 (12-20) 08/12/20 09:12 BUN 20 mg/dL (9-16) H 08/12/20 09:12 Creatinine 0.70 mg/dL (0.5-1.4) 08/12/20 09:12 Estim Creat Clear Calc 64.3 08/12/20 09:12 Estimated GFR > 60 08/12/20 09:12 Random Glucose 200 mg/dL (60-115) H D 08/12/20 09:12 Calcium 9.5 mg/dL (8.4-10.2) 08/12/20 09:12 Iron 13 mcg/dL (30-160) L 07/30/20 11:45 TIBC 194 mcg/dL (228-428) L 07/30/20 11:45 % Saturation 7 % (15-50) L 07/30/20 11:45 Unsat Iron Binding 181 ug/dL 07/30/20 11:45 Total Bilirubin 0.6 mg/dL (0.0-1.0) 08/12/20 09:12 AST 14 U/L (5-31) 08/12/20 09:12 ALT 11 U/L (0-31) 08/12/20 09:12 Alkaline Phosphatase 143 U/L (39-117) H 08/12/20 09:12 Lactate Dehydrogenase 210 U/L (122-220) 07/30/20 11:45 Total Protein 5.1 g/dL (6.5-8.0) L 08/12/20 09:12 Total Protein (PEP) 5.3 g/dL (6.1-8.1) L 07/30/20 11:45 Albumin 2.7 g/dL (3.5-5.0) L 08/12/20 09:12 Albumin (PEP) 2.0 g/dL (3.8-4.8) L 07/30/20 11:45 Uvcio-5-Zlidyjkko 0.7 g/dL (0.2-0.3) H 07/30/20 11:45 Tfbku-7-Nylbzkimy 1.3 g/dL (0.5-0.9) H 07/30/20 11:45 Cglb-0-Tirjjzej 0.4 g/dL (0.4-0.6) 07/30/20 11:45 Jxiv-5-Uyuxwszs 0.3 g/dL (0.2-0.5) 07/30/20 11:45 Gamma Globulins 0.6 g/dL (0.8-1.7) L 07/30/20 11:45 Abnorm Protein Band 1 TNP 07/30/20 11:45 Abnorm Protein Band 2 TNP 07/30/20 11:45 Abnorm Protein Band 3 TNP 07/30/20 11:45 PEP Interpretation SEE NOTE 07/30/20 11:45 Vitamin B12 358 pg/mL (200-900) 07/30/20 11:45 Folate > 20.0 ng/mL (> or = 4.0) 07/30/20 11:45 IgG Total 675 mg/dL (600-1540) 07/30/20 11:45 IgA Total 132 mg/dL (70-320) 07/30/20 11:45 IgM 52 mg/dL (50-300) 07/30/20 11:45 MAURICIO Interpretation SEE NOTE 07/30/20 11:45 Blood Type A Positive 07/30/20 12:45 Antibody Screen NEGATIVE 07/30/20 12:45 Progress Note: A/P (1) Anemia Status: Chronic Assessment and plan: 1. This is a 80-year-old woman with microcytic anemia and extensive retroperitoneal lymphadenopathy/splenomegaly concerning for lymphoma. Left inguinal lymph node core biopsy performed on 08/05/2020 revealed atypical lymphoid aggregate suspicious for lymphoma, probable Hodgkin's lymphoma. Immunostains are pending. T-cell gene receptor rearrangement was negative. Patient is scheduled for PET-CT today. 2. anemia, multifactorial. Repeat CBC today. She has received a few transfusions in the last month. 3. Diarrhea, could be related to iron supplementation. I have asked her to stop taking this. I discussed further management based on pathology. In the meantime, continue with supportive care. Follow-up in 1 week. - Time Spent With Patient 15 - 24 minutes
[2020-08-17 11:35] LABS: Hemoglobin 8.6 g/dl (12.0-16.0); Mean Corpuscular HGB Conc 29.7 g/dl (31.0-35.0); Mean Corpuscular Hemoglobin 24.2 pg (27.0-33.0); Mean Corpuscular Volume 81.5 fL (80-98); NRBC Pct Auto 0.2 /100WBC (0.0-0.2); Platelet Count 322 X10*3/uL (160-400); Red Blood Count 3.56 X10*6/uL (4.20-5.50); Red Cell Distribution Width 19.2 % (11.0-16.0); White Blood Count 9.4 X10*3/uL (4.8-10.8)
[2020-08-17 12:09] LABS: Anion Gap 14 (12-20); Blood Urea Nitrogen 22 mg/dL (9-16); Calcium 9.7 mg/dL (8.4-10.2); Carbon Dioxide 26 mmol/L (22-29); Chloride 103 mmol/L (96-108); Creatinine Clr Calc Pharmacy 66.2; Estimated Glomerular Filt Rate > 60; Glucose Random 122 mg/dL (60-115); Magnesium 2.2 mg/dL (1.6-2.6); Potassium 5.2 mmol/L (3.3-5.1); Sodium 138 mmol/L (135-145)
[2020-08-17 12:56] LABS: Ferritin 1220 ng/mL (10-250)
--- NOTE | 2020-08-17 13:33 | MHC.HEMONC ---
labs reviewed by Dr Cannon. All stable. Pt to f/u next Sunday.
--- NOTE | 2020-08-17 15:52 | MHC.HEMONCMA ---
Patient came in for a follow up, states she is doing okay. Clinical summary was reviewed and updated. Patient had labs and will return in 1 week for a follow up.
[2020-08-23 10:55] VITALS: BP 118/56; PULSE 80; RESP 14; TEMP 36.4; O2SAT 98; BMI 32.8
[2020-08-23 11:35] LABS: MANUAL DIFF FLAG NO
[2020-08-23 11:40] LABS: Basophils Percent Auto 0.3 % (0-2); Eosinophils Percent Auto 0.4 % (0-4); Hematocrit 30.5 % (37-47); Hemoglobin 8.8 g/dl (12.0-16.0); Imm Gran Abs Auto 0.14 X10*3/uL (0.00-0.03); Imm Gran Pct Auto 1.6 % (0.0-0.4); Lymphocytes Absolute Auto 1.3 X10*3/uL (1.2-4.9); Lymphocytes Percent Auto 14.5 % (20-40); Mean Corpuscular HGB Conc 28.9 g/dl (31.0-35.0); Mean Corpuscular Hemoglobin 24.9 pg (27.0-33.0); Mean Corpuscular Volume 86.4 fL (80-98); Mean Platelet Volume 9.3 fL (9.4-12.3); Monocytes Percent Auto 11.4 % (2-11); NRBC Pct Auto 0.4 /100WBC (0.0-0.2); Neutrophils Absolute Auto 6.4 X10*3/uL (2.0-8.3); Neutrophils Percent Auto 71.8 % (45-73); Platelet Count 322 X10*3/uL (160-400); Red Blood Count 3.53 X10*6/uL (4.20-5.50); Red Cell Distribution Width 20.4 % (11.0-16.0)
[2020-08-23 12:05] LABS: Alanine Aminotransferase 12 U/L (0-31); Albumin Level 2.5 g/dL (3.5-5.0); Alkaline Phosphatase 219 U/L (39-117); Anion Gap 15 (12-20); Aspartate Amino Transferase 16 U/L (5-31); Bilirubin Total 0.6 mg/dL (0.0-1.0); Blood Urea Nitrogen 16 mg/dL (9-16); Calcium 9.2 mg/dL (8.4-10.2); Carbon Dioxide 25 mmol/L (22-29); Chloride 103 mmol/L (96-108); Creatinine Clr Calc Pharmacy 64.9; Estimated Glomerular Filt Rate > 60; Glucose Random 111 mg/dL (60-115); Potassium 4.7 mmol/L (3.3-5.1); Sodium 138 mmol/L (135-145)
--- NOTE | 2020-08-23 12:56 | MHC.HEMONC ---
I saw pt and her dtr following MD visit. They discussed her prognosis and it was determined that pt would like no treatment and instead be [employer]. MOLST form completed. [facility] I called [employer] there with pt wishes and they will be looking into insurance to see where pt will best receive hospice care. Her dtr is also willing to take her home as another good option. Pt will decide once she returns to facility. Both pt and dtr were given emotional support and they appear to be grieving appropriately given this difficult decision. She reflected upon her mu and is confident in her hope. We told them they could call us with any concerns or needs.
--- NOTE | 2020-08-23 13:04 | P.PNHO_ITS ---
Medical Summary - Medical Summary Date of Service: 08/23/20 Chief complaint: Follow-up Medical Summary: Diagnosis: Anemia, lymphoma July 2020 She has had multiple medical problems in the last 6 months. She was admitted in April secondary to bacteremia and acute renal insufficiency/hypomagnesemia related to UTI. Her blood cultures were positive for E coli. She was found to be anemic and received blood transfusion. Seen by Dr. Jacobo, endoscopy deferred. She was started on PPI and iron supplementation. In July 2020 she underwent a pacemaker for complete heart block. Improved but she was found to have persistent anemia with hemoglobin ranging from 8-9.5 gr am/dL. iron studies revealed low transferrin saturation of 13%, elevated ferritin. Interval History Interval history: Patient is here accompanied by her daughter to discuss results of PET scan and further management. In the last week she has made 2 visits to the emergency room. She was admitted briefly in treated for UTI. She has become extremely weak, following the last admission she has been transferred to rehabilitation facility. Her daughter can no longer take care of her at home. Review of Systems - Constitutional Reports lack of energy, Reports malaise, Reports poor appetite, Reports weight loss - Neurologic Reports weakness PMFSH Medical History: Medical History (Last Reviewed 08/23/20 @ 10:57 by Cecile Remy) Aortic stenosis Atrial tachycardia B12 deficiency Basal cell carcinoma of face Bifascicular block Bullous pemphigoid Onset Date: ~1999 Cardiac pacemaker in situ Onset Date: ~06/2020 Diabetes mellitus Onset Date: ~1999 Gout HTN (hypertension) Onset Date: ~1993 Lymphedema RBBB Family History: Family History (Last Reviewed 08/23/20 @ 10:57 by Cecile Remy) Father Myocardial infarction Mother CHF (congestive heart failure) Brother Dementia Son No problems noted. Daughter No problems noted. Daughter No problems noted. Sister No problems noted. Sister No problems noted. Sister No problems noted. Sister Ovarian cancer Sister Cancer Stroke Surgical History: Surgical History (Last Reviewed 08/23/20 @ 10:57 by Cecile Remy) History of cholecystectomy Onset Date: ~1971 History of hemorrhoidectomy Onset Date: ~2000 History of pacemaker Onset Date: ~06/2020 History of surgery on upper extremity Onset Date: ~2012 History of tonsillectomy History of umbilical hernia repair Onset Date: ~1996 Status post placement of implantable loop recorder Onset Date: ~2020 Social History: Social History (Last Reviewed 08/23/20 @ 10:32 by Noé Ritter MD) Living Situation History: Household Members: Children Housing: House Do you presently have visiting nurse or other home services: Yes Alcohol History: Alcohol intake: never Alcohol History Details: Alcohol intake frequency: does not drink Tobacco History: Patient Tobacco Use Status: Never used Tobacco Cigarette Packs Per Day: 0.5 Smoke Quit Date: 1967 e-Cigarette/Vaping Use: Never Used Substance Use History: Use of substances other than those prescribed or required for medical reasons : No Advance Directives: Advance Directives Date on File: 04/28/20 Occupation Assessmet: service: No Current occupational status: employed Oncology Screenings - ECOG Performance Status ECOG Performance Status: 4 Home Medications and Allergies Home Medications Medication Instructions Recorded Confirmed Type diltiazem HCl 1 cap PO BEDTIME 08/04/20 08/23/20 History doxycycline hyclate 1 cap PO BID 08/04/20 08/23/20 History furosemide 1 tab PO DAILY 08/04/20 08/23/20 History halobetasol propionate 1 appl TOPICAL BID 08/04/20 08/23/20 History metformin 1 tab PO BID 08/04/20 08/23/20 History metoprolol succinate 1 tab PO DAILY 08/04/20 08/23/20 History omeprazole 1 cap PO QAM 08/04/20 08/23/20 History aspirin 81 mg PO DAILY 08/05/20 08/23/20 History calcium carbonate-vitamin D3 1 tab PO BID 08/05/20 08/23/20 History [Calcium 600 + D(3)] magnesium oxide 800 mg PO BID 08/05/20 08/23/20 History omega-3 acid ethyl esters 2 cap PO BID 08/17/20 08/23/20 History vitamin B complex 1 tab PO DAILY 08/17/20 08/23/20 History atorvastatin 10 mg tablet 10 mg PO BEDTIME tab 08/19/20 08/23/20 History Allergies Allergy/AdvReac Type Severity Reaction Status Date / Time adhesive tape [ADHESIVE TAPE] Allergy Intermediate RASH Verified 08/04/20 16:28 latex Allergy Intermediate rash Verified 08/04/20 16:28 Exam Vital signs: Vital Signs Temp 97.5 F 08/23/20 10:55 Pulse 80 08/23/20 10:55 Resp 14 07/12/21 10:55 BP 118/56 L 08/23/20 10:55 Pulse Ox 98 08/23/20 10:55 Intake & Output 08/22/20 08/23/20 08/23/20 18:59 06:59 18:59 Other: Weight 81.3 kg [place] Weight in Grams 23556 Weight 81.3 kg Body Mass Index 32.8 Narrative: Frail appearing woman seated in wheelchair. - Constitutional Present: no acute distress, chronically ill appearing - Routine HEENT Exam Head: Present: normal inspection Eye: Present: conjunctivae pale - Routine Neck Exam Absent: lymphadenopathy - Routine Respiratory Exam Present: CTAB. Absent: respiratory distress - Routine Cardiovascular Exam Cardiovascular: Present: S1, S2 - Routine Abdominal Exam Present: soft. Absent: tenderness - Routine Extremities Exam Present: pulses intact, pedal edema Data - Labs CBC & Chem 7: 08/23/20 11:19 08/23/20 11:19 Labs: 07/30/20 11:45 IRON PROFILE Routine Immunofixation Pnl, Serum Routine Lactate Dehydrogenase Routine Protein Electrophoresis, Serum Routine Vitamin B12 and Folate Routine 07/30/20 12:45 Type and Screen Routine Complete Blood Count Auto Diff Routine Reticulocyte Count Routine 08/12/20 09:12 Complete Blood Count Auto Diff Routine Comprehensive Met. Panel Routine Laboratory Last Values WBC 8.6 X10*3/uL (4.8-10.8) 08/12/20 09:12 RBC 3.59 X10*6/uL (4.20-5.50) L 08/12/20 09:12 Hgb 8.9 g/dl (12.0-16.0) L 08/12/20 09:12 Hct 29.2 % (37-47) L 08/12/20 09:12 MCV 81.3 fL (80-98) 08/12/20 09:12 MCH 24.8 pg (27.0-33.0) L 08/12/20 09:12 MCHC 30.5 g/dl (31.0-35.0) L 08/12/20 09:12 RDW 18.7 % (11.0-16.0) H 08/12/20 09:12 Plt Count 270 X10*3/uL (160-400) D 08/12/20 09:12 MPV 8.8 fL (9.4-12.3) L 08/12/20 09:12 Immature Gran % (Auto) 1.3 % (0.0-0.4) H 08/12/20 09:12 Neut % (Auto) 75.3 % (45-73) H 08/12/20 09:12 Lymph % (Auto) 11.5 % (20-40) L 08/12/20 09:12 Sandoval % (Auto) 11.4 % (2-11) H 08/12/20 09:12 Eos % (Auto) 0.3 % (0-4) 08/12/20 09:12 Baso % (Auto) 0.2 % (0-2) 08/12/20 09:12 Lymph # (Auto) 1.0 X10*3/uL (1.2-4.9) L 08/12/20 09:12 [place] # (Auto) 1.0 X10*3/uL (0.1-1.2) 08/12/20 09:12 Eos # (Auto) 0.0 X10*3/uL (0.0-0.4) 08/12/20 09:12 Baso # (Auto) 0.0 X10*3/uL (0.0-0.2) 08/12/20 09:12 Abs Immat Gran (auto) 0.11 X10*3/uL (0.00-0.03) H 08/12/20 09:12 Absolute Neuts (auto) 6.5 X10*3/uL (2.0-8.3) 08/12/20 09:12 Absolute Nucleated RBC 0.000 X10*3/uL (0.0-0.012) 08/12/20 09:12 Nucleated RBC % (auto) 0.0 /100WBC (0.0-0.2) 08/12/20 09:12 Absolute Retic 0.083 X10*6/uL (0.026-0.095) 07/30/20 12:45 Percent Retic 2.6 % (0.5-1.8) H 07/30/20 12:45 Immature Retic Fraction 32.6 % (3.0-15.9) H 07/30/20 12:45 Retic Hgb Equivalent 22.2 pg (30.0-35.0) L 07/30/20 12:45 Sodium 137 mmol/L (135-145) 08/12/20 09:12 Potassium 4.6 mmol/L (3.3-5.1) 08/12/20 09:12 Chloride 101 mmol/L (96-108) 08/12/20 09:12 Carbon Dioxide 28 mmol/L (22-29) 08/12/20 09:12 Anion Gap 13 (12-20) 08/12/20 09:12 BUN 20 mg/dL (9-16) H 08/12/20 09:12 Creatinine 0.70 mg/dL (0.5-1.4) 08/12/20 09:12 Estim Creat Clear Calc 64.3 08/12/20 09:12 Estimated GFR > 60 08/12/20 09:12 Random Glucose 200 mg/dL (60-115) H D 08/12/20 09:12 Calcium 9.5 mg/dL (8.4-10.2) 08/12/20 09:12 Iron 13 mcg/dL (30-160) L 07/30/20 11:45 TIBC 194 mcg/dL (228-428) L 07/30/20 11:45 % Saturation 7 % (15-50) L 07/30/20 11:45 Unsat Iron Binding 181 ug/dL 07/30/20 11:45 Total Bilirubin 0.6 mg/dL (0.0-1.0) 08/12/20 09:12 AST 14 U/L (5-31) 08/12/20 09:12 ALT 11 U/L (0-31) 08/12/20 09:12 Alkaline Phosphatase 143 U/L (39-117) H 08/12/20 09:12 Lactate Dehydrogenase 210 U/L (122-220) 07/30/20 11:45 Total Protein 5.1 g/dL (6.5-8.0) L 08/12/20 09:12 Total Protein (PEP) 5.3 g/dL (6.1-8.1) L 07/30/20 11:45 Albumin 2.7 g/dL (3.5-5.0) L 08/12/20 09:12 Albumin (PEP) 2.0 g/dL (3.8-4.8) L 07/30/20 11:45 Lvbzm-3-Noiphptei 0.7 g/dL (0.2-0.3) H 07/30/20 11:45 Dhjot-3-Nkmgpndrg 1.3 g/dL (0.5-0.9) H 07/30/20 11:45 Egrm-8-Ezfdjuxa 0.4 g/dL (0.4-0.6) 07/30/20 11:45 Pqyn-8-Sudowpxf 0.3 g/dL (0.2-0.5) 07/30/20 11:45 Gamma Globulins 0.6 g/dL (0.8-1.7) L 07/30/20 11:45 Abnorm Protein Band 1 TNP 07/30/20 11:45 Abnorm Protein Band 2 TNP 07/30/20 11:45 Abnorm Protein Band 3 TNP 07/30/20 11:45 PEP Interpretation SEE NOTE 07/30/20 11:45 Vitamin B12 358 pg/mL (200-900) 07/30/20 11:45 Folate > 20.0 ng/mL (> or = 4.0) 07/30/20 11:45 IgG Total 675 mg/dL (600-1540) 07/30/20 11:45 IgA Total 132 mg/dL (70-320) 07/30/20 11:45 IgM 52 mg/dL (50-300) 07/30/20 11:45 MAURICIO Interpretation SEE NOTE 07/30/20 11:45 Blood Type A Positive 07/30/20 12:45 Antibody Screen NEGATIVE 07/30/20 12:45 Progress Note: A/P (1) Anemia Status: Chronic Assessment and plan: 1. This is a 80-year-old woman with microcytic anemia and extensive retroperitoneal lymphadenopathy/splenomegaly concerning for lymphoma. Left inguinal lymph node core biopsy performed on 08/05/2020 revealed atypical lymphoid aggregate suspicious for lymphoma, probable Hodgkin's lymphoma. T- cell gene receptor rearrangement was negative. PET-CT performed 08/17/2020 showed extensive lymphadenopathy along with splenomegaly and multiple FDG avid bony lesions. She has stage IV disease. Her performance status is very poor and overall prognosis for older patients with Hodgkin lymphoma is poor. Given her multiple comorbidities, she is a poor candidate for treatment with chemotherapy or even immunotherapy, brentuximab vedotin. Today I discussed diagnosis, stage and treatment. Patient has decided that she wants comfort measures only. She is willing to be on hospice care. She wishes to be DNR/DNI. MOLST form was signed today. All of daughter's questions were answered to her satisfaction. - Time Spent With Patient Time Spent with Patient (in minutes): 35 Comment: I spent 30 minutes with patient, [id number] encounter and 5 minutes reviewing her records.
--- NOTE | 2020-08-23 16:11 | MHC.HEMONCMA ---
Patient came in for a follow up today and to go over the results of the PET scan. PET scan showed that her cancer was pretty aggressive and traveled throughout most of her body. The decision was made for no intervention, but just to keep her comfortable. Clinical summary was reviewed and updated. Patient had labs and did not make a follow up. Will call us if we are needed to help.
== END | disposition home or self-care (01) ==
LOC: HO.ONC 07-30 11:15
PROVIDERS: PCP Nurse Practitioner Family; Referring Provider Nurse Practitioner Family; Visit Provider Internal Medicine
DX: C81.95 Hodgkin lymphoma, unspecified, lymph nodes of inguinal region and lower limb (principal); D64.9 Anemia, unspecified; R19.7 Diarrhea, unspecified; Z79.899 Other long term (current) drug therapy
CPT/HCPCS: 36415; 80048; 80053; 82607; 82728; 82746; 82784; 83540; 83615; 83735; 84155; 84165; 85025; 85027; 85045; 86334; 86850; 86900; 86901; 99204; 99213; 99214